=== PATIENT | male | born 1965 | race Caucasian/White ===

== ENCOUNTER → 2018-01-12 10:16 | Outpatient (REF) | payer MEDICAID, SELFPAY ==
[2018-01-12 13:44] LABS: Basophils # 0.1 K/mm3 (0-0.2); Basophils % 0.5 % (0.1-2.0); Eosinophils # 0.3 K/mm3 (0.0-0.4); Eosinophils % 3.1 % (0.1-12.0); Hematocrit 42.6 % (42.0-52.0); Hemoglobin 14.3 g/dL (14.1-18.0); Lymphocytes % 29.6 K/mm3 (10-50); Mean Corpuscular HGB Conc 33.5 g/dL (31.8-35.4); Mean Corpuscular Hemoglobin 31.1 pg (27.0-31.2); Mean Corpuscular Volume 93.1 fl (80-94); Mean Platelet Volume 9.2 fl (7.4-10.4); Monocytes # 0.8 K/mm3 (0.1-1.0); Monocytes % 7.5 % (1.7-9.3); Neutrophils % 59.2 % (37.0-80.0); Platelet Count 171 K/mm3 (142-424); Red Blood Count 4.58 M/mm3 (4.60-6.20); Red Cell Distribution Width 13.3 % (11.5-17.5); White Blood Count 10.1 K/mm3 (4.8-10.8)
[2018-01-12 13:49] LABS: Alanine Aminotransferase 55 U/L (12-78); Albumin Level 3.4 gm/dL (3.4-5.0); Albumin/Globulin Ratio 1.1 (1.1-1.8); Alkaline Phosphatase 83 U/L (46-116); Anion Gap 10.7 mEq/L (5-15); Aspartate Amino Transferase 24 U/L (15-37); Bilirubin,Total 0.2 mg/dL (0.2-1.0); Blood Urea Nitrogen 11 mg/dL (7-18); Calcium 8.6 mg/dL (8.5-10.1); Carbon Dioxide 28 mmol/L (21.0-32.0); Chloride 107 mmol/L (98-107); Chol/HDL Ratio 4.3 (1-3.5); Cholesterol 150 mg/dL (140-200); Creatinine,Serum 0.84 mg/dL (0.70-1.30); Estimated Glomerular Filt Rate 96 ml/min (>60); GFR (African American) 116 ML/MIN (>60); Globulin 3.1 gm/dl (1.3-3.2); Glucose 89 mg/dL (74-106); HDL Cholesterol 35 mg/dL (27-67); LDL Cholesterol 91 mg/dL (0-130); Potassium 4.7 mmoL/L (3.5-5.1); Sodium 141 mmol/L (136-145); T4 (Thyroxine) 8.1 ug/dl (4.7-13.3); Thyroid Stimulating Hormone 3.78 uIU/ml (0.358-3.740); Total Protein,Serum 6.5 gm/dL (6.4-8.2); Triglycerides 122 mg/dL (30-200); VLDL Cholesterol 24 mg/dL (0-40)
[2018-01-13 08:52] LABS: Vitamin D 25 Hydroxy 24.8 ng/mL (30.0-100.0)
== END ==
LOC: LAB 10:16
PROVIDERS: Visit Provider Physician Assistant
DX: R07.9 Chest pain, unspecified (principal)
CPT/HCPCS: 80053; 80061; 82652; 84436; 84443; 85025

== ENCOUNTER → 2018-01-13 08:41 | Outpatient (CLI) | payer MEDICAID, SELFPAY | PROVIDERS: Visit Provider Physician Assistant | DX: R07.9 Chest pain, unspecified (principal) ==

== ENCOUNTER → 2018-01-20 12:37 | Outpatient (CLI) | payer MEDICAID, SELFPAY ==
--- NOTE | 2018-01-20 12:42 | CA_ITS ---
PROCEDURE: 2-D M-mode and color Doppler study INDICATIONS FOR THE TEST: Chest pain+ COPD Heart Murmur+ Tobacco Smoking+ Palpitations+ Fatigue Syncope Edema+ Hypertension Diabetes Mellitus Rheumatic Fever+ SOB+MARTINEZ Obesity Hyperlipidemia Family History HD+ Additional History dizziness, hx of rheumatic fever, marijuana usage PATIENT INFORMATION HEIGHT: 72 WEIGHT:270 GENDER: Male B/P: 118/74 2-D/M-MODE INTERPRETATION: 2-D MEASUREMENTS OBSERVED VALUES IN CMS Right Ventricular Dimension (RVDd) 3.0 Interventricular Septum (Thickness)(IVsd) 1.9 Left Ventricular Internal Dimensions(LVIDd) 5.4 Left Ventricular Posterior Wall (Thickness)(LVPWd) 1.3 Aortic Root 3.3 Aortic Cusp Separation Left Atrial Dimensions (LAD) 3.9 2D 1. Left atrium is mildly enlarged, left ventricle is normal size, mild concentric left ventricular hypertrophy, visually estimated ejection fraction 55% with no regional wall motion abnormality. 2. The right atrium and right ventricle are mildly enlarged with normal contractility. 3. The aortic valve is heavily thickened and calcified with severe restriction the leaflet mobility. 4. The mitral and tricuspid valve leaflets are minimally thickened. 5. The pulmonic valve is poorly visualized. 6. No significant pericardial effusion noted. DOPPLER INTERROGATION: 1. The maximum aortic out flow velocity recorded study 4.5 m/s, resulting in a mean gradient across valve of 58 mmHg, valve area is not accurately calculated, this likely represents severe aortic stenosis, there is severe aortic insufficiency present. 2. The mitral inflow velocity within normal range, there is no mitral stenosis, there is mild mitral regurgitation, grade 1 diastolic dysfunction seen with tissue Doppler evidence of raised left atrial pressure. 3. Mild tricuspid regurgitation, tricuspid regurgitation jet velocity is inadequate for calculation of the right ventricular systolic pressure. CONCLUSION: 1. Mildly enlarged left atrium, normal left ventricular size, mild concentric left ventricular hypertrophy, visually estimated ejection fraction 55% with no regional wall motion abnormality, grade 1 diastolic dysfunction seen with tissue Doppler evidence of raised left atrial pressure. 2. Mildly enlarged right ventricle with normal contractility. 3. Thickened and calcified aortic valve with mean gradient across valve of 58 mmHg represents severe aortic stenosis, there is severe aortic insufficiency present. 4. Mild mitral and tricuspid regurgitation 5. No significant pericardial effusion not
--- NOTE | 2018-01-20 12:42 | XR_ITS ---
XR chest 2V HISTORY: ITS.REASON: Dyspnea, smoker ORDERING PHYSICIAN: MALIA Osborne PATIENT AGE: 52 years COMPARISON: None FINDINGS: The cardiomediastinal silhouette and pulmonary vascularity are within normal limits. The lungs are clear without infiltrates, suspicious nodules, or pleural effusions. No acute bony abnormalities. IMPRESSION: Negative chest, no acute finding
== END ==
PROVIDERS: PCP Physician Assistant; Visit Provider Physician Assistant
DX: R01.1 Cardiac murmur, unspecified (principal); R06.02 Shortness of breath
CPT/HCPCS: 71046; 93306

== ENCOUNTER 2018-04-28 08:35 | Outpatient (RCR) | payer MEDICAID, SELFPAY | END 2018-06-24 08:55 | disposition home or self-care (01) | LOC: PT 08:35 | PROVIDERS: Visit Provider Internal Medicine Cardiovascular Disease | DX: Z95.2 Presence of prosthetic heart valve (principal) ==

== ENCOUNTER → 2018-04-30 09:27 | Outpatient (CLI) | payer MEDICAID, SELFPAY | PROVIDERS: PCP Physician Assistant; Visit Provider Physician Assistant | DX: R06.00 Dyspnea, unspecified (principal) ==

== ENCOUNTER → 2018-08-06 13:26 | Outpatient (CLI) | payer MEDICAID, SELFPAY ==
[2018-08-06 16:53] LABS: Anion Gap 12.9 mEq/L (5-15); Blood Urea Nitrogen 12 mg/dL (7-18); Calcium 9.1 mg/dL (8.5-10.1); Carbon Dioxide 28 mmol/L (21.0-32.0); Chloride 103 mmol/L (98-107); Creatinine,Serum 1.02 mg/dL (0.70-1.30); Estimated Glomerular Filt Rate 76 ml/min (>60); GFR (African American) 92 ML/MIN (>60); Glucose 89 mg/dL (74-106); Potassium 4.9 mmoL/L (3.5-5.1); Sodium 139 mmol/L (136-145)
== END ==
PROVIDERS: Visit Provider Nurse Practitioner Family
DX: R60.9 Edema, unspecified (principal)
CPT/HCPCS: 80048

== ENCOUNTER → 2018-11-02 10:47 | Outpatient (CLI) | payer MEDICAID, SELFPAY ==
--- NOTE | 2018-11-02 10:56 | US_ITS ---
US Testicular CLINICAL INDICATION: Left testicular pain ORDERING PHYSICIAN: Kaushal Kuo MD PATIENT AGE: 53 years Comparison: None FINDINGS: Right testicle is 4.4 x 3.3 x 2.7 cm. Blood flow is present to the right testicle. The epididymis has an unremarkable appearance no evidence of right testicular mass. Left testicle 4.1 x 3 x 3 cm. Blood flow is present. There is a heterogeneous area of echogenicity along the lower pole of left testicle measuring 18 x 13 mm. This is not completely separable from the testicle itself. Although there is increased blood flow to left testicle, there is not increased blood flow to this lesion. There is a small left hydrocele. IMPRESSION: Heterogeneous exophytic nodule along the lower pole of the left testicle posteriorly 2 x 1 cm. It is uncertain whether this represents a nodule extending from the testicle or within the lower aspect of the epididymis. Neoplasm is a consideration. Focal epididymitis within the lower pole of epididymis would be included in the differential diagnosis. Follow-up is suggested. There is a small left hydrocele. Urological consult suggested
== END ==
PROVIDERS: PCP Physician Assistant; Visit Provider Emergency Medicine
DX: N50.819 Testicular pain, unspecified (principal); N50.89 Other specified disorders of the male genital organs
CPT/HCPCS: 76870

== ENCOUNTER → 2018-11-16 08:04 | Outpatient (CLI) | payer MEDICAID, SELFPAY ==
--- NOTE | 2018-11-16 08:05 | CT_ITS ---
PROCEDURE: CT ABDOMEN PELVIS WO/W CON CLINICAL INDICATION: RENAL MASS Renal mass evaluation, urinary tract infection [facility] wo con [facility] 10/30/2018 TECHNIQUE: IV Contrast: 75ML OPTIRAY 350 pre and post enhanced images are obtained with delayed images of the kidneys. Oral Contrast none Axial images obtained with sagittal and coronal reformats. All CT scans at the facility use one or more dose reduction, viz: automated exposure control, ma/kV adjustment per patient size (including targeted exams where dose is matched to indication, i.e. head), or iterative reconstruction technique. FINDINGS: No acute finding in the lung bases. The liver, gallbladder, spleen, pancreas, and adrenal glands have an unremarkable appearance. There is a 4.3 cm hypoattenuating mass in the upper pole of the right kidney. There is some minimal calcification along the mid and upper aspect of the lesion posteriorly similar to the previous exam. This does not demonstrate any significant enhancement or thickened wall. The left kidney has an unremarkable appearance. No renal or ureteral calculi. No hydronephrosis. Unremarkable appendix. There are few scattered colonic diverticula without diverticulitis. The urinary bladder wall is slightly thickened but could be due to the nondistended nature. No pelvic mass abnormal fluid collection or focal inflammatory change of the pelvis. No acute bony findings. IMPRESSION: 4 cm right renal cyst with some thin calcification without enhancement or perceptible wall indicating a Bosniak class 2 cyst. Recommend six-month follow-up to confirm stability. Dictated by: Stephen Richards MD 11/18/2018 06:22 Signed by: <Electronically signed by Stephen Richards MD in [place]> 11/18/2018 06:22
== END ==
PROVIDERS: PCP Physician Assistant; Visit Provider Urology
DX: N28.89 Other specified disorders of kidney and ureter (principal)
CPT/HCPCS: 74178; Q9967

== ENCOUNTER → 2019-09-21 14:48 | Outpatient (CLI) | payer MEDICAID, SELFPAY ==
[2019-09-21 16:05] LABS: Anion Gap 10.5 mEq/L (5-15); Blood Urea Nitrogen 9 mg/dl (9-20); Calcium 10.2 mg/dl (8.4-10.2); Carbon Dioxide 31 mmol/L (22.0-30.0); Chloride 98 mmol/L (98-107); Estimated Glomerular Filt Rate 88 ml/min (>60); GFR (African American) 106 ML/MIN (>60); Glucose 109 mg/dl (74-100); Potassium 4.5 mmoL/L (3.5-5.1); Sodium 135 mmol/L (136-145)
== END ==
PROVIDERS: Visit Provider Internal Medicine Cardiovascular Disease
DX: I35.9 Nonrheumatic aortic valve disorder, unspecified (principal)
CPT/HCPCS: 36415; 80048

== ENCOUNTER 2024-02-29 12:53 | Observation (INO) | payer OTHER, SELFPAY ==
[2024-02-29 12:54] VITALS: BP 150/84; PULSE 70; RESP 16; O2SAT 96; BMI 38.0
--- NOTE | 2024-02-29 12:55 | CT_ITS ---
PROCEDURE INFORMATION: Exam: CT Head Without Contrast Exam date and time: 02/29/2024 12:58 PM Age: 58 years old Clinical indication: Stroke-like symptoms; Speech disturbance; Additional info: Speech deficit, rue weakness TECHNIQUE: Imaging protocol: Computed tomography of the head without contrast. Radiation optimization: All CT scans at this facility use at least one of these dose optimization techniques: automated exposure control; mA and/or kV adjustment per patient size (includes targeted exams where dose is matched to clinical indication); or iterative reconstruction. Other technique: STROKE PROTOCOL was implemented. COMPARISON: No relevant prior studies available. 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 No acute intracranial hemorrhage. No intra- or extra-axial fluid collection. No mass effect or midline shift. No evidence of acute/subacute vascular territory infarct. Cerebral ventricles: No hydrocephalus. Paranasal sinuses: No air fluid levels in the visualized paranasal sinuses. Mastoid air cells: Visualized mastoid air cells are clear. Bones: No evidence of acute calvarial or skull base fracture. Soft tissues: Unremarkable. IMPRESSION: No evidence of acute intracranial hemorrhage or acute/subacute vascular territory infarct. ASSESSMENT: ASPECTS ([facility] Stroke Program Early CT Score) is 10.
--- NOTE | 2024-02-29 12:55 | CT_ITS ---
PROCEDURE INFORMATION: Exam: CTA Neck With Contrast Exam date and time: 02/29/2024 1:05 PM Age: 58 years old Clinical indication: Stroke-like symptoms; Speech disturbance; Additional info: Speech deficit, rue weakness TECHNIQUE: Imaging protocol: Computed tomographic angiography of the neck with contrast. Exam focused on the cervical segments of the vasculature. 3D rendering (Not supervised by radiologist): MIP and/or 3D reconstructed images were created by the technologist. Radiation optimization: All CT scans at this facility use at least one of these dose optimization techniques: automated exposure control; mA and/or kV adjustment per patient size (includes targeted exams where dose is matched to clinical indication); or iterative reconstruction. Contrast material: ISOVUE 370; Contrast volume: 80 ml; Contrast route: INTRAVENOUS (IV); COMPARISON: CT ANGIO HEAD 02/29/2024 1:05 PM FINDINGS: Right common carotid artery: No stenosis. No dissection or occlusion. Right internal carotid artery: No stenosis of the extracranial segment. No dissection or occlusion. Right external carotid artery: No occlusion or stenosis of the origin. Left common carotid artery: No stenosis. No dissection or occlusion. Left internal carotid artery: No stenosis of the extra-cranial segment. No dissection or occlusion. Left external carotid artery: No occlusion or stenosis of the origin. Right vertebral artery: No stenosis. No dissection or occlusion. Left vertebral artery: No stenosis. No dissection or occlusion. Soft tissues: Unremarkable. Bones/joints: Multi-level degenerative changes in the cervical spine result in varying degrees of spinal canal stenosis and neuroforaminal narrowing, most prominent from C5-C7. Notably there is severe bilateral neuroforaminal narrowing at C5-C6 secondary to degenerative uncovertebral and facet hypertrophy, right greater than left. No evidence of acute osseous abnormality. IMPRESSION: 1. No evidence of occlusion, significant stenosis, dissection or aneurysm in the extracranial cerebral arteries. 2. Multi-level degenerative changes in the cervical spine result in varying degrees of spinal canal stenosis and neuroforaminal narrowing, as detailed above. 3. Concurrent head CTA reported separately. REFERENCES: NASCET CRITERIA. The degree of stenosis in the cervical segment of the internal carotid artery is based on NASCET criteria. Normal is no stenosis. Mild is less than 50% stenosis. Moderate is 50-69% stenosis. Severe is 70% to 99% stenosis. Total occlusion is no detectable patent lumen.
--- NOTE | 2024-02-29 12:55 | CT_ITS ---
PROCEDURE INFORMATION: Exam: CTA Head With Contrast, Arteriography Exam date and time: 02/29/2024 1:05 PM Age: 58 years old Clinical indication: Stroke-like symptoms; Speech disturbance; Additional info: Speech deficit, rue weakness TECHNIQUE: Imaging protocol: Computed tomographic angiography of the head with contrast. Exam focused on the arteries. 3D rendering (Not supervised by radiologist): MIP and/or 3D reconstructed images were created by the technologist. Radiation optimization: All CT scans at this facility use at least one of these dose optimization techniques: automated exposure control; mA and/or kV adjustment per patient size (includes targeted exams where dose is matched to clinical indication); or iterative reconstruction. Contrast material: ISOVUE 370; Contrast volume: 80 ml; Contrast route: INTRAVENOUS (IV); COMPARISON: CT HEAD/BRAIN WO CON 02/29/2024 12:58 PM FINDINGS: ANTERIOR CIRCULATION: Right internal carotid artery: Intracranial segment is patent with no significant stenosis. No aneurysm. Right middle cerebral artery: No occlusion or significant stenosis. No aneurysm. Right anterior cerebral artery: No occlusion or significant stenosis. No aneurysm. Left internal carotid artery: Intracranial segment is patent with no significant stenosis. No aneurysm. Left middle cerebral artery: No occlusion or significant stenosis. No aneurysm. Left anterior cerebral artery: No occlusion or significant stenosis. No aneurysm. POSTERIOR CIRCULATION: Right vertebral artery: No occlusion or significant stenosis. No aneurysm. Left vertebral artery: No occlusion or significant stenosis. No aneurysm. Basilar artery: No occlusion or significant stenosis. No aneurysm. Right posterior cerebral artery: No occlusion or significant stenosis. No aneurysm. Left posterior cerebral artery: No occlusion or significant stenosis. No aneurysm. Brain: No abnormally enhancing brain lesion, mass effect, or midline shift. Cerebral ventricles: No hydrocephalus. Bones/joints: No acute calvarial or skull base fracture. Soft tissues: Unremarkable. IMPRESSION: 1. No evidence of occlusion, significant stenosis, dissection or aneurysm in the intracranial cerebral arteries. 2. Concurrent neck CTA reported separately. PROCEDURE INFORMATION: Exam: CT Maxillofacial With Contrast Exam date and time: 02/29/2024 1:05 PM Age: 58 years old Clinical indication: Stroke-like symptoms; Speech disturbance; Additional info: Speech deficit, rue weakness TECHNIQUE: Imaging protocol: Computed tomography of the face with contrast. Radiation optimization: All CT scans at this facility use at least one of these dose optimization techniques: automated exposure control; mA and/or kV adjustment per patient size (includes targeted exams where dose is matched to clinical indication); or iterative reconstruction. COMPARISON: CT HEAD/BRAIN WO CON 02/29/2024 12:58 PM FINDINGS: Paranasal sinuses: No air-fluid levels. Orbital cavities: Globes and orbital structures are unremarkable. No evidence of retrobulbar hematoma. Teeth: Left maxillary premolar and right mandibular premolar periapical lucencies consistent with odontogenic abscesses. Both periapical abscesses have evidence of osteolysis and erosion of the overlying bony cortex without evidence of extraosseous extension of abscess. Bones: No evidence of acute fracture. Bilateral temporomandibular joints are congruent. Pterygoid plates and lamina papyracea are intact. Soft tissues: Unremarkable. IMPRESSION: Left maxillary premolar periapical lucency and right mandibular premolar periapical lucency consistent with odontogenic abscesses.
--- NOTE | 2024-02-29 12:55 | PC.NURSE ---
Patient to CT.
--- NOTE | 2024-02-29 12:59 | PC.NURSE ---
Dr. Moore to Radiology CT viewing area.
[2024-02-29 13:04] LABS: Basophils # 0.2 K/mm3 (0-0.2); Basophils % 1.5 % (0.1-2.0); Eosinophils # 0.2 K/mm3 (0.0-0.4); Eosinophils % 2.1 % (0.1-12.0); Hematocrit 48.3 % (42.0-52.0); Hemoglobin 16.6 g/dL (14.1-18.0); Lymphocytes # 2.8 K/mm3 (0.7-4.5); Lymphocytes % 25.6 % (10-50); Mean Corpuscular HGB Conc 34.4 g/dL (31.8-35.4); Mean Corpuscular Hemoglobin 32.4 pg (27.0-31.2); Mean Corpuscular Volume 94.1 fl (80-94); Mean Platelet Volume 10.7 fl (7.4-10.4); Monocytes # 0.7 K/mm3 (0.1-1.0); Monocytes % 6.4 % (1.7-9.3); Neutrophils # 6.9 K/mm3 (1.8-7.8); Neutrophils % 64.4 % (37.0-80.0); Platelet Count 169 K/mm3 (142-424); Red Blood Count 5.13 M/mm3 (4.60-6.20); Red Cell Distribution Width 13.9 % (11.5-17.5); White Blood Count 10.8 K/mm3 (4.8-10.8)
[2024-02-29] MEDS: IOPAMIDOL-370 (76%);100ML BOTTLE 80 ML IV (13:08)
--- NOTE | 2024-02-29 13:16 | ECG_ITS ---
APPROVED REPORT Exam: Resting ECG HR:67 bpm ECG Measurements Heart Rate 67 AXES AZ 168 P 47 QRSd 114 QRS 38 QT 386 T 141 QTc 401 Conclusion Sinus rhythm T wave inversions without reciprocal change Electronically signed by : JOSEFINA RIOS, 02/29/2024 15:24:25
--- NOTE | 2024-02-29 13:25 | PC.NURSE ---
Dr. Moore s/w [facility] regarding transfer
--- NOTE | 2024-02-29 13:26 | PC.NURSE ---
Dr. Moore s/w [facility]
[2024-02-29 13:31] LABS: Albumin Level 3.4 g/dl (3.5-5.0); Chloride 105 mmol/L (98-107); Potassium 4.3 mmoL/L (3.5-5.1); Sodium 135 mmol/L (136-145)
[2024-02-29 13:33] LABS: Alanine Aminotransferase 29 U/L (12-78); Anion Gap 6.3 mEq/L (5-15); Aspartate Amino Transferase 33 U/L (17-59); Blood Urea Nitrogen 10 mg/dl (9-20); Carbon Dioxide 28 mmol/L (22.0-30.0); Creatinine Clearance Estimated 145 mL/min (50-200); Estimated Glomerular Filt Rate 77 ml/min (>60); GFR (African American) 93 ML/MIN (>60)
[2024-02-29 13:34] LABS: Albumin/Globulin Ratio 1.3 (1.1-1.8); Globulin 2.7 g/dL (1.3-3.2); Total Protein,Serum 6.1 g/dl (6.3-8.2)
[2024-02-29 13:35] LABS: Activated Partial Thrombo Time 24.6 seconds (22.8-30.6); INR 0.96 (0.9-1.1); Prothrombin Time 10.8 seconds (10.1-12.5)
[2024-02-29 13:45] LABS: Direct LDL Cholesterol 87.75 mg/dL (100-129)
--- NOTE | 2024-02-29 13:56 | ED_ITS ---
Discharge Plan Disposition Patient Disposition: Admitted Chief Complaint: Neuro Symptoms/Deficit Prescriptions Prescriptions: No Action aspirin [Adult Low Dose Aspirin] 81 mg tablet,delayed release (DR/EC) 81 mg PO DAILY metoprolol succinate 50 mg tablet extended release 24 hr 50 mg PO DAILY acetaminophen-codeine [Tylenol-Codeine #3] 300-30 mg tablet 1 tab PO DAILY PRN ergocalciferol (vitamin D2) 50,000 UNIT capsule 50,000 unit PO QWEEK levofloxacin 500 MG tablet 500 mg PO DAILY Qty: 7 0RF Clinical Impressions Clinical Impression: Transient neurological symptoms Print Language Print Language: Sammarinese Discharge ED Provider: Akira Moore General Adult HPI General Chief complaint: Neuro Symptoms/Deficit Stated complaint: Poss CVA Time Seen by Provider: 02/29/24 12:55 Mode of Arrival: EMS Source of Information: Patient Limitations: No Limitations Description of Symptoms (Recalled from ER Triage Doc. by RN): Patient reports being at [facility] at approx 945 this morning when he began to have difficulty talking, numbness and weakness in his right hand and felt funny. History of Present Illness HPI narrative: Please note that above description of symptoms, in this electronic medical record under categorization of recalled from ER triage doctor by RN are reflective of an initial nursing assessment, however, is not reflective of my full history and physical exam that was personally taken and clarified. Consequentially, this preceding description of symptoms, which may include the patient's categorized chief complaint in the EMR, do not reflect my personal clinical impression, and the ultimate description of history of present illness and patient stated complaints should be deferred to this section of the note. Unless stated otherwise or congruent with this section of the note, additional signs, symptoms, or incongruence should be interpreted as inaccurate with my clinical impression. Related Data Home Medications ?Medication ?Instructions ?Recorded ?Confirmed aspirin 81 mg tablet,delayed 81 mg PO DAILY heart health 08/06/18 11/19/18 release (Adult Low Dose Aspirin) metoprolol succinate 50 mg 50 mg PO DAILY BP 08/06/18 11/19/18 tablet,extended release 24 hr ergocalciferol (vitamin D2) 1,250 50,000 unit PO QWEEK Supplement 10/30/18 11/19/18 mcg (50,000 unit) capsule acetaminophen 300 mg-codeine 30 mg 1 tab PO DAILY PRN 11/02/18 11/19/18 tablet (Tylenol-Codeine #3) Previous Rx's ?Medication ?Instructions ?Recorded levofloxacin 500 mg tablet 500 mg PO DAILY #7 tabs 10/30/18 Allergies Allergy/AdvReac Type Severity Reaction Status Date / Time penicillin G Allergy Mild Hives Verified 11/19/18 10:44 [facility] Disclaimer: The information contained in this section may have been updated after the patient was seen, as this information can be updated by other users. Medical History (Updated 02/29/24 @ 15:22 by Akira Moore MD) Vitamin D deficiency Surgical History (Updated 04/21/18 @ 12:49 by MALIA Camarena) H/O aortic valve replacement Social History Smoking Status: Current every day smoker tobacco type: cigarettes packs per day: 1 alcohol intake: never substance use type: marijuana current occupational status: employed Other Medical History Have you received the Flu Vaccine for this season: Yes Have you received the Pneumonia Vaccine: No ROS Obtained: Yes All systems reviewed & no additional complaints except as documented Physical Exam General General appearance: alert and obese Head Head exam: atraumatic and normocephalic Eye Eye exam: Present normal appearance, PERRL and EOMI Neck Neck exam: Present normal inspection, full ROM and trachea midline Respiratory Respiratory exam: Absent respiratory distress, wheezes, stridor, accessory muscle use or prolonged expiratory phase Cardiovascular Cardiovascular exam: Present other (Pulses equal symmetric in upper and lower extremities) Abdominal Exam Abdominal exam: Present soft; Absent distention, tenderness or pulsatile mass Extremities Exam Extremities exam: Absent edema Neurological Exam Neurological exam: Present alert, oriented X3, CN II-XII intact and normal gait; Absent motor sensory deficit Skin Skin exam: Present warm and dry; Absent diaphoresis or erythema Medical Decision Making Medical Records Medical records reviewed: Yes I reviewed the patient's medical records. Screening: Per USPSTF and CDC recommendations, given the prevalence of disease in our region, it is our hospital?s policy to screen for HIV and viral Hepatitis for all patients aged 18 and over and those with ongoing risk factors. [place] Inquiry Pt receiving controlled substance: No Bou[place]ar was queried for this patient: No Vital Signs: 02/29/24 12:54 Pulse Rate [Radial] 70 Respiratory Rate 16 Blood Pressure [Right Arm] 150/84 H Blood Pressure Mean [Right Arm] 106 Blood Pressure Source [Right Arm] Manual Cuff/ Auscultation Blood Pressure Position [Right Arm] Supine 02 Sat by Pulse Oximetry 96 Oxygen Delivery Method Room Air Lab Data Lab Results 02/29/24 12:55: WBC 10.8, RBC 5.13, Hgb 16.6, Hct 48.3, MCV 94.1 H, MCH 32.4 H, MCHC 34.4, RDW 13.9, Plt Count 169, MPV 10.7 H, Neut % (Auto) 64.4, Lymph % (Auto) 25.6, Garden % (Auto) 6.4, Eos % (Auto) 2.1, Baso % (Auto) 1.5, Neut # (Auto) 6.9, Lymph # (Auto) 2.8, Garden # (Auto) 0.7, Eos # (Auto) 0.2, Baso # (Auto) 0.2 02/29/24 13:12: HIV 1&2 Antibody Rapid Nonreactive 02/29/24 13:14: PT 10.8, INR 0.96, APTT 24.6, Sodium 135 L, Potassium 4.3, Chloride 105, Carbon Dioxide 28, Anion Gap 6.3, BUN 10, Creatinine 1.00, Estimated Creat Clear 145, Estimated GFR 77, Est GFR ( Amer) 93, Glucose 106 H, Hemoglobin A1c 5.7, Calcium 8.6, Total Bilirubin 0.5, AST 33, ALT 29, Alkaline Phosphatase 67, Troponin I < 0.01, Total Protein 6.1 L, Albumin 3.4 L, Globulin 2.7, Albumin/Globulin Ratio 1.3, Triglycerides 91, Cholesterol 131 L, L DL Cholesterol Direct 87.75 L, VLDL Cholesterol 18, HDL Cholesterol 28 L, C holesterol/HDL Ratio 4.7 H, Plasma/Serum Alcohol < 10 02/29/24 12:55 02/29/24 13:14 Orders (Tests/Meds): ED MEDICATIONS Generic Name Dose Route Start Last Admin Trade Name Freq PRN Reason Stop Dose Admin Sodium Chloride 10 ml 02/29/24 12:55 Sodium Chloride 0.9% 10ml Flush Syringe IV 03/30/24 12:54 NEEDED PRN Maintain IV Site Discontinued Medications Generic Name Dose Route Start Last Admin Trade Name Freq PRN Reason Stop Dose Admin Iopamidol 80 ml 02/29/24 13:06 02/29/24 13:08 Iopamidol-370 (76%);100ml Bottle IV 02/29/24 13:07 80 ml ONCE ONE Administration Sodium Chloride 10 ml 02/29/24 13:06 02/29/24 15:09 Sodium Chloride 0.9% 10ml Syr (Rad Only) IV 02/29/24 13:07 Not Given ONCE ONE ORDERS Category Date Time Status CT angio head Stat Cat Scan 02/29/24 12:[address] angio neck Stat Cat Scan 02/29/24 12:[address] head/brain wo con Stat Cat Scan 02/29/24 12:55 Completed Activated Partial Thrombo Time Stat Lab 02/29/24 13:14 Completed Complete Blood Count Auto Diff AMLAB Lab 03/01/24 06:00 Ordered Complete Blood Count Auto Diff Stat Lab 02/29/24 12:55 Completed Comprehensive Metabolic Panel AMLAB Lab 03/01/24 06:00 Ordered Comprehensive Metabolic Panel Stat Lab 02/29/24 13:14 Completed Ethyl Alcohol Stat Lab 02/29/24 13:14 Completed HIV (1&2) Antibody Rapid Stat Lab 02/29/24 13:12 Completed Hemoglobin A1C Stat Lab 02/29/24 13:14 Completed Hep C Ab with Reflex to RNA Stat Lab 02/29/24 13:12 Received Lipid Panel Stat Lab 02/29/24 13:14 Completed Magnesium AMLAB Lab 03/01/24 06:00 Ordered Prothrombin Time INR Stat Lab 02/29/24 13:14 Completed Troponin I Q3H Lab 02/29/24 16:00 Ordered Troponin I Q3H Lab 02/29/24 19:00 Ordered Troponin I Stat Lab 02/29/24 13:14 Completed Urinalysis and Microscopic Stat Lab 02/29/24 14:39 Received Medical Decision Narrative: 58-year-old male history of aortic valve replacement secondary to rheumatic fever presenting with strokelike symptoms. [facility] this morning about 3 hours prior to this visit. Got to the checkout line, was unable to say the things that he wanted to say, felt frustrated that he was unable to get any of his words out and felt that his right upper extremity did not exactly feel right. Got home shortly thereafter, was trying to bring groceries in, realizes his right upper extremity was weak and he had near no embroiderer hand strength in his right hand. Because of this, called EMS and was brought in for further evaluation. By the time EMS arrived, both EMS and patient states that his symptoms had largely resolved. No right lower extremity symptoms. No balance symptoms or falling to 1 side or the other. No chest pain, shortness of breath, vision changes, or any other concerns. History obtained with patient and EMS. On arrival, patient very well-appearing. NIHSS 0 on my exam. Cardiac exam with right upper sternal border murmur radiating to the carotids. No diastolic murmur heard. No lower extremity pitting edema. Neurologically intact including cranial nerve, cerebellar, motor and sensory exams. Ambulated from stretcher to bed without issue. Patient taken directly to the CT scanner. On independent interpretation of CT, patient has no acute intracranial hemorrhage or intracranial abnormality acutely, but does have multiple punctate calcifications concerning for previous infectious process. CT angiogram of the head and neck independently interpreted and no acute stenosis or CVA. Patient placed on continuous pulse oximetry and cardiac nurse practitioner. Initial blood pressure 150/84, pulse rate 70, 96% on room air. EKG independently interpreted, patient does have T wave inversions without ST elevations or depressions in V4 through V6, 1 and aVL. Sinus rhythm 67 beats a minute with OH interval 168, QRS 114, QTc 401. Normal axis. Labs independently interpreted and significant for nonactionable CBC, chemistry, troponin, A1c, or lipid panel. Alcohol level negative. Given resolved symptoms, abnormal findings on CT, I feel patient is appropriate for inpatient admission, echo and MRI. Hospitalist was contacted and case was discussed, agreeable to admission. Because patient high risk for clinical decompensation, deemed appropriate for inpatient admission. Results were relayed to patient who voiced understanding and patient was agreeable to inpatient admission and management. Patient was admitted to the hospital for further definitive management.. Grief Counsellor disclaimer Much of this encounter note is an electronic gyro compass tester spoken language to printed text. Electronic gyro compass tester of the spoken language may permit errors. Although I have reviewed the note, some errors may still exist. Critical Care Critical Care Time Critical Care Time: No
[2024-02-29 14:30] LABS: Hemoglobin A1C 5.7 % (4.0-6.0); Troponin I < 0.01 ng/ml (0.00-0.034)
[2024-02-29 14:33] LABS: Alkaline Phosphatase 67 U/L (38-126); Bilirubin,Total 0.5 mg/dl (0.2-1.3); Calcium 8.6 mg/dl (8.4-10.2); Chol/HDL Ratio 4.7 (1-3.5); Cholesterol 131 mg/dl (140-200); Glucose 106 mg/dl (74-100); HDL Cholesterol 28 mg/dl (40-60); Triglycerides 91 mg/dl (30-150); VLDL Cholesterol 18 mg/dL (0-40)
[2024-02-29 14:39] LABS: Ethyl Alcohol < 10 mg/dl (0-10)
[2024-02-29 14:45] LABS: Microscopic, Urine URINE MICROSCOPIC (MICROSCOPIC)
[2024-02-29 14:46] LABS: Appearance,Urine CLEAR (Clear); Bilirubin,Urine Negative (Negative); Blood, Urine TRACE-I (Negative); Color,Urine YELLOW (Yellow); Glucose,Urine (UA) Negative (Negative); Ketones,Urine Negative (Negative); Leukocyte Esterase,Urine Negative (Negative); Nitrate,Urine Negative (Negative); PH,Urine 7.5 (5.0-8.5); Protein,Urine Negative (Negative); Specific Gravity, Urine 1.015 (1.005-1.030)
[2024-02-29 15:07] LABS: HIV (1&2) Antibody Rapid NONREACTIVE (NONREACTIVE)
--- NOTE | 2024-02-29 15:08 | PC.NURSE ---
Dr. Moore s/w Dr. Rg
--- NOTE | 2024-02-29 15:23 | P.HP_ITS ---
History of Present Illness *Admission Date: 02/29/24 *Reason for visit:: aphasia, RUE weakness *History of present illness: Mr. Rojas is a 58-year-old male with history of hypertension and rheumatic fever necessitating aortic valve replacement. Presented to the ER this morning via EMS after having an episode at [facility] where he felt weak and had difficulty completing his checkout. Concern for word finding difficulty and became frustrated. Able to complete his checkout order but did not quite feel back to normal. Got home shortly thereafter and was trying to bring his groceries and when he noticed he had nearly no superintendent power in his right hand. EMS was called. On arrival, the symptoms had largely resolved. No right lower extremity symptoms. Patient did not have any fall or loss of consciousness. Denies any chest pain or shortness of breath. Brought to the ER for further management. On arrival, NIH of 0. CT of head obtained showing punctate cerebral calcifications. No acute findings however. Necessitating admission for evaluation for TIA. Medicine consulted for further management. On arrival to the floor, patient is alert and oriented x 4. Marginal weakness in right hand compared to left but superintendent power strength still 5/5 bilaterally. Stable on room air. No other significant complaints. [facility] Disclaimer: The information contained in this section may have been updated after the patient was seen, as this information can be updated by other users. Medical History Vitamin D deficiency Surgical History H/O aortic valve replacement Social History Smoking Status: Current every day smoker tobacco type: cigarettes packs per day: 1 alcohol intake: never substance use type: marijuana current occupational status: employed Other Medical History Have you received the Flu Vaccine for this season: Yes Have you received the Pneumonia Vaccine: No Review of Systems Review of Systems Review of systems (narrative): 14 point review of systems performed, pertinent positives and negatives as per HPI Meds Home Medications and Allergies Home Medications ?Medication ?Instructions ?Recorded ?Confirmed ?Type aspirin 81 mg tablet,delayed 81 mg PO DAILY heart health 08/06/18 02/29/24 History release (Adult Low Dose Aspirin) metoprolol succinate 50 mg 50 mg PO DAILY BP 08/06/18 02/29/24 History tablet,extended release 24 hr New Prescriptions to Start Prescriptions: Allergies Allergy/AdvReac Type Severity Reaction Status Date / Time penicillin G Allergy Mild Hives Verified 11/19/18 10:44 Exam Data for Last 24 hours Vital signs and Labs for Last 24 Hours: Pulse Resp BP Pulse Ox O2 Del Method 70 16 150/84 H 96 Room Air 02/29/24 12:54 02/29/24 12:54 02/29/24 12:54 02/29/24 12:54 02/29/24 12:54 Laboratory Results - last 24 hr 02/29/24 12:55: WBC 10.8, RBC 5.13, Hgb 16.6, Hct 48.3, MCV 94.1 H, MCH 32.4 H, MCHC 34.4, RDW 13.9, Plt Count 169, MPV 10.7 H, Neut % (Auto) 64.4, Lymph % (Auto) 25.6, Bucks % (Auto) 6.4, Eos % (Auto) 2.1, Baso % (Auto) 1.5, Neut # (Auto) 6.9, Lymph # (Auto) 2.8, Bucks # (Auto) 0.7, Eos # (Auto) 0.2, Baso # (Auto) 0.2 02/29/24 13:12: HIV 1&2 Antibody Rapid Nonreactive 02/29/24 13:14: PT 10.8, INR 0.96, APTT 24.6, Sodium 135 L, Potassium 4.3, Chloride 105, Carbon Dioxide 28, Anion Gap 6.3, BUN 10, Creatinine 1.00, Estimated Creat Clear 145, Estimated GFR 77, Est GFR ( Amer) 93, Glucose 106 H, Hemoglobin A1c 5.7, Calcium 8.6, Total Bilirubin 0.5, AST 33, ALT 29, Alkaline Phosphatase 67, Troponin I < 0.01, Total Protein 6.1 L, Albumin 3.4 L, Globulin 2.7, Albumin/Globulin Ratio 1.3, Triglycerides 91, Cholesterol 131 L, LDL Cholesterol Direct 87.75 L, VLDL Cholesterol 18, HDL Cholesterol 28 L, Cholesterol/HDL Ratio 4.7 H, Plasma/Serum Alcohol < 10 I & O for Last 24 hours: Intake & Output 02/26/24 02/27/24 02/28/2402/28/24 23:59 23:59 23:59 23:59 Weight 127.006 kg Constitutional Constitutional: no acute distress, obese and cooperative *Routine HEENT Exam Head: Present normocephalic Eye: Present EOMI and PERRL ENT: Present mucous membranes moist *Routine Neck Exam Neck: Present supple; Absent lymphadenopathy *Routine Respiratory Exam Respiratory: Present CTA bilaterally; Absent rhonchi, wheezes or crackles *Routine Cardiovascular Exam Cardiovascular: Present RRR *Routine Abdominal Exam Abdominal: Present soft and normoactive bowel sounds; Absent tenderness *Routine Rectal Exam Rectal:: deferred *Routine Genitalia Exam Genitalia:: deferred *Routine Extremities Exam Extremities: Absent cyanosis, clubbing or edema *Routine Skin Exam Skin: Present warm; Absent rash *Routine Neurological Exam Neurological: Present alert, oriented X3 and moving all extremities; Absent altered mental status Comments: Marginal weakness difference in right hand, strength still essentially 5 out of 5 in both extremities but there is slight difference between right and left side. Assessment and Plan *Assessment and plan (1) Transient neurological symptoms: Status: Acute Category: Medical Code(s): R29.818 - Other symptoms and signs involving the nervous system (2) Class 2 obesity: Status: Acute Category: Medical Code(s): E66.812 - Obesity, class 2 (3) HTN (hypertension): Status: Chronic Qualifiers: Hypertension type: primary hypertension Qualified Code(s): I10 - Essential (primary) hypertension Category: Medical Code(s): I10 - Essential (primary) hypertension (4) Cerebral calcification: Status: Acute Category: Medical Code(s): G93.89 - Other specified disorders of brain Plan 58-year-old male who had episode of aphasia and right upper extremity weakness while at [facility] earlier today. On presentation to the ER, symptoms improving and CT with no acute findings. Case discussed with ER physician, request admission for further management and monitoring given concern for TIA. I agreed to admit. Will obtain MRI and echo in the morning. Problems addressed as follows: TIA -Patient had right upper extremity weakness and aphasia. Aphasia resolved. Marginal weakness in right hand on evaluation -Per my review of CT, no ischemic findings. Does of note have approximately 8 punctate calcifications of unknown significance -No history of travel outside the [place]. No history of eating undercooked pork that he is aware of. Will add RPR to evaluate for syphilis. -MRI pending for the morning. Echo pending to evaluate heart function and for valvular vegetations. -Administer aspirin 325 mg once -Continue aspirin 81 mg daily and Plavix 75 mg daily for 21 days History of rheumatic fever with aortic valve replacement -Not on any anticoagulation. Denies any symptoms of chest pain or fatigue. Hypertension: On metoprolol succinate 50 mg daily. Will consider adding ARB if remains hypertensive Obesity complicates all aspects of his care Full code Aspirin daily Regular diet
--- NOTE | 2024-02-29 15:26 | PC.NURSE ---
House notified of admission
--- OUTSIDE RECORDS SUMMARY | 2024-02-29 15:31 | XMS_ITS | Encounter Summary ---
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 Heart valve disease AVD (aortic valve disease) Procedures Adult Transthoracic Echo Complete W/ Cont if Necessary Per Protocol Kaushal Singleton MD [address] [place] [address] Phone: tel: fax: [address] [phone] Phone: tel: Referral ID Status Reason Start Date Expiration Date V isits Requested Visits Authorized [id number] Pending Review 09/05/2023 09/04/2024 1 1 Encounter Details Date Type Department Care Team (Late st Contact Info) Description 09/05/2023 Telephone [facility] [address] [place] [address] Kaushal Singleton MD [address] [place] [address] Social History Tobacco Use Types Packs/Day Years Used Date Smoking Tobacco: Former Cigarettes 989 - 2018 Smokeless Tobacco: Never Comments:Pt reports 30+ year smoking history -cutting back Alcohol Use Standard Drinks/Week Comments No 0 (1 standard drink = 0.6 oz pur e alcohol) Abuse Screen Answer Date Recorded Unsafe at Home or Work/School Not on file Feels Threatened by Someone? Not on file 02/2023 Does Anyone Keep You from Co ntacting Others or Doint Things Outside the Home? Not on file 01/09/2023 Physical Sign of Abuse Present Not on file 1 Housing Stability Answer Date Recorded Current Living Arrangements Not on file 12/29 Potentially Unsafe Housing Conditions Not on patsy e 01/09/2023 Family and Community Support Answer Zackary e Recorded Help with Day-to-Day Activities Not on file 01/09/2023 Lonely or Isolated Not on file 01/09/2023 Employment Answer Date Recorded Do you want help finding or keeping work or a anna b? Not on file 01/09/2023 Disabilities Answer Date Recorded Concentrating, Remembering, or Making Decisions Difficulty Not on file 01/09/2023 Doing Errands Independently Difficulty Not on fi le 01/09/2023 Education Answer Date Recorded Help with school or training? 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 Recommendations given per Dr. Singleton's note. Patient verbalized understanding. ----- Message from Kaushal Singleton sent at 09/05/2023 1:50 PM EDT ----- Please let the patient know his echo showed a aortic valve replacement that is working within acceptable limits, but does have higher velocities (more pressure) when compared to the 2019 study. Typical risk factor modifications including a heart healthy diet, improved cardiac fitness, and routine labs. Will plan to repeat an echo in 2025. Okay to go ahead and order it. Would recommend it be done in 07/2024 in advance of his 08/2024 follow-up appointment. ----- Message ----- From: Kaushal Singleton MD Sent: 09/05/2023 1:50 PM EDT To: Kaushal Singleton MD documented in this encounter Plan of Treatment Upcoming Encounters Date Type Department Care Team (Late st Contact Info) Description 09/01/2024 1:30 PM EDT Office Visit [facility] [address] [facility] [address] [place] [address] Kaushal Singleton MD [address] [facility] [address] [place] [address] Scheduled Orders Name Type Priority Associated Diagnoses Order Schedule Adult Transthoracic Echo Complete W/ Cont if Necessary Per Protocol Echocardiography Routine 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 Valvular disease 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 04/07/18 Expected: 09/12/2023 (Approximate), Expires: 09/04/2024 documented as of this encounter Visit Diagnoses Diagnosis Rheumatic aortic stenosis- Primary Rheumatic aortic valve insufficiency Valvular disease Endocarditis, valve unspecified, unspecified cause 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 04/07/18 Aortic valve disorders documented in this encounter Care Teams Celebrity Chef Entrepreneur Media Personality Relationship Specialty Start Date End Date Provider, [place] [address] PCP - General 08/27/23 documented as of this encounter
--- OUTSIDE RECORDS SUMMARY | 2024-02-29 15:31 | XMS_ITS | Encounter Summary ---
[facility] Address [address] [place] [address] Care Team Providers Care Senior Logistics Manager Name Role Phone Provider, No Known Primary Care Provider Unavail able Reason for Referral * Diagnostic Imaging (Routine) - Closed Specialty Diagnoses / Procedures Referred By Contac t Referred To Contact Diagnoses Bilateral carotid bruits Procedures Duplex Carotid Ultrasound CAR Kaushal Singleton MD [address] [place] [address] Phone: tel: fax: [address] [address] Phone: tel: Referral ID Status Reason Start Date Expiration Date Visits Re quested Visits Authorized [id number] Closed 08/27/2023 08/26/2024 1 1 * Diagnostic Imaging (Routine) - Closed Specialty Diagnoses / Procedures Referred By Contac t Referred To Contact Diagnoses Heart valve disease Procedures Adult Transthoracic Echo Complete W/ Cont if Necessary Per Protocol Kaushal Singleton MD [address] [place] [id number] Phone: tel: fax: [address] [phone] Phone: tel: Referral ID Status Reason Start Date Expiration Date Visits Re quested Visits Authorized [id number] Closed 08/27/2023 10/26/2023 1 1 Reason for Visit * Reason Comments Rheumatic aortic stenosis 1 year Encounter Details Date Type Department Care Team (Late st Contact Info) Description 08/27/2023 1:45 PM EDT Office Visit [facility] [address] [place] [address] Kaushal Singleton MD [address] [place] [id number] 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 04/07/18 (Primary Dx); Paroxysmal atrial fibrillation; Valvular disease; Bilateral carotid bruits Social History Tobacco Use Types Packs/Day Years Used Date Smoking Tobacco: Former Cigarettes 2018 Smokeless Tobacco: Never Tobacco Cessation:Counseling Given: Not Answered Comments:Pt reports 30+ year smoking history -cutting [...] on file documented as of this encounter Last Filed Vital Signs Vital Sign Reading Time Taken Comments Blood Pressure 124/88 08/27/2023 1:39 PM EDT Pulse 78 08/27/2023 1:39 PM EDT Temperature - - Respiratory Rate - - Oxygen Saturation 97% 08/27/2023 1:39 PM EDT Inhaled Oxygen Concentration - - Weight 130 kg (287 lb) 08/27/2023 1:39 PM EDT Height 182.9 cm (6') 08/27/2023 1:39 PM EDT Body Mass Index 38.92 08/27/2023 1:39 PM EDT documented in this encounter Progress Notes * Kaushal Singleton MD - 08/27/2023 1:45 PM EDTAssociated Order(s): ECG 12 Lead Post-Procedure Diagnose(s): Paroxysmal atrial fibrillation Images from the original note were not included. [facility] AT [address], [address] [place], [address] [email or web address] FOLLOW UP NOTE Patient Care Team: Patient Care Team: Provider, No Known as PCP - General Subjective: Chief Complaint Patient presents with Rheumatic aortic stenosis 1 year HPI: Carlos Manuel Rojas II is a 58 y.o. male. 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 Fib S/p surgical left atrial appendage closure Longstanding history of PVCs Preceded aortic valve surgery Former tobacco dependence Today he presents for follow-up. He has been doing well from a cardiac standpoint since last visit. Is active without cardiopulmonary symptoms. Review of Systems: As noted in HPI. 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 Take 40 mg oral daily for5 days, then 20 mg oral daily there after. (Patient taking differently: Take 1 tablet by mouth As Needed.), Disp: 35 tablet, Rfl: 11 metoprolol succinate XL (TOPROL-XL) 25 MG 24 hr tablet, Take 1 tablet by mouth Daily., Disp: 90 tablet, Rfl: 3 Multiple Vitamin (MULTI VITAMIN DAILY PO), Take by mouth Daily., Disp: , Rfl: No current facility-administered medications for this visit. Facility-Administered Medications Ordered in Other Visits: Chlorhexidine Gluconate Cloth 2 % pads 1 application, 1 application , Topical, Q12H PRN, Miguel Malin PA Allergies Allergen Reactions Penicillins Hives reports that he quit smoking about 5 years ago. His smoking use included cigarettes. He started smoking about 35 years ago. He has a 30 pack-year smoking history. He has never used smokeless tobacco. Family History Problem Relation Age of Onset Cancer Mother Heart disease Father Heart failure Father Objective: Physical exam: Blood pressure 124/88, pulse 78, height 182.9 cm (72 ), weight 130 kg (287 lb), SpO2 97%. CONSTITUTIONAL: No acute distress, normal affect CARDIOVASCULAR: Carotids with normal upstrokes without bruits. Regular rate and rhythm with normal S1 and S2. Soft RUSB ROXANN with radiation to the carotids, right > left. PERIPHERAL VASCULAR: Normal radial pulse. Labs: Lab Results Component Value Date CHOL 140 03/03/2018 Lab Results Component Value Date TRIG 63 03/03/2018 Lab Results Component Value Date HDL 34 (L) 03/03/2018 Lab Results Component Value Date LDL 99 03/03/2018 No components found for: LDLDIRECTC 07/2018 outside facility labs: Potassium 4.9, creatinine 1.0 Diagnostic Data: ECG 12 Lead Date/Time: 08/27/2023 2:17 PM Performed by: Kaushal Singleton MD Authorized by: Kaushal Singleton MD Comparison: compared with previous ECG from 08/14/2021 Similar to previous ECG Comparison to previous ECG: Nonspecific T wave abnormality Rhythm: sinus rhythm C 02/2018 There is near normal coronary anatomy with no flow-limiting obstructive stenoses TA 05/2018 Left ventricular systolic function is normal. Estimated EF appears to be in the range of 56 - 60%. There is a left atrial appendage occlusion clip, no evidence of flow within the occluded MEGHA. There is a 25 mm Perimount bioprosthetic valve present. Mild perivalvular regurgitation is present.Mild paravalvular leak at 5 o'clock on short axis view of the aortic valve, otherwise normal functioning bioprosthetic valve. Results for orders placed during the hospital encounter of 10/12/19 Adult Transthoracic Echo Complete W/ Cont if Necessary Per Protocol Interpretation Summary ?? Left ventricular systolic function is normal. Estimated EF appears to be in the range of 51 - 55%. ?? Left ventricular wall thickness is consistent with mild concentric hypertrophy. ?? There is a 25 mm Watt Perimount porcine bioprosthetic valve present. The valve is functioningwithin normal limits. Of note, there is no regurgitation noted. ?? Mild tricuspid valve regurgitation is present. 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 -Off amio and Xarelto -Continue aspirin, Toprol-XL PVCs -Continue beta-clayton -Recommended establishing care with a primary care provider. Patient wishes to find one locally. -Recommended repeat lipid panel. Hopefully can take place once he establishes care with a local primary care provider - Return in about 1 year (around 08/26/2024) for Next scheduled follow-up with an ECG. documented in this encounter Plan of Treatment Upcoming Encounters Date Type Department Care Team (Late st Contact Info) Description 09/01/2024 1:30 PM EDT Office Visit [facility] [address] [place] [address] Kaushal Singleton MD [address] [facility] [address] [place] [address] documented as of this encounter Procedures Procedure Name Priority Date/Time Associated Diagnosis Comments ECG 12-LEAD Routine 08/27/2023 Paroxysmal atrial fibrillation documented in this encounter Results * ECHO COMPLETE W/ DOPPLER AND COLOR FLOW (09/05/2023 10:26 AM EDT) LVIDd 4.9 cm LVIDs 3.5 cm IVSd 1.19 cm LVPWd 1.09 cm FS 28.6 % IVS/LVPW 1.09 cm ESV(cubed) 42.9 ml LV Sys Vol (BSA corrected) 10.0 cm2 EDV(cubed) 117.8 ml LV Berger Vol (BSA corrected) 29.3 cm2 LV mass(C)d 210.7 grams LVOT area 3.8 cm2 LVOT diam 2.20 cm EDV(MOD-sp4) 72.5 ml ESV(MOD-sp4) 24.7 ml SV(MOD-sp4) 47.8 ml SVi(MOD-SP4) 19.3 ml/m2 SVi (LVOT) 37.1 ml/m2 EF(MOD-sp4) 65.9 % MV E max rui 113.0 cm/sec MV A max rui 88.6 cm/sec MV dec time 0.26 sec MV E/A 1.28 LA ESV Index (BP) 27.8 ml/m2 Med Peak E' Rui 9.3 cm/sec Lat Peak E' Rui 9.7 cm/sec TR max rui 253.3 cm/sec Avg E/e' ratio 11.89 SV(LVOT) 91.8 ml RV Base 3.2 cm RV Mid 3.0 cm RV Length 9.4 cm TAPSE (>1.6) 1.49 cm RV S' 10.2 cm/sec LA dimension (2D) 3.6 cm LV V1 max 111.5 cm/sec LV V1 max PG 5.0 mmHg LV V1 mean PG 3.0 mmHg LV V1 VTI 24.2 cm Ao pk rui 331.0 cm/sec Ao max PG 44.0 mmHg Ao mean PG 26.4 mmHg Ao V2 VTI 73.8 cm GUERLINE(I,D) 1.24 cm2 MV max PG 5.9 mmHg MV mean PG 2.00 mmHg MV V2 VTI 39.8 cm MVA(VTI) 2.31 cm2 MV dec slope 440.0 cm/sec2 TR max PG 25.7 mmHg PA V2 max 115.5 cm/sec PA acc time 0.11 sec Ao root diam 3.5 cm BH CV VAS BP LEFT ARM 134/88 mmHg IVRT 77.0 ms RVSP(TR) 34 mmHg RAP systole 8 mmHg Anatomical Region Laterality Modality Ultrasound Narrative 09/05/2023 1:50 PM EDT ?Left ventricular systolic function is normal. Left ventricular ejection fraction appears to be 56 - 60%. ?Left ventricular wall thickness is consistent with mild concentric hypertrophy. ?There is a 25 mm Watt Perimount porcine bioprosthetic valve present. There is mild stenosis or obstruction of the prosthetic aortic valve. ?Peak velocity of the flow distal to the aortic valve is 331 cm/s. Aortic valve mean pressure gradient is 26 mmHg. Left Ventricle Left ventricular systolic function is normal. Left ventricular ejection fraction appears to be 56 - 60%. Normal left ventricular cavity size noted. Left ventricular wall thickness is consistent with mild concentric hypertrophy. All left ventricular wall segments contract normally. Left ventricular diastolic function was normal. Right Ventricle Normal right ventricular cavity size and systolic function noted. Left Atrium Normal left atrial size and volume noted. Right Atrium Normal right atrial cavity size noted. Mitral Valve The mitral valve is structurally normal with no regurgitation or significant stenosis present. Tricuspid Valve The tricuspid valve is structurally normal with no significant regurgitation or significant stenosis present. Estimated right ventricular systolic pressure from tricuspid regurgitation is normal (<35 mmHg). Aortic Valve Peak velocity of the flow distal to the aortic valve is 331 cm/s. Aortic valve mean pressure gradient is 26.4 mmHg. There is a prosthetic aortic valve present. There is mild stenosis or obstruction of the prosthetic aortic valve. #25 Perimount biologic prosthesis Pulmonic Valve The pulmonic valve is grossly normal in structure. There is no pulmonic valve regurgitation present. Pericardium The pericardium is normal. There is no evidence of pericardial effusion. . Greater Vessels No dilation of the aortic root is present. Inferior vena cava not well visualized. Study Quality Normal sinus was the predominant rhythm observed during the procedure. us Kaushal Singleton MD CV ECHO ORDERABLES Final Result * DUPLEX CAROTID BILATERAL CAR - PERFORMED PROCEDURE (09/05/2023 9:32 AM EDT) Left arm BP 128/86 mmHg Prox CCA PSV 127.0 cm/sec Prox CCA EDV 29.2 cm/sec Right Mid CCA PSV 103.0 cm/sec right Mid CCA EDV 27.3 cm/sec Dist CCA PSV 75.8 cm/sec Dist CCA EDV 19.9 cm/sec Prox ICA PSV 58.0 cm/sec Prox ICA EDV 27.7 cm/sec Mid ICA PSV 75.1 cm/sec Mid ICA EDV 32.0 cm/sec Dist ICA PSV 65.4 cm/sec Dist ICA EDV 26.8 cm/sec Prox ECA PSV 125.0 cm/sec Prox ECA EDV 23.6 cm/sec Vertebral A PSV 46.9 cm/sec Vertebral A EDV 15.8 cm/sec Prox SCLA PSV 121.0 cm/sec Prox CCA PSV 144.0 cm/sec Prox CCA EDV 27.1 cm/sec left Mid CCA PSV 107.0 cm/sec left Mid CCA EDV 32.9 cm/sec Dist CCA PSV 90.4 cm/sec Dist CCA EDV 36.4 cm/sec Prox ICA PSV 87.5 cm/sec Prox ICA EDV 31.5 cm/sec Mid ICA PSV 97.8 cm/sec Mid ICA EDV 36.9 cm/sec Dist ICA PSV 83.5 cm/sec Dist ICA EDV 31.0 cm/sec Prox ECA PSV 89.0 cm/sec Prox ECA EDV 21.6 cm/sec Vertebral A PSV 39.9 cm/sec Vertebral A EDV 14.4 cm/sec Prox SCLA PSV 99.4 cm/sec Right arm BP 134/85 mmHg ICA/CCA ratio 0.91 ICA/CCA ratio 0.73 Anatomical Region Laterality Modality Ultrasound Narrative 09/05/2023 2:45 PM EDT ?Right internal carotid artery demonstrates a less than 50%??stenosis. ?Left internal carotid artery demonstrates a less than 50%??stenosis. ?Antegrade flow in the vertebral arteries bilaterally. Study Impression ? ? Right ICA: Imaging indicates <50% stenosis. ? ? Left ICA: Imaging indicates <50% stenosis. Study Findings ? ? Right CCA Prox: Intima-medial thickening noted. ? Right CCA Mid: Intima-medial thickening noted. ? ? Right CCA Dist: Heterogeneous plaque present. Intima-medial thickening noted. ? ? Right ICA Prox: Irregular heterogeneous plaque present. ? ? Right ICA Mid: No plaque visualized. ? ? Right ICA Dist: No plaque visualized. ? ? Right ECA: No plaque visualized. ? ? Right Vertebral: Antegrade flow noted. ? ? Left CCA Prox: Intima-medial thickening noted. ? Left CCA Mid: Intima-medial thickening noted. ? ? Left CCA Dist: Intima-medial thickening noted. ? ? Left ICA Prox: Heterogeneous plaque present. ? ? Left ICA Mid: No plaque visualized. ? ? Left ICA Dist: No plaque visualized. ? ? Left ECA: No plaque visualized. ? ? Left Vertebral: Antegrade flow noted. No elevated velocities detected bilateral ICA. Antegrade flow detected in Vertebral Arteries, bilaterally. No significant change since prior exam performed on 03/03/2018. Additional Study Details The study is technically good for diagnosis. us Kaushal Singleton MD CV VASCULAR ORDERABLES Final Res ult * ECG 12-LEAD (08/27/2023) Narrative 08/27/2023 Kaushal Singleton MD ? 08/27/2023 ??2:19 PM ECG 12 Lead Date/Time: 08/27/2023 2:17 PM Performed by: Kaushal Singleton MD Authorized by: Kaushal Singleton MD ??Comparison: compared with previous ECG from 08/14/2021 Similar to previous ECG Comparison to previous ECG: Nonspecific T wave abnormality Rhythm: sinus rhythm Procedure Note Kaushal Singleton MD - 08/27/2023 1:45 PM EDT Images from the original note were not included. [facility] AT [address], [address] [place], [place], [id number] [email or web address] FO[facility] NOTE Patient Care Team: Patient Care Team: Provider, No Known as PCP - General Subjective: Chief Complaint Patient presents with Rheumatic aortic stenosis 1 year HPI: Carlos Manuel Rojas II is a 58 y.o. male. 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 Fib S/p surgical left atrial appendage closure Longstanding history of PVCs Preceded aortic valve surgery Former tobacco dependence Today he presents for follow-up. He has been doing well from a cardiac standpoint since last visit. Isactive without cardiopulmonary symptoms. Review of Systems: As noted in HPI. 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 Take 40 mg oral daily for 5 days, then 20 mg oral daily thereafter. (Patient taking differently: Take 1 tablet by mouth As Needed.),Disp: 35 tablet, Rfl: 11 metoprolol succinate XL (TOPROL-XL) 25 MG 24 hr tablet, Take 1 tablet bymouth Daily., Disp: 90 tablet, Rfl: 3 Multiple Vitamin (MULTI VITAMIN DAILY PO), Take by mouth Daily., Disp:, Rfl: No current facility-administered medications for this visit. Facility-Administered Medications Ordered in Other Visits: Chlorhexidine Gluconate Cloth 2 % pads 1 application, 1 application ,Topical, Q12H PRN, Miguel Malin PA Allergies Allergen Reactions Penicillins Hives reports that he quit smoking about 5 years ago. His smoking use includedcigarettes. He started smoking about 35 years ago. He has a 30 pack-yearsmoking history. He has never used smokeless tobacco. Family History Problem Relation Age of Onset Cancer Mother Heart disease Father Heart failure Father Objective: Physical exam: Blood pressure 124/88, pulse 78, height 182.9 cm (72 ), weight 130 kg (287lb), SpO2 97%. CONSTITUTIONAL: No acute distress, normal affect CARDIOVASCULAR: Carotids with normal upstrokes without bruits. Regularrate and rhythm with normal S1 and S2. Soft RUSB ROXANN with radiation to thecarotids, right > left. PERIPHERAL VASCULAR: Normal radial pulse. Labs: Lab Results Component Value Date CHOL 140 03/03/2018 Lab Results Component Value Date TRIG 63 03/03/2018 Lab Results Component Value Date HDL 34 (L) 03/03/2018 Lab Results Component Value Date LDL 99 03/03/2018 No components found for: LDLDIRECTC 07/2018 outside facility labs: Potassium 4.9, creatinine 1.0 Diagnostic Data: ECG 12 Lead Date/Time: 08/27/2023 2:17 PM Performed by: Kaushal Singleton MD Authorized by: Kaushal Singleton MD Comparison: compared with previous ECGfrom 08/14/2021 Similar to previous ECG Comparison to previous ECG: Nonspecific T wave abnormality Rhythm: sinus rhythm [facility] 02/2018 There is near normal coronary anatomy with no flow-limiting obstructivestenoses TA 05/2018 Left ventricular systolic function is normal. Estimated EF appears to be in the range of 56 - 60%. There is a left atrial appendage occlusion clip, no evidence of flowwithin the occluded MEGHA. There is a 25 mm Perimount bioprosthetic valve present. Mild perivalvularregurgitation is present. Mild paravalvular leak at 5 o'clock on shortaxis view of the aortic valve, otherwise normal functioning bioprostheticvalve. Results for orders placed during the hospital encounter of 10/12/19 Adult Transthoracic Echo Complete W/ Cont if Necessary Per Protocol Interpretation Summary ?? Left ventricular systolic function is normal. Estimated EF appears to bein the range of 51 - 55%. ?? Left ventricular wall thickness is consistent with mild concentrichypertrophy. ?? There is a 25 mm Watt Perimount porcine bioprosthetic valve present.The valve is functioning within normal limits. Of note, there is noregurgitation noted. ?? Mild tricuspid valve regurgitation is present. 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 -Off amio and Xarelto -Continue aspirin, Toprol-XL PVCs -Continue beta-clayton -Recommended establishing care with a primary care provider. Patientwishes to find one locally. -Recommended repeat lipid panel. Hopefully can take place once heestablishes care with a local primary care provider - Return in about 1 year (around 08/26/2024) for Next scheduled follow-upwith an ECG. Kaushal Singleton MD ECG ORDERABLES Final Result documented in this encounter Visit Diagnoses Diagnosis 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 04/07/18- Primary Aortic valve disorders Paroxysmal atrial fibrillation Atrial fibrillation Valvular disease Endocarditis, valve unspecified, unspecified cause Bilateral carotid bruits Bilateral carotid bruits Valvular disease Endocarditis, valve unspecified, unspecified cause documented in this encounter Care Teams Senior Logistics Manager Relationship Specialty Start Date End Date Provider, [place] [address] PCP - General 08/27/23 documented as of this encounter
--- OUTSIDE RECORDS SUMMARY | 2024-02-29 15:31 | XMS_ITS | Encounter Summary ---
[facility] Organization [facility] Address [address] [place] [address] Care Team Providers Care Admin Dir Name Role Phone Kaushal Kuo MD Primary Care Provider [phone] Reason for Visit * Reason Comments aortic valve disease Encounter Details Date Type Department Care Team (Late st Contact Info) Description 08/14/2022 2:45 PM EDT Office Visit [facility] [address] [place] [address] Kaushal Singleton MD [address] [facility] [address] [place], [place] [id number] 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 04/07/18 (Primary Dx); Paroxysmal atrial fibrillation Social History Tobacco Use Types Packs/Day Years Used Date Smoking Tobacco: Former Cigarettes - 2018 Smokeless Tobacco: Never Tobacco Cessation:Counseling Given: No Comments:Pt reports 30+ year smoking history -cutting back Alcohol Use Standard Drinks/Week Comments No 0 (1 standard drink = 0.6 oz pur e alcohol) Sex and Gender Information Value Date Recorded [...] Sign Reading Time Taken Comments Blood Pressure 132/80 08/14/2022 3:03 PM EDT Pulse 65 08/14/2022 3:03 PM EDT Temperature - - Respiratory Rate - - Oxygen Saturation 92% 08/14/2022 3:03 PM EDT Inhaled Oxygen Concentration - - Weight 130 kg (287 lb) 08/14/2022 3:03 PM EDT Height 182.9 cm (6') 08/14/2022 3:03 PM EDT Body Mass Index 38.92 08/14/2022 3:03 PM EDT documented in this encounter Progress Notes * Sue Rubiroopa Omer, MANAGER STERILE - 08/14/2022 2:45 PM EDT Images from the original note were not included. [facility] [place] [address] [facility], [address] [place], [place], [id number] [email or web address] FOLLOW UP NOTE Patient Care Team: Patient Care Team: Kaushal uKo MD as PCP - General (Emergency Medicine) Subjective: Chief Complaint Patient presents with ??? aortic valve disease HPI: Carlos Manuel Rojas II is a 57 y.o. male. Problem list: 1. Rheumatic aortic valve disease 1. status post valve replacement 02/2018 2. Postoperative A. Fib 1. S/p surgical left atrial appendage closure 3. Longstanding history of PVCs 1. Preceded aortic valve surgery 4. Former tobacco dependence Today he presents for follow-up. He has been doing well from a cardiac standpoint since last visit. Is active without cardiopulmonary symptoms. Denies chest pain, shortness of breath, palpitations, lower extremity edema, lightheadedness or syncope. Has not had to use his as needed Lasix in many months. Review of Systems: As noted in HPI. PFSH: Patient Active Problem List Diagnosis ??? Rheumatic aortic stenosis ??? Rheumatic aortic valve insufficiency ??? Former tobacco dependence ??? Valvular disease ??? 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 04/07/18 ??? H/O: rheumatic fever ??? GERD (gastroesophageal reflux disease) ??? Paroxysmal atrial fibrillation ??? Morbidly obese Current Outpatient Medications: ??? aspirin (aspirin) 81 MG EC tablet, Take 1 tablet by mouth Daily., Disp: 90 tablet, Rfl: 3 ??? furosemide (LASIX) 20 MG tablet, Take 1 tablet by mouth Take As Directed. Take 40 mg oral dailyfor 5 days, then 20 mg oral daily there after. (Patient taking differently: Take 1 tablet by mouth As Needed.), Disp: 35 tablet, Rfl: 11 ??? metoprolol succinate XL (TOPROL-XL) 25 MG 24 hr tablet, Take 1 tablet by mouth Daily., Disp: 90tablet, Rfl: 3 ??? Multiple Vitamin (MULTI VITAMIN DAILY PO), Take by mouth Daily., Disp: , Rfl: No current facility-administered medications for this visit. Facility-Administered Medications Ordered in Other Visits: ??? Chlorhexidine Gluconate Cloth 2 % pads 1 application, 1 application, Topical, Q12H PRN, Miguel Malin PA Allergies Allergen Reactions ??? Penicillins Hivparker reports that he quit smoking about 4 years ago. His smoking use included cigarettes. He has a 30.00pack-year smoking history. He has never used smokeless tobacco. Family History Problem Relation Age of Onset ??? Cancer Mother ??? Heart disease Father ??? Heart failure Father Objective: Physical exam: Blood pressure 132/80, pulse 65, height 182.9 cm (72 ), weight 130 kg (287 lb), SpO2 92 %. CONSTITUTIONAL: No acute distress, normal affect RESPIRATORY: Normal effort. Clear to auscultation bilaterally without wheezing or rales CARDIOVASCULAR: Carotids with normal upstrokes without bruits. Regular rate and rhythm with normal S1 and S2. Without gallop or rub. Soft RUSB ROXANN with radiation to the carotids, right > left. PERIPHERAL VASCULAR: Normal radial pulse. No significant lower extremity edema bilaterally. Labs: BUN Date Value Ref Range Status 04/11/2018 12 9 - 23 mg/dL Final Creatinine Date Value Ref Range Status 04/11/2018 0.71 0.60 - 1.30 mg/dL Final Potassium Date Value Ref Range Status 04/11/2018 3.4 (L) 3.5 - 5.5 mmol/L Final ALT (SGPT) Date Value Ref Range Status 04/06/2018 46 (H) 7 - 40 U/L Final AST (SGOT) Date Value Ref Range Status 04/06/2018 31 0 - 33 U/L Final Lab Results Component Value Date CHOL 140 03/03/2018 Lab Results Component Value Date TRIG 63 03/03/2018 Lab Results Component Value Date HDL 34 (L) 03/03/2018 Lab Results Component Value Date LDL 99 03/03/2018 No components found for: LDLDIRECTC 07/2018 outside facility labs: Potassium 4.9, creatinine 1.0 Diagnostic Data: Procedures C 02/2018 ?? There is near normal coronary anatomy with no flow-limiting obstructive stenoses TA 05/2018 ?? Left ventricular systolic function is normal. ?? Estimated EF appears to be in the range of 56 - 60%. ?? There is a left atrial appendage occlusion clip, no evidence of flow within the occluded MEGHA. ?? There is a 25 mm Perimount bioprosthetic valve present. Mild perivalvular regurgitation is present. Mild paravalvular leak at 5 o'clock on short axis view of the aortic valve, otherwise normal functioning bioprosthetic valve. 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 Paroxysmal atrial fibrillation MEGHA Occlusion/Clipping -Maintaining sinus rhythm. -Off amio and Xarelto -Continue aspirin, Toprol-XL PVCs -Continue beta-clayton - Return in about 1 year (around 08/15/2023) for Next scheduled follow up with EKG . Electronically signed by Nallely Rubi APRN, 08/14/22, 3:36 PM EDT. documented in this encounter Plan of Treatment Upcoming Encounters Date Type Department Care Team (Late st Contact Info) Description 09/01/2024 1:30 PM EDT Office Visit [facility] [address] [facility] [address] [place] [address] Kaushal Singleton MD [facility] [facility] [address] [place], [place] [id number] documented as of this encounter Visit Diagnoses Diagnosis 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 04/07/18- Primary Aortic valve disorders Paroxysmal atrial fibrillation Atrial fibrillation documented in this encounter Care Teams Admin Dir Relationship Specialty Start Date End Date Kaushal Kuo MD [address] [facility] [address] ATTN: [facility] [address] PCP - General Emergency Medicine 08/07/22 08/26/23 documented as of this encounter
--- OUTSIDE RECORDS SUMMARY | 2024-02-29 15:31 | XMS_ITS | Encounter Summary ---
Author Organization [facility] Address [address] [place] [address] Care Team Providers Care Family Development Specialist Name Role Phone Kaushal Kuo MD Primary Care Provider [phone] Reason for Referral * Diagnostic Imaging (Routine) - Closed Specialty Diagnoses / Procedures Referred By Contac t Referred To Contact Diagnoses AVD (aortic valve disease) Procedures Adult Transthoracic Echo Complete W/ Cont if Necessary Per Protocol Kaushal Singleton MD [address] [place] [address] Phone: tel: fax: [place] [address] Phone: tel: Referral ID Status Reason Start Date Expiration Date Visits Re quested Visits Authorized [id number] Closed 09/15/2019 09/14/2020 1 1 Reason for Visit * Diagnostic Imaging (Routine) - Closed Specialty Diagnoses / Procedures Referred By Contac t Referred To Contact Diagnoses AVD (aortic valve disease) Procedures Adult Transthoracic Echo Complete W/ Cont if Necessary Per Protocol Kaushal Singleton MD [facility] [place] [address] Phone: tel: fax: [address] [address] Phone: tel: Referral ID Status Reason Start Date Expiration Date Visits Re quested Visits Authorized [id number] Closed 09/15/2019 09/14/2020 1 1 Encounter Details Date Type Department Care Team (Late st Contact Info) Description 10/12/2019 8:30 AM EDT - 10/12/2019 11:59 PM EDT Hospital Encounter [facility] [address] [facility] [address] [place] [id number] Kaushal Singleton MD [address] [facility] [address] [place] [address] 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 04/07/18; AVD (aortic valve disease) Discharge Disposition: Home or Self Care Social History Tobacco Use Types Packs/Day Years Used Date Smoking Tobacco: Former Cigarettes 2018 Smokeless Tobacco: Never Comments:Pt reports 30+ [...] Sign Reading Time Taken Comments Blood Pressure - - Pulse - - Temperature - - Respiratory Rate - - Oxygen Saturation - - Inhaled Oxygen Concentration - - Weight 137 kg (301 lb) 10/12/2019 9:28 AM EDT Height 182.9 cm (6') 10/12/2019 9:28 AM EDT Body Mass Index 40.82 10/12/2019 9:28 AM EDT documented in this encounter Medications at Time of Discharge Multiple Vitamin (MULTI VITAMIN DAILY PO) Take by mouth Daily. aspirin 81 MG EC tablet Take 1 tablet by mouth Daily. 30 tablet 2 06/30/2019 10/14/2019 furosemide (LASIX) 20 MG tablet Take 1 tablet by mouth Take As Directed. Take 40 mg oral daily for 5 days, then 20 mg oral daily there after. 35 tablet 11 09/15/2019 09/05/2023 metoprolol succinate XL (TOPROL-XL) 25 MG 24 hr tablet Take 1 tablet by mouth Daily. 30 tablet 2 06/30/2019 10/14/2019 documented as of this encounter Plan of Treatment Upcoming Encounters Date Type Department Care Team (Late st Contact Info) Description 09/01/2024 1:30 PM EDT Office Visit [facility] C[facility]IOLOG[facility] [address] [place] [address] Kaushal Singleton MD [address] [facility] [address] [place] [address] documented as of this encounter Procedures Procedure Name Priority Date/Time Associated Diagnosis Comments ECHO COMPLETE W/ DOPPLER AND COLOR FLOW Routine 10/12/2019 9:28 AM EDT AVD (aortic valve disease) documented in this encounter Results * ECHO COMPLETE W/ DOPPLER AND COLOR FLOW (10/12/2019 9:28 AM EDT) BSA 2.5 m^2 [facility] IVSd 1.2 cm [facility] LVIDd 4.7 cm [facility] LVIDs 3.4 cm [facility] LVPWd 1.2 cm [facility] IVS/LVPW 1.0 [facility] FS 26.2 % [facility] EDV(Teich) 100.8 ml [facility] ESV(Teich) 49.0 ml [facility] EF(Teich) 51.4 % [facility] EDV(cubed) 101.8 ml [facility] ESV(cubed) 40.9 ml [facility] EF(cubed) 59.8 % [facility] LV mass(C)d 212.3 grams [facility] LV mass(C)dI 83.8 grams/m^2 [facility] SV(Teich) 51.8 ml [facility] SI(Teich) 20.4 ml/m^2 [facility] SV(cubed) 60.9 ml [facility] SI(cubed) 24.0 ml/m^2 [facility] Ao root diam 3.8 cm [facility] Ao root area 11.1 cm^2 [facility] LA dimension (2D) 3.6 cm [facility] LA/Ao 0.95 [facility] LVOT diam 2.1 cm [facility] LVOT area 3.3 cm^2 [facility] LVOT area(traced) 3.5 cm^2 [facility] LAd major 6.2 cm [facility] LVLd ap4 10.1 cm [facility] EDV(MOD-sp4) 161.0 ml [facility] LVLs ap4 7.8 cm [facility] ESV(MOD-sp4) 84.0 ml [facility] EF(MOD-sp4) 47.8 % [facility] LVLd ap2 9.9 cm [facility] EDV(MOD-sp2) 172.0 ml [facility] LVLs ap2 8.2 cm [facility] ESV(MOD-sp2) 81.0 ml [facility] EF(MOD-sp2) 52.9 % [facility] LA ESV (BP) 55.0 ml [facility] EF{MOD-BP} 50.0 % [facility] SV(MOD-sp4) 77.0 ml [facility] SVi(MOD-SP4) 30.4 ml/m^2 [facility] SV(MOD-sp2) 91.0 ml [facility] SVi(MOD-SP2) 35.9 ml/m^2 [facility] Ao root area (BSA corrected) 1.5 [facility] LV Berger Vol (BSA corrected) 63.5 ml/m^2 [facility] LV Sys Vol (BSA corrected) 33.1 ml/m^2 [facility] LA ESV Index (BP) 21.7 ml/m^2 [facility] MV E max riu 110.1 cm/sec [facility] MV A max rui 99.7 cm/sec [facility] MV E/A 1.1 [facility] LV IVRT 0.06 sec [facility] MV dec time 0.22 sec [facility] Ao pk rui 283.2 cm/sec [facility] Ao max PG 32.1 mmHg [facility] Ao max PG (full) 25.1 mmHg [facility] Ao V2 mean 198.7 cm/sec [facility] Ao mean PG 18.0 mmHg [facility] Ao mean PG (full) 14.9 mmHg [facility] Ao V2 VTI 62.3 cm [facility] GUERLINE(I,A) 1.7 cm^2 [facility] GUERLINE(I,D) 1.7 cm^2 [facility] GUERLINE(V,A) 1.6 cm^2 [facility] GUERLINE(V,D) 1.6 cm^2 [facility] LV V1 max PG 7.0 mmHg [facility] LV V1 mean PG 3.1 mmHg [facility] LV V1 max 132.3 cm/sec [facility] LV V1 mean 78.7 cm/sec [facility] LV V1 VTI 31.6 cm [facility] SV(Ao) 693.7 ml [facility] SI(Ao) 273.7 ml/m^2 [facility] SV(LVOT) 105.1 ml [facility] SI(LVOT) 41.5 ml/m^2 [facility] PA acc slope 899.9 cm/sec^2 [facility] PA acc time 0.11 sec [facility] TR max rui 240.3 cm/sec [facility] TR max PG 23.0 mmHg [facility] RVSP(TR) 31.0 mmHg [facility] RAP systole 8.0 mmHg [facility] PA pr(Accel) 29.9 mmHg [facility] Lat E/e' 10.1 [facility] Med E/e' 11.8 [facility] Lat Peak E' Rui 10.7 cm/sec [facility] Med Peak E' Rui 9.2 cm/sec [facility] CV ECHO JOSELITO - BZI_BMI 40.8 kilograms/ m^2 [facility] CV ECHO JOSEL[place]O - BSA([place]) 2.7 m^2 [facility] CV ECHO JOSELITO - BZI_METRIC_WEI GHT 136.5 kg [facility] CV ECHO JOSELITO - BZI_METRIC_HEI GHT 182.9 cm [facility] Avg E/e' ratio 11.07 [facility] Target HR (85%) 141 bpm [facility] Max. Pred. HR (100%) 166 bpm [facility] CV VAS BP LEFT ARM 132/91 mmHg [facility] RV Base 3.60 cm [facility] RV Length 5.80 cm [facility] RV Mid 2.80 cm [facility] TAPSE (>1.6) 1.40 cm2 [facility] Anatomical Region Laterality Modality Ultrasound 10/12/2019 8:52 AM EDT Narrative 10/12/2019 3:50 PM EDT ?? Left ventricular systolic function is normal. Estimated EF appears to be in the range of 51 - 55%. ?? Left ventricular wall thickness is consistent with mild concentric hypertrophy. ?? There is a 25 mm Watt Perimount porcine bioprosthetic valve present. The valve is functioning within normal limits. Of note, there is no regurgitation noted. ?? Mild tricuspid valve regurgitation is present. Left Ventricle Left ventricular systolic function is normal. Estimated EF appears to be in the range of 51 - 55%. Normal left ventricular cavity size noted. All left ventricular wall segments contract normally. Left ventricular wall thickness is consistent with mild concentric hypertrophy. Left ventricular diastolic function is normal. Right Ventricle Normal right ventricular cavity size and systolic function noted. Left Atrium Normal left atrial size and volume noted. The left atrial appendage has been surgically closed. Right Atrium Normal right atrial size noted. Mitral Valve The mitral valve is grossly normal in structure. Trace mitral valve regurgitation is present. No significant mitral valve stenosis is present. Tricuspid Valve The tricuspid valve is grossly normal. No evidence of tricuspid valve stenosis is present. Mild tricuspid valve regurgitation is present. Estimated right ventricular systolic pressure from tricuspid regurgitation is normal (<35 mmHg). Aortic Valve There is a prosthetic aortic valve. No aortic valve regurgitation is present. There is a 25 mm Watt Perimount porcine bioprosthetic valve present. The prosthetic valve is normal. Pulmonic Valve The pulmonic valve is grossly normal in structure. There is no significant pulmonic valve stenosis present. There is no pulmonic valve regurgitation present. Pericardium The pericardium is normal. There is no evidence of pericardial effusion. Additional Study Details A two-dimensional transthoracic echocardiogram with color flow and Doppler was performed. The study is technically adequate for diagnosis. Greater Vessels No dilation of the aortic root is present. Kaushal Singleton MD CV ECHO ORDERABLES Final Result documented in this encounter Visit Diagnoses Diagnosis 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 04/07/18 Aortic valve disorders documented in this encounter Care Teams Family Development Specialist Relationship Specialty Start Date End Date Kaushal Kuo MD PCP - General Emergency Medicine 02/23/18 08/06/22 documented as of this encounter
--- OUTSIDE RECORDS SUMMARY | 2024-02-29 15:31 | XMS_ITS | Encounter Summary ---
Author Organization [facility] Address [address] [place] [address] Care Team Providers Care Low Pressure Kettle Operator Name Role Phone Kaushal Kuo MD Primary Care Provider [phone] Reason for Visit * Reason Onset Date Comments Med Refill 04/11/2020 Encounter Details Date Type Department Care Team (Late st Contact Info) Description 04/11/2020 Refill [facility] [address] [facility] [address] [place] [address] Rehana Ritter RN Med Refill Social History Tobacco Use Types Packs/Day Years Used Date Smoking Tobacco: Former Cigarettes - 2018 Smokeless Tobacco: Never Comments:Pt reports [...] on file documented as of this encounter Plan of Treatment Upcoming Encounters Date Type Department Care Team (Late st Contact Info) Description 09/01/2024 1:30 PM EDT Office Visit [facility] [address] [place] [address] Kaushal Singleton MD [address] [facility] [address] [place] [address] documented as of this encounter Visit Diagnoses Not on filedocumented in this encounter Care Teams Low Pressure Kettle Operator Relationship Specialty Start Date End Date Kaushal Kuo MD PCP - General Emergency Medicine 02/23/18 08/06/22 documented as of this encounter
--- OUTSIDE RECORDS SUMMARY | 2024-02-29 15:31 | XMS_ITS | Encounter Summary ---
[facility] Address [address] [place] [address] Care Team Providers Care Shale Miner Name Role Phone Kaushal Kuo MD Primary Care Provider [phone] Reason for Visit * Reason Comments AVD (aortic valve disease) Encounter Details Date Type Department Care Team (Late st Contact Info) Description 08/14/2021 2:30 PM EDT Office Visit [facility] [address] [place] [address] Kaushal Singleton MD [address] [facility] [address] [place] [address] Rheumatic aortic stenosis (Primary Dx); Rheumatic aortic valve insufficiency; Valvular disease; 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 04/07/18; Paroxysmal atrial fibrillation Social History Tobacco Use [...] Sign Reading Time Taken Comments Blood Pressure 120/90 08/14/2021 2:20 PM EDT Pulse 93 08/14/2021 2:20 PM EDT Temperature - - Respiratory Rate - - Oxygen Saturation 95% 08/14/2021 2:20 PM EDT Inhaled Oxygen Concentration - - Weight 135 kg (297 lb) 08/14/2021 2:20 PM EDT Height 182.9 cm (6') 08/14/2021 2:20 PM EDT Body Mass Index 40.28 08/14/2021 2:20 PM EDT documented in this encounter Progress Notes * Kaushal Singleton MD - 08/14/2021 2:30 PM EDTAssociated Order(s): ECG 12 Lead Images from the original note were not included. [facility] AT [address], [address] [place], [address] WWW.[facility] FOLLOW UP NOTE Patient Care Team: Patient Care Team: Kaushal Kuo MD as PCP - General (Emergency Medicine) Subjective: Chief Complaint Patient presents with ??? AVD (aortic valve disease) HPI: Carlos Manuel Rojas II is a 56 y.o. male. Problem list: 1. Rheumatic aortic valve disease 1. status post valve replacement 02/2018 2. Postoperative A. Fib 1. S/p surgical left atrial appendage closure 3. Longstanding history of PVCs 1. Preceded aortic valve surgery 4. Former tobacco dependence Today he presents for follow-up. Patient's been doing well from a cardiac standpoint since last visit. Denies chest pain, palpitations, shortness of breath, lower extremity edema, lightheadedness or syncope. Edema significantly improved over the last 6 months. Notes he has not taken his as needed Lasix in over 6 months. No recent blood work, has not seen his PCP in several years. Review of Systems: As noted in HPI. PFSH: Patient Active Problem List Diagnosis ??? Rheumatic aortic stenosis ??? Rheumatic aortic valve insufficiency ??? Former tobacco dependence ??? Valvular disease ??? 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 04/07/18 ??? H/O: rheumatic fever ??? GERD (gastroesophageal reflux disease) ??? Paroxysmal atrial fibrillation (HCC) ??? Morbidly obese (HCC) Current Outpatient Medications: ??? aspirin (aspirin) 81 MG EC tablet, Take 1 tablet by mouth Daily., Disp: 90 tablet, Rfl: 3 ??? furosemide (LASIX) 20 MG tablet, Take 1 tablet by mouth Take As Directed. Take 40 mg oral dailyfor 5 days, then 20 mg oral daily there after. (Patient taking differently: Take 20 mg by mouth As Needed.), Disp: 35 tablet, [...] Malin PA Allergies Allergen Reactions ??? Penicillins Anusha reports that he quit smoking about 3 years ago. His smoking use included cigarettes. He has a 30.00pack-year smoking history. He has never used smokeless tobacco. Family History Problem Relation Age of Onset ??? Cancer Mother ??? Heart disease Father ??? Heart failure Father Objective: Physical exam: Blood pressure 120/90, pulse 93, height 182.9 cm (72 ), weight 135 kg (297 lb), SpO2 95 %. CONSTITUTIONAL: No acute distress, normal affect RESPIRATORY: Normal effort. Clear to auscultation bilaterally without wheezing or rales CARDIOVASCULAR: Carotids with normal upstrokes without bruits. Regular rate and rhythm with normal S1 and S2. Without gallop or rub. Soft RUSB ROXANN with radiation to the carotids, right > left. PERIPHERAL VASCULAR: Normal radial pulse. There is mild to moderate left lower extremity edema Labs: BUN Date Value Ref Range Status [...] 1.0 Diagnostic Data: ECG 12 Lead Date/Time: 08/14/2021 2:32 PM Performed by: Kaushal Singleton MD Authorized by: Kaushal Singleton MD Comparison: compared with previous ECG from 01/05/2020 Comparison to previous ECG: PVC no longer present Rhythm: sinus rhythm Rate: normal BPM: 78 C 02/2018 ?? There is near normal [...] Lasix as needed -Continue to monitor clinically Paroxysmal atrial fibrillation MEGHA Occlusion/Clipping -Maintaining sinus rhythm. -Off amio and Xarelto -Continue aspirin, Toprol-XL PVCs -Continue beta-clayton - Return in about 1 year (around 08/14/2022) for Next scheduled follow up with EKG. Scribed for Kaushal Singleton MD by Nallely Rubi, LOBSTER CATCHER. 08/14/2021 14:47 EDT I, Kaushal Singleton MD, personally performed the services as scribed by the above named individual. I have made any necessary edits and it is both accurate and complete. Kaushal Singleton MD, MSc, FACC, [facility] Interventional Cardiology [facility] documented in this encounter Plan of Treatment Upcoming Encounters Date Type Department Care Team (Late st Contact Info) Description 09/01/2024 1:30 PM EDT Office Visit [facility] [address] [place] [address] Kaushal Singleton MD [address] [place] [address] [address] [place] [address] documented as of this encounter Procedures Procedure Name Priority Date/Time Associated Diagnosis Comments ECG 12-LEAD Routine 08/14/2021 Paroxysmal atrial fibrillation documented in this encounter Results * ECG 12-LEAD (08/14/2021) Narrative 08/14/2021 Kaushal Singleton MD ? 08/14/2021 ??3:15 PM ECG 12 Lead Date/Time: 08/14/2021 2:32 PM Performed by: Kaushal Singleton MD Authorized by: Kaushal Singleton MD Comparison: compared with previous ECG from 01/05/2020 Comparison to previous ECG: PVC no longer present Rhythm: sinus rhythm Rate: normal BPM: 78 Procedure Note Kaushal Singleton MD - 08/14/2021 2:30 PM EDT Images from the original note were not included. [facility] AT [address], [address] [place], [address] WWW.[facility] FOLLOW UP NOTE Patient Care Team: Patient Care Team: Kaushal Kuo MD as PCP - General (Emergency Medicine) Subjective: Chief Complaint Patient presents with ? ? AVD (aortic valve disease) HPI: Carlos Manuel Rojas II is a 56 y.o. male. Problem list: 1. Rheumatic aortic valve disease 1. status post valve replacement 02/2018 2. Postoperative A. Fib 1. S/p surgical left atrial appendage closure 3. Longstanding history of PVCs 1. Preceded aortic valve surgery 4. Former tobacco dependence Today he presents for follow-up. Patient's been doing well from a cardiac standpoint since last visit.Denies chest pain, palpitations, shortness of breath, lower extremityedema, lightheadedness or syncope. Edema significantly improved over thelast 6 months. Notes he has not taken his as needed Lasix in over 6months. No recent blood work, has not seen his PCP in several years. Review of Systems: As noted in HPI. PFSH: Patient Active Problem List Diagnosis ? ? Rheumatic aortic stenosis ? ? Rheumatic aortic valve insufficiency ? ? Former tobacco dependence ? ? Valvular disease ? ? Aortic Valve Disease (Rheumatic) - Severe /AR - S/P AVR w/ LAAOcclusion 04/07/18 ? ? H/O: rheumatic fever ? ? GERD (gastroesophageal reflux disease) ? ? Paroxysmal atrial fibrillation (HCC) ? ? Morbidly obese (HCC) Current Outpatient Medications: ? ? aspirin (aspirin) 81 MG EC tablet, Take 1 tablet by mouth Daily., Disp:90 tablet, Rfl: 3 ? ? furosemide (LASIX) 20 MG tablet, Take 1 tablet by mouth Take AsDirected. Take 40 mg oral daily for 5 days, then 20 mg oral daily thereafter. (Patient taking differently: Take 20 mg by mouth As Needed.), Disp:35 tablet, Rfl: 11 ? ? metoprolol succinate XL (TOPROL-XL) 25 MG 24 hr tablet, Take 1 tabletby mouth Daily., Disp: 90 tablet, Rfl: 3 ? ? Multiple Vitamin (MULTI VITAMIN DAILY PO), Take by mouth Daily., Disp:, Rfl: No current facility-administered medications for this visit. Facility-Administered Medications Ordered in Other Visits: ? ? Chlorhexidine Gluconate Cloth 2 % pads 1 application, 1 application,Topical, Q12H PRN, Miguel Malin PA Allergies Allergen Reactions ? ? Penicillins Anusha reports that he quit smoking about 3 years ago. His smoking use includedcigarettes. He has a 30.00 pack-year smoking history. He has never usedsmokeless tobacco. Family History Problem Relation Age of Onset ? ? Cancer Mother ? ? Heart disease Father ? ? Heart failure Father Objective: Physical exam: Blood pressure 120/90, pulse 93, height 182.9 cm (72 ), weight 135 kg (297lb), SpO2 95 %. CONSTITUTIONAL: No acute distress, normal affect RESPIRATORY: Normal effort. Clear to auscultation bilaterally withoutwheezing or rales CARDIOVASCULAR: Carotids with normal upstrokes without bruits. Regularrate and rhythm with normal S1 and S2. Without gallop or rub. Soft RUSBSEM with radiation to the carotids, right > left. PERIPHERAL VASCULAR: Normal radial pulse. There is mild to moderate leftlower extremity edema Labs: BUN Date Value Ref Range Status [...] 1.0 Diagnostic Data: ECG 12 Lead Date/Time: 08/14/2021 2:32 PM Performed by: Kaushal Singleton MD Authorized by: Kaushal Singleton MD Comparison: compared with previous ECG from 01/05/2020 Comparison to previous ECG: PVC no longer present Rhythm: sinus rhythm Rate: normal BPM: 78 C 02/2018 ?? There is near normal coronary anatomy with no flow-limiting obstructivestenoses TA 05/2018 ?? Left ventricular systolic function is normal. ?? Estimated EF appears to be in the range of 56 - 60%. ?? There is a left atrial appendage occlusion clip, no evidence of flowwithin the occluded MEGHA. ?? There is a 25 mm [place] bioprosthetic valve present. Mildperivalvular regurgitation is present. Mild paravalvular leak at 5 o'clockon short axis view of the aortic valve, otherwise normal functioningbioprosthetic valve. Assessment and Plan: 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 Aortic Valve Disease (Rheumatic) - Severe /AR - S/P AVR 04/07/18 Lower extremity swelling -Continue Lasix as needed -Continue to monitor clinically Paroxysmal atrial fibrillation MEGHA Occlusion/Clipping -Maintaining sinus rhythm. -Off amio and Xarelto -Continue aspirin, Toprol-XL PVCs -Continue beta-clayton - Return in about 1 year (around 08/14/2022) for Next scheduled follow upwith EKG. Scribed for Kaushal Singleton MD by Nallely Rubi APRN. 08/14/2021 14:47EDT I, Kaushal Singleton MD, personally performed the services as scribed by theabove named individual. I have made any necessary edits and it is bothaccurate and complete. Kaushal Singleton MD, MSc, FACC, [facility] Interventional Cardiology [facility] Kaushal Singleton MD ECG ORDERABLES Final Result documented in this encounter Visit Diagnoses Diagnosis Rheumatic aortic stenosis- Primary Rheumatic aortic valve insufficiency Valvular disease Endocarditis, valve unspecified, unspecified cause 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 04/07/18 Aortic valve disorders Paroxysmal atrial fibrillation Atrial fibrillation documented in this encounter Care Teams Shale Miner Relationship Specialty Start Date End Date Kaushal Kuo MD PCP - General Emergency Medicine 02/23/18 08/06/22 documented as of this encounter
--- OUTSIDE RECORDS SUMMARY | 2024-02-29 15:31 | XMS_ITS | Encounter Summary ---
Author Organization [facility] Address [address] [place] [address] Care Team Providers Care Director Of Hotel Name Role Phone Kaushal Kuo MD Primary Care Provider [phone] Reason for Visit * Reason Onset Date Comments Med Refill 07/17/2021 Encounter Details Date Type Department Care Team (Late st Contact Info) Description 07/17/2021 Refill [facility] [address] [facility] [address] [place] [address] Rehana Ritter RN Med Refill [...] Description 09/01/2024 1:30 PM EDT Office Visit [facility] [address] [place] [address] Kaushal Singleton MD [address] [facility] [address] [place] [address] documented as of this encounter Visit Diagnoses Not on filedocumented in this encounter Care Teams Director Of Hotel Relationship Specialty Start Date End Date Kaushal Kuo MD PCP - General Emergency Medicine 02/23/18 08/06/22 documented as of this encounter
--- OUTSIDE RECORDS SUMMARY | 2024-02-29 15:31 | XMS_ITS | Encounter Summary ---
[facility] Address [address] [place] [address] Care Team Providers Care Supervisor Major Appliance Assembly Name Role Phone Kaushal Kuo MD Primary Care Provider [phone] Reason for Visit * Reason Comments aortic valve disease Encounter Details Date Type Department Care Team (Late st Contact Info) Description 07/19/2020 3:15 PM EDT Office Visit [facility] [address] [place] [address] Kaushal Singleton MD [address] [facility] [address] [place], [place] [id number] AVD (aortic valve disease) (Primary Dx); Coronary artery disease involving [place] coronary artery of [place] heart without angina pectoris Social History Tobacco Use Types Packs/Day Years Used Date Smoking Tobacco: Former Cigarettes 1 - 2018 Smokeless Tobacco: Never Comments:Pt reports [...] Sign Reading Time Taken Comments Blood Pressure 124/74 07/19/2020 3:15 PM EDT Pulse 79 07/19/2020 3:15 PM EDT Temperature - - Respiratory Rate - - Oxygen Saturation 96% 07/19/2020 3:15 PM EDT Inhaled Oxygen Concentration - - Weight 137 kg (303 lb) 07/19/2020 3:15 PM EDT Height 182.9 cm (6') 07/19/2020 3:15 PM EDT Body Mass Index 41.09 07/19/2020 3:15 PM EDT documented in this encounter Progress Notes * Kaushal Singleton MD - 07/19/2020 3:15 PM EDT Images from the original note were not included. [facility] [address], [address] [place], [place], [id number] WWW.[facility]ITAL[facility] FOLLOW UP NOTE Patient Care Team: Patient Care Team: Kaushal Kuo MD as PCP - General (Emergency Medicine) Subjective: Chief Complaint Patient presents with ??? aortic valve disease HPI: Carlos Manuel Rojas II is a 55 y.o. male. Problem list: 1. 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 Postoperative A. fib, surgical left atrial appendage closure 3. 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 Former tobacco dependence Today he presents for follow-up. Since patient was last seen he reports that he has been doing well from a cardiac standpoint. He denies chest pain, shortness of breath, or palpitations. He continues to have lower extremity edema. He only takes his as needed Lasix approximately once per month. Review of Systems: Positive for lower extremity swelling Negative for exertional chest pain, dyspnea with exertion, orthopnea, PND, palpitations, lightheadedness, syncope. PFSH: Patient Active Problem List Diagnosis ??? Rheumatic aortic stenosis ??? Rheumatic aortic valve insufficiency ??? Former tobacco dependence ??? Valvular disease ??? 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 04/07/18 ??? H/O: rheumatic fever ??? GERD (gastroesophageal reflux disease) ??? Paroxysmal atrial fibrillation (CMS/HCC) ??? Morbidly obese (CMS/HCC) Current Outpatient Medications: ??? aspirin (aspirin) 81 MG EC tablet, Take 1 tablet by mouth Daily., Disp: 90 tablet, Rfl: 3 ??? furosemide (LASIX) 20 MG tablet, Take 1 tablet by mouth Take As Directed. Take 40 mg oral dailyfor 5 days, then 20 mg oral daily there after., Disp: 35 tablet, Rfl: 11 ??? metoprolol [...] Malin PA Allergies Allergen Reactions ??? Penicillins Hives reports that he quit smoking about 2 years ago. His smoking use included cigarettes. He has a 30.00pack-year smoking history. He has never used smokeless tobacco. Family History Problem Relation Age of Onset ??? Cancer Mother ??? Heart disease Father ??? Heart failure Father Objective: Physical exam: Blood pressure 124/74, pulse 79, height 182.9 cm (72 ), weight (!) 137 kg (303 lb), SpO2 96 %. CONSTITUTIONAL: No acute distress, normal affect RESPIRATORY: Normal effort. Clear to auscultation bilaterally without wheezing or rales CARDIOVASCULAR: Carotids with normal upstrokes without bruits. Regular rate and rhythm with normal S1 and S2. Without gallop or rub. Soft RUSB ROXANN with radiation to the carotids. PERIPHERAL VASCULAR: Normal radial pulse. There is [...] Potassium 4.9, creatinine 1.0 Diagnostic Data: Procedures LHC 02/2018 ?? There is near normal coronary [...] normal functioning bioprosthetic valve. Assessment and Plan: Carlos Manuel was seen today for coronary artery disease. Diagnoses and all orders for this visit: 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 Aortic Valve Disease (Rheumatic) - Severe /AR - S/P AVR 04/07/18 Lower extremity swelling -Continue Lasix as needed -Continue to monitor clinically Paroxysmal atrial fibrillation MEGHA Occlusion/Clipping -Off amio and Xarelto -Continue aspirin, Toprol-XL PVCs -Continue beta-clayton - Return in about 1 year (around 07/19/2021) for Next scheduled follow up with an EKG. Scribed for Kaushal Singleton MD by Shauna Andrews APRN 07/19/2020 15:53 EDT I, Kaushal Singleton MD, personally performed the services as scribed by the above named individual. I have made any necessary edits and it is both accurate and complete. Kaushal Singleton MD, MSc, FACC, [facility] Interventional Cardiology [facility] documented in this encounter Plan of Treatment Upcoming Encounters Date Type Department Care Team (Late st Contact Info) Description 09/01/2024 1:30 PM EDT Office Visit [facility] [address] [place] [address] Kaushal Singleton MD [address] [facility] [address] [place] [address] documented as of this encounter Visit Diagnoses Diagnosis AVD (aortic valve disease)- Primary Aortic valve disorders Coronary artery disease involving [place] coronary artery of [place] heart without angina pectoris documented in this encounter Care Teams Supervisor Major Appliance Assembly Relationship Specialty Start Date End Date Kaushal Kuo MD PCP - General Emergency Medicine 02/23/18 08/06/22 documented as of this encounter
--- OUTSIDE RECORDS SUMMARY | 2024-02-29 15:31 | XMS_ITS | Encounter Summary ---
[facility] Address [address] [place] [address] Care Team Providers Care Manager Managing Name Role Phone Provider, No Known Primary Care Provider Unavail able Reason for Referral * Diagnostic Imaging (Routine) - Closed Specialty Diagnoses / Procedures Referred By Contac t Referred To Contact Diagnoses Bilateral carotid bruits Procedures Duplex Carotid Ultrasound CAR Kaushal Singleton MD [address] [place] [address] Phone: tel: fax: [place] [address] Phone: tel: Referral ID Status Reason Start Date Expiration Date Visits Re quested Visits Authorized [id number] Closed 08/27/2023 08/26/2024 1 1 Reason for Visit * Diagnostic Imaging (Routine) - Closed Specialty Diagnoses / Procedures Referred By Contac t Referred To Contact Diagnoses Bilateral carotid bruits Procedures Duplex Carotid Ultrasound Kaushal Vizcaino MD [address] [place] [address] Phone: tel: fax: [place] [address] Phone: tel: Referral ID Status Reason Start Date Expiration Date Visits Re quested Visits Authorized [id number] Closed 08/27/2023 08/26/2024 1 1 Encounter Details Date Type Department Care Team (Latest Contact Info) Description 09/05/2023 8:53 AM EDT - 09/05/2023 11:59 PM EDT Hospital Encounter [facility] [place] [address] [facility] [address] [address] [place] [address] Bilateral carotid bruits Discharge Disposition: Home or Self Care Social [...] on file documented as of this encounter Medications at Time of Discharge aspirin 81 MG EC tablet Take 1 tablet by mouth Daily. 90 tablet 3 09/05/2023 metoprolol succinate XL (TOPROL-XL) 25 MG 24 hr tablet Take 1 tablet by mouth Daily. 90 tablet 3 09/05/2023 Multiple Vitamin (MULTI VITAMIN DAILY PO) Take by mouth Daily. documented as of this encounter Plan of Treatment Upcoming Encounters Date Type Department Care Team (Late st Contact Info) Description 09/01/2024 1:30 PM EDT Office Visit [facility] [address] [facility] [place] [address] Kaushal Singleton MD [address] [facility] [address] [place] [address] documented as of this encounter Procedures Procedure Name Priority Date/Time Associated Diagnosis Comments DUPLEX CAROTID BILATERAL CAR - PERFORMED PROCEDURE Routine 09/05/2023 9:32 AM EDT Bilateral carotid bruits documented in this encounter Results * DUPLEX CAROTID BILATERAL CAR - PERFORMED [...] MD CV VASCULAR ORDERABLES Final Res ult documented in this encounter Visit Diagnoses Diagnosis Bilateral carotid bruits documented in this encounter Care Teams Manager Managing Relationship Specialty Start Date End Date Provider, [place] [address] PCP - General 08/27/23 documented as of this encounter
--- OUTSIDE RECORDS SUMMARY | 2024-02-29 15:31 | XMS_ITS | Encounter Summary ---
Author Organization [facility] Address [address] [place] [address] Care Team Providers Care Director Of Social Media Marketing Name Role Phone Kaushal Kuo MD Primary Care Provider [phone] Encounter Details Date Type Department Care Team (Late st Contact Info) Description 09/22/2019 Telephone [facility] [address] [place] [address] Rehana Ritter, RN Social History Tobacco Use Types Packs/Day Years Used Date Smoking Tobacco: Former Cigarettes 1 2018 Smokeless Tobacco: Never Comments:Pt reports 30+ [...] encounter Miscellaneous Notes * Telephone Encounter - Rehana Ritter RN - 09/22/2019 2:14 PM EDT Patient returned call. Pt states swelling is much improved. Pt advised to call office if having to use Lasix more than 3-4 times weekly. Pt verbalizes understanding, all questions answered this time. * Telephone Encounter - Rehana Ritter RN - 09/22/2019 10:35 AM EDT Patient contacted to review lab results and edema. No answer, no voicemail set up. Will await return call. * Telephone Encounter - Rehana Ritter RN - 09/22/2019 10:35 AM EDT ----- Message from Kaushal Singleton MD sent at 09/22/2019 10:12 AM EDT ----- Please ask if the patient's swelling has improved with Lasix. If so, can continue 40 mg daily as needed if needing it more than 3-4 times a week to control his swelling, have him call us and let us know documented in this encounter Plan of Treatment Upcoming Encounters Date Type Department Care Team (Late st Contact Info) Description 09/01/2024 1:30 PM EDT Office Visit [facility] [address] [facility] [address] [place] [address] Kaushal Singleton MD [address] [facility] [address] [place] [address] documented as of this encounter Visit Diagnoses Not on filedocumented in this encounter Care Teams Director Of Social Media Marketing Relationship Specialty Start Date End Date Kaushal Kuo MD PCP - General Emergency Medicine 02/23/18 08/06/22 documented as of this encounter
--- OUTSIDE RECORDS SUMMARY | 2024-02-29 15:31 | XMS_ITS | Encounter Summary ---
[facility] Address [address] [place] [address] Care Team Providers Care Recruiting Consultant Name Role Phone Kaushal Kuo MD Primary Care Provider [phone] Reason for Visit * Reason Comments AORTIC VALVE DISEASE Encounter Details Date Type Department Care Team (Late st Contact Info) Description 01/05/2020 2:45 PM EDT Office Visit [facility] [address] [place] [address] Kaushal Singleton MD [address] [place] [address] AVD (aortic valve disease) (Primary Dx); Paroxysmal atrial fibrillation; Coronary artery disease involving [place] coronary artery of [place] heart without angina pectoris; Rheumatic aortic stenosis; Rheumatic aortic valve insufficiency Social History Tobacco Use Types Packs/Day Years [...] Sign Reading Time Taken Comments Blood Pressure 126/76 01/05/2020 2:57 PM EDT Pulse 74 01/05/2020 2:57 PM EDT Temperature - - Respiratory Rate - - Oxygen Saturation 96% 01/05/2020 2:57 PM EDT Inhaled Oxygen Concentration - - Weight 134 kg (296 lb) 01/05/2020 2:57 PM EDT Height 182.9 cm (6') 01/05/2020 2:57 PM EDT Body Mass Index 40.14 01/05/2020 2:57 PM EDT documented in this encounter Progress Notes * Kaushal Singleton MD - 01/05/2020 2:45 PM EDTAssociated Order(s): ECG 12 Lead Post-Procedure Diagnose(s): Paroxysmal atrial fibrillation Images from the original note were not included. [facility] [address], [address] [place], [address] WWW.[facility] FOLLOW UP NOTE Patient Care Team: Patient Care Team: Kaushal Kuo MD as PCP - General (Emergency Medicine) Subjective: Chief Complaint Patient presents with ??? AORTIC VALVE DISEASE HPI: Carlos Manuel Rojas II is a 54 y.o. male. Problem list: 1. 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 Postoperative A. fib, surgical left atrial appendage closure 3. 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 Former tobacco dependence Today he presents for follow-up. Since his last visit his swelling is improved. Intermittent, controlled, better with as needed Lasix. Denies chest pain, dyspnea, palpitations Review of Systems: Positive for lower extremity [...] Take 1 tablet by mouth Daily., Disp: 30 tablet, Rfl: 2 ??? furosemide (LASIX) 20 MG tablet, Take 1 tablet by mouth Take As Directed. Take 40 mg oral dailyfor 5 days, then 20 mg oral daily there after., Disp: 35 tablet, Rfl: 11 ??? metoprolol succinate XL (TOPROL-XL) 25 MG 24 hr tablet, Take 1 tablet by mouth Daily., Disp: 30tablet, Rfl: 2 ??? Multiple Vitamin (MULTI VITAMIN DAILY PO), Take by mouth Daily., Disp: , Rfl: No current facility-administered medications for this visit. Facility-Administered Medications Ordered in Other Visits: ??? Chlorhexidine Gluconate Cloth 2 % pads 1 application, 1 application, Topical, Q12H PRN, Miguel Malin PA Allergies Allergen Reactions ??? Penicillins Hives reports that he quit smoking about 21 months ago. His smoking use included cigarettes. He has a 30.00 pack-year smoking history. He has never used smokeless tobacco. Family History Problem Relation Age of Onset ??? Cancer Mother ??? Heart disease Father ??? Heart failure Father Objective: Physical exam: Blood pressure 126/76, pulse 74, height 182.9 cm (72 ), weight 134 kg (296 lb), SpO2 96 %. CONSTITUTIONAL: No acute distress, normal affect RESPIRATORY: Normal effort. Clear to auscultation bilaterally without wheezing or rales CARDIOVASCULAR: Carotids with normal upstrokes without bruits. Regular rate and rhythm with normal S1 and S2. Without gallop or rub. Very soft RUSB ROXANN without radiation PERIPHERAL VASCULAR: Normal radial pulse. There is [...] 1.0 Diagnostic Data: ECG 12 Lead Date/Time: 01/05/2020 5:49 PM Performed by: Kaushal Singleton MD Authorized by: Kaushal Singleton MD Comparison: compared with previous ECG from 06/13/2018 Comparison to previous ECG: PVCs are now present Rhythm: sinus rhythm Ectopy: unifocal PVCs Comments: Nonspecific ST-T wave abnormality, heart rate 74, QRS 106, QTc 422 C 02/2018 ?? There is near normal [...] - S/P AVR 04/07/18 Lower extremity swelling -PRN Lasix Paroxysmal atrial fibrillation (CMS/HCC) MEGHA Occlusion/Clipping -Off amio and Xarelto -Continue ASA, Toprol XL for now PVCs -Metoprolol - Return in about 6 months (around 07/05/2020) for Next scheduled follow up. Kaushal Singleton MD, MSc, FACC documented in this encounter Plan of Treatment Upcoming Encounters Date Type Department Care Team (Late st Contact Info) Description 09/01/2024 1:30 PM EDT Office Visit [facility] [address] [place] [address] Kaushal Singleton MD [facility] [facility] [address] [place] [address] documented as of this encounter Procedures Procedure Name Priority Date/Time Associated Diagnosis Comments ECG 12-LEAD Routine 01/05/2020 Paroxysmal atrial fibrillation documented in this encounter Results * ECG 12-LEAD (01/05/2020) Narrative 01/05/2020 Kaushal Singleton MD ? 01/05/2020 ??5:49 PM ECG 12 Lead Date/Time: 01/05/2020 5:49 PM Performed by: Kaushal Singleton MD Authorized by: Kaushal Singleton MD Comparison: compared with previous ECG from 06/13/2018 Comparison to previous ECG: PVCs are now present Rhythm: sinus rhythm Ectopy: unifocal PVCs Comments: Nonspecific ST-T wave abnormality, heart rate 74, QRS 106, QTc 422 Procedure Note Kaushal Singleton MD - 01/05/2020 2:45 PM EDT Images from the original note were not included. [facility] [address], [address] [place], [address] WWW.[facility] FOLLOW UP NOTE Patient Care Team: Patient Care Team: Kaushal Kuo MD as PCP - General (Emergency Medicine) Subjective: Chief Complaint Patient presents with ? ? AORTIC VALVE DISEASE HPI: Carlos Manuel Rojas II is a 54 y.o. male. Problem list: 1. 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 Postoperative A. fib, surgical left atrial appendage closure 3. 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 Former tobacco dependence Today he presents for follow-up. Since his last visit his swelling is improved. Intermittent, controlled,better with as needed Lasix. Denies chest pain, dyspnea, palpitations Review of Systems: Positive for lower extremity swelling Negative for exertional chest pain, dyspnea with exertion, orthopnea, PND,palpitations, lightheadedness, syncope. PFSH: Patient Active Problem List Diagnosis ? ? Rheumatic aortic stenosis ? ? Rheumatic aortic valve insufficiency ? ? Former tobacco dependence ? ? Valvular disease ? ? Aortic Valve Disease (Rheumatic) - Severe /AR - S/P AVR w/ LAAOcclusion 04/07/18 ? ? H/O: rheumatic fever ? ? GERD (gastroesophageal reflux disease) ? ? Paroxysmal atrial fibrillation (CMS/HCC) ? ? Morbidly obese (CMS/HCC) Current Outpatient Medications: ? ? aspirin (aspirin) 81 MG EC tablet, Take 1 tablet by mouth Daily., Disp:30 tablet, Rfl: 2 ? ? furosemide (LASIX) 20 MG tablet, Take 1 tablet by mouth Take AsDirected. Take 40 mg oral daily for 5 days, then 20 mg oral daily thereafter., Disp: 35 tablet, Rfl: 11 ? ? metoprolol succinate XL (TOPROL-XL) 25 MG 24 hr tablet, Take 1 tabletby mouth Daily., Disp: 30 tablet, Rfl: 2 ? ? Multiple Vitamin (MULTI VITAMIN DAILY PO), Take by mouth Daily., Disp:, Rfl: No current facility-administered medications for this visit. Facility-Administered Medications Ordered in Other Visits: ? ? Chlorhexidine Gluconate Cloth 2 % pads 1 application, 1 application,Topical, Q12H PRN, Miguel Malin PA Allergies Allergen Reactions ? ? Penicillins Anusha reports that he quit smoking about 21 months ago. His smoking useincluded cigarettes. He has a 30.00 pack-year smoking history. He hasnever used smokeless tobacco. Family History Problem Relation Age of Onset ? ? Cancer Mother ? ? Heart disease Father ? ? Heart failure Father Objective: Physical exam: Blood pressure 126/76, pulse 74, height 182.9 cm (72 ), weight 134 kg (296lb), SpO2 96 %. CONSTITUTIONAL: No acute distress, normal affect RESPIRATORY: Normal effort. Clear to auscultation bilaterally withoutwheezing or rales CARDIOVASCULAR: Carotids with normal upstrokes without bruits. Regularrate and rhythm with normal S1 and S2. Without gallop or rub. Very softRUSB ROXANN without radiation PERIPHERAL VASCULAR: Normal radial pulse. There is [...] 1.0 Diagnostic Data: ECG 12 Lead Date/Time: 01/05/2020 5:49 PM Performed by: Kaushal Singleton MD Authorized by: Kaushal Singleton MD Comparison: compared with previous ECG from 06/13/2018 Comparison to previous ECG: PVCs are now present Rhythm: sinus rhythm Ectopy: unifocal PVCs Comments: Nonspecific ST-T wave abnormality, heart rate 74, QRS 106, [id number] [facility] 02/2018 ?? There is near normal coronary [...] otherwise normal functioningbioprosthetic valve. Assessment and Plan: Carlos Manuel was seen today for coronary artery disease. Diagnoses and all orders for this visit: 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 Aortic Valve Disease (Rheumatic) - Severe /AR - S/P AVR 04/07/18 Lower extremity swelling -PRN Lasix Paroxysmal atrial fibrillation (CMS/HCC) MEGHA Occlusion/Clipping -Off amio and Xarelto -Continue ASA, Toprol XL for now PVCs -Metoprolol - Return in about 6 months (around 07/05/2020) for Next scheduled followup. Kaushal Singleton MD, MSc, FACC Kaushal Singleton MD ECG ORDERABLES Final Result documented in this encounter Visit Diagnoses Diagnosis AVD (aortic valve disease)- Primary Aortic valve disorders Paroxysmal atrial fibrillation Atrial fibrillation Coronary artery disease involving [place] coronary artery of [place] heart without angina pectoris 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 documented in this encounter Care Teams Recruiting Consultant Relationship Specialty Start Date End Date Kaushal Kuo MD PCP - General Emergency Medicine 02/23/18 08/06/22 documented as of this encounter
--- OUTSIDE RECORDS SUMMARY | 2024-02-29 15:31 | XMS_ITS | Encounter Summary ---
Author [facility] Address [address] [place] [address] Care Team Providers Care Pattern Puncher Name Role Phone Provider, No Known Primary Care Provider Unavail able Encounter Details Date Type Department Care Team (Late st Contact Info) Description 09/05/2023 Telephone [facility] [address] [place] [address] Kausahl Singleton MD [address] [place] [address] Social History Tobacco Use Types Packs/Day Years [...] Encounter - Joelle Harrell RN - 09/05/2023 4:25 PM EDT ----- Message from Kaushal Singleton sent at [...] Will plan to repeat an echo in 2024. Okay to go ahead and order it. Would recommend it be done in 07/2024 in advance of his 08/2024 follow-up appointment. ----- Message ----- From: Kaushal Singleton MD Sent: 09/05/2023 1:50 PM EDT To: Kaushal Singleton MD documented in this encounter Plan of Treatment Upcoming Encounters Date Type Department Care Team (Late st Contact Info) Description 09/01/2024 1:30 PM EDT Office Visit [facility] [address] [place] [address] Kaushal Singleton MD [address] [facility] [address] [place] [address] documented as of this encounter Visit Diagnoses Not on filedocumented in this encounter Care Teams Pattern Puncher Relationship Specialty Start Date End Date Provider, No Known [facility] [place] [address] PCP - General 08/27/23 documented as of this encounter
--- OUTSIDE RECORDS SUMMARY | 2024-02-29 15:31 | XMS_ITS | Encounter Summary ---
[facility] [address] [place] [address] Care Team Providers Care Requirements Analyst Name Role Phone Provider, No Known Primary Care Provider Unavail able Encounter Details Date Type Department Care Team (Late st Contact Info) Description 09/05/2023 Telephone [facility] [address] [place] [address] Kaushal Singleton MD [address] [place] [address] Social History Tobacco Use Types Packs/Day Years [...] Encounter - Joelle Harrell RN - 09/05/2023 4:28 PM EDT Spoke with patient, results given as below ----- Message from Kaushal Singleton sent at 09/05/2023 2:45 PM EDT ----- Carotid duplex ultrasound looks good. ----- Message ----- From: Kaushal Singleton MD Sent: 09/05/2023 2:45 PM EDT To: Kaushal Singleton MD documented in this encounter Plan of Treatment Upcoming Encounters Date Type Department Care Team (Late st Contact Info) Description 09/01/2024 1:30 PM EDT Office Visit [facility] [address] [facility] [address] [place] [address] Kaushal Singleton MD [address] [facility] [address] [place], [place] [id number] documented as of this encounter Visit Diagnoses Not on filedocumented in this encounter Care Teams Requirements Analyst Relationship Specialty Start Date End Date Provider, No Known [place] [address] PCP - General 08/27/23 documented as of this encounter
--- OUTSIDE RECORDS SUMMARY | 2024-02-29 15:31 | XMS_ITS | Encounter Summary ---
Author Organization [facility] Address [address] [place] [address] Care Team Providers Care Power System Electrical Engineer Name Role Phone Kaushal Kuo MD Primary Care Provider [phone] Reason for Visit * Reason Onset Date Comments Med Refill 09/05/2022 Encounter Details Date Type Department Care Team (Late st Contact Info) Description 09/05/2022 Refill [facility] [address] [facility] [address] [place] [address] Rehana Ritter RN Med Refill [...] Description 09/01/2024 1:30 PM EDT Office Visit [facility] [address] [place] [address] Kaushal Singleton MD [address] [facility] [address] [place] [address] documented as of this encounter Visit Diagnoses Not on filedocumented in this encounter Care Teams Power System Electrical Engineer Relationship Specialty Start Date End Date Kaushal Kuo MD [address] [facility] [address] ATTN: [facility] [address] PCP - General Emergency Medicine 08/07/22 08/26/23 documented as of this encounter
--- OUTSIDE RECORDS SUMMARY | 2024-02-29 15:31 | XMS_ITS | Encounter Summary ---
[facility] [address] [place] [address] Care Team Providers Care Fur Blowing Machine Attendant Name Role Phone Provider, No Known Primary Care Provider Unavail able Reason for Referral * Diagnostic Imaging (Routine) - Closed Specialty Diagnoses / Procedures Referred By Contac t Referred To Contact Diagnoses Heart valve disease Procedures Adult Transthoracic Echo Complete W/ Cont if Necessary Per Protocol Kaushal Singleton MD [address] [place] [address] Phone: tel: fax: [place] [address] Phone: tel: Referral ID Status Reason Start Date Expiration Date Visits Re quested Visits Authorized [id number] Closed 08/27/2023 10/26/2023 1 1 Reason for Visit * Diagnostic Imaging (Routine) - Closed Specialty Diagnoses / Procedures Referred By Contac t Referred To Contact Diagnoses Heart valve disease Procedures Adult Transthoracic Echo Complete W/ Cont if Necessary Per Protocol Kaushal Singleton MD [address] [place] [address] Phone: tel: fax: [address] [address] Phone: tel: Referral ID Status Reason Start Date Expiration Date Visits Re quested Visits Authorized [id number] Closed 08/27/2023 10/26/2023 1 1 Encounter Details Date Type Department Care Team (Latest Contact Info) Description 09/05/2023 9:38 AM EDT - 09/05/2023 11:59 PM EDT Hospital Encounter [facility] [address] [place] [address] Valvular disease Discharge Disposition: Home or Self Care Social [...] - Inhaled Oxygen Concentration - - Weight 130 kg (286 lb 9.6 oz) 09/05/2023 9:38 AM EDT Height 182.9 cm (6' 0.01 ) 09/05/2023 9:38 AM ED T Body Mass Index 38.86 09/05/2023 9:38 AM EDT documented in this encounter Medications [...] Description 09/01/2024 1:30 PM EDT Office Visit [facility] [address] [facility] [address] [place] [address] Kaushal Singleton MD [address] [facility] [address] [place] [address] documented as of this encounter Procedures Procedure Name Priority Date/Time Associated Diagnosis Comments ECHO COMPLETE W/ DOPPLER AND COLOR FLOW Routine 09/05/2023 10:26 AM EDT Valvular disease documented in this encounter Results * ECHO [...] documented in this encounter Visit Diagnoses Diagnosis Valvular disease Endocarditis, valve unspecified, unspecified cause documented in this encounter Care Teams Fur Blowing Machine Attendant Relationship Specialty Start Date End Date Provider, [place] [address] PCP - General 08/27/23 documented as of this encounter
--- OUTSIDE RECORDS SUMMARY | 2024-02-29 15:31 | XMS_ITS | Encounter Summary ---
[facility] Address [address] [place] [address] Care Team Providers Care Supervisor Forming And Tempering Name Role Phone Kaushal Kuo MD Primary Care Provider [phone] Encounter Details Date Type Department Care Team (Late st Contact Info) Description 10/14/2019 Telephone [facility] [address] [place] [address] Kaushal Singleton MD [address] [facility] [address] [place] [address] Social History Tobacco Use Types Packs/Day Years [...] Miscellaneous Notes * Telephone Encounter - Joelle Henry RN - 10/14/2019 3:15 PM EDT Spoke with patient, advised of below. ----- Message from Kaushal Singleton MD sent at 10/14/2019 11:33 AM EDT ----- Please let the patient know his echocardiogram looked acceptable. This valve replacement is workingwell. No significant leak documented in this encounter Plan of Treatment Upcoming Encounters Date Type Department Care Team (Late st Contact Info) Description 09/01/2024 1:30 PM EDT Office Visit [facility] [address] [facility] [address] [place] [address] Kaushal Singleton MD [address] [place], [place] [id number] documented as of this encounter Visit Diagnoses Not on filedocumented in this encounter Care Teams Supervisor Forming And Tempering Relationship Specialty Start Date End Date Kaushal Kuo MD PCP - General Emergency Medicine 02/23/18 08/06/22 documented as of this encounter
--- OUTSIDE RECORDS SUMMARY | 2024-02-29 15:31 | XMS_ITS | Clinical Summary ---
[facility] Address [address] [place] [address] Care Team Providers Care Pulp Grinder And Blender Name Role Phone Provider, No Known Primary Care Provider Unavail able Allergies Active Allergy Reactions Criticality Noted Date Comments Penicillins Hives Medium 02/05/2018 Medications Multiple Vitamin (MULTI VITAMIN DAILY PO) Take by mouth Daily. Active metoprolol succinate XL (TOPROL-XL) 25 MG 24 hr tablet Take 1 tablet by mouth Daily. 90 tablet 3 09/05/2023 Active aspirin 81 MG EC tablet Take 1 tablet by mouth Daily. 90 tablet 3 09/05/2023 Active Active Problems Problem Noted Date Diagnosed Date Morbidly obese 09/17/2018 Paroxysmal atrial fibrillation 06/03/2018 Aortic Valve Disease (Rheuma tic) - Severe /AR - S/P AVR w/ STACY Occlusion 04/07/18 04/07/2018 H/O: rheumatic fever 04/07/2018 Overview (04/07/2018): age 12 and 14 GERD (gastroesophageal reflux disease) 9 Rheumatic aortic stenosis 02/23/2018 Overview (02/23/2018): Added automatically from request for surgery [id number] Rheumatic aortic valve insufficiency 02/23/2018 Former tobacco dependence 02/23/2018 Valvular disease 02/23/2018 Overview (01/31/2020): Added automatically from request for surgery [id number] Replacing diagnoses that were inactivated after the 12/29 regulatory import Resolved Problems Problem Noted Date Diagnosed Date Resolved Date Coronary artery disease invo lving [place] coronary artery of [place] heart without angina pectoris 02/23/2018 06/03/2018 Overview (02/23/2018): Added automatically from request for surgery [id number] Family History Medical History Relation Name Comments Heart disease Father Heart failure Father Cancer Mother Relation Name Status Comments Father Mother Social History Tobacco Use Types Packs/Day Years Used Date Smoking Tobacco: Former Cigarettes 9 2018 Smokeless Tobacco: Never Tobacco Cessation:Counseling Given: [...] file Not on file Not on file Last Filed Vital Signs Vital Sign Reading Time Taken Comments Blood Pressure 124/88 08/27/2023 1:39 PM EDT Pulse 78 08/27/2023 1:39 PM EDT Temperature 36.4 ??C (97.5 ??F) 09/15/2019 3:09 PM ED T Respiratory Rate 20 04/11/2018 1:12 PM EST Oxygen Saturation 97% 08/27/2023 1:39 PM EDT Inhaled Oxygen Concentration - - Weight 130 kg (286 lb 9.6 oz) 09/05/2023 9:38 AM EDT Height 182.9 cm (6' 0.01 ) 09/05/2023 9:38 AM ED T Body Mass Index 38.86 09/05/2023 9:38 AM EDT Plan of Treatment Upcoming Encounters Date Type Department Care Team (Late st Contact Info) Description 09/01/2024 1:30 PM EDT Office Visit [facility] [address] [place] [address] Kaushal Singleton MD [address] [facility] [address] [place], [place] [id number] Health Maintenance Due Date Last Done Comments BMI FOLLOWUP 1965 COLOGUARD 1965 COLON CANCER SCREENING 5 YEAR SIGMOIDOSCOPY 1965 COLONOSCOPY [address] CANCER SCREENING 1965 CT COLONOGRAPHY 1965 FECAL OCCULT BLOOD TEST 1965 FIT Testing (1 year) 1965 Pneumococcal Vaccine 0-64 (1 of 2 - PCV) 1971 TDAP/TD VACCINES (1 - Tdap) 1984 LUNG CANCER SCREENING 2015 ZOSTER VACCINE (1 of 2) 2015 ANNUAL PHYSICAL 02/05/2018 HEPATITIS C SCREENING 02/05/2018 INFLUENZA VACCINE 09/29/2023 COVID-19 Vaccine ( season) 2023 Medical Devices Implanted Type Area Wrecker Driver Device Identifier Shelf Expiration Date Model / Serial / Lot Appl Clip Stacy Atriclip Flx 45mm - [id number] Implanted:Qty: 1 on 04/07/2018 by Jose Wilson MD at [facility] Implant N/A: Heart ATRICURE 11/29/2020 [id number] / / [id number] Vlv Pericard Perimount Magna Ease 25 - [id number] - [id number] Implanted:Qty: 1 on 04/07/2018 by Jose Wilson MD at [facility] Implant N/A: Heart [employer] 08/06/2021 [id number] / [id number] / N/A [place] [address] Advance Directives * CPR (Attempt to Resuscitate) (Latest Code Status on File) Date Activated Date Inactivated Comments 04/07/2018 12:14 PM 04/11/2018 5:23 PM Question Answer Comments Code Status (Patient has no pulse and is not breathing): CPR (Attempt to Resuscitate) Medical Interventions (Patie nt has pulse or is breathing): Full * CPR (Attempt to Resuscitate) Date Activated Date Inactivated Comments 04/07/2018 12:14 PM 04/07/2018 12:14 PM Question Answer Comments Code Status (Patient has no pulse and is not breathing): CPR (Attempt to Resuscitate) Medical Interventions (Patie nt has pulse or is breathing): Full * CPR (Attempt to Resuscitate) Date Activated Date Inactivated Comments 03/03/2018 2:54 PM 03/03/2018 7:41 PM Question Answer Comments Code Status (Patient has no pulse and is not breathing): CPR (Attempt to Resuscitate) Medical Interventions (Patie nt has pulse or is breathing): Full Level Of Support Discussed With: Patient Care Teams Pulp Grinder And Blender Relationship Specialty Start Date End Date Provider, No Known [facility] [place] [address] PCP - General 08/27/23
--- OUTSIDE RECORDS SUMMARY | 2024-02-29 15:32 | XMS_ITS | Encounter Summary ---
[facility] [address] [place] [address] Care Team Providers Care Environmental Officer Name Role Phone Kaushal Kuo MD Primary Care Provider [phone] Reason for Referral * Monitoring (Routine) - Closed Specialty Diagnoses / Procedures Referred By Contac t Referred To Contact Cardiology Diagnoses Paroxysmal atrial fibrillation Procedures Holter Monitor - 72 Hour Up To 21 Days Shauna Andrews APRN Phone: tel: fax: [facility] [address] [place] [phone] Phone: tel: fax: Referral ID Status Reason Start Date Expiration Date Visits Re quested Visits Authorized [id number] Closed 06/09/2018 06/09/2019 1 1 * Hospital - Outpatient (Routine) - Closed Specialty Diagnoses / Procedures Referred By Contac t Referred To Contact Diagnoses AVD (aortic valve disease) Procedures Adult Transesophageal Echo (TA) W/ Cont if Necessary Per Protocol HI ECHO TRANSESOPHAG R-T 2D W/PRB IMG MOOSE [place]&R Kaushal Singleton MD [address] [facility] [address] [place] [address] Phone: tel: fax: [address] [address] Phone: tel: Referral ID Status Reason Start Date Expiration Date Visits Re quested Visits Authorized [id number] Closed 06/03/2018 06/03/2019 1 1 Reason for Visit * Hospital - Outpatient (Routine) - Closed Specialty Diagnoses / Procedures Referred By Contac t Referred To Contact Diagnoses AVD (aortic valve disease) Procedures Adult Transesophageal Echo (TA) W/ Cont if Necessary Per Protocol HI ECHO TRANSESOPHAG R-T 2D W/PRB IMG ACQUISJ I&R Kaushal Singleton MD [address] [facility] [address] [place] [address] Phone: tel: fax: [place] [phone] Phone: tel: Referral ID Status Reason Start Date Expiration Date Visits Re quested Visits Authorized [id number] Closed 06/03/2018 06/03/2019 1 1 Encounter Details Date Type Department Care Team (Late st Contact Info) Description 06/09/2018 1:01 PM EDT - 06/09/2018 11:59 PM EDT Hospital Encounter [facility] [address] [facility] 3rd [place] [address] Kaushal Singleton MD [address] [place] [address] Paroxysmal atrial fibrillation (Primary Dx); Aortic Valve Disease (Rheumatic) - Severe /AR [...] Sign Reading Time Taken Comments Blood Pressure 110/72 06/09/2018 3:22 PM EDT Pulse 65 06/09/2018 3:22 PM EDT Temperature - - Respiratory Rate - - Oxygen Saturation 97% 06/09/2018 3:22 PM EDT Inhaled Oxygen Concentration - - Weight 124 kg (273 lb 5.9 oz) 06/09/2018 4:45 PM EDT Height 182.9 cm (6' 0.01 ) 06/09/2018 4:45 PM ED T Body Mass Index 37.07 06/09/2018 4:45 PM EDT documented in this encounter Discharge Instructions * Attachments The following attachments cannot be sent through Care Everywhere. * Transesophageal Echocardiogram [id number] (Portuguese) documented in this encounter Medications at Time of Discharge aspirin 81 MG EC tablet Take 1 tablet by mouth Daily. 30 tablet 04/12/2018 06/30/19 20 metoprolol succinate XL (TOPROL-XL) 25 MG 24 hr tablet Take 1 tablet by mouth Daily. 30 tablet 04/12/2018 06/30/19 20 rivaroxaban (XARELTO) 20 MG tabletIndications:At rial Fibrillation - requiring full anticoagulation Take 1 tablet by mouth Daily With Dinner. 30 tablet 04/12/2018 12/17/19 19 vitamin D (ERGOCALCIFEROL) 92118 units capsule capsule Take 50,000 Units by mouth 1 (One) Time Per Week. Takes on Wednesdays09/15/19 20 documented as of this encounter H&P Notes * Shauna Andrews APRN - 06/09/2018 1:42 PM EDT H&P reviewed. The patient was examined and there are no changes to the H&P. Patient remainsin NSR. TA today with Dr. Singleton. The risks, benefits, and alternatives of the procedure have been reviewed and the patient wishes to proceed. Shauna Andrews APRN 06/09/18 1:43 PM Cosigned by Kaushal Singleton MD at 06/09/2018 4:31 PM EDT Source Note - Kaushal Singleton MD - 06/03/2018 2:00 PM EST Images from the original note were not included. [facility] [address], [address] [place], [place], [id number] WWW.[facility]ITALSumRidge PartnersB[facility] FOLLOW UP NOTE Patient Care Team: Patient Care Team: Kaushal Kuo MD as PCP - General (Emergency Medicine) Subjective: Chief Complaint Patient presents with ??? Coronary Artery Disease HPI: Carlos Manuel Rojas II is a 53 y.o. male. 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 fib, tobacco dependence, who presents for follow-up. Since his operation he has done well clinically. Denies chest pain, dyspnea, palpitations. He has noticed lower extremity swelling that has come and gone but is now mostly present most of the time. Has exercise limitations due to lower back pain. Review of Systems: Positive for lower back pain, lower extremity swelling Negative for exertional chest pain, dyspnea with exertion, orthopnea, PND, palpitations, lightheadedness, syncope. PFSH: Patient Active Problem List Diagnosis ??? Rheumatic aortic stenosis ??? Rheumatic aortic valve insufficiency ??? Tobacco dependence ??? Valvular disease ??? 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 04/07/18 ??? H/O: rheumatic fever ??? GERD (gastroesophageal reflux disease) ??? Paroxysmal atrial fibrillation (CMS/HCC) Current Outpatient Medications: ??? aspirin 81 MG EC tablet, Take 1 tablet by mouth Daily., Disp: 30 tablet, Rfl: 11 ??? metoprolol succinate XL (TOPROL-XL) 25 MG 24 hr tablet, Take 1 tablet by mouth Daily., Disp: 30tablet, Rfl: 11 ??? rivaroxaban (XARELTO) 20 MG tablet, Take 1 tablet by mouth Daily With Dinner., Disp: 30 tablet,Rfl: 5 ??? vitamin D (ERGOCALCIFEROL) 26880 units capsule capsule, Take 50,000 Units by mouth 1 (One) TimePer Week. Takes on Wednesdays, Disp: , Rfl: No current facility-administered medications for this visit. Facility-Administered Medications Ordered in Other Visits: ??? Chlorhexidine Gluconate Cloth 2 % pads 1 application, 1 application, Topical, Q12H PRN, Miguel Malin PA Allergies Allergen Reactions ??? Penicillins Hives reports that he quit smoking about 2 months ago. His smoking use included cigarettes. He has a 30.00 pack-year smoking history. he has never used smokeless tobacco. Family History Problem Relation Age of Onset ??? Cancer Mother ??? Heart disease Father ??? Heart failure Father Objective: Physical exam: Blood pressure 129/80, pulse 69, height 182.9 cm (72 ), weight 124 kg (274 lb). CONSTITUTIONAL: No acute distress, normal affect RESPIRATORY: Normal effort. Clear to auscultation bilaterally without wheezing or rales CARDIOVASCULAR: Carotids with normal upstrokes without bruits. Regular rate and rhythm with normal S1 and S2. Without murmur, gallop or rub. PERIPHERAL VASCULAR: Normal radial pulse. There is 1+ lower extremity edema bilaterally. Labs: BUN Date [...] 99 03/03/2018 No components found for: LDLDIRECTC Diagnostic Data: ECG 12 Lead Date/Time: 06/03/2018 2:03 PM Performed by: Kaushal Singleton MD Authorized by: Kaushal Singleton MD Rhythm: sinus rhythm Comments: Small inferior Qs, stable T wave abnormality possibly LVH with repol, HR 64, QRS 118, [id number] Assessment and Plan: Carlos Manuel was seen today for coronary artery disease. 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 -Clinical monitoring for now Paroxysmal atrial fibrillation (CMS/HCC) MEGHA Occlusion/Clipping -TA to evaluate MEGHA closure -If no thrombus, will place a ZIO. If no AFib, will discontinue Xarelto at that time too -Discontinue amio, continue Toprol XL for now - Return in about 6 months (around 12/04/2018). Kaushal Singleton MD, MSc, FACC documented in this encounter Plan of Treatment Upcoming Encounters Date Type Department Care Team (Late st Contact Info) Description 09/01/2024 1:30 PM EDT Office Visit [facility] [address] [facility] [place] [address] Kaushal Singleton MD [address] [facility] [address] [place] [phone] documented as of this encounter Procedures Procedure Name Priority Date/Time Associated Diagnosis Comments TA W/ LIMITED DOPPLER AND COLOR Routine 06/09/2018 3:38 PM EDT AVD (aortic valve disease) documented in this encounter Results * HOLTER MONITOR 72HR-21DAY ([id number]) (06/09/2018 4:16 PM EDT) Anatomical Region Laterality Modality Other Narrative 07/02/2018 5:19 PM EDT Study Description Monitor placed on patient on 06/09/2018 . The patient was monitored for 14 days 14 hours and 54 minutes. Indications for this exam include PARO A-FIB. Average HR: 73. Min HR: 51. Max HR: 140. us Shauna Andrews APRN [facility] ORDERABL ES Final Result * TA W/ LIMITED DOPPLER AND COLOR (06/09/2018 3:38 PM EDT) BSA 2.4 m^2 [facility] CV ECHO JOSELIT[place] - BZI_BMI 36.9 kilograms/ m^2 [facility] CV ECHO [place] - BSA([place]) 2.5 m^2 [facility] CV ECHO [place] - BZI_METRIC_WEI GHT 123.4 kg [facility] CV ECHO JO[place] - BZI_METRIC_HEI GHT 182.9 cm [facility] CV VAS BP LEFT ARM 120/80 mmHg [facility] Anatomical Region Laterality Modality Other 06/09/2018 2:21 PM EDT Narrative 06/09/2018 5:23 PM EDT ?? Left ventricular systolic function [...] aortic valve, otherwise normal functioning bioprosthetic valve. Left Ventricle Left ventricular systolic function is normal. Estimated EF appears to be in the range of 56 - 60%. Right Ventricle Normal right ventricular cavity size and wall thickness noted. Left Atrium Normal left atrial size and volume noted. There is no spontaneous echo contrast present. The left atrial appendage was visualized through multiple planes. No evidence of a left atrial appendage thrombus was present. There is a left atrial appendage occlusion clip, no evidence of flow within the occluded MEGHA. No interatrial septal aneurysm present. Right Atrium Normal right atrial size noted. Mitral Valve The mitral valve is normal in structure. Trace mitral valve regurgitation is present. Tricuspid Valve The tricuspid valve is normal. No tricuspid valve regurgitation is present. Aortic Valve There is a prosthetic aortic valve. There is a 25 mm Perimount bioprosthetic valve present. Mild perivalvular regurgitation is present. Mild paravalvular leak at 5 o'clock on short axis view of the aortic valve, otherwise normal functioning bioprosthetic valve. . Pericardium There is no evidence of pericardial effusion. Additional Study Details A two-dimensional transesophageal echocardiogram was performed with color and limited Doppler interrogation. Informed consent for Transesophageal Echocardiogram, and use of contrast as needed, was obtained obtained prior to the procedure. The procedure was performed in the echocardiography lab. Patient was noted to be in a fasting state, with a peripheral IV in place. A bite block was placed for probe protection. Cetacaine spray and viscous lidocaine gargle was used as an oropharyngeal topical anesthetic. Conscious sedation was utilized with the following medication(s) being administered during the procedure: 100 mcg of Fentanyl. 4 mg of Versed. A multi-frequency, multiplane transesophageal echocardiographic endoscope was inserted and manipulated in the standard fashion to achieve multiplane views. Transesophageal probe was able to be passed without difficulty. Usual basal, mid-esophageal, transgastric, and aortic views were obtained. The patient's vital signs, including blood pressure, heart rate, pulse oximetry, and cardiac rhythm were monitored throughout the procedure. Vitals signs remained stable throughout the study. TA probe identification ROSENDO. Post-procedural recovery was completed in the Echocardiography lab, The patient tolerated the procedure without evidence of oropharyngeal or esophageal trauma. Kaushal Singleton MD CV ECHO ORDERABLES Final Result documented in this encounter Visit Diagnoses Diagnosis Paroxysmal atrial fibrillation- Primary Atrial fibrillation 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 04/07/18 Aortic valve disorders AVD (aortic valve disease) Aortic valve disorders Paroxysmal atrial fibrillation Atrial fibrillation documented in this encounter Administered Medications Inactive Administered Medications - up to 3 most recent administrations Medication Order MAR Action Action Date Dose Rate Site fentaNYL citrate (PF) (SUBLIMAZE) injection Intravenous, Code / Trauma / Sedation Medication, Starting on Fri06/09/18 at 1454 Given 06/09/2018 3:00 PM EDT 25 mcg Given 06/09/2018 2:57 PM EDT 25 mcg Given 06/09/2018 2:54 PM EDT 50 mcg midazolam (VERSED) injection Intravenous, Code / Trauma / Sedation Medication, Starting on Fri06/09/18 at 1453 Given 06/09/2018 3:00 PM EDT 1 mg Given 06/09/2018 2:57 PM EDT 1 mg Given 06/09/2018 2:53 PM EDT 2 mg documented in this encounter Care Teams Environmental Officer Relationship Specialty Start Date End Date Kaushal Kuo MD PCP - General Emergency Medicine 02/23/18 08/06/22 documented as of this encounter
--- OUTSIDE RECORDS SUMMARY | 2024-02-29 15:32 | XMS_ITS | Encounter Summary ---
Author Organization [facility] Address [address] [place] [address] Care Team Providers Care Credit Director Name Role Phone Kaushal Kuo MD Primary Care Provider [phone] Reason for Referral * Diagnostic Imaging (Routine) - Closed Specialty Diagnoses / Procedures Referred By Contac t Referred To Contact Diagnoses AVD (aortic valve disease) Procedures Adult Transthoracic Echo Complete W/ Cont if Necessary Per Protocol Kaushal Singleton MD [address] [facility] [address] [place] [address] Phone: tel: fax: [address] [address] Phone: tel: Referral ID Status Reason Start Date Expiration Date Visits Re quested Visits Authorized [id number] Closed 09/15/2019 09/14/2020 1 1 Reason for Visit * Reason Comments aortic valve disease Encounter Details Date Type Department Care Team (Late st Contact Info) Description 09/15/2019 3:00 PM EDT Office Visit [facility] [address] [facility] [address] [place] [address] Kaushal Singleton MD [address] [facility] [address] [address] [place] [address] 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 1/8/19 (Primary Dx); Paroxysmal atrial fibrillation; Localized swelling of lower extremity Social History Tobacco Use Types Packs/Day Years [...] Sign Reading Time Taken Comments Blood Pressure 110/66 09/15/2019 3:09 PM EDT Pulse 74 09/15/2019 3:09 PM EDT Temperature 36.4 ??C (97.5 ??F) 09/15/2019 3:09 PM ED T Respiratory Rate - - Oxygen Saturation 95% 09/15/2019 3:09 PM EDT Inhaled Oxygen Concentration - - Weight 137 kg (301 lb) 09/15/2019 3:09 PM EDT Height 182.9 cm (6') 09/15/2019 3:09 PM EDT Body Mass Index 40.82 09/15/2019 3:09 PM EDT documented in this encounter Progress Notes * Rosa Maria Forde, Herlinda Vega - 09/15/2019 3:00 PM EDTAddended by: ROSA MARIA FORDE on: 09/22/2019 10:09 AM Modules accepted: Orders * Kaushal Singleton MD - 09/15/2019 3:00 PM EDT Images from the original note were not included. [facility] AT [address], [address] [place], [address] [email or web address]IENT [facility] FOLLOW UP NOTE Patient Care Team: Patient Care Team: Kaushal Kuo MD as PCP - General (Emergency Medicine) Subjective: Chief Complaint Patient presents with ??? aortic valve disease HPI: Carlos Manuel Rojas II is a 54 y.o. male. 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 fib, surgical left atrial appendage closure, former tobacco dependence Today he presents for follow-up. Overall doing better. Denies chest pain, dyspnea, palpitations. He has been trying to walk more andhis back pain is decreased. He does have moderate lower extremity swelling that has progressed some. Review of Systems: Positive for lower extremity [...] obese (CMS/HCC) Current Outpatient Medications: ??? aspirin 81 MG EC tablet, Take 1 tablet by mouth Daily., Disp: 30 tablet, Rfl: 2 ??? metoprolol succinate XL (TOPROL-XL) 25 MG 24 hr tablet, Take 1 tablet by mouth Daily., Disp: 30tablet, Rfl: 2 ??? Multiple Vitamin (MULTI VITAMIN DAILY PO), Take by mouth Daily., Disp: , Rfl: ??? furosemide (LASIX) 20 MG tablet, Take 1 tablet by mouth Take As Directed. Take 40 mg oral dailyfor 5 days, then 20 mg oral daily there after., Disp: 35 tablet, Rfl: 11 No current facility-administered medications for this visit. Facility-Administered Medications Ordered in Other Visits: ??? Chlorhexidine Gluconate Cloth 2 % pads 1 application, 1 application, Topical, Q12H PRN, Miguel Malin PA Allergies Allergen Reactions ??? Penicillins Hives reports that he quit smoking about 17 months ago. His smoking use included cigarettes. He has a 30.00 pack-year smoking history. He has never used smokeless tobacco. Family History Problem Relation Age of Onset ??? Cancer Mother ??? Heart disease Father ??? Heart failure Father Objective: Physical exam: Blood pressure 110/66, pulse 74, temperature 97.5 ??F (36.4 ??C), height 182.9 cm (72 ), weight (!)137 kg (301 lb), SpO2 95 %. CONSTITUTIONAL: No acute distress, normal affect RESPIRATORY: Normal effort. Clear to auscultation bilaterally without wheezing or rales CARDIOVASCULAR: Carotids with normal upstrokes without bruits. Regular rate and rhythm with normal S1 and S2. Without gallop or rub. Very soft RUSB ROXANN without radiation PERIPHERAL VASCULAR: Normal radial pulse. There is 2-3+ left lower extremity edema Labs: BUN Date [...] - S/P AVR 04/07/18 Lower extremity swelling -Repeat transthoracic echocardiogram to reassess paravalvular leak -Lasix 40 mg for 5 days followed by 20 mg daily. -BMP after 5 days -Takes a multivitamin which may contain potassium. Will hold off potassium supplementation till BMPis checked Paroxysmal atrial fibrillation (CMS/HCC) MEGHA Occlusion/Clipping -Off amio and Xarelto -Continue ASA, Toprol XL for now - Return in about 3 months (around 12/16/2019) for Next scheduled follow up. Kaushal Singleton MD, MSc, FACC documented in this encounter Plan of Treatment Upcoming Encounters Date Type Department Care Team (Late st Contact Info) Description 09/01/2024 1:30 PM EDT Office Visit [facility] [address] [facility] [address] [place] [address] Kaushal Singleton MD [address] [facility] [address] [place] [address] documented as of this encounter Procedures Procedure Name Priority Date/Time Associated Diagnosis Comments BASIC METABOLIC PANEL Routine 09/21/2019 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 04/07/18 documented in this encounter Results * ECHO COMPLETE W/ DOPPLER AND COLOR FLOW (10/12/2019 9:28 AM EDT) BSA 2.5 m^2 [facility] IVSd 1.2 cm [facility] LVIDd 4.7 cm [facility] LVIDs 3.4 cm [facility] LVPWd 1.2 cm [facility] IVS/LVPW 1.0 [facility] FS 26.2 % [facility] EDV(Teich) 100.8 ml [facility] ESV(Teich) 49.0 ml [facility] EF(Teich) 51.4 % [facility] EDV(cubed) 101.8 ml [facility] ESV(cubed) 40.9 ml [facility] EF(cubed) 59.8 % [facility] LV mass(C)d 212.3 grams [facility] LV mass(C)dI 83.8 grams/m^2 [facility] SV(Teich) 51.8 ml [facility] SI(Teich) 20.4 ml/m^2 [facility] SV(cubed) 60.9 ml [facility] SI(cubed) 24.0 ml/m^2 [facility] Ao root diam 3.8 cm [facility] Ao root area 11.1 cm^2 [facility] LA dimension (2D) 3.6 cm [facility] LA/Ao 0.95 [facility] LVOT diam 2.1 cm [facility] LVOT area 3.3 cm^2 [facility] LVOT area(traced) 3.5 cm^2 [facility] LAd major 6.2 cm [facility] LVLd ap4 10.1 cm [facility] EDV(MOD-sp4) 161.0 ml [facility] LVLs ap4 7.8 cm [facility] ESV(MOD-sp4) 84.0 ml [facility] EF(MOD-sp4) 47.8 % [facility] LVLd ap2 9.9 cm [facility] EDV(MOD-sp2) 172.0 ml [facility] LVLs ap2 8.2 cm [facility] ESV(MOD-sp2) 81.0 ml [facility] EF(MOD-sp2) 52.9 % [facility] LA ESV (BP) 55.0 ml [facility] EF{MOD-BP} 50.0 % [facility] SV(MOD-sp4) 77.0 ml [facility] SVi(MOD-SP4) 30.4 ml/m^2 [facility] SV(MOD-sp2) 91.0 ml [facility] SVi(MOD-SP2) 35.9 ml/m^2 [facility] Ao root area (BSA corrected) 1.5 [facility] LV Berger Vol (BSA corrected) 63.5 ml/m^2 [facility] LV Sys Vol (BSA corrected) 33.1 ml/m^2 [facility] LA ESV Index (BP) 21.7 ml/m^2 [facility] MV E max rui 110.1 cm/sec [facility] MV A max rui 99.7 cm/sec [facility] MV E/A 1.1 [facility] LV IVRT 0.06 sec [facility] MV dec time 0.22 sec [facility] Ao pk rui 283.2 cm/sec [facility] Ao max PG 32.1 mmHg [facility] Ao max PG (full) 25.1 mmHg [facility] Ao V2 mean 198.7 cm/sec [facility] Ao mean PG 18.0 mmHg [facility] Ao mean PG (full) 14.9 mmHg [facility] Ao V2 VTI 62.3 cm [facility] GUERLINE(I,A) 1.7 cm^2 [facility] GUERLINE(I,D) 1.7 cm^2 [facility] GUERLINE(V,A) 1.6 cm^2 [facility] GUERLINE(V,D) 1.6 cm^2 [facility] LV V1 max PG 7.0 mmHg [facility] LV V1 mean PG 3.1 mmHg [facility] LV V1 max 132.3 cm/sec [facility] LV V1 mean 78.7 cm/sec [facility] LV V1 VTI 31.6 cm [facility] SV(Ao) 693.7 ml [facility] SI(Ao) 273.7 ml/m^2 [facility] SV(LVOT) 105.1 ml [facility] SI(LVOT) 41.5 ml/m^2 [facility] PA acc slope 899.9 cm/sec^2 [facility] PA acc time 0.11 sec [facility] TR max rui 240.3 cm/sec [facility] TR max PG 23.0 mmHg [facility] RVSP(TR) 31.0 mmHg [facility] RAP systole 8.0 mmHg [facility] PA pr(Accel) 29.9 mmHg [facility] Lat E/e' 10.1 [facility] Med E/e' 11.8 [facility] Lat Peak E' Rui 10.7 cm/sec [facility] Med Peak E' Rui 9.2 cm/sec [facility] CV ECHO JOSELITO - BZI_BMI 40.8 kilograms/ m^2 [facility] CV ECHO JOSELITO - BSA([place]) 2.7 m^2 [facility] CV ECHO JOSELITO - BZI_METRIC_WEI GHT 136.5 kg [facility] CV ECHO JOSELITO - BZI_METRIC_HEI GHT 182.9 cm [facility] Avg E/e' ratio 11.07 [facility] Target HR (85%) 141 bpm [facility] Max. Pred. HR (100%) 166 bpm [facility] CV VAS BP LEFT ARM 132/91 mmHg [facility] RV Base 3.60 cm [facility] RV Length 5.80 cm [facility] RV Mid 2.80 cm [facility] TAPSE (>1.6) 1.40 cm2 [facility] Anatomical Region Laterality Modality Ultrasound 10/12/2019 [...] dilation of the aortic root is present. us Kaushal Singleton MD CV ECHO ORDERABLES Final Result * Basic Metabolic Panel (09/21/2019) Blood us Kaushal Singleton MD LAB BLOOD ORDERABLES Final Resul t [facility]
[address] [place] [address], documented in this encounter Visit Diagnoses Diagnosis 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 04/07/18- Primary Aortic valve disorders Paroxysmal atrial fibrillation Atrial fibrillation Localized swelling of lower extremity 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 04/07/18 Aortic valve disorders documented in this encounter Care Teams Credit Director Relationship Specialty Start Date End Date Kaushal Kuo MD PCP - General Emergency Medicine 02/23/18 08/06/22 documented as of this encounter
--- OUTSIDE RECORDS SUMMARY | 2024-02-29 15:32 | XMS_ITS | Encounter Summary ---
[facility] Organization [facility] Address [address] [place] [address] Care Team Providers Care Production Control Pegboard Clerk Name Role Phone Kaushal Kuo MD Primary Care Provider [phone] Reason for Visit * Reason Comments Aortic Valve Disease Encounter Details Date Type Department Care Team (Late st Contact Info) Description 12/16/2018 1:30 PM EDT Office Visit [facility] [address] [facility] [address] [place] [address] Kaushal Singleton MD [address] [facility] [address] [address] [place], [place] [id number] Rheumatic aortic stenosis (Primary Dx); Rheumatic aortic valve insufficiency; Valvular disease; Paroxysmal atrial fibrillation Social History Tobacco Use Types Packs/Day Years Used Date Smoking Tobacco: Former Cigarettes 98 - 2018 Smokeless Tobacco: Never Comments:Pt reports [...] Sign Reading Time Taken Comments Blood Pressure 128/82 12/16/2018 2:38 PM EDT Pulse 84 12/16/2018 2:38 PM EDT Temperature - - Respiratory Rate - - Oxygen Saturation - - Inhaled Oxygen Concentration - - Weight 137 kg (303 lb) 12/16/2018 2:38 PM EDT Height 182.9 cm (6') 12/16/2018 2:38 PM EDT Body Mass Index 41.09 12/16/2018 2:38 PM EDT documented in this encounter Progress Notes * Kaushal Singleton MD - 12/16/2018 1:30 PM EDT Images from the original note were not included. [facility] [address], [address] [place], [place], [id number] WWW.[email or web address] UP NOTE Patient Care Team: Patient Care Team: Kaushal Kuo MD as PCP - General (Emergency Medicine) Subjective: Chief Complaint Patient presents with ??? Aortic Valve Disease HPI: Carlos Manuel Rojas II is a 53 y.o. male. 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 fib, surgical left atrial appendage closure, former tobacco dependence, who presents for follow-up. Since his last visit he is done well clinically. He has chronic back pain. He is gained a little bit of weight. He is hoping to exercise more. He does have some hoarseness in his voice that he believes is due to the air quality in areas that he walks regularly. Denies chest pain, unusual dyspnea. Has stable mild lower extremity swelling Review of Systems: Positive for lower back [...] Daily., Disp: 30 tablet, Rfl: 11 ??? Caffeine-Magnesium Salicylate (DIUREX PO), Take by mouth., Disp: , Rfl: ??? metoprolol succinate XL (TOPROL-XL) 25 MG 24 hr tablet, Take 1 tablet by mouth Daily., Disp: 30tablet, Rfl: 11 ??? vitamin D (ERGOCALCIFEROL) 68282 units capsule capsule, Take 50,000 Units by mouth 1 (One) TimePer Week. Takes on Wednesdays, Disp: , Rfl: No current facility-administered medications for this visit. Facility-Administered Medications Ordered in Other Visits: ??? Chlorhexidine Gluconate Cloth 2 % pads 1 application, 1 application, Topical, Q12H PRN, Miguel Malin PA Allergies Allergen Reactions ??? Penicillins Hives reports that he quit smoking about 8 months ago. His smoking use included cigarettes. He has a 30.00 pack-year smoking history. He has never used smokeless tobacco. Family History Problem Relation Age of Onset ??? Cancer Mother ??? Heart disease Father ??? Heart failure Father Objective: Physical exam: Blood pressure 128/82, pulse 84, height 182.9 cm (72 ), weight (!) 137 kg (303 lb). CONSTITUTIONAL: No acute distress, normal affect RESPIRATORY: Normal effort. Clear to auscultation bilaterally without wheezing or rales CARDIOVASCULAR: Carotids with normal upstrokes without bruits. Regular rate and rhythm with normal S1 and S2. Without gallop or rub. Very soft RUSB ROXANN without radiation PERIPHERAL VASCULAR: Normal radial pulse. There is 1+ left lower extremity edema Labs: BUN Date [...] No components found for: LDLDIRECTC Diagnostic Data: Procedures LHC 02/2018 ?? There [...] now Paroxysmal atrial fibrillation (CMS/HCC) MEGHA Occlusion/Clipping -Off amio and Xarelto -Continue ASA, Toprol XL for now - Return in about 6 months (around 06/16/2019). Kaushal Singleton MD, MSc, FACC documented in this encounter Plan of Treatment Upcoming Encounters Date Type Department Care Team (Late st Contact Info) Description 09/01/2024 1:30 PM EDT Office Visit [facility] [address] [facility] [address] [place] [id number] Kaushal Singleton MD [address] [facility] [address] [place] [address] documented as of this encounter Visit Diagnoses Diagnosis Rheumatic aortic stenosis- Primary Rheumatic aortic valve insufficiency Valvular disease Paroxysmal atrial fibrillation Atrial fibrillation documented in this encounter Care Teams Production Control Pegboard Clerk Relationship Specialty Start Date End Date Kaushal Kuo MD PCP - General Emergency Medicine 02/23/18 08/06/22 documented as of this encounter
--- OUTSIDE RECORDS SUMMARY | 2024-02-29 15:32 | XMS_ITS | Encounter Summary ---
Author Organization [facility] Address [address] [place] [address] Care Team Providers Care Bait Man Name Role Phone Kaushal Kuo MD Primary Care Provider [phone] Reason for Referral * Hospital - Outpatient (Routine) - Closed Specialty Diagnoses / Procedures Referred By Contac t Referred To Contact Diagnoses AVD (aortic valve disease) Procedures Adult Transesophageal Echo (TA) W/ Cont if Necessary Per Protocol [place] ECHO TRANSESOPHAG R-T 2D W/PRB IMG ACQUISJ I&R Kaushal Singleton MD [address] [address] Phone: tel: fax: [address] [address] Phone: tel: Referral ID Status Reason Start Date Expiration Date Visits Re quested Visits Authorized [id number] Closed 06/03/2018 06/03/2019 1 1 Reason for Visit * Reason Comments Coronary Artery Disease * Consultation (Routine) - Closed Specialty Diagnoses / Procedures Referred By Contac t Referred To Contact Cardiology Diagnoses Aortic stenosis Chest pain Procedures FL UNLISTED E/M SERVICE Kaushal Kuo MD [address] [facility] [address] ATTN: [place] [address] Phone: tel: fax: Kaushal Singleton MD [address] [place] [address] Phone: tel: fax: Referral ID Status Reason Start Date Expiration Date Visits Re quested Visits Authorized [id number] Closed 06/01/2018 06/01/2019 1 1 Encounter Details Date Type Department Care Team (Late st Contact Info) Description 06/03/2018 2:00 PM EST Office Visit [facility] CARDIOLOGY [address] [facility] [address] [place] [id number] Kaushal Singleton MD [phone] [facility] [address] [place] [id number] 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 04/07/18 (Primary Dx); Coronary artery disease involving chickahominy indian tribe coronary artery of chickahominy indian tribe heart without angina pectoris; Rheumatic aortic stenosis; Rheumatic aortic valve insufficiency; Paroxysmal atrial fibrillation Social History Tobacco Use [...] Sign Reading Time Taken Comments Blood Pressure 129/80 06/03/2018 1:18 PM EST Pulse 69 06/03/2018 1:18 PM EST Temperature - - Respiratory Rate - - Oxygen Saturation - - Inhaled Oxygen Concentration - - Weight 124 kg (274 lb) 06/03/2018 1:18 PM EST Height 182.9 cm (6') 06/03/2018 1:18 PM EST Body Mass Index 37.16 06/03/2018 1:18 PM EST documented in this encounter Progress Notes * Kaushal Singleton MD - 06/03/2018 2:00 PM ESTAssociated Order(s): ECG 12 Lead Post-Procedure Diagnose(s): Paroxysmal atrial fibrillation Images from the original note were not included. [facility] AT [address], [address] [place], [address] WWW[email or web address] FOLLOW UP NOTE Patient [...] 30 tablet,Rfl: 5 ??? vitamin D (ERGOCALCIFEROL) 33350 units capsule capsule, Take 50,000 Units by [...] LVH with repol, HR 64, QRS 118, [id number] Assessment and Plan: Carlos Manuel was seen today for coronary artery disease. Diagnoses and all orders for this visit: 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 Aortic Valve Disease (Rheumatic) - Severe /AR - S/P AVR 1/8/19 -Aortic valve appears stable at this time. [...] Description 09/01/2024 1:30 PM EDT Office Visit [facility] [address] [place] [address] Kaushal Singleton MD [address] [facility] [address] [place] [address] documented as of this encounter Procedures Procedure Name Priority Date/Time Associated Diagnosis Comments ECG 12-LEAD Routine 06/03/2018 Paroxysmal atrial fibrillation documented in this encounter Results * TA W/ LIMITED DOPPLER AND COLOR (06/09/2018 3:38 PM EDT) [facility] BSA 2.4 m^2 [facility] RADIOLOGY CV ECHO JOSELITO - BZI_BMI 36.9 kilograms/ m^2 PSYCHIATRIC CV ECHO JOSELITO - BSA([place]) 2.5 m^2 [facility] RAD[facility] CV ECHO JOSELITO - BZI_METRIC_WEI GHT 123.4 kg PSYCHIATRIC CV ECHO JOSELITO - BZI_METRIC_HEI GHT 182.9 cm PSYCHIATRIC CV VAS BP LEFT ARM 120/80 mmHg [facility] Anatomical Region Laterality Modality Other [...] MD CV ECHO ORDERABLES Final Result * ECG 12-LEAD (06/03/2018) Narrative 06/03/2018 Kaushal Singleton MD ? 06/03/2018 ??2:04 PM ECG 12 Lead Date/Time: 06/03/2018 2:03 PM Performed by: Kaushal Singleton MD Authorized by: Kaushal Singleton MD Rhythm: sinus rhythm Comments: Small inferior Qs, stable T wave abnormality possibly LVH with repol, HR 64, QRS 118, QTc 408 Procedure Note Kaushal Singleton MD - 06/03/2018 2:00 PM EST Images from the original note were not included. [facility] AT [address], [address] [place], [place], [id number] WW[facility] FOLLOW UP NOTE Patient Care Team: Patient Care Team: Kaushal Kuo MD as PCP - General (Emergency Medicine) Subjective: Chief Complaint Patient presents with ? ? Coronary Artery Disease HPI: Carlos Manuel Rojas II is a 53 y.o. male. The patient has a history of rheumatic aortic valve disease status postvalve replacement 02/2018, postoperative A. fib, tobacco dependence, whopresents for follow-up. Since his operation he has done well clinically. Denies chest pain,dyspnea, palpitations. He has noticed lower extremity swelling that hascome and gone but is now mostly present most of the time. Has exerciselimitations due to lower back pain. Review of Systems: Positive for lower back pain, lower extremity swelling Negative for exertional chest pain, dyspnea with exertion, orthopnea, PND,palpitations, lightheadedness, syncope. PFSH: Patient Active Problem List Diagnosis ? ? Rheumatic aortic stenosis ? ? Rheumatic aortic valve insufficiency ? ? Tobacco dependence ? ? Valvular disease ? ? Aortic Valve Disease (Rheumatic) - Severe /AR - S/P AVR w/ LAAOcclusion 04/07/18 ? ? H/O: rheumatic fever ? ? GERD (gastroesophageal reflux disease) ? ? Paroxysmal atrial fibrillation (CMS/HCC) Current Outpatient Medications: ? ? aspirin 81 MG EC tablet, Take 1 tablet by mouth Daily., Disp: 30tablet, Rfl: 11 ? ? metoprolol succinate XL (TOPROL-XL) 25 MG 24 hr tablet, Take 1 tabletby mouth Daily., Disp: 30 tablet, Rfl: 11 ? ? rivaroxaban (XARELTO) 20 MG tablet, Take 1 tablet by mouth Daily WithDinner., Disp: 30 tablet, Rfl: 5 ? ? vitamin D (ERGOCALCIFEROL) 92270 units capsule capsule, Take 50,000Units by mouth 1 (One) Time Per Week. Takes on Wednesdays, Disp: , Rfl: No current facility-administered medications for this visit. Facility-Administered Medications Ordered in Other Visits: ? ? Chlorhexidine Gluconate Cloth 2 % pads 1 application, 1 application,Topical, Q12H PRN, Miguel Malin PA Allergies Allergen Reactions ? ? Penicillins Hives reports that he quit smoking about 2 months ago. His smoking use includedcigarettes. He has a 30.00 pack-year smoking history. he has never usedsmokeless tobacco. Family History Problem Relation Age of Onset ? ? Cancer Mother ? ? Heart disease Father ? ? Heart failure Father Objective: Physical exam: Blood pressure 129/80, pulse 69, height 182.9 cm (72 ), weight 124 kg (274lb). CONSTITUTIONAL: No acute distress, normal affect RESPIRATORY: Normal effort. Clear to auscultation bilaterally withoutwheezing or rales CARDIOVASCULAR: Carotids with normal upstrokes without bruits. Regularrate and rhythm with normal S1 and S2. Without murmur, gallop or rub. PERIPHERAL VASCULAR: Normal radial pulse. There is 1+ lower extremityedema bilaterally. Labs: BUN Date Value Ref Range [...] Qs, stable T wave abnormality possibly LVH withrepol, HR 64, QRS 118, QTc 408 Assessment and Plan: Carlos Manuel was seen [...] ZIO. If no AFib, will discontinue Xarelto atthat time too -Discontinue amio, continue Toprol XL for now - Return in about 6 months (around 12/04/2018). Kaushal Singleton MD, MSc, FACC Kaushal Singleton MD ECG ORDERABLES Final Result documented in this encounter Visit Diagnoses Diagnosis 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 04/07/18- Primary Aortic valve disorders Coronary artery disease involving chickahominy indian tribe coronary artery of chickahominy indian tribe heart without angina pectoris 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 Paroxysmal atrial fibrillation Atrial fibrillation Paroxysmal atrial fibrillation- Primary Atrial fibrillation 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 04/07/18 Aortic valve disorders AVD (aortic valve disease) Aortic valve disorders documented in this encounter Care Teams Bait Man Relationship Specialty Start Date End Date Kaushal Kuo MD PCP - General Emergency Medicine 02/23/18 08/06/22 documented as of this encounter
--- OUTSIDE RECORDS SUMMARY | 2024-02-29 15:32 | XMS_ITS | Encounter Summary ---
[facility] Address [address] [place] [address] Care Team Providers Care Configuration Management Administrator Name Role Phone Kaushal Kuo MD Primary Care Provider Reason for Visit * Reason Comments Post-op Follow-up Hosp D/C AVR 04/07/18 for Aortic Valve Stenosis Encounter Details Date Type Department Care Team (Latest Contact Info) Description 05/14/2018 10:00 AM EST Office Visit [facility] C[facility]IC SURGERY [address] [place] [id number] Jose Wilson MD S/P AVR (Primary Dx); Aortic valve disorder Social History Tobacco Use Types Packs/Day Years [...] Sign Reading Time Taken Comments Blood Pressure 100/60 05/14/2018 9:37 AM EST Pulse 67 05/14/2018 9:37 AM EST Temperature 36.2 ??C (97.1 ??F) 05/14/2018 9:37 AM ES T Respiratory Rate - - Oxygen Saturation 98% 05/14/2018 9:37 AM EST Inhaled Oxygen Concentration - - Weight 122 kg (270 lb) 05/14/2018 9:37 AM EST Height 182.9 cm (6') 05/14/2018 9:37 AM EST Body Mass Index 36.62 05/14/2018 9:37 AM EST documented in this encounter Progress Notes * Jose Wilson MD - 05/14/2018 10:00 AM EST 05/14/2018 Patient Information Carlos Manuel Rojas II [address] [facility] [address] [place] [address] 1965 'PCP/Referring Physician' Kaushal Kuo MD [phone] No ref. provider found Chief Complaint Patient presents with ??? Post-op Follow-up Hosp D/C AVR 04/07/18 for Aortic Valve Stenosis CC: My chest is still sore History of Present Illness: 53-year-old male now 1 month postoperative aortic valve replacement. This gentleman has done well and is currently relatively asymptomatic. He still has musculoskeletal soreness in the sternal region. He denies shortness of breath and anginal quality chest pain. He is slowly returning to full normal activity without difficulty. He denies fever, chills, and night sweats. He has not had wound problems. He denies wound erythema and wound drainage. Patient Active Problem List Diagnosis ??? Rheumatic aortic stenosis ??? Coronary artery disease involving solomon coronary artery of solomon heart without angina pectoris ??? Rheumatic aortic valve insufficiency ??? Tobacco dependence ??? Valvular disease ??? 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 04/07/18 ??? H/O: rheumatic fever ??? GERD (gastroesophageal reflux disease) Past Medical History: Diagnosis Date ??? Aortic valve stenosis ??? Back pain ??? Depression ??? Fatigue ??? GERD (gastroesophageal reflux disease) ??? H/O: rheumatic fever age 12 and 14 ??? Heart murmur since age 14 (worsening) ??? History of kidney stones passed ??? Insomnia ??? Wears glasses Past Surgical History: Procedure Laterality Date ??? AORTIC VALVE REPAIR/REPLACEMENT N/A 04/07/2018 Procedure: MEDIAN STERNOTOMY, AORTIC VALVE REPLACEMENT; Surgeon: Jose Wilson MD; Location: [facility]; Service: Cardiothoracic ??? ATRIAL APPENDAGE EXCLUSION LEFT WITH TRANSESOPHAGEAL ECHOCARDIOGRAM N/A 04/07/2018 Procedure: ATRIAL APPENDAGE OCCLUSION LEFT; Surgeon: Jose Wilson MD; Location: [facility]; Service: Cardiothoracic ??? CARDIAC CATHETERIZATION N/A 03/03/2018 Procedure: Left Heart Cath; Surgeon: Kaushal Singleton MD; Location: [facility]; Service: Cardiology ??? CYST REMOVAL Left left foot (childhood) ??? TRANSESOPHAGEAL ECHOCARDIOGRAM (TA) N/A 04/07/2018 Procedure: TRANSESOPHAGEAL ECHOCARDIOGRAM WITH ANESTHESIA; Surgeon: Jose Wilson MD; Location: [facility]; Service: Cardiothoracic Current Outpatient Medications: ??? aspirin 81 MG EC tablet, Take 1 tablet by mouth Daily., Disp: 30 tablet, Rfl: 11 ??? metoprolol succinate XL (TOPROL-XL) 25 MG 24 hr tablet, Take 1 tablet by mouth Daily., Disp: 30tablet, Rfl: 11 ??? rivaroxaban (XARELTO) 20 MG tablet, Take 1 tablet by mouth Daily With Dinner., Disp: 30 tablet,Rfl: 5 ??? vitamin D (ERGOCALCIFEROL) 57584 units capsule capsule, Take 50,000 Units by mouth 1 (One) TimePer Week. Takes on Wednesdays, Disp: , Rfl: ??? amiodarone (PACERONE) 200 MG tablet, Take 1 tablet by mouth Daily., Disp: 30 tablet, Rfl: 2 ??? HYDROcodone-acetaminophen (NORCO) 7.5-325 MG per tablet, Take 1 tablet by mouth Every 6 (Six) Hours As Needed for Moderate Pain ., Disp: 30 tablet, Rfl: 0 No current facility-administered medications for this visit. Facility-Administered Medications Ordered in Other Visits: ??? Chlorhexidine Gluconate Cloth 2 % pads 1 application, 1 application, Topical, Q12H PRN, Miguel Malin PA Allergies Allergen Reactions ??? Penicillins Hives Social History Socioeconomic History ??? Marital status: Spouse name: Not on file ??? Number of children: 0 ??? Years of education: Not on file ??? Highest education level: Not on file Social Needs ??? Financial resource strain: Not on file ??? Food insecurity - worry: Not on file ??? Food insecurity - inability: Not on file ??? Transportation needs - medical: Not on file ??? Transportation needs - non-medical: Not on file Occupational History ??? 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 Smoking status: Former Smoker Packs/day: 1.00 Years: 30.00 Pack years: 30.00 Types: Cigarettes Last attempt to quit: 2019 Years since quittin.1 ??? Smokeless tobacco: Never Used ??? Tobacco comment: Pt reports 30+ year smoking history -cutting back Substance and Sexual Activity ??? Alcohol use: No ??? Drug use: Yes Frequency: 7.0 times per week Types: Marijuana Comment: uses daily -smokes about 1/2 gram daily ??? Sexual activity: Defer Other Topics Concern ??? Not on file Social History Narrative Lives in [place]. Family History Problem Relation Age of Onset ??? Cancer Mother ??? Heart disease Father ??? Heart failure Father Review of Systems Constitution: Negative for chills, fever, malaise/fatigue, night sweats and weight loss. HENT: Negative for hearing loss, odynophagia and sore throat. Eyes: Negative for blurred vision, vision loss in left eye, vision loss in right eye and visual disturbance. Cardiovascular: Negative for chest pain, dyspnea on exertion, leg swelling, orthopnea and palpitations. Respiratory: Negative for cough, hemoptysis, shortness of breath and wheezing. Endocrine: Negative for cold intolerance, heat intolerance, polydipsia, polyphagia and polyuria. Hematologic/Lymphatic: Does not bruise/bleed easily. Skin: Negative for itching and rash. Musculoskeletal: Negative for joint pain, joint swelling and myalgias. Soreness in the area of the sternal incision. No erythema or drainage. Gastrointestinal: Negative for abdominal pain, constipation, diarrhea, hematemesis, hematochezia, melena, nausea and vomiting. Genitourinary: Negative for dysuria, frequency and hematuria. Neurological: Negative for focal weakness, headaches, numbness and seizures. Psychiatric/Behavioral: Negative for altered mental status and suicidal ideas. The patient is not nervous/anxious. All other systems reviewed and are negative. Vitals: 05/14/18 0937 BP: 100/60 BP Location: Right arm Patient Position: Sitting Pulse: 67 Temp: 97.1 ??F (36.2 ??C) SpO2: 98% Weight: 122 kg (270 lb) Height: 182.9 cm (72 ) Physical Exam Constitutional: He is oriented to person, place, and time. He appears well- developed and well-nourished. No distress. HENT: Head: Normocephalic. Right Ear: External ear normal. Left Ear: External ear normal. Nose: Nose normal. Eyes: Pupils are equal, round, and reactive to light. Neck: Normal range of motion. Neck supple. No tracheal deviation present. No thyromegaly present. Cardiovascular: Normal rate and intact distal pulses. Murmur heard. 1/6 systolic murmur left sternal border. S1 and S2 are normal Pulmonary/Chest: Effort normal and breath sounds normal. No respiratory distress. He has no wheezes. He has no rales. He exhibits no tenderness. Abdominal: Soft. Bowel sounds are normal. He exhibits no distension and no mass. There is no tenderness. Musculoskeletal: Normal range of motion. He exhibits no edema. Sternum well healed. No erythema no drainage. Lymphadenopathy: He has no cervical adenopathy. Neurological: He is alert and oriented to person, place, and time. He has normal reflexes. No cranial nerve deficit. Skin: Skin is warm and dry. No rash noted. No erythema. Psychiatric: He has a normal mood and affect. Labs/Imaging: PA and lateral chest x-ray reveals lung nolasco to be clear the mediastinum is normal aortic valve is in good position left atrial clip is noted. Assessment: Stable post aortic valve replacement course Plan: Follow-up with cardiology as appointed return to this clinic in 3 months. Patient Active Problem List Diagnosis ??? Rheumatic aortic stenosis ??? Coronary artery disease involving solomon coronary artery of solomon heart without angina pectoris ??? Rheumatic aortic valve insufficiency ??? Tobacco dependence ??? Valvular disease ??? 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 04/07/18 ??? H/O: rheumatic fever ??? GERD (gastroesophageal reflux disease) Jose Wilson MD CTSurgery 05/14/18 10:42 AM documented in this encounter Plan of Treatment Upcoming Encounters Date Type Department Care Team (Late st Contact Info) Description 09/01/2024 1:30 PM EDT Office Visit [facility] [address] [place] [address] Kaushal Singleton MD [address] [facility] [address] [place] [address] documented as of this encounter Visit Diagnoses Diagnosis S/P AVR- Primary Aortic valve disorder Aortic valve disorders documented in this encounter Care Teams Configuration Management Administrator Relationship Specialty Start Date End Date Kaushal Kuo MD PCP - General Emergency Medicine 02/23/18 08/06/22 documented as of this encounter
--- OUTSIDE RECORDS SUMMARY | 2024-02-29 15:32 | XMS_ITS | Encounter Summary ---
[facility] [address] [place] [address] Care Team Providers Care Account Manager Education Name Role Phone Kaushal Kuo MD Primary Care Provider [phone] Encounter Details Date Type Department Care Team (Late st Contact Info) Description 04/14/2018 Readmission Management [facility] N[facility] [address] [place] [id number] Irene Stewart, RN Social History Tobacco Use Types Packs/Day Years Used Date Smoking Tobacco: Every Day Cigarettes 1 30 Smokeless Tobacco: Never Comments:Pt reports 30+ year smoking history -cutting back Alcohol Use Standard Drinks/Week Comments No 0 (1 standard drink = 0.6 oz pur e alcohol) Sex and Gender Information Value Date Recorded Sex Assigned at Not on file Legal Sex Male 11:45 AM EDT Gender Identity Not on file Sexual Orientation Not on file documented as of this encounter Miscellaneous Notes * Outreach Note - Irene Stewart, RN - 04/14/2018 10:[address] Surgery [facility] the [facility] have one of the following disease processes/diagnoses(primary or secondary)? Cardiothoracic surgery Is there a successful TCM telephone encounter documented? No Week 1 attempt successful? No Unsuccessful attempts Attempt 1 Irene Stewart RN documented in this encounter Plan of Treatment Upcoming Encounters Date Type Department Care Team (Late st Contact Info) Description 09/01/2024 1:30 PM EDT Office Visit [facility] [address] [place] [address] Kaushal Singleton MD [address] [facility] [address] [place] [address] documented as of this encounter Visit Diagnoses Not on filedocumented in this encounter Care Teams Account Manager Education Relationship Specialty Start Date End Date Kaushal Kuo MD PCP - General Emergency Medicine 02/23/18 08/06/22 documented as of this encounter
--- OUTSIDE RECORDS SUMMARY | 2024-02-29 15:32 | XMS_ITS | Encounter Summary ---
Author Organization [facility] Address [address] [place] [address] Care Team Providers Care Conciliator Name Role Phone Kaushal Kuo MD Primary Care Provider Reason for Visit * Reason Comments Weight Gain 3 month follow-up po st op AVR 04/07/18. Patient states he has gained around 15 pounds within 1 month. Shortness of Breath upon exertion Encounter Details Date Type Department Care Team (Latest Contact Info) Description 09/17/2018 11:15 AM EDT Office Visit [facility] CARDIOTHORACIC SURGERY [address] [place] [address] Jose Wilson MD Paroxysmal atrial fibrillation (Primary Dx); S/P AVR; Rheumatic aortic stenosis; Morbidly obese Social History Tobacco Use Types Packs/Day Years [...] Sign Reading Time Taken Comments Blood Pressure 146/84 09/17/2018 10:23 AM EDT Pulse 82 09/17/2018 10:23 AM EDT Temperature 36.3 ??C (97.4 ??F) 09/17/2018 10:23 AM E DT Respiratory Rate - - Oxygen Saturation 98% 09/17/2018 10:23 AM EDT Inhaled Oxygen Concentration - - Weight 139 kg (305 lb 12.8 oz) 09/17/2018 10:23 AM EDT Height 182.9 cm (6') 09/17/2018 10:23 AM EDT Body Mass Index 41.47 09/17/2018 10:23 AM EDT documented in this encounter Progress Notes * Jose Wilson MD - 09/17/2018 11:15 AM EDT 09/17/2018 Patient Information Carlos Manuel Rojas II [address] [facility] [address] [place] [address] 1965 'PCP/Referring Physician' Kaushal Kuo MD [phone] No ref. provider found Chief Complaint Patient presents with ??? Weight Gain 3 month follow-up post op AVR 04/07/18. Patient states he has gained around 15 pounds within 1 month. ??? Shortness of Breath upon exertion CC: I feel good I am having no pain History of Present Illness: 53-year-old male now 5 months status post aortic valve replacement. This patient has done exceptionally well. Denies chest pain and shortness of breath. No activity without difficulty. He still gets a modest amount of swelling in his lower extremities if he is up for an extended period of time is not had fever, chills, or night sweats. Patient Active Problem List Diagnosis ??? Rheumatic aortic stenosis ??? Rheumatic aortic valve insufficiency ??? Tobacco dependence ??? Valvular disease ??? 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 04/07/18 ??? H/O: rheumatic fever ??? GERD (gastroesophageal reflux disease) ??? Paroxysmal atrial fibrillation (CMS/HCC) Past Medical History: Diagnosis Date ??? Aortic [...] VALVE REPLACEMENT; Surgeon: Jose Wilson MD; Location: [facility] OR; Service: Cardiothoracic ??? ATRIAL APPENDAGE EXCLUSION LEFT WITH TRANSESOPHAGEAL ECHOCARDIOGRAM N/A 04/07/2018 Procedure: ATRIAL APPENDAGE OCCLUSION LEFT; Surgeon: Jose Wilson MD; Location: [facility]; Service: Cardiothoracic ??? CARDIAC CATHETERIZATION N/A 03/03/2018 Procedure: Left Heart Cath; Surgeon: Kaushal Singleton MD; Location: [facility] CATH [facility]VASIVE LOCATION; Service: Cardiology ??? CYST REMOVAL Left left foot (childhood) ??? TRANSESOPHAGEAL ECHOCARDIOGRAM (TA) N/A 04/07/2018 Procedure: TRANSESOPHAGEAL ECHOCARDIOGRAM WITH ANESTHESIA; Surgeon: Jose Wilson MD; Location: [facility] OR; Service: Cardiothoracic Current Outpatient Medications: ??? [...] 30 tablet,Rfl: 5 ??? vitamin D (ERGOCALCIFEROL) 71174 units capsule capsule, Take 50,000 Units by [...] ??? Highest education level: Not on file Occupational History ??? 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 Smoking status: Former Smoker Packs/day: 1.00 Years: 30.00 Pack years: 30.00 Types: Cigarettes Last attempt to quit: 2019 Years since quittin.4 ??? Smokeless tobacco: Never Used ??? Tobacco comment: Pt reports 30+ year smoking history -cutting back Substance and Sexual Activity ??? Alcohol use: No ??? Drug use: Yes Frequency: 7.0 times per week Types: Marijuana Comment: uses daily -smokes about 1/2 gram daily ??? Sexual activity: Defer Social History Narrative Lives in [place]. Family History Problem Relation Age of Onset ??? Cancer Mother ??? Heart disease Father ??? Heart failure Father Review of Systems Constitution: Positive for diaphoresis and weight gain. Negative for chills, fever, malaise/fatigue, night sweats and weight loss. HENT: Negative for hearing loss, odynophagia and sore throat. Cardiovascular: Positive for dyspnea on exertion and leg swelling. Negative for chest pain, orthopnea and palpitations. Respiratory: Negative for cough and hemoptysis. Endocrine: Negative for cold intolerance, heat intolerance, polydipsia, polyphagia and polyuria. Hematologic/Lymphatic: Does not bruise/bleed easily. Skin: Negative for itching and rash. Musculoskeletal: Positive for back pain. Negative for joint pain, joint swelling and myalgias. Gastrointestinal: Positive for constipation. Negative for abdominal pain, diarrhea, hematemesis, hematochezia, melena, nausea and vomiting. Genitourinary: Negative for dysuria, frequency and hematuria. Neurological: Negative for focal weakness, headaches, numbness and seizures. Psychiatric/Behavioral: Positive for depression. Negative for suicidal ideas. The patient is not nervous/anxious. All other systems reviewed and are negative. Vitals: 09/17/18 1023 BP: 146/84 BP Location: Right arm Patient Position: Sitting Pulse: 82 Temp: 97.4 ??F (36.3 ??C) TempSrc: Temporal SpO2: 98% Weight: (!) 139 kg (305 lb 12.8 oz) Height: 182.9 cm (72 ) Physical Exam Constitutional: He is oriented to person, place, and time. He appears well- developed and well-nourished. No distress. Obese male in no acute distress HENT: Head: Normocephalic. Right Ear: External ear normal. Left Ear: External ear normal. Nose: Nose normal. Eyes: Pupils are equal, round, and reactive to light. Neck: Normal range of motion. Neck supple. No tracheal deviation present. No thyromegaly present. Cardiovascular: Normal rate and intact distal pulses. Murmur heard. 1/6 systolic murmur left sternal border no radiation S1 and S2 normal Pulmonary/Chest: Effort normal and breath sounds normal. No respiratory distress. He has no wheezes. He has no rales. He exhibits no tenderness. Abdominal: Soft. Bowel sounds are normal. He exhibits no distension and no mass. There is no tenderness. Musculoskeletal: Normal range of motion. He exhibits no edema. Sternotomy incision well-healed no erythema no drainage. Sternum is stable. Lymphadenopathy: He has no cervical adenopathy. Neurological: He is alert and oriented to person, place, and time. He has normal reflexes. No cranial nerve deficit. Skin: Skin is warm and dry. No rash noted. No erythema. Psychiatric: He has a normal mood and affect. Labs/Imaging: None Assessment: Aortic valve replacement, left atrial clip, with stable postoperative course Plan: Return to clinic as needed. Continue close follow-up with cardiology as scheduled. Patient Active Problem List Diagnosis ??? Rheumatic aortic stenosis ??? Rheumatic aortic valve insufficiency ??? Tobacco dependence ??? Valvular disease ??? 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 04/07/18 ??? H/O: rheumatic fever ??? GERD (gastroesophageal reflux disease) ??? Paroxysmal atrial fibrillation (CMS/HCC) Jose Wilson MD CTSurgery 09/17/18 10:40 AM documented in this encounter Plan of Treatment Upcoming Encounters Date Type Department Care Team (Late st Contact Info) Description 09/01/2024 1:30 PM EDT Office Visit [facility] [address] [place] [address] Kaushal Singleton MD [address] [facility] [address] [place] [address] documented as of this encounter Visit Diagnoses Diagnosis Paroxysmal atrial fibrillation- Primary Atrial fibrillation S/P AVR Rheumatic aortic stenosis Morbidly obese Morbid obesity documented in this encounter Care Teams Conciliator Relationship Specialty Start Date End Date Kaushal Kuo MD PCP - General Emergency Medicine 02/23/18 08/06/22 documented as of this encounter
--- OUTSIDE RECORDS SUMMARY | 2024-02-29 15:32 | XMS_ITS | Encounter Summary ---
Author Organization [facility] Address [address] [place] [address] Care Team Providers Care Business Excellence Leader Name Role Phone Kaushal Kuo MD Primary Care Provider [phone] Encounter Details Date Type Department Care Team (Late st Contact Info) Description 04/22/2018 Readmission Management [facility] [address] [place] [address] Darion Gandhi, RN Social History Tobacco Use Types Packs/Day [...] encounter Miscellaneous Notes * Outreach Note - Darion Gandhi RN - 04/22/2018 1:[address] Surgery Week 2 Survey Responses Facility patient discharged from? [place] Does the patient have one of the following disease processes/diagnoses(primary or secondary)? Cardiothoracic surgery Week 2 attempt successful? Yes Call start time 1336 Call end time 1339 Discharge diagnosis Aortic valve replacement Is patient permission given to speak with other caregiver? Yes Person spoke with today (if not patient) and relationship Spouse Meds reviewed with patient/caregiver? Yes Is the patient having any side effects they believe may be caused by any medication additions or changes? No Does the patient have all medications related to this admission filled (includes all antibiotics, pain medications, cardiac medications, etc.) Yes Is the patient taking all medications as directed (includes completed medication regime)? Yes Does the patient have a primary care provider? Yes Does the patient have an appointment scheduled with their C/T surgeon? Yes Has the patient kept scheduled appointments due by today? Yes Has home health visited the patient within 72 hours of discharge? N/A Psychosocial issues? No Did the patient receive a copy of their discharge instructions? Yes Nursing interventions Reviewed instructions with patient What is the patient's perception of their health status since discharge? Improving Nursing interventions Nurse provided patient education Is the patient/caregiver able to teach back normal signs of recovery? Pain or discomfort at incisional site Nursing interventions Reassured on normal signs of recovery Is the patient /caregiver able to teach back basic post-op care? Take showers only when approved byMD-sponge bathe until then, No tub bath, swimming, or hot tub until instructed by MD, Keep incisionareas clean, dry and protected, Do not remove steri-strips, Lifting as instructed by MD in discharge instructions Is the patient/caregiver able to teach back signs and symptoms of incisional infection? Increased redness, swelling or pain at the incisonal site, Increased drainage or bleeding, Incisional warmth, Pus or odor from incision, Fever Is the patient/caregiver able to teach back steps to recovery at home? Set small, achievable goals for return to baseline health, Rest and rebuild strength, gradually increase activity, Eat a well-balance diet, Make a list of questions for surgeon's appointment Is the patient /caregiver able to teach back the importance of cardiac rehab? Yes Week 2 call completed? Yes Darion Gandhi RN documented in this encounter Plan of Treatment Upcoming Encounters Date Type Department Care Team (Late st Contact Info) Description 09/01/2024 1:30 PM EDT Office Visit [facility] CARDIOLOGY [address] [facility] [address] [place] [address] Kaushal Singleton MD [address] [facility] [address] [place] [address] documented as of this encounter Visit Diagnoses Not on filedocumented in this encounter Care Teams Business Excellence Leader Relationship Specialty Start Date End Date Kaushal Kuo MD PCP - General Emergency Medicine 02/23/18 08/06/22 documented as of this encounter
--- OUTSIDE RECORDS SUMMARY | 2024-02-29 15:32 | XMS_ITS | Encounter Summary ---
Author Organization [facility] Address [address] [place] [address] Care Team Providers Care Machinist Supervisor Outside Name Role Phone aKushal Kuo MD Primary Care Provider [phone] Encounter Details Date Type Department Care Team (Late st Contact Info) Description 07/03/2018 Telephone [facility] CARDIOLOGY [address] [place] [address] Kaushal Singleton MD [address] [facility] [address] [place] [address] Social History Tobacco Use Types Packs/Day Years [...] encounter Miscellaneous Notes * Telephone Encounter - Kim Capps RN - 07/03/2018 11:50 AM EDT LVM with monitor results for pt and advised he can D/C Xarelto. * Telephone Encounter - Kim Capps RN - 07/03/2018 11:50 AM EDT ----- Message from Shauna Andrews APRN sent at 07/03/2018 11:11 AM EDT ----- Will you let the patient know he did not have any AFib on his monitor and that he can discontinue his Xarelto. documented in this encounter Plan of Treatment Upcoming Encounters Date Type Department Care Team (Late st Contact Info) Description 09/01/2024 1:30 PM EDT Office Visit [facility] CARDIOLOGY [address] [facility] [address] [place] [address] Kaushal Singleton MD [address] [facility] [address] [place] [address] documented as of this encounter Visit Diagnoses Not on filedocumented in this encounter Care Teams Machinist Supervisor Outside Relationship Specialty Start Date End Date Kaushal Kuo MD PCP - General Emergency Medicine 02/23/18 08/06/22 documented as of this encounter
--- OUTSIDE RECORDS SUMMARY | 2024-02-29 15:32 | XMS_ITS | Encounter Summary ---
Author Organization [facility] Address [address] [place] [address] Care Team Providers Care Supervisor Landscape Name Role Phone Kaushal Kuo MD Primary Care Provider [phone] Encounter Details Date Type Department Care Team (Late st Contact Info) Description 04/29/2018 Readmission Management [facility] NURSE CALL [facility] [address] [place] [address] Alexander Green, RN Social History Tobacco Use Types Packs/Day [...] encounter Miscellaneous Notes * Outreach Note - Alexander Green RN - 04/29/2018 9:[address] Surgery Week 3 Survey Responses Facility patient discharged from? [place] Does the patient have one of the following disease processes/diagnoses(primary or secondary)? Cardiothoracic surgery Week 3 attempt successful? Yes Call start time 0950 Call end time 0953 Discharge diagnosis Aortic valve replacement Medication alerts for this patient ASA & Xarelto started Meds reviewed with patient/caregiver? Yes Is the patient having any side effects they believe may be caused by any medication additions or changes? No Does the patient have all medications related to this admission filled (includes all antibiotics, pain medications, cardiac medications, etc.) Yes Is the patient taking all medications as directed (includes completed medication regime)? Yes Comments regarding appointments Has appt with surgeon on 05/14/2018 and cardiology on 05/25/2018 Does the patient have a primary care provider? Yes Does the patient have an appointment scheduled with their C/T surgeon? Yes Comments regarding PCP Dr. Kaushal Kuo Has the patient kept scheduled appointments due by today? Yes Comments Pt states he had his drains removed day 2- 3 Has home health visited the patient within [...] back the importance of cardiac rehab? Yes Additional teach back comments Pt states he is doing great and feels well. Week 3 call completed? Yes Alexander Green RN documented in this encounter Plan of Treatment Upcoming Encounters Date Type Department Care Team (Late st Contact Info) Description 09/01/2024 1:30 PM EDT Office Visit [facility] CARDIOLOGY [address] [facility] [address] [place] [address] Kaushal Singleton MD [address] [place] [address] documented as of this encounter Visit Diagnoses Not on filedocumented in this encounter Care Teams Supervisor Landscape Relationship Specialty Start Date End Date Kaushal Kuo MD PCP - General Emergency Medicine 02/23/18 08/06/22 documented as of this encounter
--- OUTSIDE RECORDS SUMMARY | 2024-02-29 15:32 | XMS_ITS | Encounter Summary ---
Author Organization [facility] Address [address] [place] [address] Care Team Providers Care Restaurant Hourly Team Member Name Role Phone Kaushal Kuo MD Primary Care Provider [phone] Reason for Visit * Reason Onset Date Comments Med Refill 06/30/2019 Encounter Details Date Type Department Care Team (Late st Contact Info) Description 06/30/2019 Refill [facility] CARDIOLOGY [address] [facility] [address] [place] [address] Rehana Ritter, RN Med Refill Social History Tobacco Use [...] Description 09/01/2024 1:30 PM EDT Office Visit [facility] [address] [facility] [address] [place] [address] Kaushal Singleton MD [address] [facility] [address] [place] [address] documented as of this encounter Visit Diagnoses Not on filedocumented in this encounter Care Teams Restaurant Hourly Team Member Relationship Specialty Start Date End Date Kaushal Kuo MD PCP - General Emergency Medicine 02/23/18 08/06/22 documented as of this encounter
--- OUTSIDE RECORDS SUMMARY | 2024-02-29 15:32 | XMS_ITS | Encounter Summary ---
Author Organization [facility] Address [address] [place] [address] Care Team Providers Care Upper Doubler Name Role Phone Kaushal Kuo MD Primary Care Provider [phone] Encounter Details Date Type Department Care Team (Late st Contact Info) Description 04/15/2018 Readmission Management [facility] [address] [place] [address] Krystal Mitchell RN Social History Tobacco Use Types Packs/Day [...] encounter Miscellaneous Notes * Outreach Note - Krystal Queen RN - 04/15/2018 3:[address] Surgery Week 1 Survey Responses Facility patient discharged from? [place] Does the patient have one of the following disease processes/diagnoses(primary or secondary)? Cardiothoracic surgery Is there a successful TCM telephone encounter documented? No Week 1 attempt successful? Yes Call start time 1618 Call end time 1624 Discharge diagnosis Aortic valve replacement Meds reviewed with patient/caregiver? Yes Is the patient having any side effects they believe may be caused by any medication additions or changes? No Does the patient have all medications related to this admission filled (includes all antibiotics, pain medications, cardiac medications, etc.) Yes Prescription comments Pt states he is managing pain well. Is the patient taking all medications as directed (includes completed medication regime)? Yes Does the patient have a primary care provider? Yes Does the patient have an appointment scheduled with their C/T surgeon? Yes Comments regarding PCP Dr. Kaushal Kuo Has the patient kept scheduled appointments due by today? Yes Comments Pt states he had his drains removed day 2- 3 Psychosocial issues? No Did the patient receive a copy of their discharge instructions? Yes Nursing interventions Reviewed instructions with patient What is the patient's perception of their health status since discharge? Improving Is the patient /caregiver able to teach [...] is doing great and feels well. Week 1 call completed? Yes Krystal Queen RN documented in this encounter Plan of Treatment Upcoming Encounters Date Type Department Care Team (Late st Contact Info) Description 09/01/2024 1:30 PM EDT Office Visit [facility] CARDIOLOGY [address] [facility] [address] [place] [address] Kaushal Singleton MD [address] [facility] [address] [place], [place] [id number] documented as of this encounter Visit Diagnoses Not on filedocumented in this encounter Care Teams Upper Doubler Relationship Specialty Start Date End Date Kaushal Kuo MD PCP - General Emergency Medicine 02/23/18 08/06/22 documented as of this encounter
--- OUTSIDE RECORDS SUMMARY | 2024-02-29 15:32 | XMS_ITS | Encounter Summary ---
Author Organization [facility] Address [address] [place] [address] Care Team Providers Care Superintendent Fish Hatchery Name Role Phone Kaushal Kuo MD Primary Care Provider [phone] Encounter Details Date Type Department Care Team (Late st Contact Info) Description 05/07/2018 Readmission Management [facility] N[facility] CALL [facility] [address] [place] [id number] Vicky Cerna, RN Social History Tobacco Use Types Packs/Day [...] encounter Miscellaneous Notes * Outreach Note - Vicky Cerna RN - 05/07/2018 11:[address] Surgery Week 4 Survey Responses Facility patient discharged from? [place] Does the patient have one of the following disease processes/diagnoses(primary or secondary)? Cardiothoracic surgery Week 4 attempt successful? Yes Call start time 1159 Call end time 1201 Discharge diagnosis Aortic valve replacement Is patient permission given to speak with other caregiver? Yes Person spoke with today (if not patient) and relationship Racheal Medication alerts for this patient ASA & Xarelto started Meds reviewed with patient/caregiver? Yes Is the patient having any side effects they believe may be caused by any medication additions or changes? No Is the patient taking all medications as directed (includes completed medication regime)? Yes Has the patient kept scheduled appointments due by today? Yes Is the patient still receiving Home Health Services? N/A Psychosocial issues? No What is the patient's perception of their health status since discharge? Improving Nursing interventions Nurse provided patient education Nursing interventions Reassured on normal signs of recovery Is the patient/caregiver able to teach back steps to recovery at home? Eat a well-balance diet, Make a list of questions for surgeon's appointment, Set small, achievable goals for return to baseline health, Rest and rebuild strength, gradually increase activity Is the patient /caregiver able to teach back the importance of cardiac rehab? Yes Nursing interventions Provided education on importance of cardiac rehab Is the patient/caregiver able to teach back the hierarchy of who to call/visit for symptoms/problems? PCP, Specialist, Home health nurse, Urgent Care, ED, 911 Yes Week 4 Call Completed? Yes Would the patient like one additional call? No Graduated Yes Did the patient feel the follow up calls were helpful during their recovery period? Yes Was the number of calls appropriate? Yes Vicky Cerna, RN documented in this encounter Plan of Treatment Upcoming Encounters Date Type Department Care Team (Late st Contact Info) Description 09/01/2024 1:30 PM EDT Office Visit [facility] CARDIOLOGY [address] [facility] [address] [place] [address] Kaushal Singleton MD [address] [facility] [address] [facility] [address] [place] [address] documented as of this encounter Visit Diagnoses Not on filedocumented in this encounter Care Teams Superintendent Fish Hatchery Relationship Specialty Start Date End Date Kaushal Kuo MD PCP - General Emergency Medicine 02/23/18 08/06/22 documented as of this encounter
--- OUTSIDE RECORDS SUMMARY | 2024-02-29 15:32 | XMS_ITS | Encounter Summary ---
[facility] [address] [place] [address] Care Team Providers Care Document Imaging Manager Name Role Phone Kaushal Kuo MD Primary Care Provider [phone] Encounter Details Date Type Department Care Team (Late Contact Info) Description 04/12/2018 Readmission Management [facility] [address] [place] [address] Sweetie Mcguire RN Social History Tobacco Use Types Packs/Day [...] encounter Miscellaneous Notes * Outreach Note - Sweetie Mcguire RN - 04/12/2018 3:53 PM EST Prep Survey Responses Facility patient discharged from? [facility] Is patient eligible? Yes Discharge diagnosis Aortic valve replacement Does the patient have one of the following disease processes/diagnoses(primary or secondary)? Cardiothoracic surgery Does the patient have Home health ordered? No Is there a DME ordered? No Medication alerts for this patient ASA & Xarelto started Prep survey completed? Yes Sweetie Mcguire RN documented in this encounter Plan of Treatment Upcoming Encounters Date Type Department Care Team (Late st Contact Info) Description 09/01/2024 1:30 PM EDT Office Visit [facility] CARDIOLOGY [address] [facility] [address] [place] [address] Kaushal Singleton MD [address] [facility] [address] [place] [address] documented as of this encounter Visit Diagnoses Not on filedocumented in this encounter Care Teams Document Imaging Manager Relationship Specialty Start Date End Date Kaushal Kuo MD PCP - General Emergency Medicine 02/23/18 08/06/22 documented as of this encounter
--- OUTSIDE RECORDS SUMMARY | 2024-02-29 15:32 | XMS_ITS | Encounter Summary ---
[facility] Organization [facility] Address [address] [place] [address] Care Team Providers Care Operations Examiner Name Role Phone Kaushal Kuo MD Primary Care Provider [phone] Encounter Details Date Type Department Care Team (Latest Contact Info) Description 05/14/2018 9:15 AM EST - 05/14/2018 11:59 PM [facility] Hospital Encounter [facility] XRAY [address] [place] [id number] Jose Wilson MD S/P AVR Discharge Disposition: Home or Self Care Social [...] this encounter Medications at Time of Discharge amiodarone (PACERONE) 200 MG tablet Take 1 tablet by mouth Daily. 30 tablet 2 04/12/2018 06/04/19 19 aspirin 81 MG EC tablet Take 1 tablet by mouth Daily. 30 tablet 11 04/12/2018 06/30/19 20 HYDROcodone-acetamin ophen (NORCO) 7.5-325 MG per tablet Take 1 tablet by mouth Every 6 (Six) Hours As Needed for Moderate Pain . 30 tablet 04/11/2018 11:43 AM EST 04/11/2018 06/04/19 19 metoprolol succinate XL (TOPROL-XL) 25 MG 24 hr tablet Take 1 tablet by mouth Daily. 30 tablet 11 04/12/2018 06/30/19 20 rivaroxaban (XARELTO) 20 MG tabletIndications:At rial Fibrillation - requiring full anticoagulation Take 1 tablet by mouth Daily With Dinner. 30 tablet 5 04/12/2018 12/17/19 19 vitamin D (ERGOCALCIFEROL) 22149 units capsule capsule Take 50,000 Units by mouth 1 (One) Time Per Week. Takes on Wednesdays09/15/19 20 documented as of this encounter Plan of Treatment Upcoming Encounters Date Type Department Care Team (Late st Contact Info) Description 09/01/2024 1:30 PM EDT Office Visit [facility] C[facility]IOLOG[facility] [address] [facility] [address] [place] [address] Kaushal Singleton MD [address] [facility] [address] [place] [id number] documented as of this encounter Procedures Procedure Name Priority Date/Time Associated Diagnosis Comments XR CHEST 2 VW Routine 05/14/2018 9:23 AM EST S/P AVR documented in this encounter Results * XR Chest 2 View (05/14/2018 9:23 AM EST) Anatomical Region Laterality Modality Body N/A Radiographic Scarlett ging 05/14/2018 3:23 PM EST Impressions 05/14/2018 7:10 PM EST Heart and vasculature are upper limits of normal size. Mild chronic-appearing interstitial lung changes are ??at baseline radiographic appearance compared to pre-op exam. No evidence of active chest disease. DICTATED: ?? 05/14/2018 EDITED/ls : ?? 05/14/2018 This report was finalized on 05/14/2018 7:[address] Jamie Barba MD. Narrative 05/14/2018 7:10 PM EST EXAMINATION: XR CHEST, 2 VIEWS - 05/12/2018 INDICATION: ??Z95.2-Presence of prosthetic heart valve. COMPARISON: 04/09/2018 FINDINGS: Sternotomy wires, aortic valve prosthesis and left atrial appendage exclusion clip are noted. The heart is upper normal size. The vasculature appears upper limits of normal as well. Mild coarsening of the pulmonary interstitial markings appears at patient's baseline radiographic appearance from preoperative 04/06/2018 study with some slightly greater coarsening of the right and left perihilar regions than elsewhere. No new pulmonary parenchymal disease, effusion, or pneumothorax is seen. Procedure Note Jamie Barba MD - 05/14/2018 EXAMINATION: XR CHEST, 2 VIEWS - 05/12/2018 INDICATION: Z95.2-Presence of prosthetic heart valve. COMPARISON: 04/09/2018 FINDINGS: Sternotomy wires, aortic valve prosthesis and left atrial appendage exclusion clip are noted. The heart is upper normal size. The vasculature appears upper limits of normal as well. Mild coarsening of the pulmonary interstitial markings appears at patient's baseline radiographic appearance from preoperative 04/06/2018 study with some slightly greater coarsening of the right and left perihilar regions than elsewhere. No new pulmonary parenchymal disease, effusion, or pneumothorax is seen. IMPRESSION: Heart and vasculature are upper limits of normal size. Mild chronic-appearing interstitial lung changes are at baseline radiographic appearance compared to pre-op exam. No evidence of active chest disease. DICTATED: 05/14/2018 EDITED/ls : 05/14/2018 This report was finalized on 05/14/2018 7:[address] Jamie Barba MD. Jose Wilson MD IM DIAGNOSTIC IMAGING ORDERABL ES Final Result documented in this encounter Visit Diagnoses Diagnosis S/P AVR documented in this encounter Care Teams Operations Examiner Relationship Specialty Start Date End Date Kaushal Kuo MD PCP - General Emergency Medicine 02/23/18 08/06/22 documented as of this encounter
--- OUTSIDE RECORDS SUMMARY | 2024-02-29 15:32 | XMS_ITS | Encounter Summary ---
[facility] Address [address] [place] [address] Care Team Providers Care Visual Merchandising Specialist Name Role Phone Kaushal Kuo MD Primary Care Provider [phone] Reason for Visit * Monitoring (Routine) - Closed Specialty Diagnoses / Procedures Referred By Contac t Referred To Contact Cardiology Diagnoses Paroxysmal atrial fibrillation Procedures Holter Monitor - 72 Hour Up To 21 Days Shauna Andrews, BRIAN Phone: tel: fax: [facility] CARDIOLOGY [address] [address] Phone: tel: fax: Referral ID Status Reason Start Date Expiration Date Visits Re quested Visits Authorized [id number] Closed 06/09/2018 06/09/2019 1 1 Encounter Details Date Type Department Care Team (Latest Contact Info) Description 06/09/2018 4:30 PM EDT Ancillary Procedure [facility] [address] [facility] [address] [place] [address] Paroxysmal atrial fibrillation Social History Tobacco Use [...] 09/01/2024 1:30 PM EDT Office Visit [facility] [address] [facility] [address] [place] [address] Kaushal Singleton MD [address] [facility] [address] [place] [address] documented as of this encounter Procedures Procedure Name Priority Date/Time Associated Diagnosis Comments HOLTER MONITOR [id number] ([id number]) Routine 06/09/2018 4:16 PM EDT Paroxysmal atrial fibrillation documented in this encounter Results * HOLTER [...] 51. Max HR: 140. us Shauna Andrews CERTIFIED SURGICAL FIRST ASSISTANT CV CARDIAC SERVICES ORDERABL ES Final Result documented in this encounter Visit Diagnoses Diagnosis Paroxysmal atrial fibrillation Atrial fibrillation documented in this encounter Care Teams Visual Merchandising Specialist Relationship Specialty Start Date End Date Kaushal Kuo MD PCP - General Emergency Medicine 02/23/18 08/06/22 documented as of this encounter
--- OUTSIDE RECORDS SUMMARY | 2024-02-29 15:33 | XMS_ITS | Encounter Summary ---
Author Organization [facility] Address [address] [place] [address] Care Team Providers Care Patients Transporter Name Role Phone Kaushal Kuo MD Primary Care Provider [phone] Reason for Referral * (Routine) - Closed Specialty Diagnoses / Procedures Referred By Contac t Referred To Contact Radiology Diagnoses AVD (aortic valve disease) Procedures Chest X-Ray PA & Lateral Miguel Malin PA [address] [place] [address] Phone: tel: fax: Referral ID Status Reason Start Date Expiration Date Visits Re quested Visits Authorized [id number] Closed 03/19/2018 03/19/2019 1 1 Reason for Visit * (Routine) - Closed Specialty Diagnoses / Procedures Referred By Contac t Referred To Contact Radiology Diagnoses AVD (aortic valve disease) Procedures Chest X-Ray PA & Lateral Miguel Malin PA [address] [place] [address] Phone: tel: fax: Referral ID Status Reason Start Date Expiration Date Visits Re quested Visits Authorized [id number] Closed 03/19/2018 03/19/2019 1 1 Encounter Details Date Type Department Care Team (Latest Contact Info) Description 04/06/2018 2:18 PM EST - 04/06/2018 11:59 PM EST Hospital Encounter [facility] XRAY [address] [place] [address] AVD (aortic valve disease) Discharge Disposition: Home [...] tablet by mouth Daily. 30 tablet 2 04/11/2018 11:43 AM EST 04/11/2018 04/12/19 19 amiodarone (PACERONE) 200 MG tablet Take 1 tablet by mouth Daily. 30 tablet 2 04/12/2018 06/04/19 19 aspirin 81 MG EC tablet Take 1 tablet by mouth Daily. 30 tablet 11 04/11/2018 11:43 AM EST 04/11/2018 04/12/19 19 aspirin 81 MG EC tablet Take 1 tablet by mouth Daily. 30 tablet 04/12/2018 06/30/19 20 HYDROcodone-acetamin ophen (NORCO) 7.5-325 MG per tablet Take 1 tablet by mouth Every 6 (Six) Hours As Needed for Moderate Pain . 30 tablet 04/11/2018 11:43 AM EST 04/11/2018 06/04/19 19 metoprolol succinate XL (TOPROL-XL) 25 MG 24 hr tablet Take 1 tablet by mouth Daily. 30 tablet 04/11/2018 11:43 AM EST 04/11/2018 04/12/19 19 metoprolol succinate XL (TOPROL-XL) 25 MG 24 hr tablet Take 1 tablet by mouth Daily. 30 tablet 04/12/2018 06/30/19 20 rivaroxaban (XARELTO) 20 MG tabletIndications:At rial Fibrillation - requiring full anticoagulation Take 1 tablet by mouth Daily With Dinner. 30 tablet 5 04/11/2018 11:43 AM EST 04/11/2018 04/12/19 19 rivaroxaban (XARELTO) 20 MG tabletIndications:At rial Fibrillation - requiring full anticoagulation Take 1 tablet by mouth Daily With Dinner. 30 tablet 5 04/12/2018 12/17/19 19 vitamin D (ERGOCALCIFEROL) 09490 units capsule capsule Take 50,000 Units by mouth 1 (One) Time Per Week. Takes on Wednesdays09/15/19 20 documented as of this encounter Plan of Treatment Upcoming Encounters Date Type Department Care Team (Late st Contact Info) Description 09/01/2024 1:30 PM EDT Office Visit [facility] [address] [facility] [address] [place] [address] Kaushal Singleton MD [address] [facility] [address] [place] [address] documented as of this encounter Procedures Procedure Name Priority Date/Time Associated Diagnosis Comments XR CHEST PA AND LATERAL Routine 04/06/2018 2:33 PM EST AVD (aortic valve disease) documented in this encounter Results * XR Chest PA & Lateral (04/06/2018 2:33 PM EST) Anatomical Region Laterality Modality Body, Chest N/A Radiographic Scarlett ging 04/06/2018 4:07 PM EST Impressions 04/08/2018 9:16 AM EST Minimal increased markings identified inferiorly within the right upper lung nolasco suggesting possible residual scarring. No acute parenchymal disease. D: ??04/06/2018 E: ??04/06/2018 This report was finalized on 04/08/2018 9:[address] Estefani Patino MD. 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 Minimal increased markings identified inferiorly within the right upper lobe. Findings may suggest residual scarring or disease. Prior studies would be helpful for comparison. Degenerative changes seen within the spine. No pleural effusion or pneumothorax. Pulmonary vascularity is within normal limits. ?? Procedure Note Estefani Patino MD - 04/08/2018 EXAMINATION: XR CHEST PA AND LATERAL- 04/06/2018 INDICATION: Pre-Op Cardiac Surgery; I35.9-Nonrheumatic aortic valve disorder, unspecified COMPARISON: NONE FINDINGS: PA and lateral views of the chest reveal cardiac and mediastinal silhouettes within normal limits. Minimal increased markings identified inferiorly within the right upper lobe. Findings may suggest residual scarring or disease. Prior studies would be helpful for comparison. Degenerative changes seen within the spine. No pleural effusion or pneumothorax. Pulmonary vascularity is within normal limits. IMPRESSION: Minimal increased markings identified inferiorly within the right upper lung nolasco suggesting possible residual scarring. No acute parenchymal disease. E: 04/06/2018 This report was finalized on 04/08/2018 9:[address] Estefani Patino MD. us Miguel FINLEY IMG DIAGNOSTIC IMAGING ORDERAB LES Final Result documented in this encounter Visit Diagnoses Diagnosis AVD (aortic valve disease) Aortic valve disorders documented in this encounter Care Teams Patients Transporter Relationship Specialty Start Date End Date Kaushal Kuo MD PCP - General Emergency Medicine 02/23/18 08/06/22 documented as of this encounter
--- OUTSIDE RECORDS SUMMARY | 2024-02-29 15:33 | XMS_ITS | Encounter Summary ---
[facility] Address [address] [place] [address] Care Team Providers Care Coordinate Measuring Machine Technician Name Role Phone Kaushal Kuo MD Primary Care Provider [phone] Reason for Visit * Auth/Cert Specialty Diagnoses / Procedures Referred By Contac t Referred To Contact Diagnoses Aortic valve disorder Aortic valve disorder [I35.9] Procedures ID [id number] PROST AORTIC VALVE OPEN XCP HOMOGRF/STENT AORTIC VALVE REPAIR/REPLACEMENT, TA Referral ID Status Reason Start Date Expiration Date Visits Re quested Visits Authorized [id number] 1 1 Encounter Details Date Type Department Care Team (Late st Contact Info) Description 04/07/2018 12:00 PM EST Ancillary Procedure [facility] [address] [place] [id number] Social History Tobacco Use Types Packs/Day Years [...] Description 09/01/2024 1:30 PM EDT Office Visit [facility] [address] [facility] [address] [place] [address] Kaushal Singleton MD [address] [facility] [address] [place] [address] documented as of this encounter Procedures Procedure Name Priority Date/Time Associated Diagnosis Comments ANESTHESIA TA Routine 04/07/2018 7:56 AM EST documented in this encounter Results * ANESTHESIA TA (04/07/2018 7:56 AM EST) Narrative SYSTEMGENERATED, DOCUMENTATION - 04/07/2018 7:56 AM EST Intra-Operative TA was performed by anesthesia. ??Please see Intra-Op and Anesthesia notes for documentation. us Gerald Lopes MD CV ECHO ORDERABLES Final Resu lt documented in this encounter Visit Diagnoses Not on filedocumented in this encounter Care Teams Coordinate Measuring Machine Technician Relationship Specialty Start Date End Date Kaushal Kuo MD PCP - General Emergency Medicine 02/23/18 08/06/22 documented as of this encounter
--- OUTSIDE RECORDS SUMMARY | 2024-02-29 15:33 | XMS_ITS | Encounter Summary ---
[facility] Address [address] [place] [address] Care Team Providers Care Commutator Repairer Name Role Phone Kaushal Kuo MD Primary Care Provider [phone] Reason for Visit * Auth/Cert Specialty Diagnoses / Procedures Referred By Contac t Referred To Contact Diagnoses Aortic valve disorder Aortic valve disorder [I35.9] Procedures [place] RPLCMT PROST AORTIC VALVE OPEN XCP HOMOGRF/STENT AORTIC VALVE REPAIR/REPLACEMENT, CHARLY Referral ID Status Reason Start Date Expiration Date Visits Re quested Visits Authorized [id number] 1 1 Encounter Details Date Type Department Care Team (Late st Contact Info) Description 04/07/2018 7:01 AM EST Anesthesia Event [facility] OR [address] [place] [address] Gerald Lopes MD [address] [place] [id number] Anesthesia Record Procedure Summary Procedure Name Responsible Anesthesiologist Anesthesia Start Time Anesthesia Stop Time MEDIAN STERNOTOMY, AORTIC VALVE REPLACEMENT (Chest) Gerald Lopes MD 04/07/18 0701 04/07/18 1205 Events Date Time Event Comment 04/07/2018 0701 AN Equip Check 0701 An Start 0701 An Start Data 0709 An Induction The patient was reevaluated immediately before moderate or deep sedation use and before anesthesia induction. 0732 Line Placement 0732 AN CHARLY 0753 an rhianna now 0824 An CV Bypass init 0826 0829 Aorta clamp on 1038 Aorta clamp off 1055 An CV Bypass Ended 1059 An CV Bypass init 1100 Quick Note Back on CPB for atrial clip application 1102 An CV Bypass Ended 1156 an stop data 1205 Handoff to RN The following has been completed: 1. Identification of Patient, tadeo family member(s) or patient surrogate 2. Identification of the responsible Practitioner (primary service) 3. Discussion of the pertinent/attainable medical history 4. Discussion of the surgical/procedure course (procedure, reason for surgery, procedure performed) 5. Intraoperative anesthetic management and issue/concerns to include things such as airway, hemodynamics, narcotic, sedation level and paralytic management and intravenous fluids/blood products and urine output during the procedure 6. Expectations/Plans for the early post-procedure period to include things such as anticipated course (anticipatory guidance), complications, need for laboratory or ECG and medication administration 7. Opportunity for questions and acknowledgment of understanding of report from the receiving PACU/ICU team 1205 An Stop Meds Name Total etomidate (AMIDATE) 2 mg/mL 24 mg propofol (DIPRIVAN) injection 106.84 mg midazolam (VERSED) injection 2 mg/2 mL 1 0 mg Sufentanil injection 250 mcg rocuronium (ZEMURON) 50 mg/5 mL injectio n 120 mg heparin (porcine) injection 1,000 units/ mL 53,000 Units protamine injection 400 mg aminocaproic acid (AMICAR) 250 mg/mL 20 g vancomycin (VANCOCIN) 1 g 1.75 g calcium chloride injection 1 g lactated ringers infusion 1,200 mL * Agents Name O2 Sevoflurane Isoflurane * Blood No blood administrations on file. Lines, Drains, and Airways Type Details Placement Removal Wound 04/07/18; 0744; ches t; incision 04/07/18 0744 by Saima Mathew, RN Urethral Catheter Placement Date: 11/16; Inserted by: Saima Mathew RN ; Type: Silicone, Temperature probe; Size: 16 Fr.; Balloon Size: 10 mL; Urine Returned: Yes; Removal Date: 04/08/18; Removal Time: 1030; Removal Reason: Per order 04/07/18 0000 by Saima Mathew, RN 04/08/18 1030 by Nelly Gracia, AIRCRAFT NAVIGATOR Y Chest Tube 1, 2, and 3 04/07/18; Yes; 1; Mediastinal; 1 Fr.; 32; 2; Mediastinal; 32 Fr. 04/07/18 0000 by Saima Mathew RN 04/07/18 1206 by Nelly Gracia APRN Peripheral IV Placement Date: 11/16; Placement Time: 612; Catheter Size: 18 G; Orientation: Left; Location: Wrist; Site Prep: Chlorhexidine; Local Anes: Injectable; Technique: Anatomical landmarks; Inserted by: ALEXANDRO MARROQUIN; Insertion Attempts: 1; Patient Tolerance: Tolerated well; Removal Date: 04/11/18; Removal Time: 1324 04/07/18 0613 by Lindsey Leavitt RN 04/11/18 1324 by Kasey Malhotra RN Pulmonary Artery Catheter - Triple Lumen 04/07/18; 0700; Right; Internal jugular; Sutured; Tolerated well; 04/07/18; 1620; Per order, Tip intact 04/07/18 0700 by Nelly Garcia APRN 04/07/18 1620 by Nelly Gracia APRN Introducer 04/07/18; 0700; Inte rnal jugular; Right; Inserted in OR; Dr. Lopes; Xray; 04/09/18; 0900 04/07/18 0700 by Nelly Gracia APRN 04/09/18 0900 by Jules Rivera RN Retired Airway 04/07/18; 0701; 11/16; 1216 04/07/18 0701 by Gerald Lopes MD 04/07/18 1216 by Nelly Gracia APRN Retired Airway 04/07/18; 0701; oral , endotracheal tube with subglottic suction; 04/07/18 (mischarted); 1217 04/07/18 0701 by Gerald Lopes MD 04/07/18 1217 by Nelly Gracia APRN Arterial Line(Adult) Placement Date: 11/16; Placemnt Time: 07; Orientation: Right; Location: Brachial; Pt Tolerance: Tolerated well; Removal Date: 04/08/18; Removal Time: 1005 04/07/18 0701 by Gerald Lopes MD 04/08/18 1005 by Nelly Gracai APRN CVC Double Lumen Placement Date: 11/16; Placement Time: 0805 (created via procedure documentation); Orientation: Right; Location: Internal jugular; Removal Date: 04/07/18 (mischarted); Removal Time: 1204 04/07/18 0805 by Gerald Lopes MD 04/07/18 1204 by Nelly Gracia APRN ETT Placement Date: 11/16; Placement Time: 0805 (created via procedure documentation); Tube Size: 8 mm; Blade Size: 4; Location: Oral; Removal Date: 04/07/18; Removal Time: 1730 04/07/18 0805 by Gerald Lopes MD 04/07/18 1730 by Ruiz Roa RRT Chest Tube Placement Date: 11/16; Placement Time: 1100; Inserted by: Dr. wilson; Tube Number: 2; Location: Mediastinal; Removal Date: 04/07/18; Removal Time: 1208 04/07/18 1100 by Nelly Gracia APRN 04/07/18 1208 by Nelly Gracia APRN Y Chest Tube 1 and 2 04/07/18; 1100; 1; Mediastinal; 2; Mediastinal; Inserted in OR; Per order 04/07/18 1100 by Nelly Gracia APRN 04/08/18 0900 by Nelly Gracia APRN NG/OG Tube (Adult) Placement Date: 11/16; Placement Time: 1200; Inserted by: d/c'd on previous shift ; Type: Nasogastric; Location: Right nostril; Removal Date: 04/08/18; Removal Time: 0700; Removal Reason: Per order 04/07/18 1200 by Nelly Gracia APRN 04/08/18 0700 by Nelly Gracia APRN Pacer Wires 04/07/18; 1200; INSE RTED IN OR ; Ventricular; 04/08/18; 0900; No complications 04/07/18 1200 by Nelly Gracia APRN 04/08/18 0900 by Nelly Gracia APRN documented in this encounter Social History Tobacco Use Types Packs/Day Years [...] on file documented as of this encounter OR Notes * Anesthesia Postprocedure Evaluation - Gerald Lopes MD - 04/07/2018 12:06 PM EST Patient: Carlos Manuel Rojas II Procedure Summary Date: 04/07/18 Room / Location: [facility] [address] [place] [address] [facility] Anesthesia Start: 700 Anesthesia Stop: 1204 Procedures: MEDIAN STERNOTOMY, AORTIC VALVE REPLACEMENT (N/A Chest) TRANSESOPHAGEAL ECHOCARDIOGRAM WITH ANESTHESIA (N/A Chest) LEFT ATRIAL APPENDAGE OCCLUSION (N/A ) Diagnosis: Aortic valve disorder (Aortic valve disorder [I35.9]) Surgeon: Jose Wilson MD Provider: Gerald Lopes MD Anesthesia Type: general ASA Status: 4 Anesthesia Type: general Last vitals BP 91/70 (04/07/18629) Temp 96.9 ??F (36.1 ??C) (04/07/18626) Pulse 67 (04/07/18626) Resp 18 (04/07/18626) SpO2 93 % (04/07/18626) Post Anesthesia Care and Evaluation Patient location during evaluation: ICU Patient participation: complete - patient cannot participate Level of consciousness: obtunded/minimal responses Airway patency: patent Anesthetic complications: No anesthetic complications Cardiovascular status: acceptable Respiratory status: acceptable, intubated and ETT Hydration status: acceptable * Anesthesia Preprocedure Evaluation - Gerald Lopes MD - 04/07/2018 8:25 AM EST Images from the original note were not included. 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 Plan discussed with DAY CARE ASSISTANT. * Anesthesia Procedure Notes - Gerald Lopes MD - 04/07/2018 7:56 AM EST Associated Order(s): Emergent/Open-Heart Anesthesia CHARLY Procedure Performed: Emergent/Open-Heart Anesthesia CHARLY Start Time: End Time: Preanesthesia Checklist: Patient identified, IV assessed, risks and benefits discussed, monitors and equipment assessed, procedure being performed at surgeon's request and anesthesia consent obtained. General Procedure Information Diagnostic Indications for Echo: assessment of ascending aorta, assessment of surgical repair and hemodynamic monitoring Location performed: OR Intubated Bite block not placed Heart visualized Probe Insertion: Easy Probe Type: Multiplane Modalities: Color flow mapping, continuous wave Doppler and pulse wave Doppler Echocardiographic and Doppler Measurements Ventricles Right Ventricle: Hypertrophy not present. Thrombus not present. Global function normal. Left Ventricle: Cavity size normal. Diastolic dimension 1.7 cm. Hypertrophy present. Thrombus not present. Global Function normal. Ejection Fraction 60%. Valves Aortic Valve: Annulus calcified. Stenosis severe. Area: 0.8 cm??. Mean Gradient: 72 eman 45 mmHg. Regurgitation moderate. Leaflets normal. Leaflet motions normal. Mitral Valve: Annulus normal. Stenosis not present. Area: 3.7 cm??. Mean Gradient: 2 mean 1 mmHg. Regurgitation trace. Leaflets normal. Leaflet motions normal. Tricuspid Valve: Annulus normal. Stenosis not present. Regurgitation trace. Leaflets normal. Leaflet motions normal. Pulmonic Valve: Annulus normal. Stenosis not present. Aorta Ascending Aorta: Size normal. Dissection not present. Plaque thickness less than 3 mm. Mobile plaque not present. Aortic Arch: Size normal. Dissection not present. Plaque thickness less than 3 mm. Mobile plaque not present. Descending Aorta: Size normal. Dissection not present. Plaque thickness less than 3 mm. Mobile plaque not present. Atria Right Atrium: Size normal. Spontaneous echo contrast not present. Thrombus not present. Tumor not present. Devicepresent. Left Atrium: Size normal. Spontaneous echo contrast not present. Thrombus not present. Tumor not present. Devicenot present. Left atrial appendage normal. Septa Atrial Septum: Intra-atrial septal morphology normal. Ventricular Septum: Intra-ventricular septum morphology normal. Diastolic Function Measurements: Diastolic Dysfunction Grade= E= ms A= ms E/A Ratio= 1.5 DT= ms S/D= 1.0 IVRT= Other Findings Pericardium: normal Pleural Effusion: none Pulmonary Arteries: normal Pulmonary Venous Flow: normal Anesthesia Information Performed Personally Anesthesiologist: Gerald Lopes MD Echocardiogram Comments: Informed consent was obtained preoperatively. Charly probe passed without difficulty. Post AVR/LA clipNNo NWMA, EF 60%. Tissue prosthetic Av with GUERLINE of peak 19 mean 11. NO perivalvular leak or AI seen. NNo Flow seen MEGHA. * Anesthesia Procedure Notes - Gerald Lopes MD - 04/07/2018 7:55 AM EST Associated Order(s): Central Line Central Line Patient location during procedure: OR Indications: vascular access Preanesthetic Checklist Completed: patient identified, site marked, surgical consent, pre-op evaluation, timeout performed,IV checked, risks and benefits discussed and monitors and equipment checked Central Line Prep Clothing Worker:cap, gloves, gown, mask and sterile barriers Prep: chloraprep Patient monitoring: blood pressure monitoring, continuous pulse oximetry and EKG Central Line Procedure Laterality:right Location:internal jugular Catheter Type:Cordis and [place]-Luis M Catheter Size:9 Fr Guidance:ultrasound guided PROCEDURE NOTE/ULTRASOUND INTERPRETATION. Using ultrasound guidance the potential vascular sites for insertion of the catheter were visualized to determine the patency of the vessel to be used for vascular access. After selecting the appropriate site for insertion, the needle was visualized under ul trasound being inserted into the internal jugular vein, followed by ultrasound confirmation of wireand catheter placement. There were no abnormalities seen on ultrasound; an image was taken; and thepatient tolerated the procedure with no complications. Assessment Post procedure:biopatch applied, line sutured, occlusive dressing applied and secured with tape Assessement:blood return through all ports, free fluid flow and chest x-ray ordered Complications:no Patient Tolerance:patient tolerated the procedure well with no apparent complications * Anesthesia Procedure Notes - Gerald Lopes MD - 04/07/2018 7:55 AM EST Associated Order(s): Arterial Line Arterial Line Patient location during procedure: pre-op Line placed for hemodynamic monitoring. Preanesthetic Checklist Completed: patient identified, site marked, surgical consent, pre-op evaluation, timeout performed,IV checked, risks and benefits discussed and monitors and equipment checked Arterial Line Prep Clothing Worker: cap, gloves and sterile barriers Prep: ChloraPrep Patient monitoring: blood pressure monitoring, continuous pulse oximetry and EKG Arterial Line Procedure Laterality:right Location: brachial artery Catheter size: 20 G Guidance: ultrasound guided PROCEDURE NOTE/ULTRASOUND INTERPRETATION. Using ultrasound guidance the potential vascular sites for insertion of the catheter were visualized to determine the patency of the vessel to be used for vascular access. After selecting the appropriate site for insertion, the needle was visualized under ul trasound being inserted into the brachial artery, followed by ultrasound confirmation of wire and catheter placement. There were no abnormalities seen on ultrasound; an image was taken; and the patient tolerated the procedure with no complications. Number of attempts: 1 Successful placement: yes Post Assessment Dressing Type: line sutured, occlusive dressing applied, secured with tape and wrist guard applied. Complications no Circ/Move/Sens Assessment: normal and unchanged. Patient Tolerance: patient tolerated the procedure well with no apparent complications * Anesthesia Procedure Notes - Gerald Lopes MD - 04/07/2018 7:55 AM EST Associated Order(s): Airway Airway Urgency: elective Airway not difficult General Information and Staff Patient location during procedure: OR Indications and Patient Condition Indications for airway management: airway protection Preoxygenated: yes MILS not maintained throughout Mask difficulty assessment: 0 - not attempted Final Airway Details Final airway type: endotracheal airway Successful airway: ETT Cuffed: yes Successful intubation technique: direct laryngoscopy Endotracheal tube insertion site: oral Blade: Jodie Blade size: 4 ETT size (mm): 8.0 Cormack-Lehane Classification: grade I - full view of glottis Placement verified by: chest auscultation and capnometry Measured from: lips ETT to lips (cm): 20 Number of attempts at approach: 1 Additional Comments Negative epigastric sounds, Breath sound equal bilaterally with symmetric chest rise and fall documented in this encounter Plan of Treatment Upcoming Encounters Date Type Department Care Team (Late st Contact Info) Description 09/01/2024 1:30 PM EDT Office Visit [facility] [address] [place] [address] Kaushal Singleton MD [address] [place] [address] documented as of this encounter Procedures Procedure Name Priority Date/Time Associated Diagnosis Comments ANESTHESIA CHARLY Routine 04/07/2018 7:56 AM EST INACTIVE - BH AN CORDIS Routine 04/07/2018 7:55 AM EST ANESTHESIA ARTERIAL LINE Routine 04/07/2018 7:55 AM EST ANESTHESIA INTUBATION Routine 04/07/2018 7:55 AM EST documented in this encounter Results * ANESTHESIA CHARLY (04/07/2018 7:56 AM EST) Narrative SYSTEMGENERATED, DOCUMENTATION - 04/07/2018 7:56 AM EST Intra-Operative CHARLY was performed by anesthesia. ??Please see Intra-Op and Anesthesia notes for documentation. us Gerald Lopes MD CV ECHO ORDERABLES Final Resu lt * INACTIVE - BH AN CORDIS (04/07/2018 7:55 AM EST) Narrative Gerald Lopes MD - 04/07/2018 7:55 AM EST Gerald Lopes MD ? 04/07/2018 ??8:05 AM Central Line Patient location during procedure: OR Indications: vascular access Preanesthetic Checklist Completed: patient identified, site marked, surgical consent, pre-op evaluation, timeout performed, IV checked, risks and benefits discussed and monitors and equipment checked Central Line Prep Clothing Worker:cap, gloves, gown, mask and sterile barriers Prep: chloraprep Patient monitoring: blood pressure monitoring, continuous pulse oximetry and EKG Central Line Procedure Laterality:right Location:internal jugular Catheter Type:Cordis and [place]-Luis M Catheter Size:9 Fr Guidance:ultrasound guided PROCEDURE NOTE/ULTRASOUND INTERPRETATION. ??Using ultrasound guidance the potential vascular sites for insertion of the catheter were visualized to determine the patency of the vessel to be used for vascular access. ??After selecting the appropriate site for insertion, the needle was visualized under ultrasound being inserted into the internal jugular vein, followed by ultrasound confirmation of wire and catheter placement. There were no abnormalities seen on ultrasound; an image was taken; and the patient tolerated the procedure with no complications. Assessment Post procedure:biopatch applied, line sutured, occlusive dressing applied and secured with tape Assessement:blood return through all ports, free fluid flow and chest x-ray ordered Complications:no Patient Tolerance:patient tolerated the procedure well with no apparent complications Procedure Note Gerald Lopes MD - 04/07/2018 7:55 AM EST Central Line Patient location during procedure: OR Indications: vascular access Preanesthetic Checklist Completed: patient identified, site marked, surgical consent, pre-opevaluation, timeout performed, IV checked, risks and benefits discussedand monitors and equipment checked Central Line Prep Clothing Worker:cap, gloves, gown, mask and sterile barriers Prep: chloraprep Patient monitoring: blood pressure monitoring, continuous pulse oximetryand EKG Central Line Procedure Laterality:right Location:internal jugular Catheter Type:Cordis and [place]-Luis M Catheter Size:9 Fr Guidance:ultrasound guided PROCEDURE NOTE/ULTRASOUND INTERPRETATION. Using ultrasound guidance thepotential vascular sites for insertion of the catheter were visualized todetermine the patency of the vessel to be used for vascular access. Afterselecting the appropriate site for insertion, the needle was visualizedunder ultrasound being inserted into the internal jugular vein, followedby ultrasound confirmation of wire and catheter placement. There were noabnormalities seen on ultrasound; an image was taken; and the patienttolerated the procedure with no complications. Assessment Post procedure:biopatch applied, line sutured, occlusive dressing appliedand secured with tape Assessement:blood return through all ports, free fluid flow and chestx-ray ordered Complications:no Patient Tolerance:patient tolerated the procedure well with no apparentcomplications us Gerald Lopes MD ANESTHESIA ORDERABLES Final R esult * Arterial Line (04/07/2018 7:55 AM EST) Narrative Gerald Lopes MD - 04/07/2018 7:55 AM EST Gerald Lopes MD ? 04/07/2018 ??8:05 AM Arterial Line Patient location during procedure: pre-op Line placed for hemodynamic monitoring. Preanesthetic Checklist Completed: patient identified, site marked, surgical consent, pre-op evaluation, timeout performed, IV checked, risks and benefits discussed and monitors and equipment checked Arterial Line Prep Clothing Worker: cap, gloves and sterile barriers Prep: ChloraPrep Patient monitoring: blood pressure monitoring, continuous pulse oximetry and EKG Arterial Line Procedure Laterality:right Location: ??brachial artery Catheter size: 20 G Guidance: ultrasound guided PROCEDURE NOTE/ULTRASOUND INTERPRETATION. ??Using ultrasound guidance the potential vascular sites for insertion of the catheter were visualized to determine the patency of the vessel to be used for vascular access. ??After selecting the appropriate site for insertion, the needle was visualized under ultrasound being inserted into the brachial artery, followed by ultrasound confirmation of wire and catheter placement. There were no abnormalities seen on ultrasound; an image was taken; and the patient tolerated the procedure with no complications. Number of attempts: 1 Successful placement: yes ?? Post Assessment Dressing Type: line sutured, occlusive dressing applied, secured with tape and wrist guard applied. Complications no Circ/Move/Sens Assessment: normal and unchanged. Patient Tolerance: patient tolerated the procedure well with no apparent complications Procedure Note Gerald Lopes MD - 04/07/2018 7:55 AM EST Arterial Line Patient location during procedure: pre-op Line placed for hemodynamic monitoring. Preanesthetic Checklist Completed: patient identified, site marked, surgical consent, pre-opevaluation, timeout performed, IV checked, risks and benefits discussedand monitors and equipment checked Arterial Line Prep Clothing Worker: cap, gloves and sterile barriers Prep: ChloraPrep Patient monitoring: blood pressure monitoring, continuous pulse oximetryand EKG Arterial Line Procedure Laterality:right Location: brachial artery Catheter size: 20 G Guidance: ultrasound guided PROCEDURE NOTE/ULTRASOUND INTERPRETATION. Using ultrasound guidance thepotential vascular sites for insertion of the catheter were visualized todetermine the patency of the vessel to be used for vascular access. Afterselecting the appropriate site for insertion, the needle was visualizedunder ultrasound being inserted into the brachial artery, followed byultrasound confirmation of wire and catheter placement. There were noabnormalities seen on ultrasound; an image was taken; and the patienttolerated the procedure with no complications. Number of attempts: 1 Successful placement: yes Post Assessment Dressing Type: line sutured, occlusive dressing applied, secured with tapeand wrist guard applied. Complications no Circ/Move/Sens Assessment: normal and unchanged. Patient Tolerance: patient tolerated the procedure well with no apparentcomplications us Gerald Lopes MD ANESTHESIA ORDERABLES Final R esult * BH AN ETT AIRWAY (04/07/2018 7:55 AM EST) Narrative Gerald Lopes MD - 04/07/2018 7:55 AM EST Gerald Lopes MD ? 04/07/2018 ??8:05 AM Airway Urgency: elective Airway not difficult General Information and Staff Patient location during procedure: OR Indications and Patient Condition Indications for airway management: airway protection Preoxygenated: yes MILS not maintained throughout Mask difficulty assessment: 0 - not attempted Final Airway Details Final airway type: endotracheal airway Successful airway: ETT Cuffed: yes Successful intubation technique: direct laryngoscopy Endotracheal tube insertion site: oral Blade: Jodie Blade size: 4 ETT size (mm): 8.0 Cormack-Lehane Classification: grade I - full view of glottis Placement verified by: chest auscultation and capnometry Measured from: lips ETT to lips (cm): 20 Number of attempts at approach: 1 Additional Comments Negative epigastric sounds, Breath sound equal bilaterally with symmetric chest rise and fall Procedure Note Gerald Lopes MD - 04/07/2018 7:55 AM EST Airway Urgency: elective Airway not difficult General Information and Staff Patient location during procedure: OR Indications and Patient Condition Indications for airway management: airway protection Preoxygenated: yes MILS not maintained throughout Mask difficulty assessment: 0 - not attempted Final Airway Details Final airway type: endotracheal airway Successful airway: ETT Cuffed: yes Successful intubation technique: direct laryngoscopy Endotracheal tube insertion site: oral Blade: Jodie Blade size: 4 ETT size (mm): 8.0 Cormack-Lehane Classification: grade I - full view of glottis Placement verified by: chest auscultation and capnometry Measured from: lips ETT to lips (cm): 20 Number of attempts at approach: 1 Additional Comments Negative epigastric sounds, Breath sound equal bilaterally with symmetricchest rise and fall us Gerald Lopes MD ANESTHESIA ORDERABLES Final R esult documented in this encounter Visit Diagnoses Not on filedocumented in this encounter Administered Medications Inactive Administered Medications - up to 3 most recent administrations Medication Order MAR Action Action Date Dose Rate Site aminocaproic acid (AMICAR) injection As Needed, Starting on Fri04/07/18 at 0735 Given 04/07/2018 11:20 AM EST 10 g Given 04/07/2018 7:35 AM EST 10 g calcium chloride injection As Needed, Starting on Fri04/07/18 at 1105 Given 04/07/2018 11:05 AM EST 1 g etomidate (AMIDATE) injection Intravenous, As Needed, Starting on Fri04/07/18 at 0709 Given 04/07/2018 7:09 AM EST 24 mg heparin (porcine) injection Intravenous, As Needed, Starting on Fri04/07/18 at 0805 Given 04/07/2018 8:05 AM EST 53,000 Units lactated ringers infusion 9 mL/hr, Intravenous, Continuous, Starting on Fri04/07/18 at 0610, May switch to NS IV at KVO if renal / if indicated New Bag 04/07/2018 7:01 AM EST New Bag 04/07/2018 6:18 AM EST 9 mL/hr 9 mL/hr midazolam (VERSED) injection Intravenous, As Needed, Starting on Fri04/07/18 at 0709 Given 04/07/2018 10:20 AM EST 6 mg Given 04/07/2018 7:09 AM EST 4 mg Propofol (DIPRIVAN) injection Intravenous, Continuous PRN, Starting on Fri04/07/18 at 1130 New Bag 04/07/2018 11:30 AM EST 25 mcg/kg/min 18.32 mL/hr protamine injection Intravenous, As Needed, Starting on Fri04/07/18 at 1105 Given 04/07/2018 11:05 AM EST 400 mg rocuronium (ZEMURON) injection As Needed, Starting on Fri04/07/18 at 0709 Given 04/07/2018 10:20 AM EST 20 mg Given 04/07/2018 7:09 AM EST 100 mg SUFentanil (SUFENTA) injection Intravenous, As Needed, Starting on Fri04/07/18 at 0709 Given 04/07/2018 10:20 AM EST 50 mcg Given 04/07/2018 8:00 AM EST 100 mcg Given 04/07/2018 7:09 AM EST 100 mcg vancomycin (VANCOCIN) injection As Needed, Starting on Fri04/07/18 at 0701 Given 04/07/2018 7:01 AM EST 1. 75 g documented in this encounter Care Teams Commutator Repairer Relationship Specialty Start Date End Date Kaushal Kuo MD PCP - General Emergency Medicine 02/23/18 08/06/22 documented as of this encounter
--- OUTSIDE RECORDS SUMMARY | 2024-02-29 15:33 | XMS_ITS | Encounter Summary ---
Author Organization [facility] Address [address] [place] [address] Care Team Providers Care Medical Liaison Name Role Phone Liza Kuo MD Primary Care Provider [phone] Reason for Visit * Auth/Cert Specialty Diagnoses / Procedures Referred By Contac t Referred To Contact Diagnoses Aortic valve disorder Aortic valve disorder [I35.9] Procedures KS RPLCMT PROST AORTIC VALVE OPEN XCP HOMOGRF/STENT AORTIC VALVE REPAIR/REPLACEMENT, TA Referral ID Status Reason Start Date Expiration Date Visits Re quested Visits Authorized [id number] 1 1 Encounter Details Date Type Department Care Team (Late st Contact Info) Description 04/07/2018 6:30 AM EST - 04/07/2018 12:12 PM EST [place] [facility] [place] [address] [place] [phone] Jose Wilson MD MEDIAN STERNOTOMY, AORTIC VALVE REPLACEMENT Social History Tobacco Use Types Packs/Day Years [...] Sign Reading Time Taken Comments Blood Pressure 83/61 04/07/2018 12:05 PM EST Pulse 75 04/07/2018 12:10 PM EST Temperature 36.1 ??C (96.9 ??F) 04/07/2018 6:27 AM ES T Respiratory Rate 18 04/07/2018 6:27 AM EST Oxygen Saturation 98% 04/07/2018 12:10 PM EST Inhaled Oxygen Concentration - - Weight - - Height - - Body Mass Index - - documented in this encounter Discharge Summaries * Miguel Malin PA - 04/11/2018 2:32 PM EST CTS Discharge Summary Patient Care Team: Liza Kuo MD as PCP - General (Emergency Medicine) Date of Admission: 04/07/2018 5:09 AM Date of Discharge: 04/11/2018 Discharge Diagnosis Past Medical History: Diagnosis Date ??? Back pain ??? Depression ??? Fatigue ??? GERD (gastroesophageal reflux disease) ??? H/O: rheumatic fever age 12 and 14 ??? Heart murmur since age 14 (worsening) ??? History of kidney stones passed ??? Insomnia ??? Wears glasses 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 04/07/18 Tobacco dependence H/O: rheumatic fever GERD (gastroesophageal reflux disease) Patient Active Problem List Diagnosis ??? Rheumatic aortic stenosis ??? 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 Rheumatic aortic valve insufficiency ??? Tobacco dependence ??? Valvular disease ??? 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 04/07/18 ??? H/O: rheumatic fever ??? GERD (gastroesophageal reflux disease) History of Present Illness Patient is a 52 y.o.male who presents with a history of rheumatic fever in nature. ??He has had a known heart murmur for the past 35 years. ??In the past 4 or 5 years he's had progressive increasing ease of fatigue with physical activity. ??He has not had anginal quality chest pain. ??He denies congestive heart failure, shortness of breath, and syncope. ??His health is otherwise good. He is allergic to penicillin. ??He has an ongoing tobacco abuse. Report of an echocardiogram reviewed which demonstrated aortic stenosis with a mean gradient greater than 50 and velocities approaching 4 m/s. He presents today for aortic valve repair/replacement, TA Hospital Course Patient is a 52-year-old male who was admitted on 04/07/2018 and underwent an aortic valve replacement with a #25 Perimount biologic prosthesis aortic valve and a left atrial appendage ligation performed by Dr. Jose Wilson. The patient tolerated the procedure well without any immediate com plications and was transferred to the intensive care unit in stable condition. On postoperative day#1, the patient was doing well having previously been extubated. Patient had the [place] catheter, arterial line and R[place] catheter removed without difficulty. Cardiology was consulted and managed the patient's atrial fibrillation PO amiodarone. In addition, the patient had the temporary epicardial pacing wires and chest tubes removed without difficulty. On postoperative day #2, the patient wasdoing well working with physical therapy to improve his functional status and ambulating in the hallway. Patient was successfully titrated off supplemental oxygen. The patient was ready for transfer to telemetry. Over the course of the next few days the patient continued to make good progress and on 04/11/2018 the patient met criteria for discharge and was discharged home without difficulty. Procedures Performed Procedure(s): MEDIAN STERNOTOMY, AORTIC VALVE REPLACEMENT TRANSESOPHAGEAL ECHOCARDIOGRAM ATRIAL APPENDAGE OCCLUSION LEFT Consults: Consults Date and Time Order Name Status Description 04/07/2018 1214 Inpatient Consult to Cardiology Completed Corporate Auditor Discharge Medications Discharge Medications New Medications Instructions Start Date amiodarone 200 MG tablet Commonly known as: PACERONE 200 mg, Oral, Every 24 Hours Scheduled aspirin 81 MG EC tablet 81 mg, Oral, Daily HYDROcodone-acetaminophen 7.5-325 MG per tablet Commonly known as: NORCO 1 tablet, Oral, Every 6 Hours PRN metoprolol succinate XL 25 MG 24 hr tablet Commonly known as: TOPROL-XL 25 mg, Oral, Every 24 Hours Scheduled rivaroxaban 20 MG tablet Commonly known as: XARELTO 20 mg, Oral, Daily With Dinner Continue These Medications Instructions Start Date vitamin D 87078 units capsule capsule Commonly known as: ERGOCALCIFEROL Notes to patient: Resume taking as you previously took. 50,000 Units, Oral, Weekly, Takes on Wednesdays Discharge Diet: Diet Instructions Diet: Consistent Carbohydrate, Cardiac Discharge Diet: Consistent Carbohydrate Cardiac Activity at Discharge: Activity Instructions Activity as Tolerated Other Instructions (Specify) No lifting greater than 10 pounds for 4 weeks and no driving for 4 weeks or while taking narcotics. Do not drive while taking narcotics Follow-up Appointments Future Appointments Date Time Provider Department Center 05/14/2018 10:00 AM Jose Wilson MD [facility] None 05/25/2018 9:00 AM Liza Singleton MD [facility] None MALIA Kaur 04/14/18 2:12 PM Cosigned by Jose Wilson MD at 04/14/2018 4:25 PM EST * Radha Fields, PT - 04/11/2018 7:45 AM EST Acute Care - Physical Therapy Treatment Note/Discharge [facility] Patient Name: Carlos Manuel Rojas II : 1965 Today's Date: 04/11/2018 Onset of Illness/Injury or Date of Surgery: 04/07/18 Date of Referral to PT: 04/07/18 Referring Physician: MALIA Ramirez Admit Date: 04/07/2018 Visit Dx: ICD-10-CM ICD-9-CM 1. Persistent atrial fibrillation (CMS/HCC) I48.1 427.31 2. AVD (aortic valve disease) I35.9 424.1 3. Aortic valve disorder I35.9 424.1 4. Impaired functional mobility, balance, gait, and endurance Z74.09 V49.89 Patient Active Problem List Diagnosis ??? Rheumatic aortic stenosis ??? 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 Rheumatic aortic valve insufficiency ??? Tobacco dependence ??? Valvular disease ??? 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 04/07/18 ??? H/O: rheumatic fever ??? GERD (gastroesophageal reflux disease) Physical Therapy Education Title: PT OT ENTERPRISE RECORDS ANALYST Therapies (Resolved) Topic: Physical Therapy (Resolved) Point: Mobility training (Resolved) Learning Progress Summary Patient Acceptance, E, VU by NAOMI at 04/11/2018 7:45 AM Acceptance, E, NR by NAOMI at 04/10/2018 10:50 AM Acceptance, E, NR by CARLOS at 04/09/2018 1:51 PM Acceptance, E, NR by KR at 04/08/2018 10:02 AM Point: Home exercise program (Resolved) Learning Progress Summary Patient Acceptance, E, VU by NAOMI at 04/11/2018 7:45 AM Acceptance, E, NR by NAOMI at 04/10/2018 10:50 AM Acceptance, E, NR by KR at 04/09/2018 1:51 PM Point: Body mechanics (Resolved) Learning Progress Summary Patient Acceptance, E, VU by NAOMI at 04/11/2018 7:45 AM Acceptance, E, NR by NAOMI at 04/10/2018 10:50 AM Acceptance, E, NR by KR at 04/09/2018 1:51 PM Acceptance, E, NR by KR at 04/08/2018 10:02 AM Point: Precautions (Resolved) Learning Progress Summary Patient Acceptance, E, VU by NAOMI at 04/11/2018 7:45 AM Acceptance, E, NR by NAOMI at 04/10/2018 10:50 AM Acceptance, E, NR by KR at 04/09/2018 1:51 PM Acceptance, E, NR by KR at 04/08/2018 10:02 AM User Hernandez Initials Effective Dates Name Provider Type Discipline NAOMI 09/16/14 - Radha Fields, PT Physical Therapist PT KR 07/01/17 - Saida Silver, PT Physical Therapist PT Rehab Goal Summary Row Name 04/11/18 0745 Bed Mobility Goal 1 (PT) Activity/Assistive Device (Bed Mobility Goal 1, PT) bed mobility activities, all -NAOMI [place] Level/Cues Needed (Bed Mobility Goal 1, PT) independent -NAOMI Time Frame (Bed Mobility Goal 1, PT) 2 weeks -NAOMI Progress/Outcomes (Bed Mobility Goal 1, PT) goal met -NAOMI Transfer Goal 1 (PT) Activity/Assistive Device (Transfer Goal 1, PT) yiw-sx-acymk/duewl-yv-hea;yzq-sm-livyh/jgznr-cg-beq-NAOMI [place] Level/Cues Needed (Transfer Goal 1, PT) independent -NAOMI Time Frame (Transfer Goal 1, PT) 2 weeks -NAOMI Progress/Outcome (Transfer Goal 1, PT) goal met -NAOMI Gait Training Goal 1 (PT) Activity/Assistive Device (Gait Training Goal 1, PT) gait (walking locomotion) -NAOMI [place] Level (Gait Training Goal 1, PT) independent -NAOMI Distance (Gait Goal 1, PT) 400 feet -NAOMI Time Frame (Gait Training Goal 1, PT) 2 weeks -NAOMI Progress/Outcome (Gait Training Goal 1, PT) goal met -NAOMI Stairs Goal 1 (PT) Activity/Assistive Device (Stairs Goal 1, PT) ascending stairs;descending stairs;using handrail, left -NAOMI [place] Level/Cues Needed (Stairs Goal 1, PT) supervision required -NAOMI Number of Stairs (Stairs Goal 1, PT) 12 -NAOMI Time Frame (Stairs Goal 1, PT) 2 weeks -NAOMI Progress/Outcome (Stairs Goal 1, PT) goal met -NAOMI User Hernandez (r) = Recorded By, (t) = Taken By, (c) = Cosigned By Initials Name Provider Type Discipline Radha Lucas, PT Physical Therapist PT Therapy Treatment Rehabilitation Treatment Summary Row Name 04/11/18 0745 Treatment Time/Intention Discipline physical therapist -NAOMI Document Type discharge treatment -NAOMI Subjective Information no complaints -NAOMI Mode of Treatment physical therapy -NAOMI Care Plan Review care plan/treatment goals reviewed;risks/benefits reviewed;patient/other agree to care plan -NAOMI Therapy Frequency (PT Clinical Impression) daily -NAOMI Patient Effort good -NAOMI Existing Precautions/Restrictions cardiac;sternal -NAOMI Recorded by [NAOMI] Radha Fields PT 04/11/18 1035 Row Name 04/11/18 0745 Vital Signs Pre Systolic BP Rehab 119 -NAOMI Pre Treatment Diastolic BP 64 -NAOMI Post Systolic BP Rehab 140 -NAOMI Post Treatment Diastolic BP 70 -NAOMI Pretreatment Heart Rate (beats/min) 85 -NAOMI Posttreatment Heart Rate (beats/min) 88 -NAOMI Pre SpO2 (%) 95 -NAOMI O2 Delivery Pre Treatment room air -NAOMI Post SpO2 (%) 94 -NAOMI O2 Delivery Post Treatment room air -NAOMI Pre Patient Position Sitting -NAOMI Intra Patient Position Standing -NAOMI Post Patient Position Sitting -NAOMI Recorded by [NAOMI] Radha Fields PT 04/11/18 1035 Row Name 04/11/18 0745 Cognitive Assessment/Intervention- PT/OT Affect/Mental Status (Cognitive) WFL -NAOMI Orientation Status (Cognition) oriented x 4 -NAOMI Follows Commands (Cognition) WFL -NAOMI Cognitive Function (Cognitive) WFL -NAOMI Personal Safety Interventions gait belt;nonskid shoes/slippers when out of bed -NAOMI Recorded by [NAOMI] Radha Fields, PT 04/11/18 1035 Row Name 04/11/18 0745 Safety Issues, Functional Mobility Impairments Affecting Function (Mobility) endurance/activity tolerance -NAOMI Recorded by [NAOMI] Radha Fields, PT 04/11/18 1035 Row Name 04/11/18 0745 Bed Mobility Assessment/Treatment Bed Mobility Assessment/Treatment [id number] -NAOMI Sit-Supine [place] (Bed Mobility) independent -NAOMI Recorded by [NAOMI] Radha Fields, PT 04/11/18 1035 Row Name 04/11/18 0745 Transfer Assessment/Treatment Transfer Assessment/Treatment sit-stand transfer;stand-sit transfer;toilet transfer -NAOMI Recorded by [NAOMI] Radha Fields, PT 04/11/18 1035 Row Name 04/11/18 0745 Sit-Stand Transfer Sit-Stand [place] (Transfers) independent -NAOMI Recorded by [NAOMI] Radha Fields, PT 04/11/18 1035 Row Name 04/11/18 0745 Stand-Sit Transfer Stand-Sit [place] (Transfers) independent -NAOMI Recorded by [NAOMI] Radha Fields, PT 04/11/18 1035 Row Name 04/11/18 0745 Toilet Transfer Type (Toilet Transfer) sit-stand;stand-sit -NAOMI [place] Level (Toilet Transfer) independent -NAOMI Recorded by [NAOMI] Radha Fields, PT 04/11/18 1035 Row Name 04/11/18 0745 Gait/Stairs Assessment/Training Gait/Stairs Assessment/Training gait/ambulation independence -NAOMI [place] Level (Gait) independent -NAOMI Distance in Feet (Gait) 400 -NAOMI Pattern (Gait) step-through -NAOMI Negotiation (Stairs) stairs independence -NAOMI [place] Level (Stairs) independent -NAOMI Number of Steps (Stairs) 10 -NAOMI Recorded by [NAOMI] Radha Fields, PT 04/11/18 1035 Row Name 04/11/18 0745 Therapeutic Exercise 84508 - PT Therapeutic Activity Minutes 23 -NAOMI Recorded by [NAOMI] Radha Fields, PT 04/11/18 1035 Row Name 04/11/18 0745 Static Sitting Balance Level of [place] (Unsupported Sitting, Static Balance) independent -NAOMI Recorded by [NAOIM] Radha Fields, PT 04/11/18 1035 Row Name 04/11/18 0745 Static Standing Balance Level of [place] (Supported Standing, Static Balance) independent -NAOMI Recorded by [NAOMI] Radha Fields, PT 04/11/18 1035 Row Name 04/11/18 0745 Positioning and Restraints Pre-Treatment Position sitting in chair/recliner -NAOMI Post Treatment Position chair -NAOMI In Chair notified nsg;reclined;sitting;call light within reach -NAOMI Recorded by [NAOMI] Radha Fields, PT 04/11/18 1035 Row Name 04/11/18 0745 Pain Scale: Numbers Pre/Post-Treatment Pain Scale: Numbers, Pretreatment 0/10 - no pain -NAOMI Pain Scale: Numbers, Post-Treatment 0/10 - no pain -NAOMI Recorded by [NAOMI] Radha Fields, PT 04/11/18 1035 Row Name Wound 04/07/18 0744 chest incision Wound - Properties Group Date first assessed: 04/07/18 [TF] Time first assessed: 743 [TF] Location: chest [TF] Type: incision [TF] Recorded by: [TF] Saima Mathew RN 04/07/18 0744 Row Name 04/11/18 0745 Coping Observed Emotional State calm;cooperative -NAOMI Verbalized Emotional State acceptance -NAOMI Recorded by [NAOMI] Radha Fields, PT 04/11/18 1035 Row Name 04/11/18 0745 Plan of Care Review Plan of Care Reviewed With patient -NAOMI Recorded by [NAOMI] Radha Fields, PT 04/11/18 1035 Row Name 04/11/18 0745 Outcome Summary/Treatment Plan (PT) Daily Summary of Progress (PT) progress toward functional goals as expected -NAOMI Anticipated Discharge Disposition (PT) home with assist -NAOMI Reason for Discharge (PT Discharge Summary) patient met all goals and outcomes;patient discharged from this facility -NAOMI Recorded by [NAOMI] Radha Fields, PT 04/11/18 1035 User Hernandez (r) = Recorded By, (t) = Taken By, (c) = Cosigned By Initials Name Effective Dates Discipline NAOMI Radha Fields, PT 09/16/14 - PT TF Saima Mathew RN 09/14/15 - Nurse Wound 04/07/18 0744 chest incision (Active) Dressing Appearance open to air 04/11/2018 9:00 AM Closure Approximated;Liquid skin adhesive 04/11/2018 9:00 AM Drainage Amount none 04/11/2018 9:00 AM Care, Wound cleansed with;soap and water 04/10/2018 8:00 PM PT Recommendation and Plan Anticipated Discharge Disposition (PT): home with assist Therapy Frequency (PT Clinical Impression): daily Outcome Summary/Treatment Plan (PT) Daily Summary of Progress (PT): progress toward functional goals as expected Anticipated Discharge Disposition (PT): home with assist Reason for Discharge (PT Discharge Summary): patient met all goals and outcomes, patient dischargedfrom this facility Plan of Care Reviewed With: patient Progress: improving Outcome Summary: patient has met all mobility goals he is able to ambulate 400 ft and up and down steps without assist and has stable vitals. patient to D/C home with family assist Outcome Measures Row Name 04/11/18 0745 04/10/18 1050 04/09/18 1351 How much help from another person do you currently need... Turning from your back to your side while in flat bed without using bedrails? 4 -NAOMI 3 -NAOMI 3 -KR Moving from lying on back to sitting on the side of a flat bed without bedrails? 4 -NAOMI 3 -NAOMI 3 -KR Moving to and from a bed to a chair (including a wheelchair)? 4 -NAOMI 3 -NAOMI 3 -KR Standing up from a chair using your arms (e.g., wheelchair, bedside chair)? 4 - NAOMI 3 -NAOMI 3 -KR Climbing 3-5 steps with a railing? 3 -NAOMI 3 -NAOMI 3 -KR To walk in hospital room? 4 -NAOMI 3 -NAOMI 3 -KR AM-PAC 6 Clicks Score 23 -NAOMI 18 -NAOMI 18 -KR Functional Assessment Outcome Measure Options AM-PAC 6 Clicks Basic Mobility (PT) -NAOMI -- AM-PAC 6 Clicks Basic Mobility (PT) -KR User Hernandez (r) = Recorded By, (t) = Taken By, (c) = Cosigned By Initials Name Provider Type Radha Lucas, PT Physical Therapist Saida Gallegos, PT Physical Therapist Time Calculation: PT Charges Row Name 04/11/18 0745 Time Calculation Start Time 0745 -NAOMI PT Received On 04/11/18 -NAOMI PT Goal Re-Cert Due Date 04/18/18 -NAOMI Time Calculation- PT Total Timed Code Minutes- PT 23 minute(s) -NAOMI Timed Charges 95145 - PT Therapeutic Activity Minutes 23 -NAOMI User Hernandez (r) = Recorded By, (t) = Taken By, (c) = Cosigned By Initials Name Provider Type Radha Lucas, PT Physical Therapist Therapy Suggested Charges Code Minutes Charges 78420 (CPT??) Hc Pt Neuromusc Re Education Ea 15 Min 51362 (CPT??) Hc Pt Ther Proc Ea 15 Min 37530 (CPT??) Hc Gait Training Ea 15 Min 22934 (CPT??) Hc Pt Therapeutic Act Ea 15 Min 23 2 64887 (CPT??) Hc Pt Manual Therapy Ea 15 Min 16771 (CPT??) Hc Pt Iontophoresis Ea 15 Min 35341 (CPT??) Hc Pt Elec Stim Ea-Per 15 Min 50976 (CPT??) Hc Pt Ultrasound Ea 15 Min 67692 (CPT??) Hc Pt Self Care/Mgmt/Train Ea 15 Min 36040 (CPT??) Hc Pt Prosthetic (S) Train Initial Encounter, Each 15 Min 69800 (CPT??) Hc Pt Orthotic(S)/Prosthetic(S) Encounter, Each 15 Min 52214 (CPT??) Hc Orthotic(S) Mgmt/Train Initial Encounter, Each 15min Total 23 2 Therapy Charges for Today Code Description Service Date Service Provider Modifiers Qty 54071060885 HC PT THERAPEUTIC ACT EA 15 MIN 04/10/2018 Radha Fields, PT GP 2 02076846352 HC PT THERAPEUTIC ACT EA 15 MIN 04/11/2018 Radha Fields, PT GP 2 PT G-Codes Outcome Measure Options: AM-PAC 6 Clicks Basic Mobility (PT) AM-PAC 6 Clicks Score: 23 PT Discharge Summary Anticipated Discharge Disposition (PT): home with assist Reason for Discharge: All goals achieved Outcomes Achieved: Able to achieve all goals within established timeline Discharge Destination: Home with assist Radha Fields, HOLL[place] 04/11/2018 documented in this encounter Discharge Instructions * Attachments The following attachments cannot be sent through Care Everywhere. * CARDIAC REHAB WITH CONTACT INFO * Cardiac Rehabilitation (Austrian) * Aortic Valve Replacement (Austrian) * Aortic Valve Replacement Care After (Austrian) * Rivaroxaban oral tablets (Austrian) * Metoprolol extended-release tablets (Austrian) * Acetaminophen; Hydrocodone oral solution (Austrian) * Amiodarone tablets (Austrian) * Aspirin ASA chewable tablets (Austrian) documented in this encounter Medications at Time [...] by mouth Daily With Dinner. 30 tablet 04/11/2018 11:43 AM EST 04/11/2018 04/12/19 19 rivaroxaban (XARELTO) 20 MG tabletIndications:At rial Fibrillation - requiring full anticoagulation Take 1 tablet by mouth Daily With Dinner. 30 tablet 5 04/12/2018 12/17/19 19 vitamin D (ERGOCALCIFEROL) 27481 units capsule capsule Take 50,000 Units by mouth 1 (One) Time Per Week. Takes on Wednesdays09/15/19 20 documented as of this encounter Progress Notes * Sharon Beasley - 04/11/2018 10:50 AM EST Continued Stay Note [facility] Patient Name: Carlos Manuel Rojas II Today's Date: 04/11/2018 Admit Date: 04/07/2018 Discharge Plan Row Name 04/11/18 1047 Plan Plan Home Plan Comments CM consulted regarding DC needs. Spoke with Radha in [facility] pharmacy. Patient's Xarelto went through insurance without requiring a PA and with a $0.00 copay. Reviewed PT notes. Patient walked over 400 ft. Spoke with patient's RN, Kasey. No DC needs identified at this time. Patient has discharge orders. CM will continue to follow. Final Discharge Disposition Code 01 - home or self-care Discharge Codes No documentation. Expected Discharge Date and Time Expected Discharge Date Expected Discharge Time Apr 11, 2018 Baudilio * Bernardino Duran MD - 04/11/2018 10:01 AM EST Intensive Care Follow-up LOS: 4 days Mr. Carlos Manuel Rojas II, 52 y.o. male is followed for: Glycemic, Electrolyte, Respiratory, and Medical management Subjective - Interval History Awake and alert No problems overnight Oxygenating well on room air No continuous infusions The patient's relevant past medical, surgical and social history were reviewed and updated in [facility] as appropriate. Objective Infusions: Medications: amiodarone 200 mg Oral Q24H aspirin 81 mg Oral Daily metoprolol succinate XL 25 mg Oral Q24H nicotine 1 patch Transdermal Q24H rivaroxaban 20 mg Oral Daily With Dinner sennosides-docusate sodium 2 tablet Oral BID Intake/Output 04/10/18 0700 - 04/11/18 0659 Intake (ml) 440 Output (ml) 2200 Net (ml) -1760 Vital Sign Min/Max for last 24 hours Temp Min: 98.8 ??F (37.1 ??C) Max: 99.4 ??F (37.4 ??C) BP Min: 94/75 Max: 136/84 Pulse Min: 84 Max: 95 Resp Min: 15 Max: 20 SpO2 Min: 90 % Max: 97 % No Data Recorded Physical Exam: GENERAL: Awake, no distress HEENT: No adenopathy or thyromegaly LUNGS: A few basilar crackles, no wheezes or rhonchi HEART: Regular rate and rhythm. Sternal incision without drainage or dehiscence GI: Soft, nontender. Bowel sounds present EXTREMITIES: Palpable pulses. No clubbing or cyanosis NEURO/PSYCH: Awake and alert. Follows commands. No deficits Results from last 7 days Lab Units 04/10/18 0303 04/09/18 0322 04/08/18 0400 WBC 10*3/mm3 17.47* 17.75* 15.01* HEMOGLOBIN g/dL 10.7* 10.6* 11.2* PLATELETS 10*3/mm3 95* 77* 82* Results from last 7 days Lab Units 04/11/18 0316 04/10/18 0303 04/09/18 0322 04/08/18 0400 04/07/18 1603 04/07/18 1344 SODIUM mmol/L 137 134 135 136 -- 135 137 POTASSIUM mmol/L 3.4* 3.8 4.2 4.3 < > 4.2 4.1 CO2 mmol/L 27.0 28.0 27.0 22.0 -- 20.0 22.0 BUN mg/dL 12 12 9 11 -- 11 11 CREATININE mg/dL 0.71 0.69 0.74 0.88 -- 0.97 0.93 MAGNESIUM mg/dL -- -- -- 1.9 -- 2.4 2.6 PHOSPHORUS mg/dL -- -- -- 3.7 -- 2.4 3.3 GLUCOSE mg/dL 86 96 102* 137* -- 148* 112* < > = values in this interval not displayed. Estimated Creatinine Clearance: 164.2 mL/min (by C-G formula based on SCr of 0.71 mg/dL). Results from last 7 days Lab Units 04/06/18 1314 HEMOGLOBIN A1C % 6.00* Results from last 7 days Lab Units 04/07/18 1724 PH, ARTERIAL pH units 7.314* PCO2, ARTERIAL mm Hg 45.3 PO2 ART mm Hg 105.0 No results found for: LACTATE Images: Most recent chest x-ray without consolidation or effusions I reviewed the patient's results and images. Impression Active Hospital Problems Diagnosis ??? 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 04/07/18 ??? H/O: rheumatic fever age 12 and 14 ??? GERD (gastroesophageal reflux disease) ??? Tobacco dependence Plan Plan for discharge home today. Discussed the need for total smoking abstinence and we discussed smoking cessation strategies Plan of care and goals reviewed with multidisciplinary team at daily rounds I discussed the patient's findings and my recommendations with patient and nursing staff Sarita Duran MD Pulmonary and Critical Care Medicine * Sj Winston MD - 04/11/2018 6:54 AM EST CTS Progress Note LOS: 4 days Patient Care Team: Liza Kuo MD as PCP - General (Emergency Medicine) Chief Complaint: AVD (aortic valve disease) Vital Signs: Temp: [98.6 ??F (37 ??C)-99.1 ??F (37.3 ??C)] 98.8 ??F (37.1 ??C) Heart Rate: [76-93] 88 Resp: [15-18] 17 BP: (94-136)/(69-88) 100/69 Physical Exam: Up in chair breathing unlabored on room air sternum stable incision is satisfactory no neurologic deficits Results: Results from last 7 days Lab Units 04/10/18 0303 WBC 10*3/mm3 17.47* HEMOGLOBIN g/dL 10.7* HEMATOCRIT % 31.6* PLATELETS 10*3/mm3 95* Results from last 7 days Lab Units 04/11/18 0316 SODIUM mmol/L 137 POTASSIUM mmol/L 3.4* CHLORIDE mmol/L 102 CO2 mmol/L 27.0 BUN mg/dL 12 CREATININE mg/dL 0.71 GLUCOSE mg/dL 86 CALCIUM mg/dL 8.1* Imaging Results (last 24 hours) No results found for the last 24 hours. 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 Patient wants to go home. He is been ambulatory on room air and looks very satisfactory for my opinion to be discharged today. He is receiving 40 mEq of potassium prior to his discharge Plan Discharge home today Please note that portions of this note were completed with a voice recognition program. Efforts were made to edit the dictations, but occasionally words are mistranscribed. Sj Winston MD 04/11/18 6:54 AM * Nancy Garrison RD - 04/10/2018 3:05 PM EST Clinical Nutrition Nutrition Assessment Reason for Visit: SHA BARRON Patient Name: Carlos Manuel Rojas II Date of : 1965 Date of Encounter: 04/10/18 3:05 PM Admission date: 04/07/2018 Nutrition Assessment Hospital Problem List 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 04/07/18 Tobacco dependence H/O: rheumatic fever GERD (gastroesophageal reflux disease) PMH: He has a past medical history of Back pain, Depression, Fatigue, GERD (gastroesophageal refluxdisease), H/O: rheumatic fever, Heart murmur, History of kidney stones, Insomnia, and Wears glasses. PSxH: He has a past surgical history that includes Cyst Removal (Left); MEDIAN STERNOTOMY, AORTIC VALVE REPLACEMENT (N/A, 04/07/2018); TRANSESOPHAGEAL ECHOCARDIOGRAM WITH ANESTHESIA (N/A, 04/07/2018); ATRIAL APPENDAGE OCCLUSION LEFT (N/A, 04/07/2018); and Left Heart Cath (N/A, 03/03/2018). Reported/Observed/Food/Nutrition Related History: Pt resting in bed, reports poor appetite Anthropometrics Height: 182.9 cm (72.01 ) Last filed wt: 268lb BMI: 36.2 Obese Class II: 35-39.9kg/m2 Labs reviewed Results from last 7 days Lab Units 04/10/18 0303 04/06/18 1314 SODIUM mmol/L 134 < > 137 POTASSIUM mmol/L 3.8 < > 3.9 CHLORIDE mmol/L 102 < > 106 CO2 mmol/L 28.0 < > 29.0 BUN mg/dL 12 < > 12 CREATININE mg/dL 0.69 < > 0.89 CALCIUM mg/dL 8.3* < > 9.0 BILIRUBIN mg/dL -- -- 0.4 ALK PHOS U/L -- -- 81 ALT (SGPT) U/L -- -- 46* AST (SGOT) U/L -- -- 31 GLUCOSE mg/dL 96 < > 94 < > = values in this interval not displayed. Results from last 7 days Lab Units 04/09/18 1122 04/09/18 0805 04/08/18201004/08/18 1620 04/08/18 1110 04/08/18 0949 GLUCOSE mg/dL 110 102 111 104 165* 71 Lab Results Lab Value Date/Time HGBA1C 6.00 (H) 04/06/2018 1314 HGBA1C 6.00 (H) 02/23/2018 1652 Medications reviewed Pertinent: lasix GI: wnl SKIN: surgical sites Current Nutrition Prescription PO: Diet Regular; Cardiac, Consistent Carbohydrate Intake:63% of 4 meals Nutrition Diagnosis Problem Inadequate oral intake Etiology Per Clinical Condition s/p surgery Signs/Symptoms Po Intake 64% Nutrition Intervention Interventions Goal General: Nutrition support treatment Nutrition Interventions 1. Follow treatment progress, Advise alternate selection, Advised available snacks, Menu provided, Menu adjusted, Encourage intake Monitor/ Evaluation Per protocol Nancy Garrison RD Time Spent: 30min * Liza Singleton MD - 04/10/2018 8:50 AM EST [facility] Inpatient Progress Note Chief Complaint/Reason for service: ?? Atrial fibrillation Subjective:? Patient up resting in a chair. Denies shortness of breath on 2L/NC, chest pain. Reports incisional pain that is stable. Walking without significant difficulty Past medical, surgical, social and family history reviewed in the patient's electronic medical record. Review of Systems: Positive for chest incisional pain Negative for exertional chest pain, dyspnea with exertion, lower extremity edema, palpitations Problem List Active Hospital Problems Diagnosis Date Noted ??? 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 04/07/18 [I35.9] 04/07/2018 ??? H/O: rheumatic fever [Z86.79] 04/07/2018 ??? GERD (gastroesophageal reflux disease) [K21.9] 04/07/2018 ??? Tobacco dependence [F17.200] 02/23/2018 Resolved Hospital Problems No resolved problems to display. Objective:?? Current Facility-Administered Medications: ??? acetaminophen (TYLENOL) tablet 650 mg, 650 mg, Oral, Q4H PRN, Jose Wilson MD ??? amiodarone (PACERONE) tablet 200 mg, 200 mg, Oral, Q24H, Liza Singleton MD, 200 mg at 04/10/18 0844 ??? aspirin EC tablet 325 mg, 325 mg, Oral, Daily, Cruz Ramirez, MALIA, 325 mg at 04/10/18 0844 ??? bisacodyl (DULCOLAX) EC tablet 10 mg, 10 mg, Oral, Daily PRN, Cruz Ramirez, PA ??? bisacodyl (DULCOLAX) suppository 10 mg, 10 mg, Rectal, Daily PRN, Cruz Ramirez, PA ??? calcium carbonate (TUMS) chewable tablet 500 mg (200 mg elemental), 2 tablet, Oral, TID PRN, Nathen Vargas, PROCESS DEVELOPMENT CHEMIST, 2 tablet at 04/09/18 0255 ??? docusate sodium (COLACE) capsule 100 mg, 100 mg, Oral, BID PRN, Cruz Ramirez, PA ??? HYDROcodone-acetaminophen (NORCO) 7.5-325 MG per tablet 1 tablet, 1 tablet, Oral, Q4H PRN, Jose Wilson MD, 1 tablet at 04/07/18 1820 ??? magnesium hydroxide (MILK OF MAGNESIA) suspension 2400 mg/10mL 10 mL, 10 mL, Oral, Daily PRN, Cruz Ramirez, PA ??? metoprolol succinate XL (TOPROL-XL) 24 hr tablet 25 mg, 25 mg, Oral, Q24H, Liza Singleton MD, Stopped at 04/10/18 0844 ??? Morphine sulfate (PF) injection 2 mg, 2 mg, Intravenous, Q2H PRN, Benrardino Duran MD ??? nicotine (NICODERM CQ) 14 MG/24HR patch 1 patch, 1 patch, Transdermal, Q24H, Bernardino Duran MD, 1 patch at 04/09/18 0816 ??? ondansetron (ZOFRAN) injection 4 mg, 4 mg, Intravenous, Q6H PRN, Cruz Ramirez PA ??? oxyCODONE-acetaminophen (PERCOCET) 5-325 MG per tablet 2 tablet, 2 tablet, Oral, Q4H PRN, Jose Wilsno MD, 2 tablet at 04/10/18 0521 ??? potassium chloride (MICRO-K) CR capsule 40 mEq, 40 mEq, Oral, PRN OR potassium chloride (KLOR-CON) packet 40 mEq, 40 mEq, Oral, PRN, Cruz Ramirez PA ??? sennosides-docusate sodium (SENOKOT-S) 8.6-50 MG tablet 2 tablet, 2 tablet, Oral, BID, Cruz Ramirez PA, 2 tablet at 04/09/182026 Facility-Administered Medications Ordered in Other Encounters: ??? Chlorhexidine Gluconate Cloth 2 % pads 1 application, 1 application, Topical, Q12H PRN, Miguel Malin PA Vital Sign Min/Max for last 24 hours Temp Min: 98.2 ??F (36.8 ??C) Max: 99.5 ??F (37.5 ??C) BP Min: 106/76 Max: 139/80 Pulse Min: 68 Max: 82 Resp Min: 12 Max: 20 SpO2 Min: 90 % Max: 97 % No Data Recorded Intake/Output Summary (Last 24 hours) at 04/10/2018 0850 Last data filed at 04/10/2018 0600 Gross per 24 hour Intake 1025 ml Output 975 ml Net 50 ml CONSTITUTIONAL: No acute distress, normal affect RESPIRATORY: Normal effort. Clear to auscultation bilaterally without wheezing or rales CARDIOVASCULAR: Regular rate and rhythm with normal S1 and S2. Without murmur, gallop or rub. PERIPHERAL VASCULAR: Normal radial pulses bilaterally. There is more peripheral edema bilaterally today Results Review: No results found for: TROPONINI, TROPONINT BUN Date Value Ref Range Status 04/10/2018 12 9 - 23 mg/dL Final Creatinine Date Value Ref Range Status 04/10/2018 0.69 0.60 - 1.30 mg/dL Final Potassium Date Value Ref Range Status 04/10/2018 3.8 3.5 - 5.5 mmol/L Final Lab Results Component Value Date CHOL 140 03/03/2018 Lab Results Component Value Date TRIG 63 03/03/2018 Lab Results Component Value Date HDL 34 (L) 03/03/2018 No components found for: LDLCALC No results found for: VLDL No results found for: LDLHDL Tele: NSR/Sinus maris, one short run of SVT yesterday ~530PM. No AFib EKG: Normal sinus rhythm Minimal voltage criteria for LVH, may be normal variant T wave abnormality, consider inferolateral ischemia QT shortened Assessment/Plan:? ASSESSMENT: -AFib intraoperatively. Also status post left atrial appendage occlusion -Lower extremity swelling -Aortic stenosis and regurgitation, bicuspid valve s/p bioprosthetic #25 Perimount valve 04/07/18 PLAN: -Continue amiodarone, daily EKG, QT stable. -Continue aspirin, statin, beta clayton -Xarelto, starting tomorrow. Plan for 3 months of treatment followed by TA to assess MEGHA clip -Lasix 40mg IVP today -Awaiting telemetry bed. -Will see as needed over the weekend. Okay for home when okay from a surgical standpoint -Follow up with Dr Singleton in 1 month upon discharge Liza Singleton MD, MSc, FACC Interventional Cardiology [facility] * Bernardino Duran MD - 04/10/2018 8:46 AM EST Intensive Care Follow-up LOS: 3 days Mr. Carlos Manuel Rojas II, 52 y.o. male is followed for: Glycemic, Electrolyte, Respiratory, and Medical management Subjective - Interval History No problems overnight Oxygenating well this morning on room air MTs have been removed On no continuous infusions The patient's relevant past medical, surgical and social history were reviewed and updated in [facility] as appropriate. Objective Infusions: Medications: amiodarone 200 mg Oral Q24H aspirin 325 mg Oral Daily metoprolol succinate XL 25 mg Oral Q24H nicotine 1 patch Transdermal Q24H sennosides-docusate sodium 2 tablet Oral BID Intake/Output 04/09/18 0700 - 04/10/18 0659 Intake (ml) 1525 Output (ml) 975 Net (ml) 550 Vital Sign Min/Max for last 24 hours Temp Min: 98.2 ??F (36.8 ??C) Max: 99.5 ??F (37.5 ??C) BP Min: 106/76 Max: 139/80 Pulse Min: 68 Max: 82 Resp Min: 12 Max: 20 SpO2 Min: 90 % Max: 97 % No Data Recorded Physical Exam: GENERAL: Awake, no distress HEENT: IJ introducer site okay, no adenopathy LUNGS: Basilar crackles, no wheezes HEART: Regular rate and rhythm. Sternal incision without drainage or dehiscence GI: Soft, nontender. Bowel sounds present EXTREMITIES: Trace edema. Palpable pulses. No clubbing or cyanosis NEURO/PSYCH: Awake and alert. Follows commands. No deficits Results from last 7 days Lab Units 04/10/18 0303 04/09/18 0322 04/08/18 0400 WBC 10*3/mm3 17.47* 17.75* 15.01* HEMOGLOBIN g/dL 10.7* 10.6* 11.2* PLATELETS 10*3/mm3 95* 77* 82* Results from last 7 days Lab Units 04/10/18 0303 04/09/18 0322 04/08/18 0400 04/07/18 1603 04/07/18 1344 SODIUM mmol/L 134 135 136 -- 135 137 POTASSIUM mmol/L 3.8 4.2 4.3 < > 4.2 4.1 CO2 mmol/L 28.0 27.0 22.0 -- 20.0 22.0 BUN mg/dL 12 9 11 -- 11 11 CREATININE mg/dL 0.69 0.74 0.88 -- 0.97 0.93 MAGNESIUM mg/dL -- -- 1.9 -- 2.4 2.6 PHOSPHORUS mg/dL -- -- 3.7 -- 2.4 3.3 GLUCOSE mg/dL 96 102* 137* -- 148* 112* < > = values in this interval not displayed. Estimated Creatinine Clearance: 169 mL/min (by C-G formula based on SCr of 0.69 mg/dL). Results from last 7 days Lab Units 04/06/18 1314 HEMOGLOBIN A1C % 6.00* Results from last 7 days Lab Units 04/07/18 1724 PH, ARTERIAL pH units 7.314* PCO2, ARTERIAL mm Hg 45.3 PO2 ART mm Hg 105.0 No results found for: LACTATE Images: Most recent chest x-ray reveals typical postoperative changes without consolidation or effusions I reviewed the patient's results and images. Impression Active Hospital Problems Diagnosis ??? 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 04/07/18 ??? H/O: rheumatic fever age 12 and 14 ??? GERD (gastroesophageal reflux disease) ??? Tobacco dependence Plan Blood sugars nominal Oxygenating well Continue to push rehabilitation and respiratory therapy Plan of care and goals reviewed with multidisciplinary team at daily rounds I discussed the patient's findings and my recommendations with patient and nursing staff Sarita Duran MD Pulmonary and Critical Care Medicine * Jose Wilson MD - 04/10/2018 6:38 AM EST CTS Progress Note POD 3 s/p AVR LOS: 3 days Patient Care Team: Liza Kuo MD as PCP - General (Emergency Medicine) Subjective Awake, alert, cooperative,' food could be better otherwise no C/O Up in chair, no pressors OX3 CC: S/P AVR Objective Vital Signs Temp: [98.1 ??F (36.7 ??C)-99.5 ??F (37.5 ??C)] 98.2 ??F (36.8 ??C) Heart Rate: [68-82] 82 Resp: [12-20] 20 BP: (106-139)/(69-82) 112/77 Physical Exam: General Appearance: alert, appears stated age and cooperative Lungs: clear to auscultation, respirations regular, respirations even and respirations unlabored Heart: regular rhythm & normal rate, normal S1, S2, no murmur, no gallop, no rub and no click Skin: Incision c/d/i Results Results from last 7 days Lab Units 04/10/18 0303 WBC 10*3/mm3 17.47* HEMOGLOBIN g/dL 10.7* HEMATOCRIT % 31.6* PLATELETS 10*3/mm3 95* Results from last 7 days Lab Units 04/10/18 0303 SODIUM mmol/L 134 POTASSIUM mmol/L 3.8 CHLORIDE mmol/L 102 CO2 mmol/L 28.0 BUN mg/dL 12 CREATININE mg/dL 0.69 GLUCOSE mg/dL 96 CALCIUM mg/dL 8.3* Imaging Results (last 24 hours) Procedure Component Value Units Date/Time XR Chest 1 View [[id number]] Collected: 04/09/18837 Updated: 04/09/182239 Narrative: EXAMINATION: XR CHEST 1 VW- INDICATION: Postop heart surgery; I48.1-Persistent atrial fibrillation; I35.9-Nonrheumatic aortic valve disorder, unspecified; Z74.09-Other reduced mobility. COMPARISON: 04/08/2018. FINDINGS: Heart is enlarged. Vasculature appears normal. Lungs are moderately well expanded and appear grossly clear. No edema, effusion or pneumothorax is seen. Impression: No new chest disease. E: 04/09/2018 This report was finalized on 04/09/2018 10:[address] Jamie Barba MD. Assessment 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 04/07/18 Tobacco dependence H/O: rheumatic fever GERD (gastroesophageal reflux disease) looks great, await tele bed Home soon Plan Continue support To tele, await bed, home soon MALIA Aldridge 04/10/18 6:38 AM As above. The patient remained stable. Now on room air with adequate O2 saturation. Vital signs arestable. Satisfactory course. I have reviewed, verified, and confirmed the above history and currentstatus. I have examined the patient and confirmed the above physical findings.Above plan and treatment regimen discussed in detail with patient. Options of treatment, attendant risks vs benefits, andmy recommendations were discussed and all questions answered. Jose Wilson MD CTSurgery 04/10/18 3:19 PM * Nancy Garrison RD - 04/09/2018 9:44 AM EST Clinical Nutrition Multidisciplinary Rounds Time: 20min Patient Name: Carlos Manuel Rojas II Date of Encounter: 04/09/18 9:44 AM Admission date: 04/07/[address] to continue to follow per protocol. Current diet: Diet Regular; Cardiac, Consistent Carbohydrate No active supplement orders Intervention: Follow treatment plan Care plan reviewed Follow up: Per protocol Nancy Garrison RD 9:44 AM * Vicky Chiang MSW - 04/09/2018 9:34 AM EST Continued Stay Note Vickey Patient Name: Carlos Manuel Rojas II Today's Date: 04/09/2018 Admit Date: 04/07/2018 Discharge Plan Row Name 04/09/18 0929 Plan Plan Home with SO Patient/Family in Agreement with Plan -- Patient Plan Comments Remains in ICU with plan to transfer to floor bed today. Doing well, no needs identified at this time. Case Management will continue to follow. Vicky Chiang, Ext. [phone] Final Discharge Disposition Code 01 - home or self-care Discharge Codes No documentation. CATHERINE Luis * Bernardino Duran MD - 04/09/2018 8:26 AM EST Intensive Care Follow-up LOS: 2 days Mr. Carlos Manuel Rojas II, 52 y.o. male is followed for: Glycemic, Electrolyte, Respiratory, and Medical management Subjective - Interval History Awake and alert No problems overnight Oxygenating well on 2 L/m via nasal cannula On no continuous infusions The patient's relevant past medical, surgical and social history were reviewed and updated in Epic as appropriate. Objective Infusions: Medications: amiodarone 200 mg Oral Q24H aspirin 325 mg Oral Daily insulin lispro 0-9 Units Subcutaneous 4x Daily With Meals & Nightly metoprolol tartrate 12.5 mg Oral Q12H nicotine 1 patch Transdermal Q24H sennosides-docusate sodium 2 tablet Oral BID Intake/Output 04/08/18 0700 - 04/09/18 0659 Intake (ml) 2372 Output (ml) 800 Net (ml) 1572 Vital Sign Min/Max for last 24 hours Temp Min: 98.2 ??F (36.8 ??C) Max: 98.6 ??F (37 ??C) BP Min: 103/74 Max: 136/98 Pulse Min: 57 Max: 71 Resp Min: 16 Max: 20 SpO2 Min: 92 % Max: 99 % No Data Recorded Physical Exam: GENERAL: Awake, no distress HEENT: Right IJ introducer site okay. No adenopathy LUNGS: Decreased breath sounds without wheezes. Basilar crackles noted HEART: Sternal incision without drainage or dehiscence. Regular rate and rhythm GI: Soft, nontender EXTREMITIES: Palpable pulses. Trace edema. No clubbing NEURO/PSYCH: Awake and alert. Follows commands. No deficits Results from last 7 days Lab Units 04/09/1832104/08/1839904/07/18233204/07/18 1603 WBC 10*3/mm3 17.75* 15.01* -- -- 17.60* HEMOGLOBIN g/dL 10.6* 11.2* 11.4* < > 11.7* PLATELETS 10*3/mm3 77* 82* -- -- 75* < > = values in this interval not displayed. Results from last 7 days Lab Units 04/09/18 03204/08/18 04004/07/18 2333 04/07/18 1603 04/07/18 1344 SODIUM mmol/L 135 136 -- -- 135 137 POTASSIUM mmol/L 4.2 4.3 4.1 < > 4.2 4.1 CO2 mmol/L 27.0 22.0 -- -- 20.0 22.0 BUN mg/dL 9 11 -- -- 11 11 CREATININE mg/dL 0.74 0.88 -- -- 0.97 0.93 MAGNESIUM mg/dL -- 1.9 -- -- 2.4 2.6 PHOSPHORUS mg/dL -- 3.7 -- -- 2.4 3.3 GLUCOSE mg/dL 102* 137* -- -- 148* 112* < > = values in this interval not displayed. Estimated Creatinine Clearance: 157.6 mL/min (by C-G formula based on SCr of 0.74 mg/dL). Results from last 7 days Lab Units 04/06/18 1314 HEMOGLOBIN A1C % 6.00* Results from last 7 days Lab Units 04/07/18 1724 PH, ARTERIAL pH units 7.314* PCO2, ARTERIAL mm Hg 45.3 PO2 ART mm Hg 105.0 No results found for: LACTATE Images: Chest x-ray reveals cardiomegaly and postoperative changes with basilar atelectasis I reviewed the patient's results and images. Impression Active Hospital Problems Diagnosis ??? 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 04/07/18 ??? H/O: rheumatic fever age 12 and 14 ??? GERD (gastroesophageal reflux disease) ??? Tobacco dependence Plan Mobilize and push respiratory therapy Blood sugars nominal Hopefully discontinue cordis today Stable for transfer to the floor when okay with CVT Plan of care and goals reviewed with multidisciplinary team at daily rounds I discussed the patient's findings and my recommendations with patient and nursing staff Sarita Duran MD Pulmonary and Critical Care Medicine * Liza Singleton MD - 04/09/2018 8:23 AM EST [facility] Inpatient Progress Note Chief Complaint/Reason for service: ?? Atrial fibrillation Subjective:? Patient up resting in bed. Denies shortness of breath on 2L/NC, chest pain. Reports incisional painand mild acid reflux this AM. Past medical, surgical, social and family history reviewed in the patient's electronic medical record. Review of Systems: Positive for chest incisional pain Negative for exertional chest pain, dyspnea with exertion, lower extremity edema, palpitations Problem List Active Hospital Problems Diagnosis Date Noted ??? 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 04/07/18 [I35.9] 04/07/2018 ??? H/O: rheumatic fever [Z86.79] 04/07/2018 ??? GERD (gastroesophageal reflux disease) [K21.9] 04/07/2018 ??? Tobacco dependence [F17.200] 02/23/2018 Resolved Hospital Problems No resolved problems to display. Objective:?? Current Facility-Administered Medications: ??? acetaminophen (TYLENOL) tablet 650 mg, 650 mg, Oral, Q4H PRN, Jose Wilson MD ??? amiodarone (PACERONE) tablet 200 mg, 200 mg, Oral, Q24H, Liza Singleton MD, 200 mg at 04/09/18 0814 ??? aspirin EC tablet 325 mg, 325 mg, Oral, Daily, Cruz Ramirez PA, 325 mg at 04/09/18 0814 ??? bisacodyl (DULCOLAX) EC tablet 10 mg, 10 mg, Oral, Daily PRN, Cruz Ramirez PA ??? bisacodyl (DULCOLAX) suppository 10 mg, 10 mg, Rectal, Daily PRN, Cruz Ramirez PA ??? calcium carbonate (TUMS) chewable tablet 500 mg (200 mg elemental), 2 tablet, Oral, TID PRN, Nathen Vargas, PROCESS DEVELOPMENT CHEMIST, 2 tablet at 04/09/18 0255 ??? docusate sodium (COLACE) capsule 100 mg, 100 mg, Oral, BID PRN, Cruz Ramirez PA ??? HYDROcodone-acetaminophen (NORCO) 7.5-325 MG per tablet 1 tablet, 1 tablet, Oral, Q4H PRN, Jose iWlson MD, 1 tablet at 04/07/18 1820 ? ? insulin lispro (humaLOG) injection 0-9 Units, 0-9 Units, Subcutaneous, 4x Daily With Meals & Nightly, Bernardino Duran MD, 2 Units at 04/08/18 1222 ??? magnesium hydroxide (MILK OF MAGNESIA) suspension 2400 mg/10mL 10 mL, 10 mL, Oral, Daily PRN, Cruz Ramirez PA ??? metoprolol tartrate (LOPRESSOR) half tablet 12.5 mg, 12.5 mg, Oral, Q12H, Cruz Ramirez PA, 12.5 mg at 04/09/18 0814 ??? Morphine sulfate (PF) injection 2 mg, 2 mg, Intravenous, Q2H PRN, Bernardino Duran MD ??? nicotine (NICODERM CQ) 14 MG/24HR patch 1 patch, 1 patch, Transdermal, Q24H, Bernardino Duran MD, 1 patch at 04/09/18 0816 ??? ondansetron (ZOFRAN) injection 4 mg, 4 mg, Intravenous, Q6H PRN, Cruz Ramirez PA ??? oxyCODONE-acetaminophen (PERCOCET) 5-325 MG per tablet 2 tablet, 2 tablet, Oral, Q4H PRN, Jose Wilson MD, 2 tablet at 04/09/18 0243 ??? potassium chloride (MICRO-K) CR capsule 40 mEq, 40 mEq, Oral, PRN OR potassium chloride (KLOR-CON) packet 40 mEq, 40 mEq, Oral, PRN, Cruz Ramirez PA ??? sennosides-docusate sodium (SENOKOT-S) 8.6-50 MG tablet 2 tablet, 2 tablet, Oral, BID, Cruz Ramirez PA, 2 tablet at 04/09/18 0814 Facility-Administered Medications Ordered in Other Encounters: ??? Chlorhexidine Gluconate Cloth 2 % pads 1 application, 1 application, Topical, Q12H PRN, Miguel Malin PA Vital Sign Min/Max for last 24 hours Temp Min: 98.2 ??F (36.8 ??C) Max: 98.6 ??F (37 ??C) BP Min: 103/74 Max: 136/98 Pulse Min: 57 Max: 71 Resp Min: 16 Max: 20 SpO2 Min: 92 % Max: 99 % No Data Recorded Intake/Output Summary (Last 24 hours) at 04/09/2018 0823 Last data filed at 04/09/2018 0600 Gross per 24 hour Intake 2072 ml Output 750 ml Net 1322 ml CONSTITUTIONAL: No acute distress, normal affect RESPIRATORY: Normal effort. Clear to auscultation bilaterally without wheezing or rales CARDIOVASCULAR: Regular rate and rhythm with normal S1 and S2. Without murmur, gallop or rub. PERIPHERAL VASCULAR: Normal radial pulses bilaterally. There is trace peripheral edema bilaterally. Results Review: No results found for: TROPONINI, TROPONINT BUN Date Value Ref Range Status 04/09/2018 9 9 - 23 mg/dL Final Creatinine Date Value Ref Range Status 04/09/2018 0.74 0.60 - 1.30 mg/dL Final Potassium Date Value Ref Range Status 04/09/2018 4.2 3.5 - 5.5 mmol/L Final ALT (SGPT) Date Value Ref Range Status 04/06/2018 46 (H) 7 - 40 U/L Final AST (SGOT) Date Value Ref Range Status 04/06/2018 31 0 - 33 U/L Final Lab Results Component Value Date CHOL 140 03/03/2018 Lab Results Component Value Date TRIG 63 03/03/2018 Lab Results Component Value Date HDL 34 (L) 03/03/2018 No components found for: LDLCALC No results found for: VLDL No results found for: LDLHDL Tele: NSR/Sinus maris, one short run of SVT yesterday ~530PM. No AFib EKG: Normal sinus rhythm Minimal voltage criteria for LVH, may be normal variant T wave abnormality, consider inferolateral ischemia QT shortened Assessment/Plan:? ASSESSMENT: -AFib intraoperatively. Also status post left atrial appendage occlusion -Aortic stenosis and regurgitation, bicuspid valve s/p bioprosthetic #25 Perimount valve 04/07/18 PLAN: -Continue amiodarone, daily EKG, QT stable. -Continue aspirin, statin, beta clayton -Future anti-coagulation for 3 months followed by TA to assess MEGHA clip -Awaiting telemetry bed. Scribed for Dr. Singleton by Shauna Andrews APRN. 04/09/2018 8:25 AM Electronically signed by Shauna Andrews APRN, 04/09/18, 8:25 AM. ILiza MD, personally performed the services as scribed by the above named individual. I have made any necessary edits and it is both accurate and complete. Liza Singleton MD, MSc, [facility] Interventional Cardiology [facility] * Jose Wilson MD - 04/09/2018 6:57 AM EST CTS Progress Note POD 2 s/p AVR LOS: 2 days Patient Care Team: Liza Kuo MD as PCP - General (Emergency Medicine) Subjective Awake, alert, cooperative Up in chair, no pressors OX3 CC: S/P AVR Objective Vital Signs Temp: [98.1 ??F (36.7 ??C)-98.6 ??F (37 ??C)] 98.4 ??F (36.9 ??C) Heart Rate: [57-71] 70 Resp: [16-20] 20 BP: (103-136)/(61-98) 121/89 Arterial Line BP: (98-141)/(57-70) 141/70 Physical Exam: General Appearance: alert, appears stated age and cooperative Lungs: clear to auscultation, respirations regular, respirations even and respirations unlabored Heart: regular rhythm & normal rate, normal S1, S2, no murmur, no gallop, no rub and no click Skin: Incision c/d/i Results Results from last 7 days Lab Units 04/09/18 0322 WBC 10*3/mm3 17.75* HEMOGLOBIN g/dL 10.6* HEMATOCRIT % 31.3* PLATELETS 10*3/mm3 77* Results from last 7 days Lab Units 04/09/18 0322 SODIUM mmol/L 135 POTASSIUM mmol/L 4.2 CHLORIDE mmol/L 105 CO2 mmol/L 27.0 BUN mg/dL 9 CREATININE mg/dL 0.74 GLUCOSE mg/dL 102* CALCIUM mg/dL 8.4* Imaging Results (last 24 hours) Procedure Component Value Units Date/Time XR Chest 1 View [[id number]] Updated: 04/09/18 0535 XR Chest 1 View [[id number]] Collected: 04/08/18 0959 Updated: 04/08/18 1004 Narrative: EXAMINATION: XR CHEST 1 VW- INDICATION: Postop heart surgery; I48.1-Persistent atrial fibrillation; I35.9-Nonrheumatic aortic valve disorder, unspecified. TECHNIQUE: Single view frontal chest. COMPARISONS: 04/07/2018 FINDINGS: [place] catheter has been retracted into the SVC. The endotracheal and nasogastric tubes have been removed. Sternotomy wires and left atrial appendage occlusive device unchanged. The midline right chest drain remains. There is decreased atelectasis emanating from the right hilum. No sizable pleural effusion or pneumothorax. Cardiomediastinal silhouette is unchanged. Impression: Hardware adjustment/removal as discussed. Improved aeration. E: 04/08/2018 This report was finalized on 04/08/2018 10:02 AM by Bj Joseph. Assessment 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 04/07/18 Tobacco dependence H/O: rheumatic fever GERD (gastroesophageal reflux disease) looks great Plan Continue support To tele MALIA Aldridge 04/09/18 6:57 AM As above. Stable course to this point. Ready for telemetry. Probable discharge on 04/13/2018. I have reviewed, verified, and confirmed the above history and current status. I have examined thepatient and confirmed the above physical findings.Above plan and treatment regimen discussed in detail with patient. Options of treatment, attendant risks vs benefits, and my recommendations were discussed and all questions answered. Jose Wilson MD CTSurgery 04/09/18 2:50 PM * Keshia Miller RN - 04/08/2018 11:51 AM EST Continued Stay Note [facility] Patient Name: Carlos Manuel Rojas II Today's Date: 04/08/2018 Admit Date: 04/07/2018 Discharge Plan Row Name 04/08/18 1148 Plan Plan Home Patient/Family in Agreement with Plan yes Plan Comments Spoke with patient at bedside in ICU. Pateint lives with RADHA Springer in [place] in a two story apt. 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 Patient's plans to go home at discharge and Racheal will be there to help as needed. Linda @ [phone] Final Discharge Disposition Code 01 - home or self-care Discharge Codes No documentation. Keshia Miller, RN * Nancy Garrison RD - 04/08/2018 9:42 AM EST Clinical Nutrition Multidisciplinary Rounds Time: 20min Patient Name: Carlos Manuel Rojas II Date of Encounter: 04/08/18 9:42 AM Admission date: 04/07/2018 MDR. HAMMOND to continue to follow per protocol. Current diet: Diet Clear Liquid; Cardiac, Consistent Carbohydrate No active supplement orders Intervention: Follow treatment plan Care plan reviewed Follow up: Per protocol Nancy Garrison RD 9:42 AM * Bernardino Duran MD - 04/08/2018 8:44 AM EST Intensive Care Follow-up LOS: 1 day Mr. Carlos Manuel Rojas II, 52 y.o. male is followed for: Glycemic, Electrolyte, Respiratory, and Medical management Subjective - Interval History No problems overnight Extubated without difficulty Remains on insulin and amiodarone drips MTs without air leak The patient's relevant past medical, surgical and social history were reviewed and updated in Epic as appropriate. Objective Infusions: dexmedetomidine 0.2-1.5 mcg/kg/hr dextrose 5 % with KCl 20 mEq 30 mL/hr Last Rate: 30 mL/hr (04/07/18 1331) DOBUTamine 2-20 mcg/kg/min DOPamine 2-20 mcg/kg/min EPINEPHrine 0.02-0.3 mcg/kg/min insulin regular infusion 1 unit/mL (CCU use) 0-50 Units/hr Last Rate: 0.7 Units/hr (04/08/18 0653) niCARdipine 5-15 mg/hr nitroglycerin 5-200 mcg/min norepinephrine 0.02-0.3 mcg/kg/min Last Rate: Stopped (04/07/182029) phenylephrine 0.5-3 mcg/kg/min Sodium chloride 30 mL/hr vasopressin 0.02-0.1 Units/min Medications: amiodarone 200 mg Oral Q24H aspirin 325 mg Oral Daily atorvastatin 40 mg Oral Nightly chlorhexidine 15 mL Mouth/Throat Q12H metoprolol tartrate 12.5 mg Oral Q12H metoprolol tartrate 2.5 mg Intravenous Q6H nicotine 1 patch Transdermal Q24H sennosides-docusate sodium 2 tablet Oral BID vancomycin 15 mg/kg Intravenous Q12H Intake/Output 04/07/18 0700 - 04/08/18 0659 Intake (ml) 3338 Output (ml) 2125 Net (ml) 1213 Last Weight 122 kg (268 lb 15.4 oz) Vital Sign Min/Max for last 24 hours Temp Min: 96.3 ??F (35.7 ??C) Max: 98.8 ??F (37.1 ??C) BP Min: 83/59 Max: 129/58 Pulse Min: 55 Max: 77 Resp Min: 16 Max: 24 SpO2 Min: 92 % Max: 100 % No Data Recorded Physical Exam: GENERAL: Awake, no distress HEENT: Right IJ Cordis site okay, no adenopathy LUNGS: No wheezes or rhonchi HEART: Regular rate and rhythm without murmurs. Sternal incision without drainage or dehiscence. MTs without air leak GI: Soft, nontender EXTREMITIES: Palpable pulses. Trace edema. No clubbing or cyanosis NEURO/PSYCH: Awake and alert. Follows commands. No deficits Results from last 7 days Lab Units 04/08/1839904/07/18233204/07/18200804/07/18 1603 04/07/18 1227 WBC 10*3/mm3 15.01* -- -- 17.60* 23.45* HEMOGLOBIN g/dL 11.2* 11.4* 11.5* 11.7* 12.8* PLATELETS 10*3/mm3 82* -- -- 75* 72* Results from last 7 days Lab Units 04/08/1839904/07/18233204/07/18200804/07/18160204/07/18 1344 SODIUM mmol/L 136 -- -- 135 137 POTASSIUM mmol/L 4.3 4.1 4.4 4.2 4.1 CO2 mmol/L 22.0 -- -- 20.0 22.0 BUN mg/dL 11 -- -- 11 11 CREATININE mg/dL 0.88 -- -- 0.97 0.93 MAGNESIUM mg/dL 1.9 -- -- 2.4 2.6 PHOSPHORUS mg/dL 3.7 -- -- 2.4 3.3 GLUCOSE mg/dL 137* -- -- 148* 112* Estimated Creatinine Clearance: 132.5 mL/min (by C-G formula based on SCr of 0.88 mg/dL). Results from last 7 days Lab Units 04/06/18 1314 HEMOGLOBIN A1C % 6.00* Results from last 7 days Lab Units 04/07/18 1724 PH, ARTERIAL pH units 7.314* PCO2, ARTERIAL mm Hg 45.3 PO2 ART mm Hg 105.0 No results found for: LACTATE Images: Chest x-ray with minimal midlung zone atelectasis and postoperative changes I reviewed the patient's results and images. Impression Active Hospital Problems Diagnosis ??? 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 04/07/18 ??? H/O: rheumatic fever age 12 and 14 ??? GERD (gastroesophageal reflux disease) ??? Tobacco dependence Plan Mobilize and push respiratory therapy Transition insulin drip Continue to follow-up electrolytes and replace as necessary Plan of care and goals reviewed with multidisciplinary team at daily rounds I discussed the patient's findings and my recommendations with patient and nursing staff Sarita Duran MD Pulmonary and Critical Care Medicine * Liza Singleton MD - 04/08/2018 8:40 AM EST [facility] Inpatient Progress Note Chief Complaint/Reason for service: ?? Atrial fibrillation Subjective:? The patient did well overnight. Extubated. Denies chest pain at rest. Has chest soreness that is worsened with deep breaths. Otherwise denies shortness of breath. Denies palpitations. Past medical, surgical, social and family history reviewed in the patient's electronic medical record. Review of Systems: Positive for chest soreness Negative for exertional chest pain, dyspnea with exertion, lower extremity edema, palpitations Problem List Active Hospital Problems Diagnosis Date Noted ??? 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 04/07/18 [I35.9] 04/07/2018 ??? H/O: rheumatic fever [Z86.79] 04/07/2018 ??? GERD (gastroesophageal reflux disease) [K21.9] 04/07/2018 ??? Tobacco dependence [F17.200] 02/23/2018 Resolved Hospital Problems No resolved problems to display. Objective:?? Current Facility-Administered Medications: ??? acetaminophen (TYLENOL) tablet 650 mg, 650 mg, Oral, Q4H PRN, Jose Wilson MD ??? albuterol (PROVENTIL) nebulizer solution 0.083% 2.5 mg/3mL, 2.5 mg, Nebulization, Q4H PRN, Cruz Ramirez PA ??? [] amiodarone (NEXTERONE) 360 mg/200 mL (1.8 mg/mL) infusion, 1 mg/min, Intravenous, Continuous, Stopped at 04/07/18 2100 FOLLOWED BY amiodarone (NEXTERONE) 360 mg/200 mL (1.8 mg/mL) infusion, 0.5 mg/min, Intravenous, Continuous, Last Rate: 16.67 mL/hr at 04/08/18 0600, 0.5 mg/min at 04/08/18 0600 FOLLOWED BY [START ON 04/09/2018] amiodarone (PACERONE) tablet 200 mg, 200 mg, Oral, Once FOLLOWED BY [START ON 04/09/2018] amiodarone (PACERONE) tablet 200 mg, 200 mg, Oral, Q8H FOLLOWED BY [START ON 04/16/2018] amiodarone (PACERONE) tablet 200 mg, 200 mg, Oral, Q12H FOLLOWED BY [START ON 04/30/2018] amiodarone (PACERONE) tablet 200 mg, 200 mg, Oral, Daily, Radha Blum APRN ??? aspirin EC tablet 325 mg, 325 mg, Oral, Daily, Cruz Ramirez PA ??? atorvastatin (LIPITOR) tablet 40 mg, 40 mg, Oral, Nightly, Cruz Ramirez PA, 40 mg at 04/07/182005 ??? bisacodyl (DULCOLAX) EC tablet 10 mg, 10 mg, Oral, Daily PRN, Cruz Ramirez PA ??? bisacodyl (DULCOLAX) suppository 10 mg, 10 mg, Rectal, Daily PRN, Cruz Ramirez PA ??? chlorhexidine (PERIDEX) 0.12 % solution 15 mL, 15 mL, Mouth/Throat, Q12H, Cruz Ramirez PA, 15 mL at 04/07/182004 ??? dexmedetomidine (PRECEDEX) infusion in NaCl 400 mcg/100 mL, 0.2-1.5 mcg/kg/hr, Intravenous, Continuous PRN, Cruz Ramirez PA ??? dextrose 5 % with KCl 20 mEq/L infusion, 30 mL/hr, Intravenous, Continuous, Cruz Ramirez PA,Last Rate: 30 mL/hr at 04/07/18 1331, 30 mL/hr at 04/07/18 1331 ??? DOBUTamine (DOBUTREX) 1 mg/mL infusion, 2-20 mcg/kg/min, Intravenous, Continuous PRN, Cruz Ramirez PA ??? docusate sodium (COLACE) capsule 100 mg, 100 mg, Oral, BID PRN, Cruz Ramirez PA ??? DOPamine 400 mg/250 mL (1.6 mg/mL) infusion, 2-20 mcg/kg/min, Intravenous, Continuous PRN, Cruz Ramirez PA ??? EPINEPHrine (ADRENALIN) 10,000 mcg in Sodium chloride 0.9 % 250 mL (40 mcg/mL) infusion, 0.02-0.3 mcg/kg/min, Intravenous, Continuous PRN, Cruz Ramirez PA ??? HYDROcodone-acetaminophen (NORCO) 7.5-325 MG per tablet 1 tablet, 1 tablet, Oral, Q4H PRN, Jose Wilson MD, 1 tablet at 04/07/18 1820 ??? insulin regular (HumuLIN R,NovoLIN R) 100 Units in Sodium chloride 0.9 % 100 mL (1 Units/mL) infusion, 0-50 Units/hr, Intravenous, Continuous PRN, Cruz Ramirez PA, Last Rate: 0.7 mL/hr at 04/08/18 0653, 0.7 Units/hr at 04/08/18 0653 ??? magnesium hydroxide (MILK OF MAGNESIA) suspension 2400 mg/10mL 10 mL, 10 mL, Oral, Daily PRN, Cruz Ramirez PA ??? metoprolol tartrate (LOPRESSOR) half tablet 12.5 mg, 12.5 mg, Oral, Q12H, Cruz Ramirez PA ??? metoprolol tartrate (LOPRESSOR) injection 2.5 mg, 2.5 mg, Intravenous, Q6H, Cruz Ramirez PA,2.5 mg at 04/08/18 0600 ??? Morphine sulfate (PF) injection 2 mg, 2 mg, Intravenous, Q30 Min PRN, Jose Wilson MD, 2 mg at 04/07/182004 ??? niCARdipine (CARDENE-IV) 40 mg/200 mL (0.2 mg/mL) in 0.9% NaCl infusion, 5- 15 mg/hr, Intravenous, Continuous PRN, Cruz Ramirez PA ??? nicotine (NICODERM CQ) 14 MG/24HR patch 1 patch, 1 patch, Transdermal, Q24H, Bernardino Duran MD, 1 patch at 04/07/18 1631 ??? nitroglycerin 50 mg/250 mL (0.2 mg/mL) infusion, 5-200 mcg/min, Intravenous, Continuous PRN, Cruz Ramirez PA ??? norepinephrine (LEVOPHED) 8 mg/250 mL (32 mcg/mL) in sodium chloride 0.9% infusion (premix), 0.02-0.3 mcg/kg/min, Intravenous, Continuous PRN, Cruz Ramirez PA, Stopped at 04/07/18 2030 ??? ondansetron (ZOFRAN) injection 4 mg, 4 mg, Intravenous, Q6H PRN, Cruz Ramirez PA ??? oxyCODONE-acetaminophen (PERCOCET) 5-325 MG per tablet 2 tablet, 2 tablet, Oral, Q4H PRN, Jose Wilson MD, 2 tablet at 04/08/18 0802 ??? phenylephrine (EFFIE-SYNEPHRINE) 50 mg/250 mL (0.2 mg/mL) in 0.9% NS infusion, 0.5-3 mcg/kg/min, Intravenous, Continuous PRN, Cruz Ramirez PA ??? potassium chloride (MICRO-K) CR capsule 40 mEq, 40 mEq, Oral, PRN OR potassium chloride (KLOR-CON) packet 40 mEq, 40 mEq, Oral, PRN, Cruz Ramirez PA ??? potassium chloride 20 mEq in 50 mL IVPB, 20 mEq, Intravenous, Q1H PRN OR potassium [id number] mEq in 50 mL IVPB, 20 mEq, Intravenous, Q1H PRN, Cruz Ramirez PA ??? racemic epinephrine (RACEPINEPHRINE) nebulizer solution 0.5 mL, 0.5 mL, Nebulization, Once PRN,Cruz Ramirez PA ??? sennosides-docusate sodium (SENOKOT-S) 8.6-50 MG tablet 2 tablet, 2 tablet, Oral, BID, Cruz Ramirez PA, 2 tablet at 04/07/182005 ??? sodium chloride 0.9 % flush 30 mL, 30 mL, Intravenous, Once PRN, Cruz Ramirez PA ??? Sodium chloride 0.9 % infusion, 30 mL/hr, Intravenous, Continuous PRN, Cruz Ramirez PA ??? vancomycin 1750 mg/500 mL 0.9% NS IVPB ([facility]), 15 mg/kg, Intravenous, Q12H, Cruz Ramirez PA, 1,750 mg at 04/08/18 0601 ??? Vasopressin 20 Units in Sodium chloride 0.9 % 100 mL (0.2 Units/mL) infusion, 0.02-0.1 Units/min, Intravenous, Continuous PRN, Cruz Ramirez PA Facility-Administered Medications Ordered in Other Encounters: ??? Chlorhexidine Gluconate Cloth 2 % pads 1 application, 1 application, Topical, Q12H PRN, Miguel Malin PA Vital Sign Min/Max for last 24 hours Temp Min: 96.3 ??F (35.7 ??C) Max: 98.8 ??F (37.1 ??C) BP Min: 83/59 Max: 129/58 Pulse Min: 55 Max: 77 Resp Min: 16 Max: 24 SpO2 Min: 92 % Max: 100 % No Data Recorded Intake/Output Summary (Last 24 hours) at 04/08/2018 0840 Last data filed at 04/08/2018 0600 Gross per 24 hour Intake 3338 ml Output 1925 ml Net 1413 ml CONSTITUTIONAL: No acute distress, normal affect RESPIRATORY: Normal effort. Clear to auscultation bilaterally without wheezing or rales CARDIOVASCULAR: Regular rate and rhythm with normal S1 and S2. Without murmur, gallop or rub. PERIPHERAL VASCULAR: Normal radial pulses bilaterally. There is no significant peripheral edema bilaterally. Results Review: No results found for: TROPONINI, TROPONINT BUN Date Value Ref Range Status 04/08/2018 11 9 - 23 mg/dL Final Creatinine Date Value Ref Range Status 04/08/2018 0.88 0.60 - 1.30 mg/dL Final Potassium Date Value Ref Range Status 04/08/2018 4.3 3.5 - 5.5 mmol/L Final ALT (SGPT) Date Value Ref Range Status 04/06/2018 46 (H) 7 - 40 U/L Final AST (SGOT) Date Value Ref Range Status 04/06/2018 31 0 - 33 U/L Final Lab Results Component Value Date CHOL 140 03/03/2018 Lab Results Component Value Date TRIG 63 03/03/2018 Lab Results Component Value Date HDL 34 (L) 03/03/2018 No components found for: LDLCALC No results found for: VLDL No results found for: LDLHDL Tele: NSR/Sinus maris, one short run of SVT yesterday ~530PM. No AFib Assessment/Plan:? ASSESSMENT: -AFib intraoperatively. Also status post left atrial appendage occlusion -Aortic stenosis and regurgitation, bicuspid valve s/p bioprosthetic #25 Perimount valve 04/07/18 PLAN: -Switched to amiodarone to 200 mg by mouth daily, daily EKGs. Today's QTC borderline -Continue aspirin, statin, beta clayton -Future anti-coagulation for 3 months followed by TA to assess MEGHA clip Liza Singleton MD, MSc, FACC Interventional Cardiology [facility] 04/08/2018 * Jose Wilson MD - 04/08/2018 6:40 AM EST CTS Progress Note POD 1 s/p AVR LOS: 1 day Patient Care Team: Liza Kuo MD as PCP - General (Emergency Medicine) Subjective Awake, alert, extubated Up in chair, no pressors OX3 CC: S/P AVR Objective Vital Signs Temp: [96.3 ??F (35.7 ??C)-98.8 ??F (37.1 ??C)] 98 ??F (36.7 ??C) Heart Rate: [62-77] 62 Resp: [16-24] 20 BP: (83-129)/(57-113) 129/58 Arterial Line BP: (8-130)/(8-70) 129/61 FiO2 (%): [40 %-100 %] 40 % Physical Exam: General Appearance: alert, appears stated age and cooperative Lungs: clear to auscultation, respirations regular, respirations even and respirations unlabored Heart: regular rhythm & normal rate, normal S1, S2, no murmur, no gallop, no rub and no click Skin: Incision c/d/i Results Results from last 7 days Lab Units 04/08/18 0400 WBC 10*3/mm3 15.01* HEMOGLOBIN g/dL 11.2* HEMATOCRIT % 33.0* PLATELETS 10*3/mm3 82* Results from last 7 days Lab Units 04/08/18 0400 SODIUM mmol/L 136 POTASSIUM mmol/L 4.3 CHLORIDE mmol/L 110* CO2 mmol/L 22.0 BUN mg/dL 11 CREATININE mg/dL 0.88 GLUCOSE mg/dL 137* CALCIUM mg/dL 8.1* Imaging Results (last 24 hours) Procedure Component Value Units Date/Time XR Chest 1 View [[id number]] Updated: 04/08/18 0232 XR Chest 1 View [[id number]] Collected: 04/07/18 1553 Updated: 04/07/18 1559 Narrative: EXAMINATION: XR CHEST 1 VW-04/07/2018: INDICATION: Post-Op Check Line & Tube Placement; I35.9-Nonrheumatic aortic valve disorder, unspecified; I35.9-Nonrheumatic aortic valve disorder, unspecified. TECHNIQUE: Single view frontal chest. COMPARISONS: 04/06/2018. FINDINGS: Endotracheal tube in good position. NG tube terminates below the diaphragm in the gastric fundus. Right IJ approach [place] catheter terminates at midline. Drain is seen at midline projecting over the heart. Sternotomy wires, atrial appendage occlusive device and valve replacement hardware. Atelectasis is noted emanating from the right hilum. No focal airspace disease, pleural effusion or pneumothorax. Impression: Expected postoperative findings. E: 04/07/2018 This report was finalized on 04/07/2018 3:57 PM by Bj Joseph. Assessment 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 04/07/18 Tobacco dependence H/O: rheumatic fever GERD (gastroesophageal reflux disease) CTs 380cc out last 12 hours Plan Continue support D/C lines MALIA Aldridge 04/08/18 6:40 AM As above. Sitting in the chair with no new complaints. Vital signs stable off febrile the dynamics normal. Chest tube drainage is decreasing. Laboratory studies and chest x-ray are adequate and consistent with current postoperative state. I have reviewed, verified, and confirmed the above history and current status. I have examined the patient and confirmed the above physical findings.Above plan and treatment regimen discussed in detail with patient. Options of treatment, attendant risks vs benefits, and my recommendations were discussed and all questions answered. Jose Wilson MD CTSurgery 04/08/18 2:43 PM * Bernardino Duran MD - 04/07/2018 1:41 PM EST Intensive Care Follow-up LOS: 0 days Mr. Carlos Manuel Rojas II, 52 y.o. male is followed for: Glycemic, Electrolyte, Respiratory, and Medical management Subjective - Interval History 52-year-old white male with history of rheumatic fever in his teens and subsequent aortic valve disease has been moved to the intensive care unit following aortic valve replacement. The patient had severe aortic regurgitation and stenosis preoperatively. Preserved left ventricularsystolic function of 55%. In addition to the AVR, the patient also had a left atrial appendage clip performed. He has a history of tobacco abuse preoperatively but no history of chronic lung disease The patient's relevant past medical, surgical and social history were reviewed and updated in [facility] as appropriate. Objective Infusions: dexmedetomidine 0.2-1.5 mcg/kg/hr dextrose 5 % with KCl 20 mEq 30 mL/hr Last Rate: 30 mL/hr (04/07/18 1331) DOBUTamine 2-20 mcg/kg/min DOPamine 2-20 mcg/kg/min EPINEPHrine 0.02-0.3 mcg/kg/min insulin regular infusion 1 unit/mL (CCU use) 0-50 Units/hr niCARdipine 5-15 mg/hr nitroglycerin 5-200 mcg/min norepinephrine 0.02-0.3 mcg/kg/min phenylephrine 0.5-3 mcg/kg/min propofol 5-50 mcg/kg/min Last Rate: 50 mcg/kg/min (04/07/18 1231) Sodium chloride 30 mL/hr vasopressin 0.02-0.1 Units/min Medications: [START ON 04/08/2018] aspirin 325 mg Oral Daily aspirin 325 mg Oral Once atorvastatin 40 mg Oral Nightly chlorhexidine 15 mL Mouth/Throat Q12H [START ON 04/08/2018] metoprolol tartrate 12.5 mg Oral Q12H metoprolol tartrate 2.5 mg Intravenous Q6H sennosides-docusate sodium 2 tablet Oral BID vancomycin 15 mg/kg Intravenous Q12H Intake/Output 04/07/18 0700 - 04/08/18 0659 Intake (ml) 1200 Output (ml) 905 Net (ml) 295 Last Weight 122 kg (268 lb 15.4 oz) Vital Sign Min/Max for last 24 hours Temp Min: 96.3 ??F (35.7 ??C) Max: 96.9 ??F (36.1 ??C) BP Min: 83/59 Max: 107/78 Pulse Min: 67 Max: 77 Resp Min: 16 Max: 18 SpO2 Min: 93 % Max: 100 % No Data Recorded Physical Exam: GENERAL: Intubated, mechanically ventilated, no distress HEENT: ET tube in good position. Right IJ introducer site okay LUNGS: No wheezes or rhonchi HEART: Regular rate and rhythm. Sternal incision without drainage or dehiscence. No air leak from MTs GI: Soft, bowel sounds absent. EXTREMITIES: Palpable pulses. 1+ lower extremity edema. No clubbing or cyanosis NEURO/PSYCH: Sedated, mechanically ventilated, doesn't follow commands Results from last 7 days Lab Units 04/07/18 1227 04/07/18 1116 04/07/18 0949 04/06/18 1314 WBC 10*3/mm3 23.45* -- -- -- 12.25* HEMOGLOBIN g/dL 12.8* -- -- -- 14.7 HEMOGLOBIN, POC g/dL -- 9.9* 10.2* < > -- PLATELETS 10*3/mm3 72* -- -- -- 155 < > = values in this interval not displayed. Results from last 7 days Lab Units 04/06/18 1314 SODIUM mmol/L 137 POTASSIUM mmol/L 3.9 CO2 mmol/L 29.0 BUN mg/dL 12 CREATININE mg/dL 0.89 MAGNESIUM mg/dL 1.8 GLUCOSE mg/dL 94 Estimated Creatinine Clearance: 131 mL/min (by C-G formula based on SCr of 0.89 mg/dL). Results from last 7 days Lab Units 04/06/18 1314 HEMOGLOBIN A1C % 6.00* Results from last 7 days Lab Units 04/07/18 1234 PH, ARTERIAL pH units 7.277* PCO2, ARTERIAL mm Hg 49.5 PO2 ART mm Hg 202.0* No results found for: LACTATE Images: Chest x-ray reveals postoperative changes with good positioning of tubes and lines and no consolidation or effusions I reviewed the patient's results and images. Impression Active Hospital Problems Diagnosis ??? 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 04/07/18 ??? H/O: rheumatic fever age 12 and 14 ??? GERD (gastroesophageal reflux disease) ??? Tobacco dependence Plan Wean mechanical ventilatory support when clinically stable Nicotine replacement therapy Follow-up electrolytes and blood sugars and Plan of care and goals reviewed with multidisciplinary team at daily rounds I discussed the patient's findings and my recommendations with nursing staff Sarita Duran MD Pulmonary and Critical Care Medicine documented in this encounter H&P Notes * Jose Wilson MD - 04/07/2018 6:40 AM EST Pre-Op H&P Carlos Manuel Rojas II [id number] 1965 Chief complaint: Chest pain and dizziness HPI: Office note dated 02/05/18 reviewed. Patient is a 52 y.o.male who presents with a history of rheumatic fever in nature. He has had a known heart murmur for the past 35 years. In the past 4 or 5 years he's had progressive increasing easeof fatigue with physical activity. He has not had anginal quality chest pain. He denies congestive heart failure, shortness of breath, and syncope. His health is otherwise good. He is allergic to penicillin. He has an ongoing tobacco abuse. Report of an echocardiogram reviewed which demonstrated aortic stenosis with a mean gradient greater than 50 and velocities approaching 4 m/s. He presents today for aortic valve repair/replacement, TA Review of Systems: General ROS: negative for chills, fever or skin lesions; No changes since last office visit Cardiovascular ROS: Chest pain and dyspnea on exertion Respiratory ROS: no cough, shortness of breath, or wheezing Allergies: Allergies Allergen Reactions ??? Penicillins Hives Home Meds: No current facility-administered medications on file prior to encounter. Current Outpatient Medications on File Prior to Encounter Medication Sig Dispense Refill ??? vitamin D (ERGOCALCIFEROL) 71718 units capsule capsule Take 50,000 Units by mouth 1 (One) Time Per Week. Takes on Wednesdays PMH: Past Medical History: Diagnosis Date ??? Back pain ??? Depression ??? Fatigue ??? GERD (gastroesophageal reflux disease) ??? H/O: rheumatic fever age 12 and 14 ??? Heart murmur since age 14 (worsening) ??? History of kidney stones passed ??? Insomnia ??? Wears glasses PSH: Past Surgical History: Procedure Laterality Date ??? CARDIAC CATHETERIZATION N/A 03/03/2018 Procedure: Left Heart Cath; Surgeon: Liza Singleton MD; Location: [facility] CATH INVASIVE LOCATION; Service: Cardiology ??? CYST REMOVAL Left left foot (childhood) Social History: Tobacco: Social History Tobacco Use Smoking Status Current Every Day Smoker ??? Packs/day: 1.00 ??? Years: 30.00 ??? Pack years: 30.00 ??? Types: Cigarettes Smokeless Tobacco Never Used Tobacco Comment Pt reports 30+ year smoking history -cutting back Alcohol: Social History Substance and Sexual Activity Alcohol Use No Vitals: BP 91/70 (BP Location: Right arm, Patient Position: Lying) Pulse 67 Temp 96.9 ??F (36.1 ??C) (Temporal) Resp 18 SpO2 93% Physical Exam: General Appearance: Alert, cooperative, no distress, appears stated age Head: Normocephalic, without obvious abnormality, atraumatic Lungs: Clear to auscultation bilaterally, respirations unlabored Heart: Regular rate and rhythm, S1 and S2 normal, systolic murmur noted, no rub or gallop Abdomen: Soft, non-tender. +bowel sounds Breast Exam: deferred Genitalia: deferred Extremities: Extremities normal, atraumatic, no cyanosis or edema Skin: Skin color, texture, turgor normal, no rashes or lesions Neurologic: Grossly intact Results Review I reviewed the patient's new clinical results. Impression: Aortic stenosis (rheumatic) and will require aortic valve replacement. He is currently relatively asymptomatic with only ease of fatigue. Plan: Aortic valve repair/replacement, TA Yolanda Munroe PA-C 04/07/2018 6:40 AM As above. Well prepared for AVR. All questions answered. Plan to place a biologic prosthesis in concert with patient's wishes. I have reviewed, verified, and confirmed the above history and current status. I have examined the patient and confirmed the above physical findings.Above plan and treatment regimen discussed in detail with patient. Options of treatment, attendant risks vs benefits, and my recommendations were discussed and all questions answered. Jose Wilson MD CTSurgery 04/07/18 06:50 AM documented in this encounter Consult Notes * Liza Singleton MD - 04/07/2018 2:32 PM ESTAssociated Order(s): IP CONSULT TO CARDIOLOGY [facility] Consult Note Referring Provider: Dr. Wilson Reason for Consultation: post op cardiac management Patient Care Team: Liza Kuo MD as PCP - General (Emergency Medicine) Past Medical History: Diagnosis Date ??? Back pain ??? Depression ??? Fatigue ??? GERD (gastroesophageal reflux disease) ??? H/O: rheumatic fever age 12 and 14 ??? Heart murmur since age 14 (worsening) ??? History of kidney stones passed ??? Insomnia ??? Wears glasses Past Surgical History: Procedure Laterality Date ??? CARDIAC CATHETERIZATION N/A 03/03/2018 Procedure: Left Heart Cath; Surgeon: Liza Singleton MD; Location: [facility] CATH INVASIVE LOCATION; Service: Cardiology ??? CYST REMOVAL Left left foot (childhood) Allergies Allergen Reactions ??? Penicillins Hives Current Facility-Administered Medications: ??? acetaminophen (TYLENOL) tablet 650 mg, 650 mg, Oral, Q4H PRN, Jose Wilson MD ??? albumin human 5 % solution - ADS Override Pull, , , , ??? albuterol (PROVENTIL) nebulizer solution 0.083% 2.5 mg/3mL, 2.5 mg, Nebulization, Q4H PRN, Cruz Ramirez, PA ??? [START ON 04/08/2018] aspirin EC tablet 325 mg, 325 mg, Oral, Daily, Cruz Ramirez, PA ??? aspirin tablet 325 mg, 325 mg, Oral, Once, Cruz Ramirez, PA ??? atorvastatin (LIPITOR) tablet 40 mg, 40 mg, Oral, Nightly, Cruz Ramirez, PA ??? bisacodyl (DULCOLAX) EC tablet 10 mg, 10 mg, Oral, Daily PRN, Cruz Ramirez, PA ??? [START ON 04/08/2018] bisacodyl (DULCOLAX) suppository 10 mg, 10 mg, Rectal, Daily PRN, Cruz Ramirez, PA ??? chlorhexidine (PERIDEX) 0.12 % solution 15 mL, 15 mL, Mouth/Throat, Q12H, Cruz Ramirez, PA ??? dexmedetomidine (PRECEDEX) infusion in NaCl 400 mcg/100 mL, 0.2-1.5 mcg/kg/hr, Intravenous, Continuous PRN, Cruz Ramirez, PA ??? dextrose 5 % with KCl 20 mEq/L infusion, 30 mL/hr, Intravenous, Continuous, Cruz Ramirez PA,Last Rate: 30 mL/hr at 04/07/18 1331, 30 mL/hr at 04/07/18 1331 ??? DOBUTamine (DOBUTREX) 1 mg/mL infusion, 2-20 mcg/kg/min, Intravenous, Continuous PRN, Cruz Ramirez PA ??? docusate sodium (COLACE) capsule 100 mg, 100 mg, Oral, BID PRN, Cruz Ramirez PA ??? DOPamine 400 mg/250 mL (1.6 mg/mL) infusion, 2-20 mcg/kg/min, Intravenous, Continuous PRN, Cruz Ramirez PA ??? EPINEPHrine (ADRENALIN) 10,000 mcg in Sodium chloride 0.9 % 250 mL (40 mcg/mL) infusion, 0.02-0.3 mcg/kg/min, Intravenous, Continuous PRN, Cruz Ramirez PA ??? fentaNYL citrate (PF) (SUBLIMAZE) injection 25 mcg, 25 mcg, Intravenous, Q30 Min PRN AND naloxone (NARCAN) injection 0.4 mg, 0.4 mg, Intravenous, Q5 Min PRN, Jose Wilson MD ??? HYDROcodone-acetaminophen (NORCO) 7.5-325 MG per tablet 1 tablet, 1 tablet, Oral, Q4H PRN, Jose Wilson MD ??? insulin regular (HumuLIN R,NovoLIN R) 100 Units in Sodium chloride 0.9 % 100 mL (1 Units/mL) infusion, 0-50 Units/hr, Intravenous, Continuous PRN, Cruz Ramirez PA ??? [START ON 04/08/2018] magnesium hydroxide (MILK OF MAGNESIA) suspension 2400 mg/10mL 10 mL, 10 mL, Oral, Daily PRN, Cruz Ramirez PA ??? meperidine (DEMEROL) injection 25 mg, 25 mg, Intravenous, Q4H PRN, Jose Wilson MD ??? [START ON 04/08/2018] metoprolol tartrate (LOPRESSOR) half tablet 12.5 mg, 12.5 mg, Oral, Q12H, Cruz Ramirez PA ??? metoprolol tartrate (LOPRESSOR) injection 2.5 mg, 2.5 mg, Intravenous, Q6H, Cruz Ramirez PA ??? Morphine sulfate (PF) injection 2 mg, 2 mg, Intravenous, Q30 Min PRN, Jose Wilson MD ??? niCARdipine (CARDENE-IV) 40 mg/200 mL (0.2 mg/mL) in 0.9% NaCl infusion, 5- 15 mg/hr, Intravenous, Continuous PRN, Cruz Ramirez PA ??? nicotine (NICODERM CQ) 14 MG/24HR patch 1 patch, 1 patch, Transdermal, Q24H, Bernardino Duran MD ??? nitroglycerin 50 mg/250 mL (0.2 mg/mL) infusion, 5-200 mcg/min, Intravenous, Continuous PRN, Cruz Ramirez PA ??? norepinephrine (LEVOPHED) 8 mg/250 mL (32 mcg/mL) in sodium chloride 0.9% infusion (premix), 0.02-0.3 mcg/kg/min, Intravenous, Continuous PRN, Cruz Ramirez PA ??? ondansetron (ZOFRAN) injection 4 mg, 4 mg, Intravenous, Q6H PRN, Cruz Ramirez PA ??? oxyCODONE-acetaminophen (PERCOCET) 5-325 MG per tablet 2 tablet, 2 tablet, Oral, Q4H PRN, Jose Wilson MD ??? phenylephrine (EFFIE-SYNEPHRINE) 50 mg/250 mL (0.2 mg/mL) in 0.9% NS infusion, 0.5-3 mcg/kg/min, Intravenous, Continuous PRN, Cruz Ramirez PA ??? potassium chloride (MICRO-K) CR capsule 40 mEq, 40 mEq, Oral, PRN OR potassium chloride (KLOR-CON) packet 40 mEq, 40 mEq, Oral, PRN, Cruz Ramirez PA ??? potassium chloride 20 mEq in 50 mL IVPB, 20 mEq, Intravenous, Q1H PRN OR potassium [id number] mEq in 50 mL IVPB, 20 mEq, Intravenous, Q1H PRN, Cruz Ramirez PA ??? propofol (DIPRIVAN) infusion 10 mg/mL 100 mL, 5-50 mcg/kg/min, Intravenous, Continuous PRN, Jose Wilson MD, Last Rate: 36.6 mL/hr at 04/07/18 1231, 50 mcg/kg/min at 04/07/18 1231 ??? racemic epinephrine (RACEPINEPHRINE) nebulizer solution 0.5 mL, 0.5 mL, Nebulization, Once PRN,Cruz Ramirez PA ??? sennosides-docusate sodium (SENOKOT-S) 8.6-50 MG tablet 2 tablet, 2 tablet, Oral, BID, Cruz Ramirez PA ??? sodium chloride 0.9 % flush 30 mL, 30 mL, Intravenous, Once PRN, Cruz Ramirez PA ??? Sodium chloride 0.9 % infusion, 30 mL/hr, Intravenous, Continuous PRN, Cruz Ramirez PA ??? vancomycin 1750 mg/500 mL 0.9% NS IVPB ([facility]), 15 mg/kg, Intravenous, Q12H, Cruz Ramirez PA ??? Vasopressin 20 Units in Sodium chloride 0.9 % 100 mL (0.2 Units/mL) infusion, 0.02-0.1 Units/min, Intravenous, Continuous PRN, Cruz Ramirez PA Facility-Administered Medications Ordered in Other Encounters: ??? aspirin tablet 325 mg, 325 mg, Oral, Nightly, Miguel Malin PA ??? Chlorhexidine Gluconate Cloth 2 % pads 1 application, 1 application, Topical, Q12H PRN, Miguel Malin PA dexmedetomidine 0.2-1.5 mcg/kg/hr dextrose 5 % with KCl 20 mEq 30 mL/hr Last Rate: 30 mL/hr (04/07/18 1331) DOBUTamine 2-20 mcg/kg/min DOPamine 2-20 mcg/kg/min EPINEPHrine 0.02-0.3 mcg/kg/min insulin regular infusion 1 unit/mL (CCU use) 0-50 Units/hr niCARdipine 5-15 mg/hr nitroglycerin 5-200 mcg/min norepinephrine 0.02-0.3 mcg/kg/min phenylephrine 0.5-3 mcg/kg/min propofol 5-50 mcg/kg/min Last Rate: 50 mcg/kg/min (04/07/18 1231) Sodium chloride 30 mL/hr vasopressin 0.02-0.1 Units/min Medications Prior to Admission Medication Sig Dispense Refill Last Dose ??? vitamin D (ERGOCALCIFEROL) 86249 units capsule capsule Take 50,000 Units by mouth 1 (One) Time Per Week. Takes on Wednesdays04/02/2018 History of present illness: Patient is currently post op AVR and MEGHA occlusion for severe and mod-sev AI due to a bicuspid aortic valve. He was seen preoperatively and underwent LHC with near normal coronary arteries. Patient is currently intubated and sedated. After discussion with Dr. Wilson it was noted that the patienthad atrial fibrillation during the operation. He was treated with amiodarone in the operating room and underwent MEGHA clipping. Social History Socioeconomic History ??? Marital status: Other Spouse name: Not on file ??? Number of children: Not on file ??? Years of education: Not on file ??? Highest education level: Not on file Social Needs ??? Financial resource strain: Not on file ??? Food insecurity - worry: Not on file ??? Food insecurity - inability: Not on file ??? Transportation needs - medical: Not on file ??? Transportation needs - non-medical: Not on file Occupational History ??? Not on file Tobacco Use ??? Smoking status: Current Every Day Smoker Packs/day: 1.00 Years: 30.00 Pack years: 30.00 Types: Cigarettes ??? Smokeless tobacco: Never Used ??? Tobacco comment: Pt reports 30+ year smoking history -cutting back Substance and Sexual Activity ??? Alcohol use: No ??? Drug use: Yes Frequency: 7.0 times per week Types: Marijuana Comment: uses daily -smokes about 1/2 gram daily ??? Sexual activity: Defer Other Topics Concern ??? Not on file Social History Narrative ??? Not on file Family History Problem Relation Age of Onset ??? Cancer Mother ??? Heart disease Father ??? Heart failure Father Review of Systems: Review of Systems Unable to perform ROS: intubated Objective Vitals: Blood pressure (!) 89/65, pulse 68, temperature 96.3 ??F (35.7 ??C), temperature source Core, resp.rate 16, height 182.9 cm (72.01 ), weight 122 kg (268 lb 15.4 oz), SpO2 95 %. Intake/Output Summary (Last 24 hours) at 04/07/2018 1432 Last data filed at 04/07/2018 1300 Gross per 24 hour Intake 1200 ml Output 905 ml Net 295 ml Physical Exam CONSTITUTIONAL: Intubated/sedated. In no acute distress. SKIN: Warm and dry. No rashes noted HEENT: Head is normocephalic and atraumatic. Mucous membranes are pink and moist. NECK: Supple without masses or thyromegaly. There is no jugular venous distention at 30??. LUNGS: Normal effort. Clear to auscultation bilaterally without wheezing, rhonchi, or rales anteriorally CARDIOVASCULAR: Regular rate with a normal S1 and S2. There is no murmur, gallop, rub, or click appreciated. Carotid upstroke was 2+ on the left and without bruit. There is mild peripheral edema. ABDOMEN: Soft and nondistended. No masses MUSCULOSKELETAL: No digital cyanosis NEUROLOGICAL: Intubated/sedated PSYCHIATRIC: Intubated/sedated Results Review: I reviewed the patient's new clinical results. Results from last 7 days Lab Units 04/07/18 1227 WBC 10*3/mm3 23.45* HEMOGLOBIN g/dL 12.8* HEMATOCRIT % 37.6* PLATELETS 10*3/mm3 72* Results from last 7 days Lab Units 04/07/18 1344 04/06/18 1314 SODIUM mmol/L 137 137 POTASSIUM mmol/L 4.1 3.9 CHLORIDE mmol/L 109 106 CO2 mmol/L 22.0 29.0 BUN mg/dL 11 12 CREATININE mg/dL 0.93 0.89 CALCIUM mg/dL 8.1* 9.0 BILIRUBIN mg/dL -- 0.4 ALK PHOS U/L -- 81 ALT (SGPT) U/L -- 46* AST (SGOT) U/L -- 31 GLUCOSE mg/dL 112* 94 Results from last 7 days Lab Units 04/07/18 1344 SODIUM mmol/L 137 POTASSIUM mmol/L 4.1 CHLORIDE mmol/L 109 CO2 mmol/L 22.0 BUN mg/dL 11 CREATININE mg/dL 0.93 GLUCOSE mg/dL 112* CALCIUM mg/dL 8.1* Results from last 7 days Lab Units 04/07/18 1227 04/06/18 1314 INR 1.28* 0.95 No results found for: TROPONINI Tele: Atrial fibrillation Assessment/Plan Assessment: 1. Paroxysmal AFib, treated with amiodarone in OR and post MEGHA occlusion 2. VHD s/p AVR with #25 Perimount valve 04/07/18 Plan: 1. Start amiodarone per protocol for atrial fibrillation. Will consider possible anticoagulation use starting in a few days post-op 2. Continue to monitor telemetry 3. Wean pressors as tolerated 4. ASA, statin. 5. Will continue to follow along. Radha Blum APRN obtained past medical, family history, social history, review of systems andfunctioned as a scribe for the remainder of the dictation for Dr. Singleton. Radha Blum APRN 04/07/18 2:32 PM Dictated utilizing Ganjion dictation I, Liza Singleton MD, personally performed the services as scribed by the above named individual. I have made any necessary edits and it is both accurate and complete. Liza Singleton MD, MSc, [facility] Interventional Cardiology [facility] documented in this encounter Nursing Notes * Kasey Malhotra RN - 04/11/2018 3:11 PM EST Discharged to home * Radha Fields PT - 04/11/2018 10:38 AM EST Problem: Patient Care Overview Goal: Plan of Care Review Outcome: Outcome(s) achieved Date Met: 04/11/18 04/11/18 0745 Coping/Psychosocial Plan of Care Reviewed With patient Plan of Care Review Progress improving OTHER Outcome Summary patient has met all mobility goals he is able to ambulate 400 ft and up and down steps without assist and has stable vitals. patient to D/C home with family assist * Brunilda Evans RN - 04/11/2018 3:39 AM EST Problem: Patient Care Overview Goal: Plan of Care Review Outcome: Ongoing (interventions implemented as appropriate) 04/11/186 04/11/18 0337 Coping/Psychosocial Plan of Care Reviewed With -- patient Plan of Care Review Progress -- improving OTHER Outcome Summary Picked up patient at 0200. Patient is alert and oriented. Denies pain. VSS. NAD. Onroom air. Adequate UO. Patient states he is feeling well and ready to go home when he can. No lines. No gtts. No pain meds needed. -- * Brunilda Evans RN - 04/11/2018 3:37 AM EST Problem: Patient Care Overview Goal: Plan of Care Review Outcome: Ongoing (interventions implemented as appropriate) Problem: Cardiac Surgery (Adult) Goal: Signs and Symptoms of Listed Potential Problems Will be Absent, Minimized or Managed (CardiacSurgery) Outcome: Ongoing (interventions implemented as appropriate) 04/11/186 Goal/Outcome Evaluation Problems Assessed (Cardiac Surgery) all Problems Present (Cardiac Surgery) bowel motility decreased * Dania Peña RN - 04/10/2018 5:20 PM EST Problem: Patient Care Overview Goal: Plan of Care Review Outcome: Ongoing (interventions implemented as appropriate) 04/10/18 1719 Coping/Psychosocial Plan of Care Reviewed With patient Plan of Care Review Progress improving OTHER Outcome Summary Pt waiting for tele bed. No changes. Problem: Cardiac Surgery (Adult) Goal: Signs and Symptoms of Listed Potential Problems Will be Absent, Minimized or Managed (CardiacSurgery) Outcome: Ongoing (interventions implemented as appropriate) 04/10/181718 Goal/Outcome Evaluation Problems Assessed (Cardiac Surgery) all Problems Present (Cardiac Surgery) none * Radha Fields, PT - 04/10/2018 1:26 PM EST Problem: Patient Care Overview Goal: Plan of Care Review Outcome: Ongoing (interventions implemented as appropriate) 04/10/18 1050 Coping/Psychosocial Plan of Care Reviewed With patient OTHER Outcome Summary patient able to increase ambulation to 450 ft no LOB and stable vitals * Nallely Rubi - 04/10/2018 11:06 AM EST Pt. Referred for Phase II Cardiac Rehab. Staff discussed benefits of exercise, program protocol, and educational material provided. Teach back verified. Permission granted from patient for staff to fax referral information to [facility] at this time. Staff to fax referral info to [facility]. * Dipti Lou RN - 04/10/2018 2:16 AM EST Problem: Patient Care Overview Goal: Plan of Care Review Outcome: Ongoing (interventions implemented as appropriate) 04/10/18 0214 Coping/Psychosocial Plan of Care Reviewed With patient Plan of Care Review Progress improving OTHER Outcome Summary Pt. intact neuro, ambulated before bed, up with 1. On room air- 2L NC. VSS. Awaitingtele bed. * Jules Rivera RN - 04/09/2018 5:23 PM EST Problem: Patient Care Overview Goal: Plan of Care Review Outcome: Ongoing (interventions implemented as appropriate) 04/09/18 1721 Coping/Psychosocial Plan of Care Reviewed With patient Plan of Care Review Progress improving OTHER Outcome Summary Model patient s/p AVR, only peripheral IV remains, good appetite, great ambulation,home soon Problem: Cardiac Surgery (Adult) Goal: Signs and Symptoms of Listed Potential Problems Will be Absent, Minimized or Managed (CardiacSurgery) Outcome: Ongoing (interventions implemented as appropriate) 04/09/18 1721 Goal/Outcome Evaluation Problems Assessed (Cardiac Surgery) all Problems Present (Cardiac Surgery) none * Saida Silver, PT - 04/09/2018 3:44 PM EST Problem: Patient Care Overview Goal: Plan of Care Review Outcome: Ongoing (interventions implemented as appropriate) 04/09/18 1351 Coping/Psychosocial Plan of Care Reviewed With patient Plan of Care Review Progress improving OTHER Outcome Summary Pt increased ambulation distance to 300ft with CGA, progressing to SBA. Pt's mobility limited by periods of increased SOA; pt able to recover quickly with rest. Pt c/o increased chestpain after ambulation. Continue to progress as appropriate. * Dipti Lou RN - 04/09/2018 2:53 AM EST Problem: Patient Care Overview Goal: Plan of Care Review Outcome: Ongoing (interventions implemented as appropriate) 04/09/18 0248 Coping/Psychosocial Plan of Care Reviewed With patient Plan of Care Review Progress improving OTHER Outcome Summary Pt. intact neuro, ambulated in manuel before bed with 1 assist. VSS. On 2L NC. PRN pain medication given. Pt. voiding spontaneously. Cordis, PIVL remains. * Armando Pillai RN - 04/08/2018 5:18 PM EST Problem: Patient Care Overview Goal: Plan of Care Review Outcome: Ongoing (interventions implemented as appropriate) 04/08/18 1716 Coping/Psychosocial Plan of Care Reviewed With patient Plan of Care Review Progress improving OTHER Outcome Summary 1 Neuro- Intact. Ambulated x 2. 2 Respiratory- 2 LT NC kept sats >95%. CT d/cd. 3. Cardiac- NSR (HR 60-70 bpm) Normotensive (115-130 mmhg). Wires d/c'd. 4. GI- Cardiac ADA diet 5. - Rouse d/'c'd Problem: Cardiac Surgery (Adult) Goal: Signs and Symptoms of Listed Potential Problems Will be Absent, Minimized or Managed (CardiacSurgery) Outcome: Ongoing (interventions implemented as appropriate) 04/08/18 1716 Goal/Outcome Evaluation Problems Assessed (Cardiac Surgery) all Problems Present (Cardiac Surgery) none * Saida Silver, PT - 04/08/2018 3:33 PM EST Problem: Patient Care Overview Goal: Plan of Care Review Outcome: Ongoing (interventions implemented as appropriate) 04/08/18 1002 Coping/Psychosocial Plan of Care Reviewed With patient OTHER Outcome Summary PT initial evaluation completed for pt s/p AVR presenting with decreased functionalmobility. Pt ambulated 200ft with CGA 1+1. Pt's decreased independence warrants kiss mixer care. Recommend D/C home with assistance. * Dipti Lou, RN - 04/08/2018 6:29 AM EST Problem: Patient Care Overview Goal: Plan of Care Review Outcome: Ongoing (interventions implemented as appropriate) 04/08/18 0628 Coping/Psychosocial Plan of Care Reviewed With patient Plan of Care Review Progress improving OTHER Outcome Summary Pt. oriented x 4. On 4L NC. VSS. Levophed weaned off, on insulin drip/amiodarone. Pain medication given prn. UP to chair * Nelly Gracia RN - 04/07/2018 5:11 PM EST Problem: Patient Care Overview Goal: Plan of Care Review Outcome: Ongoing (interventions implemented as appropriate) 04/07/18 1709 Coping/Psychosocial Plan of Care Reviewed With patient;family Plan of Care Review Progress improving OTHER Outcome Summary Out of OR @ 1200 s/p AVR, on small doses of levophed throughout the day, 1L albumingiven, swan sherif readings-- never accurate d/c'd per order, bleeding minimal, UOP good, weaning ventilator currently, 2 percocets given pt appears anxious at times but is easily redirected. Problem: Skin Injury Risk (Adult) Goal: Identify Related Risk Factors and Signs and Symptoms Outcome: Ongoing (interventions implemented as appropriate) 04/07/181708 Skin Injury Risk (Adult) Related Risk Factors (Skin Injury Risk) critical care admission;medical devices;mobility impaired Goal: Skin Health and Integrity Outcome: Ongoing (interventions implemented as appropriate) 04/07/181708 Skin Injury Risk (Adult) Skin Health and Integrity making progress toward outcome Problem: Ventilation, Mechanical Invasive (Adult) Goal: Signs and Symptoms of Listed Potential Problems Will be Absent, Minimized or Managed (Ventilation, Mechanical Invasive) Outcome: Ongoing (interventions implemented as appropriate) 04/07/181708 Goal/Outcome Evaluation Problems Assessed (Mechanical Ventilation, Invasive) all Problems Present (Mech Vent, Invasive) immobility Problem: Cardiac Surgery (Adult) Goal: Signs and Symptoms of Listed Potential Problems Will be Absent, Minimized or Managed (CardiacSurgery) Outcome: Ongoing (interventions implemented as appropriate) 04/07/181708 Goal/Outcome Evaluation Problems Assessed (Cardiac Surgery) all Problems Present (Cardiac Surgery) cardiac complications;hemodynamic instability;pain Problem: Pain, Acute (Adult) Goal: Identify Related Risk Factors and Signs and Symptoms Outcome: Ongoing (interventions implemented as appropriate) 04/07/181708 Pain, Acute (Adult) Related Risk Factors (Acute Pain) surgery;psychosocial factor;fear;patient perception Signs and Symptoms (Acute Pain) facial mask of pain/grimace Goal: Acceptable Pain Control/Comfort Level Outcome: Ongoing (interventions implemented as appropriate) 04/07/181708 Pain, Acute (Adult) Acceptable Pain Control/Comfort Level making progress toward outcome * Nelly Gracia RN - 04/07/2018 4:10 PM EST Spoke with regarding concern of swan sherif catheter not being in appropriate position. PA pressures reading negative numbers, cardiac output/index reading severely low (2.1/0.8). Was made aware pt DEE numbers were significantly higher. Orders received to d/c swan sherif catheter and wean/ext ubate pt. Will continue to monitor patient for s/s of decreased cardiac output and a remington-track is now monitoring his numbers. The remington-track is corresponding with the DEE calculation. documented in this encounter OR Notes * Op Note - Jose Wilson MD - 04/07/2018 7:52 AM EST Operative Report Carlos Manuel Rojas II : 1965 CSN: [id number] Date:04/07/18 Preop Diagnosis: #1 aortic stenosis #2 aortic insufficiency Postop Diagnosis: #1 aortic stenosis #2 aortic insufficiency #3 atrial fibrillation Procedure: #1 aortic valve replacement (#25 Perimount biologic prosthesis). #2 placement of left atrial appendage occlusion clip Surgeon: Jose Wilson MD Television Announcer: Armando Ramirez PA-C Indications: 52-year-old male with long standing history of heart murmur and recent onsetshortness of breath and exercise related chest pain. Workup including echocardiogram was consistentwith critical aortic stenosis. Cardiac catheterization revealed normal coronary arteries. Carotid duplex and spirometry were normal. The patient was evaluated subsequently underwent multiple dental extractions in preparation for aortic valve replacement. He is brought to the hospital at this point in time for elective aortic valve replacement. During the operative procedure he had several episodes of atrial fibrillation with a relative degree of persistence. Because of this and because of the fact that his left ventricle was quite large and hypertrophied I felt that the addition of a left atrial appendage occlusion clip was warranted. Operative Findings: The aortic valve was extensively calcified. Once all calcium had been debrided the annulus was relatively supple and accepted a 25 mm valve without difficulty (15 2-0 pledgeted Ethibond sutures). A #45 Left atrial appendage occlusion clip (Atricure) was placed. TA confirmed valve placement without cynthia-valvular leak and absence of flow in MEGHA. MQB=375 min XC= 129 min Off CPB without complication and without pressor support EBL:750 cc Operative Narrative: The patient was brought to the operating room and prepared for intervention inthe usual fashion. A timeout was called. The patient's identity, the proposed procedure, the availability of appropriate equipment, the availability of appropriate for personnel, the patient's allergies, and the administration of preoperative antibiotics was verified. Following satisfactory inhalation anesthesia the patient was prepped and draped in the usual manner. Anesthesia placed an internaljugular access line and placed a [place] catheter. A brachial arterial line had previously been placed and prepped in holding. A midline sternal incision was carried down to the sternum. The sternum was split hemoglobin obtained with Bovie cauterization. The pericardium was opened. The patient was heparinized. Aortic and atrial lines retrograde cardioplegia line in the left ventricular vent lines were placed and the patient was placed on full cardiopulmonary bypass. The patient developed persistent runs of atrial fibrillation with any manipulation of the heart. Topical cooling was obtained by adding cold saline to the pericardial well. Additional amounts of cold saline were utilized during the procedure to maintain left ventricular cooling. The aorta was crossclamped. Cold blood cardioplegia solution was infused retrograde. The aorta was opened during this process and additional cardioplegia was administered directly into the right and left coronary ostia. A second dose of cardioplegia solution was given in 1 hour in a retrograde manner. With the heart in full systolic arrest the transverse opening in the aorta was enlarged and the aortic valve was visualized. The valve was tricuspid extensively calcified, almost completely immobilized by the calcium. The valve was excised with a #15 blade, the valve scissors, and pituitary rongeuers. Attempts were made to avoid the calcium falling into the left ventricle or being left in the aorta. Once the annulus was completely cleared of calcium ventricle and aorta were irrigated with copious amounts of iced cold saline. Section of [place] aliquots of saline.. A Ray-Shira sponge was passed into the left ventricle and removed with a swirling motion to remove loose fragments of calcium. 15 2-0 pledgeted sutures were placed in the valveannulus and into the valve sewing ring. The valve was seated and the sutures were tied. The 2 Ethibond sutures between the right coronary artery and the commissure of the right and left coronary cusps had to be removed and replaced. An additional 4-0 Prolene pledgeted suture passed from outside theaorta through the annulus and through the sewing ring of the prosthetic valve. This suture was tiedand all sutures were cut. The aorta was closed with 2 layers of 4-0 Prolene. A orthotic finish grinding technician was administered in the usual manner while the lungs were insufflated and the patient was maintained in reverseTrendelenburg. A slotted vent was placed in the aorta. Air was aspirated from the apex of the left ventricle with a 22-gauge needle and syringe. Once it was apparent on TA that the air had been removed the aortic cross-clamp was removed. The patient developed ventricular fibrillation and cardioversion on 2 occasions was necessary. Once in a stable sinus rhythm patient again developed atrial fibrillation necessitating countershocks cardioversion the patient was weaned from cardiopulmonary bypass. Retrograde cardioplegia line was removed the aortic vent line was removed and the left ventricular vent was removed and these areas were oversewn with 4-0 Prolene. The base of the left atrial appendage was measured and a #45 left atrial occlusion clip was applied. The patient was then weaned from cardiopulmonary bypass. Ventricular pacing wires were placed and brought out through a separate stab wound. Anterior and posterior chest tubes were placed and brought out through separate wounds. Aortic and venous lines were removed and protamine was administered. Hemostasis was noted to be adequate. The sternum was closed with a #6 sternal wires. The remainder of the wound was closed with 0 Vicryl, 2-0 Vicryl, and 4-0 Monocryl. Sterile dressings were placed the patient was transported to the surgical intensive care unit in stable condition. Jose Wilson MD [facility] 04/07/18 1:19 PM * Brief Op Note - Jose Wilson MD - 04/07/2018 7:52 AM EST AORTIC VALVE REPAIR/REPLACEMENT, TRANSESOPHAGEAL ECHOCARDIOGRAM WITH ANESTHESIA, LEFT ATRIAL APPENDAGE OCCLUSION Progress Note Carlos Manuel Rojas II 04/07/2018 Pre-op Diagnosis: Aortic Stenosis AI Post-Op Diagnosis Codes: Aortic Stenosis AI Atrial Fibrillation Procedure/CPT?? Codes: Procedure(s): MEDIAN STERNOTOMY, AORTIC VALVE REPLACEMENT TRANSESOPHAGEAL ECHOCARDIOGRAM WITH ANESTHESIA LEFT ATRIAL APPENDAGE OCCLUSION Surgeon(s): Jose Wilson MD Anesthesia: General Staff: Front End Architect: Saima Mathew RN; Sheree Martínez RN Local Government Legislator: Marc Garcia; Annemarie Gross Scrub Person: Bennie Adame Orthopedic Specialist: Katerin Veras Television Announcer: Cruz Ramirez PA Estimated Blood Loss: 750 cc 500 cc replaced with cell saver Urine Voided: 550 mL Specimens: ID Type Source Tests Collected by Time A : Tissue Aortic Leaflet TISSUE PATHOLOGY EXAM Jose Wilson MD 04/07/2018 0758 Drains: NG/OG Tube Nasogastric Right nostril (Active) Placement Verification X-ray 04/07/2018 12:00 PM Site Assessment Clean;Dry;Intact 04/07/2018 12:00 PM Securement anchored to nostril center with adhesive device 04/07/2018 12:00 PM Secured at (cm) 63 04/07/2018 12:00 PM Status Clamped 04/07/2018 12:00 PM Surrounding Skin Intact;Dry 04/07/2018 12:00 PM Urethral Catheter Silicone;Temperature probe 16 Fr. (Active) Daily Indications < 24 hr post op 04/07/2018 12:00 PM Site Assessment Clean;Skin intact 04/07/2018 12:00 PM Collection Container Standard drainage bag 04/07/2018 12:00 PM Securement Method Securing device 04/07/2018 12:00 PM Catheter care complete Yes 04/07/2018 12:00 PM Output (mL) 50 mL 04/07/2018 12:00 PM Y Chest Tube 1 and 2 1 Mediastinal 2 Mediastinal (Active) Function -20 cm H2O 04/07/2018 12:00 PM Safety all connections secured;suction checked 04/07/2018 12:00 PM Drainage Description 1 Sanguineous 04/07/2018 12:00 PM Air Leak/Fluctuation 1 fluctuation not present;air leak present 04/07/2018 12:00 PM Dressing Type 1 Gauze 04/07/2018 12:00 PM Dressing Status 1 Clean;Dry;Intact 04/07/2018 12:00 PM Site Assessment 1 Clean;Dry;Intact 04/07/2018 12:00 PM Surrounding Skin 1 Intact;Dry 04/07/2018 12:00 PM Securement 1 tubing anchored to body distal to insertion site with tape 04/07/2018 12:00 PM Drainage Description 2 Sanguineous 04/07/2018 12:00 PM Air Leak/Fluctuation 2 fluctuation present;air leak present 04/07/2018 12:00 PM Dressing Type 2 Gauze 04/07/2018 12:00 PM Dressing Status 2 Clean;Dry;Intact 04/07/2018 12:00 PM Site Assessment 2 Clean;Dry;Intact 04/07/2018 12:00 PM Surrounding Skin 2 Intact;Dry 04/07/2018 12:00 PM Securement 2 tubing anchored to body distal to insertion site with tape 04/07/2018 12:00 PM Output (mL) 60 mL 04/07/2018 12:00 PM [REMOVED] Chest Tube 2 Mediastinal (Removed) [REMOVED] Y Chest Tube 1, 2, and 3 1 Mediastinal 1 Fr. 2 Mediastinal 32 Fr. (Removed) Findings: with huge amount of calcification. # 25 Perimount valve placed without complication. Persistent a. Fib in OR pre and post CPB, therefore left atrial closure device placed. Complications: none Jose Wilson MD Date: 04/07/2018 Time: 1:13 PM documented in this encounter Miscellaneous Notes * Therapy Treatment Note - Radha Fields, PT - 04/10/2018 10:50 AM EST Acute Care - Physical Therapy Treatment Note [facility] Patient Name: Carlos Manuel Rojas II : 1965 Today's Date: 04/10/2018 Onset of Illness/Injury or Date of Surgery: 04/07/18 Date of Referral to PT: 04/07/18 Referring Physician: MALIA Ramirez Admit Date: 04/07/2018 Visit Dx: ICD-10-CM ICD-9-CM 1. Persistent atrial fibrillation (CMS/HCC) I48.1 427.31 2. AVD (aortic valve disease) I35.9 424.1 3. Aortic valve disorder I35.9 424.1 4. Impaired functional mobility, balance, gait, and endurance Z74.09 V49.89 Patient Active Problem List Diagnosis ??? Rheumatic aortic stenosis ??? 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 Rheumatic aortic valve insufficiency ??? Tobacco dependence ??? Valvular disease ??? 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 04/07/18 ??? H/O: rheumatic fever ??? GERD (gastroesophageal reflux disease) Therapy Treatment Rehabilitation Treatment Summary Row Name 04/10/18 1050 Treatment Time/Intention Discipline physical therapist -NAOMI Document Type therapy note (daily note) -NAOMI Subjective Information no complaints -NAOMI Mode of Treatment physical therapy -NAOMI Care Plan Review care plan/treatment goals reviewed;risks/benefits reviewed;patient/other agree to care plan -NAOMI Therapy Frequency (PT Clinical Impression) daily -NAOMI Patient Effort good -NAOMI Existing Precautions/Restrictions cardiac;oxygen therapy device and L/min;sternal -NAOMI Recorded by [NAOMI] Radha Fields, PT 04/10/18 1325 Row Name 04/10/18 1050 Vital Signs Pre Systolic BP Rehab 135 -NAOMI Pre Treatment Diastolic BP 80 -NAOMI Post Systolic BP Rehab 150 -NAOMI Post Treatment Diastolic BP 80 -NAOMI Pretreatment Heart Rate (beats/min) 80 -NAOMI Posttreatment Heart Rate (beats/min) 88 -NAOMI Pre SpO2 (%) 93 -NAOMI O2 Delivery Pre Treatment room air -NAOMI Post SpO2 (%) 95 -NAOMI O2 Delivery Post Treatment room air -NAOMI Pre Patient Position Sitting -NAOMI Intra Patient Position Standing -NAOMI Post Patient Position Sitting -NAOMI Recorded by [NAOMI] Radha Fields, PT 04/10/18 1325 Row Name 04/10/18 1050 Cognitive Assessment/Intervention- PT/OT Affect/Mental Status (Cognitive) WFL -NAOMI Orientation Status (Cognition) oriented x 4 -NAOMI Follows Commands (Cognition) WFL -NAOMI Cognitive Function (Cognitive) WFL -NAOMI Personal Safety Interventions gait belt;nonskid shoes/slippers when out of bed -NAOMI Recorded by [NAOMI] Radha Fields, PT 04/10/18 1325 Row Name 04/10/18 1050 Bed Mobility Assessment/Treatment Comment (Bed Mobility) patient is OOB and returns to the chair -NAOMI Recorded by [NAOMI] Radha Fields, PT 04/10/18 1325 Row Name 04/10/18 1050 Transfer Assessment/Treatment Transfer Assessment/Treatment sit-stand transfer;stand-sit transfer -NAOMI Recorded by [NAOMI] Radha Fields, PT 04/10/18 1325 Row Name 04/10/18 1050 Sit-Stand Transfer Sit-Stand [place] (Transfers) contact guard -NAOMI Recorded by [NAOMI] Radha Fields, PT 04/10/18 1325 Row Name 04/10/18 1050 Stand-Sit Transfer Stand-Sit [place] (Transfers) contact guard -NAOMI Recorded by [NAOMI] Radha Fields, PT 04/10/18 1325 Row Name 04/10/18 1050 Gait/Stairs Assessment/Training Gait/Stairs Assessment/Training gait/ambulation independence -NAOMI [place] Level (Gait) contact guard -NAOMI Distance in Feet (Gait) 450 -NAOMI Pattern (Gait) step-through -NAOMI Deviations/Abnormal Patterns (Gait) stride length decreased -NAOMI Comment (Gait/Stairs) no LOB with ambulation mild SOA -NAOMI Recorded by [NAOMI] Radha Fields, PT 04/10/18 1325 Row Name 04/10/18 1050 Therapeutic Exercise 48963 - PT Therapeutic Activity Minutes 23 -NAOMI Recorded by [NAOMI] Radha Fields, PT 04/10/18 1325 Row Name 04/10/18 1050 Lower Extremity Seated Therapeutic Exercise Performed, Seated Lower Extremity (Therapeutic Exercise) hip flexion/extension;knee flexion/extension;ankle dorsiflexion/plantarflexion -NAOMI Exercise Type, Seated Lower Extremity (Therapeutic Exercise) AROM (active range of motion) -NAOMI Sets/Reps Detail, Seated Lower Extremity (Therapeutic Exercise) 04/09 -NAOMI Recorded by [NAOMI] Radha Fields, PT 04/10/18 1325 Row Name 04/10/18 1050 Static Sitting Balance Level of [place] (Unsupported Sitting, Static Balance) independent -NAOMI Sitting Position (Unsupported Sitting, Static Balance) sitting in chair -NAOMI Time Able to Maintain Position (Unsupported Sitting, Static Balance) more than 5 minutes -NAOMI Recorded by [NAOMI] Radha Fields, PT 04/10/18 1325 Row Name 04/10/18 1050 Static Standing Balance Level of [place] (Supported Standing, Static Balance) supervision -NAOMI Time Able to Maintain Position (Supported Standing, Static Balance) 3 to 4 minutes -NAOMI Recorded by [NAOMI] Radha Fields, PT 04/10/18 1325 Row Name 04/10/18 1050 Positioning and Restraints Pre-Treatment Position sitting in chair/recliner -NAOMI Post Treatment Position chair -NAOMI In Chair notified nsg;reclined;sitting;call light within reach -NAOMI Recorded by [NAOMI] Radha Fields, PT 04/10/18 1325 Row Name 04/10/18 1050 Pain Scale: Numbers Pre/Post-Treatment Pain Scale: Numbers, Pretreatment 0/10 - no pain -NAOMI Pain Scale: Numbers, Post-Treatment 0/10 - no pain -NAOMI Recorded by [NAOMI] Radha Fields, PT 04/10/18 1325 Row Name Wound 04/07/18 0744 chest incision Wound - Properties Group Date first assessed: 04/07/18 [TF] Time first assessed: 743 [TF] Location: chest [TF] Type: incision [TF] Recorded by: [TF] Saima Mathew RN 04/07/18 0744 Row Name 04/10/18 1050 Coping Observed Emotional State calm;cooperative -NAOMI Verbalized Emotional State acceptance -NAOMI Recorded by [NAOMI] Radha Fields, PT 04/10/18 1325 Row Name 04/10/18 1050 Plan of Care Review Plan of Care Reviewed With patient -NAOMI Recorded by [NAOMI] Radha Fields, PT 04/10/18 1325 Row Name 04/10/18 1050 Outcome Summary/Treatment Plan (PT) Daily Summary of Progress (PT) progress toward functional goals as expected -NAOMI Anticipated Discharge Disposition (PT) home with assist -NAOMI Recorded by [NAOMI] Radha Fields, PT 04/10/18 1325 User Hernandez (r) = Recorded By, (t) = Taken By, (c) = Cosigned By Initials Name Effective Dates Discipline NAOMI Radha Fields, PT 09/16/14 - PT TF Saima Mathew RN 09/14/15 - Nurse Wound 04/07/18 0744 chest incision (Active) Dressing Appearance open to air 04/10/2018 12:00 PM Closure Approximated;Liquid skin adhesive 04/10/2018 12:00 PM Drainage Amount none 04/10/2018 12:00 PM Care, Wound cleansed with;antimicrobial agent applied;other (see comments) 04/09/2018 8:00 PM Physical Therapy Education Title: PT OT ENTER[employer]ISE RECORDS ANALYST Therapies (In Progress) Topic: Physical Therapy (In Progress) Point: Mobility training (In Progress) Learning Progress Summary Patient Acceptance, E, NR by NAOMI at 04/10/2018 10:50 AM Acceptance, E, NR by CARLOS at 04/09/2018 1:51 PM Acceptance, E, NR by CARLOS at 04/08/2018 10:02 AM Point: Home exercise program (In Progress) Learning Progress Summary Patient Acceptance, E, NR by NAOMI at 04/10/2018 10:50 AM Acceptance, E, NR by CARLOS at 04/09/2018 1:51 PM Point: Body mechanics (In Progress) Learning Progress Summary Patient Acceptance, E, NR by NAOMI at 04/10/2018 10:50 AM Acceptance, E, NR by KR at 04/09/2018 1:51 PM Acceptance, E, NR by KR at 04/08/2018 10:02 AM Point: Precautions (In Progress) Learning Progress Summary Patient Acceptance, E, NR by NAOMI at 04/10/2018 10:50 AM Acceptance, E, NR by KR at 04/09/2018 1:51 PM Acceptance, E, NR by KR at 04/08/2018 10:02 AM User Hernandez Initials Effective Dates Name Provider Type Discipline NAOMI 09/16/14 - Radha Fields, PT Physical Therapist PT KR 07/01/17 - Saida Silver, PT Physical Therapist PT PT Recommendation and Plan Anticipated Discharge Disposition (PT): home with assist Therapy Frequency (PT Clinical Impression): daily Outcome Summary/Treatment Plan (PT) Daily Summary of Progress (PT): progress toward functional goals as expected Anticipated Discharge Disposition (PT): home with assist Plan of Care Reviewed With: patient Outcome Summary: patient able to increase ambulation to 450 ft no LOB and stable vitals Outcome Measures Row Name 04/10/18 1050 04/09/18 1351 04/08/18 1002 How much help from another person do you currently need... Turning from your back to your side while in flat bed without using bedrails? 3 -NAOMI 3 -KR 3 -KR Moving from lying on back to sitting on the side of a flat bed without bedrails? 3 -NAOMI 3 -KR 3 -KR Moving to and from a bed to a chair (including a wheelchair)? 3 -NAOMI 3 -KR 3 -KR Standing up from a chair using your arms (e.g., wheelchair, bedside chair)? 3 - NAOMI 3 -KR 3 -KR Climbing 3-5 steps with a railing? 3 -NAOMI 3 -KR 2 -KR To walk in hospital room? 3 -NAOMI 3 -KR 3 -KR AM-PAC 6 Clicks Score 18 -NAOMI 18 -KR 17 -KR Functional Assessment Outcome Measure Options -- AM-PAC 6 Clicks Basic Mobility (PT) -KR AM-PAC 6 Clicks Basic Mobility (PT) -KR User Hernandez (r) = Recorded By, (t) = Taken By, (c) = Cosigned By Initials Name Provider Type Radha Lucas PT Physical Therapist KR Saida Silver, PT Physical Therapist Time Calculation: PT Charges Row Name 04/10/18 1050 Time Calculation Start Time 1050 -NAOMI PT Received On 04/10/18 -NAOMI PT Goal Re-Cert Due Date 04/18/18 -NAOMI Time Calculation- PT Total Timed Code Minutes- PT 23 minute(s) -NAOMI Timed Charges 96395 - PT Therapeutic Activity Minutes 23 -NAOMI User Hernandez (r) = Recorded By, (t) = Taken By, (c) = Cosigned By Initials Name Provider Type Radha Lucas, PT Physical Therapist Therapy Suggested Charges Code Minutes Charges 11951 (CPT??) Hc Pt Neuromusc Re Education Ea 15 Min 02277 (CPT??) Hc Pt Ther Proc Ea 15 Min 10226 (CPT??) Hc Gait Training Ea 15 Min 14265 (CPT??) Hc Pt Therapeutic Act Ea 15 Min 23 2 51965 (CPT??) Hc Pt Manual Therapy Ea 15 Min 31588 (CPT??) Hc Pt Iontophoresis Ea 15 Min 24036 (CPT??) Hc Pt Elec Stim Ea-Per 15 Min 63295 (CPT??) Hc Pt Ultrasound Ea 15 Min 48287 (CPT??) Hc Pt Self Care/Mgmt/Train Ea 15 Min 85398 (CPT??) Hc Pt Prosthetic (S) Train Initial Encounter, Each 15 Min 26221 (CPT??) Hc Pt Orthotic(S)/Prosthetic(S) Encounter, Each 15 Min 78580 (CPT??) Hc Orthotic(S) Mgmt/Train Initial Encounter, Each 15min Total 23 2 Therapy Charges for Today Code Description Service Date Service Provider Modifiers Qty [id number] HC PT THERAPEUTIC ACT EA 15 MIN 04/10/2018 Radha Fields, PT GP 2 PT G-Codes Outcome Measure Options: AM-PAC 6 Clicks Basic Mobility (PT) AM-PAC 6 Clicks Score: 18 Radha Fields, [place] 04/10/2018 * Therapy Treatment Note - Saida Silver, PT - 04/09/2018 3:45 PM EST Acute Care - Physical Therapy Treatment Note [facility] Patient Name: Carlos Manuel Rojas II : 1965 Today's Date: 04/09/2018 Onset of Illness/Injury or Date of Surgery: 04/07/18 Date of Referral to PT: 04/07/18 Referring Physician: MALIA Ramirez Admit Date: 04/07/2018 Visit Dx: ICD-10-CM ICD-9-CM 1. Persistent atrial fibrillation (CMS/HCC) I48.1 427.31 2. AVD (aortic valve disease) I35.9 424.1 3. Aortic valve disorder I35.9 424.1 4. Impaired functional mobility, balance, gait, and endurance Z74.09 V49.89 Patient Active Problem List Diagnosis ??? Rheumatic aortic stenosis ??? 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 Rheumatic aortic valve insufficiency ??? Tobacco dependence ??? Valvular disease ??? 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 04/07/18 ??? H/O: rheumatic fever ??? GERD (gastroesophageal reflux disease) Therapy Treatment Rehabilitation Treatment Summary Row Name 04/09/18 1351 Treatment Time/Intention Discipline physical therapist -KR Document Type therapy note (daily note) -KR Subjective Information no complaints -KR Mode of Treatment physical therapy -KR Care Plan Review care plan/treatment goals reviewed;risks/benefits reviewed;patient/other agree to care plan -KR Therapy Frequency (PT Clinical Impression) daily -KR Patient Effort good -KR Existing Precautions/Restrictions cardiac;fall;sternal -KR Recorded by [KR] Saida Silver, PT 04/09/18 6139 Row Name 04/09/18 1351 Vital Signs Pre Systolic BP Rehab 136 -KR Pre Treatment Diastolic BP 82 -KR Post Systolic BP Rehab 162 -KR Post Treatment Diastolic BP 87 -KR Pretreatment Heart Rate (beats/min) 70 -KR Posttreatment Heart Rate (beats/min) 79 -KR Pre SpO2 (%) 93 -KR O2 Delivery Pre Treatment room air -KR Post SpO2 (%) 95 -KR O2 Delivery Post Treatment room air -KR Pre Patient Position Sitting -KR Intra Patient Position Standing -KR Post Patient Position Sitting -KR Recorded by [KR] Saida Silver, PT 04/09/18 1543 Row Name 04/09/18 1351 Cognitive Assessment/Intervention Additional Documentation Cognitive Assessment/Intervention (Group) -KR Recorded by [KR] Saida Silver, PT 04/09/18 1543 Row Name 04/09/18 1351 Cognitive Assessment/Intervention- PT/OT Affect/Mental Status (Cognitive) WFL -KR Orientation Status (Cognition) oriented x 4 -KR Follows Commands (Cognition) WFL -KR Cognitive Function (Cognitive) WFL -KR Personal Safety Interventions fall prevention program maintained;gait belt;nonskid shoes/slippers when out of bed -KR Recorded by [KR] Saida Silver, PT 04/09/18 1543 Row Name 04/09/18 1351 Safety Issues, Functional Mobility Impairments Affecting Function (Mobility) endurance/activity tolerance;shortness of breath;pain -KR Recorded by [KR] Saida Silver, PT 04/09/18 1543 Row Name 04/09/18 1351 Bed Mobility Assessment/Treatment Comment (Bed Mobility) UIC -KR Recorded by [KR] Saida Silver, PT 04/09/18 1543 Row Name 04/09/18 1351 Transfer Assessment/Treatment Transfer Assessment/Treatment sit-stand transfer;stand-sit transfer -KR Comment (Transfers) VC's for sequencing. -KR Recorded by [KR] Saida Silver, PT 04/09/18 1543 Row Name 04/09/18 1351 Sit-Stand Transfer Sit-Stand [place] (Transfers) contact guard;verbal cues -KR Recorded by [KR] Saida Silver, PT 04/09/18 1543 Row Name 04/09/18 1351 Stand-Sit Transfer Stand-Sit [place] (Transfers) contact guard;verbal cues -KR Recorded by [KR] Saida Silver, PT 04/09/18 1543 Row Name 04/09/18 1351 Gait/Stairs Assessment/Training Gait/Stairs Assessment/Training gait/ambulation independence -KR [place] Level (Gait) contact guard;verbal cues progressed to SBA -KR Distance in Feet (Gait) 300 -KR Pattern (Gait) step-through -KR Deviations/Abnormal Patterns (Gait) other (see comments) decreased step length -KR Bilateral Gait Deviations heel strike decreased -KR Comment (Gait/Stairs) Pt demonstrated step through gait pattern with good stability and appropriategait speed. Pt with periods of increased SOA; recovered quickly with rest. -KR Recorded by [KR] Saida Silver, PT 04/09/18 154 Row Name 04/09/18 135 Motor Skills Assessment/Interventions Additional Documentation Balance (Group);Therapeutic Exercise (Group) -KR Recorded by [KR] Saida Silver, PT 04/09/18 154 Row Name 04/09/18 135 Therapeutic Exercise Therapeutic Exercise seated, lower extremities -KR Additional Documentation Therapeutic Exercise (Row) -KR 43180 - PT Therapeutic Exercise Minutes 4 -KR 93029 - PT Therapeutic Activity Minutes 12 -KR Recorded by [KR] Saida Silver, PT 04/09/18 154 Row Name 04/09/18 135 Lower Extremity Seated Therapeutic Exercise Performed, Seated Lower Extremity (Therapeutic Exercise) hip flexion/extension;ankle dorsiflexion/plantarflexion;LAQ (long arc quad), knee extension -KR Exercise Type, Seated Lower Extremity (Therapeutic Exercise) AROM (active range of motion) -KR Sets/Reps Detail, Seated Lower Extremity (Therapeutic Exercise) BLE 04/09 -KR Recorded by [KR] Saida Silver, PT 04/09/18 1543 Row Name 04/09/18 135 Balance Balance static sitting balance;static standing balance -KR Recorded by [KR] Saida Silver, PT 04/09/18 154 Row Name 04/09/18 1351 Static Sitting Balance Level of [place] (Unsupported Sitting, Static Balance) supervision -KR Sitting Position (Unsupported Sitting, Static Balance) sitting in chair -KR Recorded by [KR] Saida Silver, PT 04/09/18 154 Row Name 04/09/18 1351 Static Standing Balance Level of [place] (Supported Standing, Static Balance) supervision -KR Recorded by [KR] Saida Silver, PT 04/09/18 154 Row Name 04/09/18 135 Positioning and Restraints Pre-Treatment Position sitting in chair/recliner -KR Post Treatment Position chair -KR In Chair notified nsg;sitting;call light within reach;encouraged to call for assist -KR Recorded by [KR] Saida Silver, PT 04/09/18 154 Row Name 04/09/18 1351 Pain Assessment Additional Documentation Pain Scale: Numbers Pre/Post-Treatment (Group) -KR Recorded by [KR] Saida Silver, PT 04/09/18 1543 Row Name 04/09/18 1351 Pain Scale: Numbers Pre/Post-Treatment Pain Scale: Numbers, Pretreatment 0/10 - no pain -KR Pain Scale: Numbers, Post-Treatment 5/10 -KR Pain Location - Orientation incisional -KR Pain Location chest -KR Pain Intervention(s) Repositioned;Ambulation/increased activity -KR Recorded by [KR] Saida Silver, PT 04/09/18 1543 Row Name Wound 04/07/18 0744 chest incision Wound - Properties Group Date first assessed: 04/07/18 [TF] Time first assessed: 743 [TF] Location: chest [TF] Type: incision [TF] Recorded by: [TF] Saima Mathew RN 04/07/18 0744 Row Name 04/09/18 1351 Plan of Care Review Plan of Care Reviewed With patient -KR Recorded by [KR] Saida Silver, PT 04/09/18 1543 Row Name 04/09/18 1351 Outcome Summary/Treatment Plan (PT) Daily Summary of Progress (PT) progress toward functional goals is good -KR Recorded by [KR] Saida Silver, PT 04/09/18 1543 User Hernandez (r) = Recorded By, (t) = Taken By, (c) = Cosigned By Initials Name Effective Dates Discipline TF Saima Mathew RN 09/14/15 - Nurse Saida Gallegos, PT 07/01/17 - PT Wound 04/07/18 0744 chest incision (Active) Dressing Appearance open to air 04/09/2018 2:00 PM Drainage Amount none 04/09/2018 2:00 PM Care, Wound cleansed with;antimicrobial agent applied;other (see comments) 04/08/2018 8:00 PM Dressing Care, Wound dressing removed 04/08/2018 8:00 PM Physical Therapy Education Title: PT OT [employer]TER[employer] RECORDS ANALYST Therapies (In Progress) Topic: Physical Therapy (In Progress) Point: Mobility training (In Progress) Learning Progress Summary Patient Acceptance, E, NR by KR at 04/09/2018 1:51 PM Acceptance, E, NR by CARLOS at 04/08/2018 10:02 AM Point: Home exercise program (In Progress) Learning Progress Summary Patient Acceptance, E, NR by KR at 04/09/2018 1:51 PM Point: Body mechanics (In Progress) Learning Progress Summary Patient Acceptance, E, NR by KR at 04/09/2018 1:51 PM Acceptance, E, NR by KR at 04/08/2018 10:02 AM Point: Precautions (In Progress) Learning Progress Summary Patient Acceptance, E, NR by KR at 04/09/2018 1:51 PM Acceptance, E, NR by KR at 04/08/2018 10:02 AM User Hernandez Initials Effective Dates Name Provider Type Discipline KR 07/01/17 - Saida Silver, PT Physical Therapist PT PT Recommendation and Plan Anticipated Discharge Disposition (PT): home with assist Planned Therapy Interventions (PT Eval): balance training, bed mobility training, gait training, stair training, strengthening, transfer training Therapy Frequency (PT Clinical Impression): daily Outcome Summary/Treatment Plan (PT) Daily Summary of Progress (PT): progress toward functional goals is good Anticipated Discharge Disposition (PT): home with assist Plan of Care Reviewed With: patient Progress: improving Outcome Summary: Pt increased ambulation distance to 300ft with CGA, progressing to SBA. Pt's mobility limited by periods of increased SOA; pt able to recover quickly with rest. Pt c/o increased chest pain after ambulation. Continue to progress as appropriate. Outcome Measures Row Name 04/09/18 1351 04/08/18 1002 How much help from another person do you currently need... Turning from your back to your side while in flat bed without using bedrails? 3 -KR 3 -KR Moving from lying on back to sitting on the side of a flat bed without bedrails? 3 -KR 3 -KR Moving to and from a bed to a chair (including a wheelchair)? 3 -KR 3 -KR Standing up from a chair using your arms (e.g., wheelchair, bedside chair)? 3 - KR 3 -KR Climbing 3-5 steps with a railing? 3 -KR 2 -KR To walk in hospital room? 3 -KR 3 -KR AM-PAC 6 Clicks Score 18 -KR 17 -KR Functional Assessment Outcome Measure Options AM-PAC 6 Clicks Basic Mobility (PT) -KR AM-PAC 6 Clicks Basic Mobility (PT)-KR User Hernandez (r) = Recorded By, (t) = Taken By, (c) = Cosigned By Initials Name Provider Type Saida Gallegos PT Physical Therapist Time Calculation: PT Charges Row Name 04/09/18 1351 Time Calculation Start Time 1351 -KR PT Received On 04/09/18 -KR PT Goal Re-Cert Due Date 04/18/18 -KR Time Calculation- PT Total Timed Code Minutes- PT 16 minute(s) -KR Timed Charges 05115 - PT Therapeutic Exercise Minutes 4 -KR 61628 - PT Therapeutic Activity Minutes 12 -KR User Hernandez (r) = Recorded By, (t) = Taken By, (c) = Cosigned By Initials Name Provider Type Saida Gallegos PT Physical Therapist Therapy Suggested Charges Code Minutes Charges 32092 (CPT??) Hc Pt Neuromusc Re Education Ea 15 Min 59602 (CPT??) Hc Pt Ther Proc Ea 15 Min 4 54035 (CPT??) Hc Gait Training Ea 15 Min 19672 (CPT??) Hc Pt Therapeutic Act Ea 15 Min 12 1 48804 (CPT??) Hc Pt Manual Therapy Ea 15 Min 60543 (CPT??) Hc Pt Iontophoresis Ea 15 Min 09389 (CPT??) Hc Pt Elec Stim Ea-Per 15 Min 14466 (CPT??) Hc Pt Ultrasound Ea 15 Min 28781 (CPT??) Hc Pt Self Care/Mgmt/Train Ea 15 Min 60606 (CPT??) Hc Pt Prosthetic (S) Train Initial Encounter, Each 15 Min 68179 (CPT??) Hc Pt Orthotic(S)/Prosthetic(S) Encounter, Each 15 Min 60267 (CPT??) Hc Orthotic(S) Mgmt/Train Initial Encounter, Each 15min Total 16 1 Therapy Charges for Today Code Description Service Date Service Provider Modifiers Qty 55734757243 HC PT EVAL MOD COMPLEXITY 4 04/08/2018 Saida Silver, PT GP 1 96476044483 HC PT THER SUPP EA 15 MIN 04/08/2018 Saida Silver, PT GP 2 00508817445 HC PT THERAPEUTIC ACT EA 15 MIN 04/09/2018 Saida Silver, PT GP 1 PT G-Codes Outcome Measure Options: AM-PAC 6 Clicks Basic Mobility (PT) AM-PAC 6 Clicks Score: 18 Janny Silver, PT 04/09/2018 * Therapy Evaluation - Saida Silver, PT - 04/08/2018 3:34 PM EST Acute Care - Physical Therapy Initial Evaluation JUDY Hurd Patient Name: Carlos Manuel Rojas II : 1965 Today's Date: 04/08/2018 Onset of Illness/Injury or Date of Surgery: 04/07/18 Date of Referral to PT: 04/07/18 Referring Physician: MALIA Ramirez Admit Date: 04/07/2018 Visit Dx: ICD-10-CM ICD-9-CM 1. Persistent atrial fibrillation (CMS/HCC) I48.1 427.31 2. AVD (aortic valve disease) I35.9 424.1 3. Aortic valve disorder I35.9 424.1 4. Impaired functional mobility, balance, gait, and endurance Z74.09 V49.89 Patient Active Problem List Diagnosis ??? Rheumatic aortic stenosis ??? 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 Rheumatic aortic valve insufficiency ??? Tobacco dependence ??? Valvular disease ??? 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 04/07/18 ??? H/O: rheumatic fever ??? GERD (gastroesophageal reflux disease) Past Medical History: Diagnosis Date ??? Back pain ??? Depression ??? Fatigue ??? GERD (gastroesophageal reflux disease) ??? H/O: rheumatic fever age 12 and 14 ??? Heart murmur since age 14 (worsening) ??? History of kidney stones passed ??? Insomnia ??? Wears glasses Past Surgical History: Procedure Laterality Date ??? AORTIC VALVE REPAIR/REPLACEMENT N/A 04/07/2018 Procedure: MEDIAN STERNOTOMY, AORTIC VALVE REPLACEMENT; Surgeon: Jose Wilson MD; Location: [facility]; Service: Cardiothoracic ??? ATRIAL APPENDAGE EXCLUSION LEFT WITH TRANSESOPHAGEAL ECHOCARDIOGRAM N/A 04/07/2018 Procedure: ATRIAL APPENDAGE OCCLUSION LEFT; Surgeon: Jose Wilson MD; Location: [facility]; Service: Cardiothoracic ??? CARDIAC CATHETERIZATION N/A 03/03/2018 Procedure: Left Heart Cath; Surgeon: Liza Singleton MD; Location: [facility]; Service: Cardiology ??? CYST REMOVAL Left left foot (childhood) ??? TRANSESOPHAGEAL ECHOCARDIOGRAM (TA) N/A 04/07/2018 Procedure: TRANSESOPHAGEAL ECHOCARDIOGRAM WITH ANESTHESIA; Surgeon: Jose Wilson MD; Location: [facility]; Service: Cardiothoracic PT ASSESSMENT (last 12 hours) Physical Therapy Evaluation Row Name 04/08/18 1002 PT Evaluation Time/Intention Subjective Information no complaints -KR Document Type evaluation -KR Mode of Treatment physical therapy -KR Patient Effort good -KR Symptoms Noted During/After Treatment none -KR Row Name 04/08/18 1002 General Information Patient Profile Reviewed? yes -KR Onset of Illness/Injury or Date of Surgery 04/07/18 -KR Referring Physician MALIA Ramirez -KR Patient Observations alert;cooperative;agree to therapy -KR Prior Level of Function independent:;all household mobility;gait;transfer;ADL's;dressing;bathing -KR Equipment Currently Used at Home none -KR Pertinent History of Current Functional Problem Pt with history of rheumatic fever and a known heart murmur. In the past 4 or 5 years he's had increasing fatigue with physical activity. Echocardiogram demonstrated aortic stenosis. AVR on 04/07/18. -KR Existing Precautions/Restrictions cardiac;fall;oxygen therapy device and L/min;sternal -KR Risks Reviewed patient:;LOB;dizziness;increased discomfort;change in vital signs -KR Benefits Reviewed patient:;improve function;increase independence;increase strength;increase balance -KR Barriers to Rehab none identified -KR Row Name 04/08/18 1002 Relationship/Environment Lives With significant other -KR Row Name 04/08/18 1002 Resource/Environmental Concerns Current Living Arrangements home/apartment/condo -KR Resource/Environmental Concerns none -KR Transportation Concerns car, none -KR Row Name 04/08/18 1002 Home Main Entrance Number of Stairs, Main Entrance other (see comments) 12 -KR Stair Railings, Main Entrance railing on left side (ascending) -KR Row Name 04/08/18 1002 Stairs Within Home, Primary Number of Stairs, Within Home, Primary two -KR Stair Railings, Within Home, Primary none -KR Row Name 04/08/18 1002 Cognitive Assessment/Interventions Additional Documentation Cognitive Assessment/Intervention (Group) -KR Row Name 04/08/18 1002 Cognitive Assessment/Intervention- PT/OT Affect/Mental Status (Cognitive) WFL -KR Orientation Status (Cognition) oriented x 4 -KR Follows Commands (Cognition) WFL -KR Cognitive Function (Cognitive) WFL -KR Personal Safety Interventions fall prevention program maintained;gait belt;nonskid shoes/slippers when out of bed -KR Row Name 04/08/18 1002 Safety Issues, Functional Mobility Impairments Affecting Function (Mobility) endurance/activity tolerance;shortness of breath;strength-KR Row Name 04/08/18 1002 Bed Mobility Assessment/Treatment Bed Mobility Assessment/Treatment sit-supine -KR Sit-Supine [place] (Bed Mobility) minimum assist (75% patient effort);verbal cues -KR Bed Mobility, Safety Issues decreased use of arms for pushing/pulling -KR Assistive Device (Bed Mobility) head of bed elevated -KR Comment (Bed Mobility) VC's for sequencing. -KR Row Name 04/08/18 1002 Transfer Assessment/Treatment Transfer Assessment/Treatment sit-stand transfer;stand-sit transfer -KR Comment (Transfers) VC's for sequencing. -KR Sit-Stand [place] (Transfers) contact guard;verbal cues -KR Stand-Sit [place] (Transfers) contact guard;verbal cues -KR Row Name 04/08/18 1002 Gait/Stairs Assessment/Training Gait/Stairs Assessment/Training gait/ambulation independence -KR [place] Level (Gait) contact guard;1 person assist;1 person to manage equipment;verbal cues -KR Distance in Feet (Gait) 200 -KR Pattern (Gait) step-through -KR Deviations/Abnormal Patterns (Gait) other (see comments) decreased step length -KR Bilateral Gait Deviations heel strike decreased -KR Comment (Gait/Stairs) Pt demonstrated step through gait pattern with appropriate gait speed and good stability. Pt given VC's for increased step length. Pt's mobility limited by fatigue; no c/o pain.-KR Row Name 04/08/18 1002 General ROM GENERAL ROM COMMENTS BLE WFL -KR Row Name 04/08/18 1002 MMT (Manual Muscle Testing) General MMT Comments BLE grossly 3+/5 -KR Row Name 04/08/18 1002 Motor Assessment/Intervention Additional Documentation Balance (Group) -KR Row Name 04/08/18 1002 Balance Balance static sitting balance;static standing balance -KR Row Name 04/08/18 1002 Static Sitting Balance Level of [place] (Unsupported Sitting, Static Balance) supervision -KR Sitting Position (Unsupported Sitting, Static Balance) sitting in chair -KR Row Name 04/08/18 1002 Static Standing Balance Level of [place] (Supported Standing, Static Balance) contact guard assist -KR Row Name 04/08/18 1002 Sensory Assessment/Intervention Sensory General Assessment no sensation deficits identified -KR Row Name 04/08/18 1002 Pain Assessment Additional Documentation Pain Scale: Numbers Pre/Post-Treatment (Group) -KR Row Name 04/08/18 1002 Pain Scale: Numbers Pre/Post-Treatment Pain Scale: Numbers, Pretreatment 0/10 - no pain -KR Pain Scale: Numbers, Post-Treatment 0/10 - no pain -KR Row Name Wound 04/07/18 0744 chest incision Wound - Properties Group Date first assessed: 04/07/18 -TF Time first assessed: 743 -TF Location: chest -TF Type: incision -TF Row Name 04/08/18 1002 Plan of Care Review Plan of Care Reviewed With patient -KR Row Name 04/08/18 1002 Physical Therapy Clinical Impression Date of Referral to PT 04/07/18 -KR PT Diagnosis (PT Clinical Impression) impaired functional mobility -KR Patient/Family Goals Statement (PT Clinical Impression) return to PLOF -KR Criteria for Skilled Interventions Met (PT Clinical Impression) yes;treatment indicated -KR Rehab Potential (PT Clinical Summary) good, to achieve stated therapy goals -KR Care Plan Review (PT) evaluation/treatment results reviewed;risks/benefits reviewed;patient/other agree to care plan -KR Row Name 04/08/18 1002 Vital Signs Pre Systolic BP Rehab 128 -KR Pre Treatment Diastolic BP 61 -KR Post Systolic BP Rehab 124 -KR Post Treatment Diastolic BP 71 -KR Pretreatment Heart Rate (beats/min) 60 -KR Posttreatment Heart Rate (beats/min) 62 -KR Pre SpO2 (%) 95 -KR O2 Delivery Pre Treatment supplemental O2 -KR Post SpO2 (%) 94 -KR O2 Delivery Post Treatment supplemental O2 -KR Pre Patient Position Sitting -KR Intra Patient Position Standing -KR Post Patient Position Supine -KR Row Name 04/08/18 1002 Physical Therapy Goals Bed Mobility Goal Selection (PT) bed mobility, PT goal 1 -KR Transfer Goal Selection (PT) transfer, PT goal 1 -KR Gait Training Goal Selection (PT) gait training, PT goal 1 -KR Stairs Goal Selection (PT) stairs, PT goal 1 -KR Additional Documentation Stairs Goal Selection (PT) (Row) -KR Row Name 04/08/18 1002 Bed Mobility Goal 1 (PT) Activity/Assistive Device (Bed Mobility Goal 1, PT) bed mobility activities, all -KR [place] Level/Cues Needed (Bed Mobility Goal 1, PT) independent -KR Time Frame (Bed Mobility Goal 1, PT) 2 weeks -KR Progress/Outcomes (Bed Mobility Goal 1, PT) goal ongoing -KR Row Name 04/08/18 1002 Transfer Goal 1 (PT) Activity/Assistive Device (Transfer Goal 1, PT) tpe-js-wzmco/huwew-by-vxs;rzs-no-vlmue/ctmqt-jc-jny-KR [place] Level/Cues Needed (Transfer Goal 1, PT) independent -KR Time Frame (Transfer Goal 1, PT) 2 weeks -KR Progress/Outcome (Transfer Goal 1, PT) goal ongoing -KR Row Name 04/08/18 1002 Gait Training Goal 1 (PT) Activity/Assistive Device (Gait Training Goal 1, PT) gait (walking locomotion) -KR [place] Level (Gait Training Goal 1, PT) independent -KR Distance (Gait Goal 1, PT) 400 feet -KR Time Frame (Gait Training Goal 1, PT) 2 weeks -KR Progress/Outcome (Gait Training Goal 1, PT) goal ongoing -KR Row Name 04/08/18 1002 Stairs Goal 1 (PT) Activity/Assistive Device (Stairs Goal 1, PT) ascending stairs;descending stairs;using handrail, left -KR [place] Level/Cues Needed (Stairs Goal 1, PT) supervision required -KR Number of Stairs (Stairs Goal 1, PT) 12 -KR Time Frame (Stairs Goal 1, PT) 2 weeks -KR Progress/Outcome (Stairs Goal 1, PT) goal ongoing -KR Row Name 04/08/18 1002 Positioning and Restraints Pre-Treatment Position sitting in chair/recliner -KR Post Treatment Position bed -KR In Bed notified nsg;supine;call light within reach;encouraged to call for assist;side rails up x2;RUE elevated;LUE elevated -KR Row Name 04/08/18 1002 Living Environment Home Accessibility stairs to enter home;stairs within home;tub/shower is not walk in -KR User Hernandez (r) = Recorded By, (t) = Taken By, (c) = Cosigned By Initials Name Provider Type TF Saima Mathew, RN Registered Nurse Saida Gallegos, PT Physical Therapist Physical Therapy Education Title: PT OT [employer]TER[employer] RECORDS ANALYST Therapies (In Progress) Topic: Physical Therapy (In Progress) Point: Mobility training (In Progress) Learning Progress Summary Patient Acceptance, E, NR by KR at 04/08/2018 10:02 AM Point: Body mechanics (In Progress) Learning Progress Summary Patient Acceptance, E, NR by KR at 04/08/2018 10:02 AM Point: Precautions (In Progress) Learning Progress Summary Patient Acceptance, E, NR by KR at 04/08/2018 10:02 AM User Hernandez Initials Effective Dates Name Provider Type Discipline 07/01/17 - Saida Silver, PT Physical Therapist PT PT Recommendation and Plan Anticipated Discharge Disposition (PT): home with assist Planned Therapy Interventions (PT Eval): balance training, bed mobility training, gait training, stair training, strengthening, transfer training Therapy Frequency (PT Clinical Impression): daily Outcome Summary/Treatment Plan (PT) Anticipated Discharge Disposition (PT): home with assist Plan of Care Reviewed With: patient Outcome Summary: PT initial evaluation completed for pt s/p AVR presenting with decreased functional mobility. Pt ambulated 200ft with CGA 1+1. Pt's decreased independence warrants kiss mixer care. Recommend D/C home with assistance. Outcome Measures Row Name 04/08/18 1002 How much help from another person do you currently need... Turning from your back to your side while in flat bed without using bedrails? 3 -KR Moving from lying on back to sitting on the side of a flat bed without bedrails? 3 -KR Moving to and from a bed to a chair (including a wheelchair)? 3 -KR Standing up from a chair using your arms (e.g., wheelchair, bedside chair)? 3 -KR Climbing 3-5 steps with a railing? 2 -KR To walk in hospital room? 3 -KR AM-PAC 6 Clicks Score 17 -KR Functional Assessment Outcome Measure Options AM-PAC 6 Clicks Basic Mobility (PT) -KR User Hernandez (r) = Recorded By, (t) = Taken By, (c) = Cosigned By Initials Name Provider Type CARLOS Saida Silver PT Physical Therapist Time Calculation: PT Charges Row Name 04/08/18 1002 Time Calculation Start Time 1002 -KR PT Received On 04/08/18 -KR PT Goal Re-Cert Due Date 04/18/18 -KR User Hernandez (r) = Recorded By, (t) = Taken By, (c) = Cosigned By Initials Name Provider Type Saida Gallegos PT Physical Therapist Therapy Suggested Charges Code Minutes Charges None Therapy Charges for Today Code Description Service Date Service Provider Modifiers Qty 17095903763 HC PT EVAL MOD COMPLEXITY 4 04/08/2018 Saida Silver, PT GP 1 94624317383 HC PT THER SUPP EA 15 MIN 04/08/2018 Saida Silver, PT GP 2 PT G-Codes Outcome Measure Options: AM-PAC 6 Clicks Basic Mobility (PT) AM-PAC 6 Clicks Score: 17 Janny Silver PT 04/08/2018 * Research - Jose Wilson MD - 04/07/2018 7:19 AM EST Risk of Mortality: 0.848% Renal Failure: 1.440% Permanent Stroke: 0.412% Prolonged Ventilation: 3.569% DSW Infection: 0.167% Reoperation: 2.479% Morbidity or Mortality: 6.273% Short Length of Stay: 59.483% Long Length of Stay: 2.224% Jose Wilson MD [employer] 04/07/18 07:25 AM documented in this encounter Plan of Treatment Upcoming Encounters Date Type Department Care Team (Late st Contact Info) Description 09/01/2024 1:30 PM EDT Office Visit [facility] [address] [facility] [address] [place] [phone] Liza Singleton MD [address] [facility] [address] [place] [phone] documented as of this encounter Procedures Procedure Name Priority Date/Time Associated Diagnosis Comments ECG 12-LEAD Routine 04/11/2018 6:17 AM EST Persistent atrial fibrillation BASIC METABOLIC PANEL Routine 04/11/2018 3:16 AM EST PREPARE RBC Routine 04/10/2018 6:54 AM EST AVD (aortic valve disease) ECG 12-LEAD Routine 04/10/2018 5:13 AM EST Persistent atrial fibrillation CBC (NO DIFF) Routine 04/10/2018 3:03 AM EST BASIC METABOLIC PANEL Routine 04/10/2018 3:03 AM EST POCT GLUCOSE FINGERSTICK Routine 04/09/2018 11:22 AM EST POCT GLUCOSE FINGERSTICK Routine 04/09/2018 8:05 AM EST ECG 12-LEAD Routine 04/09/2018 5:13 AM EST Persistent atrial fibrillation XR CHEST 1 VW Routine 04/09/2018 5:11 AM EST CBC (NO DIFF) Routine 04/09/2018 3:22 AM EST BASIC METABOLIC PANEL Routine 04/09/2018 3:22 AM EST POCT GLUCOSE FINGERSTICK Routine 04/08/2018 8:11 PM EST POCT GLUCOSE FINGERSTICK Routine 04/08/2018 4:20 PM EST POCT GLUCOSE FINGERSTICK Routine 04/08/2018 11:10 AM EST POCT GLUCOSE FINGERSTICK Routine 04/08/2018 9:49 AM EST POCT GLUCOSE FINGERSTICK Routine 04/08/2018 9:15 AM EST POCT GLUCOSE FINGERSTICK Routine 04/08/2018 8:07 AM EST POCT GLUCOSE FINGERSTICK Routine 04/08/2018 6:42 AM EST POCT GLUCOSE FINGERSTICK Routine 04/08/2018 6:12 AM EST POCT GLUCOSE FINGERSTICK Routine 04/08/2018 5:18 AM EST ECG 12-LEAD Routine 04/08/2018 4:14 AM EST POCT GLUCOSE FINGERSTICK Routine 04/08/2018 4:05 AM EST CBC WITH AUTO DIFFERENTIAL Routine 04/08/2018 4:00 AM EST PROTIME-INR Routine 04/08/2018 4:00 AM EST CBC AND DIFFERENTIAL Routine 04/08/2018 4:00 AM EST MAGNESIUM Routine 04/08/2018 4:00 AM EST RENAL FUNCTION PANEL Routine 04/08/2018 4:00 AM EST POCT GLUCOSE FINGERSTICK Routine 04/08/2018 3:07 AM EST XR CHEST 1 VW Routine 04/08/2018 2:32 AM EST POCT GLUCOSE FINGERSTICK Routine 04/08/2018 2:03 AM EST POCT GLUCOSE FINGERSTICK Routine 04/08/2018 1:01 AM EST POCT GLUCOSE FINGERSTICK Routine 04/08/2018 12:15 AM EST HEMOGLOBIN AND HEMATOCRIT, BLOOD Routine 04/07/2018 11:33 PM EST POTASSIUM Routine 04/07/2018 11:33 PM EST POCT GLUCOSE FINGERSTICK Routine 04/07/2018 10:59 PM EST POCT GLUCOSE FINGERSTICK Routine 04/07/2018 9:52 PM EST POCT GLUCOSE FINGERSTICK Routine 04/07/2018 9:00 PM EST HEMOGLOBIN AND HEMATOCRIT, BLOOD Routine 04/07/2018 8:09 PM EST POTASSIUM Routine 04/07/2018 8:09 PM EST POCT GLUCOSE FINGERSTICK Routine 04/07/2018 8:01 PM EST POCT GLUCOSE FINGERSTICK Routine 04/07/2018 6:57 PM EST POCT GLUCOSE FINGERSTICK Routine 04/07/2018 6:07 PM EST BLOOD GAS, ARTERIAL W/CO-OXIMETRY Routine 04/07/2018 5:24 PM EST POCT GLUCOSE FINGERSTICK Routine 04/07/2018 5:02 PM EST POCT GLUCOSE FINGERSTICK Routine 04/07/2018 4:05 PM EST CBC (NO DIFF) Timed 04/07/2018 4:03 PM EST MAGNESIUM Timed 04/07/2018 4:03 PM EST RENAL FUNCTION PANEL Timed 04/07/2018 4:03 PM EST BLOOD GAS, ARTERIAL W/CO-OXIMETRY Routine 04/07/2018 3:34 PM EST BLOOD GAS, VENOUS W/CO-OXIMETRY Routine 04/07/2018 3:31 PM EST POCT GLUCOSE FINGERSTICK Routine 04/07/2018 2:58 PM EST POCT GLUCOSE FINGERSTICK Routine 04/07/2018 1:59 PM EST MAGNESIUM Timed 04/07/2018 1:44 PM EST RENAL FUNCTION PANEL Timed 04/07/2018 1:44 PM EST POCT GLUCOSE FINGERSTICK Routine 04/07/2018 12:55 PM EST XR CHEST 1 VW STAT 04/07/2018 12:37 PM EST BLOOD GAS, ARTERIAL W/CO-OXIMETRY Routine 04/07/2018 12:34 PM EST APTT STAT 04/07/2018 12:27 PM EST PROTIME-INR STAT 04/07/2018 12:27 PM EST CBC (NO DIFF) Timed 04/07/2018 12:27 PM EST CALCIUM, IONIZED STAT 04/07/2018 12:2 7 PM EST ECG 12-LEAD Routine 04/07/2018 12:15 PM EST POCT GLUCOSE FINGERSTICK Routine 04/07/2018 12:00 PM EST POCT SURGERY LABS Routine 04/07/2018 11: 16 AM EST POCT ACTIVATED CLOTTING TIME Routine 04/07/2018 11:16 AM EST POCT SURGERY LABS Routine 04/07/2018 9:4 9 AM EST POCT ACTIVATED CLOTTING TIME Routine 04/07/2018 9:48 AM EST POCT SURGERY LABS Routine 04/07/2018 9:2 7 AM EST POCT ACTIVATED CLOTTING TIME Routine 04/07/2018 9:26 AM EST POCT SURGERY LABS Routine 04/07/2018 8:4 5 AM EST POCT ACTIVATED CLOTTING TIME Routine 04/07/2018 8:44 AM EST POCT SURGERY LABS Routine 04/07/2018 8:1 2 AM EST POCT ACTIVATED CLOTTING TIME Routine 04/07/2018 8:12 AM EST TISSUE PATHOLOGY EXAM Routine 04/07/2018 7:58 AM EST Aortic valve disorder POCT SURGERY LABS Routine 04/07/2018 7:0 8 AM EST POCT ACTIVATED CLOTTING TIME Routine 04/07/2018 7:07 AM EST LEFT ATRIAL APPENDAGE OCCLUSION 04/07/2018 6:31 AM EST Aortic valve disorder TRANSESOPHAGEAL ECHOCARDIOGRAM WITH ANESTHESIA 04/07/2018 6:31 AM EST Aortic valve disorder AORTIC VALVE REPAIR/REPLACEMENT 04/07/2018 6:31 AM EST Aortic valve disorder POCT GLUCOSE FINGERSTICK Routine 04/07/2018 6:22 AM EST ABO/RH SPECIMEN VERIFICATION PREOP Routine 04/07/2018 6:17 AM EST SCANNED - TELEMETRY 04/07/2018 SCANNED - TELEMETRY 04/07/2018 SCANNED - TELEMETRY 04/07/2018 SCANNED - TELEMETRY 04/07/2018 SCANNED - TELEMETRY 04/07/2018 SCANNED - TELEMETRY 04/07/2018 SCANNED - TELEMETRY 04/07/2018 documented in this encounter Results * ECG 12 Lead (04/11/2018 6:17 AM EST) 04/11/2018 6:17 AM EST 04/13/2018 9:06 AM EST Narrative BH ECG - 04/13/2018 9:06 AM EST Test Reason : Post-Op Heart Surgery Blood Pressure : / mmHG Vent. Rate : 081 BPM ? Atrial Rate : 081 BPM ?? P-R Int : 138 ms ?QRS Dur : 110 ms ?QT Int : 406 ms ? P-R-T Axes : 015 -02 155 degrees ?? QTc Int : 471 ms Normal sinus rhythm Left ventricular hypertrophy with repolarization abnormality Abnormal ECG When compared with ECG of 10-APR-2018 05:13, T wave inversion now evident in Lateral leads Confirmed by LIZA SINGLETON ([id number]) on 04/13/2018 9:06:35 AM Referred By: ? Confirmed By:LIZA SINGLETON Procedure Note Liza Singleton MD - 04/13/2018 Test Reason : Post-Op Heart Surgery Blood Pressure : / mmHG Vent. Rate : 081 BPM Atrial Rate : 081 BPM P-R Int : 138 ms QRS Dur : 110 ms QT Int : 406 ms P-R-T Axes : 015 -02 155 degrees QTc Int : 471 ms Normal sinus rhythm Left ventricular hypertrophy with repolarization abnormality Abnormal ECG When compared with ECG of 10-APR-2018 05:13, T wave inversion now evident in Lateral leads Confirmed by LIZA SINGLETON ([id number]) on 04/13/2018 9:06:35 AM Referred By: Confirmed By:LIZA SINGLETON Sylvester FINLEY ECG ORDERABLES Final Resul t BH ECG * (ABNORMAL) Basic Metabolic Panel (04/11/2018 3:16 AM EST) [facility] Glucose 86 70 - 100 mg/dL 04/11/2018 4:29 AM EST [facility] BUN 12 9 - 23 mg/dL 04/11/2018 4:29 AM EST [facility] Creatinine 0.71 0.60 - 1.30 mg/dL 04/11/2018 4:29 AM EST [facility] Sodium 137 132 - 146 mmol/L 04/11/2018 4:29 AM EST [facility] Potassium 3.4(L) 3.5 - 5.5 mmol/L 04/11/2018 4:29 AM EST [facility] Chloride 102 99 - 109 mmol/L 04/11/2018 4:29 AM EST [facility] CO2 27.0 20.0 - 31.0 mmol/L 04/11/2018 4:29 AM EST [facility] Calcium 8.1(L) 8.7 - 10.4 mg/dL 04/11/2018 4:29 AM EST [facility] eGFR Non Amer 117 >60 mL/min/1.7 3 04/11/2018 4:29 AM EST [facility] BUN/Creatinine Ratio 16.9 7.0 - 25.0 04/11/2018 4:29 AM EST [facility] Anion Gap 8.0 3.0 - 11.0 mmol/L 04/11/2018 4:29 AM EST [facility] Blood Venipuncture / Unknown 04/11/2018 3:16 AM EST 04/11/2018 3:59 AM EST Narrative [facility] - 04/11/2018 4:29 AM EST National Kidney Foundation Guidelines Stage ? Description ?GFR 1 ? Normal or High ? 90+ 2 ? Mild decrease ?60-89 3 ? Moderate decrease ??30-59 4 ? Severe decrease ?15-29 5 ? Kidney failure ? <15 The MDRD GFR formula is only valid for adults with stable renal function between ages 18 and 70. us Cruz FINLEY LAB BLOOD ORDERABLES Final Resu lt [facility]
[address] [place] [address], * Prepare RBC, 2 Units (04/10/2018 6:54 AM EST) Product Code [id number] [facility] Unit Number [id number] [facility] RH POS [facility] Dispense Status RE [facility] Blood Type APOS [facility] Blood Expiration Date [facility] Blood Type Barcode 6200 [facility] Product Code [id number] [facility] Unit Number [id number] BA [facility] ABO A [facility] RH POS [facility] Dispense Status RE [facility] Blood Type APOS [facility] Blood Expiration Date [facility] Blood Type Barcode 6200 [facility] Other Topography unknown / Unknown 04/06/2018 1:29 PM EST us Miguel FINLEY BLOOD BANK PRODUCT ORDERABLES Edited Result - Final [facility]
[address] [place] [address], * ECG 12 Lead (04/10/2018 5:13 AM EST) 04/10/2018 5:13 AM EST 04/10/2018 8:07 AM EST Narrative ECG - 04/10/2018 8:07 AM EST Test Reason : Post-Op Heart Surgery Blood Pressure : / mmHG Vent. Rate : 082 BPM ? Atrial Rate : 082 BPM ?? P-R Int : 138 ms ?QRS Dur : 108 ms ?QT Int : 396 ms ? P-R-T Axes : 020 004 012 degrees ?? QTc Int : 462 ms Normal sinus rhythm Minimal voltage criteria for LVH, may be normal variant Cannot rule out Anterior infarct , age undetermined Abnormal ECG When compared with ECG of 09-APR-2018 05:13, T wave inversion no longer evident in Lateral leads Confirmed by LIZA SINGLETON ([id number]) on 04/10/2018 8:07:51 AM Referred By: ? Confirmed By:LIZA SINGLETON Procedure Note Liza Singleton MD - 04/10/2018 Test Reason : Post-Op Heart Surgery Blood Pressure : / mmHG Vent. Rate : 082 BPM Atrial Rate : 082 BPM P-R Int : 138 ms QRS Dur : 108 ms QT Int : 396 ms P-R-T Axes : 020 004 012 degrees QTc Int : 462 ms Normal sinus rhythm Minimal voltage criteria for LVH, may be normal variant Cannot rule out Anterior infarct , age undetermined Abnormal ECG When compared with ECG of 09-APR-2018 05:13, T wave inversion no longer evident in Lateral leads Confirmed by LIZA SINGLETON ([id number]) on 04/10/2018 8:07:51 AM Referred By: Confirmed By:LIZA SINGLETON us Sylvester FINLEY ECG ORDERABLES Final Resul t ECG * (ABNORMAL) Basic Metabolic Panel (04/10/2018 3:03 AM EST) Glucose 96 70 - 100 mg/dL 04/10/2018 4:05 AM EST [facility] BUN 12 9 - 23 mg/dL 04/10/2018 4:05 AM EST [facility] Creatinine 0.69 0.60 - 1.30 mg/dL 04/10/2018 4:05 AM EST [facility] Sodium 134 132 - 146 mmol/L 04/10/2018 4:05 AM EST [facility] Potassium 3.8 3.5 - 5.5 mmol/L 04/10/2018 4:05 AM EST [facility] Chloride 102 99 - 109 mmol/L 04/10/2018 4:05 AM EST [facility] CO2 28.0 20.0 - 31.0 mmol/L 04/10/2018 4:05 AM EST [facility] Calcium 8.3(L) 8.7 - 10.4 mg/dL 04/10/2018 4:05 AM EST [facility] eGFR Non Amer 120 >60 mL/min/1.7 3 04/10/2018 4:05 AM EST [facility] BUN/Creatinine Ratio 17.4 7.0 - 25.0 04/10/2018 4:05 AM EST [facility] Anion Gap 4.0 3.0 - 11.0 mmol/L 04/10/2018 4:05 AM EST [facility] Blood Venipuncture / Unknown 04/10/2018 3:03 AM EST 04/10/2018 3:37 AM EST Narrative [facility] - 04/10/2018 4:05 AM EST National Kidney Foundation Guidelines Stage ? Description ?GFR 1 ? Normal or High ? 90+ 2 ? Mild decrease ?60-89 3 ? Moderate decrease ??30-59 4 ? Severe decrease ?15-29 5 ? Kidney failure ? <15 The MDRD GFR formula is only valid for adults with stable renal function between ages 18 and 70. us Cruz FINLEY LAB BLOOD ORDERABLES Final Resu lt [facility]
[address] [place] [address], * (ABNORMAL) CBC (No Diff) (04/10/2018 3:03 AM EST) WBC 17.47(H) 3.50 - 10.80 10*3/mm3 04/10/2018 3:44 AM EST [facility] RBC 3.38(L) 4.20 - 5.76 10*6/mm3 04/10/2018 3:44 AM EST [facility] Hemoglobin 10.7(L) 13.1 - 17.5 g/dL 04/10/2018 3:44 AM EST [facility] Hematocrit 31.6(L) 38.9 - 50.9 % 04/10/2018 3:44 AM [facility] MCV 93.5 80.0 - 99.0 fL 04/10/2018 3:44 AM [facility] MCH 31.7(H) 27.0 - 31.0 pg 04/10/2018 3:44 AM [facility] MCHC 33.9 32.0 - 36.0 g/dL 04/10/2018 3:44 AM [facility] RDW 13.6 11.3 - 14.5 % 04/10/2018 3:44 AM [facility] RDW-SD 46.7 37.0 - 54.0 fl 04/10/2018 3:44 AM [facility] MPV 12.1(H) 6.0 - 12.0 fL 04/10/2018 3:44 AM [facility] Platelets 95(L) 150 - 450 10*3/mm3 04/10/2018 3:44 AM [facility] Blood Venipuncture / Unknown 04/10/2018 3:03 AM EST 04/10/2018 3:37 AM EST Cruz FINLEY LAB BLOOD ORDERABLES Final Resu lt Performing Organization Address City/[facility]/ZIP Co de Phone Number [facility]
[address] [place] [address], * POC Glucose Once (04/09/2018 11:22 AM EST) Glucose 110 70 - 130 mg/dL 04/09/2018 11:26 AM [facility] Blood 04/09/2018 11:2 2 AM EST 04/09/2018 11:26 AM EST us Jose Wilson MD POINT OF CARE TEST ORDERABLES F inal Result Performing Organization Address City/[facility] Co de Phone Number [facility]
[address] [place] [address], [place] [phone] * POC Glucose Once (04/09/2018 8:05 AM EST) Glucose 102 70 - 130 mg/dL 04/09/2018 8:08 AM EST [facility] Blood 04/09/2018 8:05 AM EST 04/09/2018 8:08 AM EST us Jose Wilson MD POINT OF CARE TEST ORDERABLES F inal Result [facility]
[address] [place] [address], * ECG 12 Lead (04/09/2018 5:13 AM EST) 04/09/2018 5:13 AM EST 04/09/2018 7:54 AM EST Narrative BH ECG - 04/09/2018 7:54 AM EST Test Reason : Post-Op Heart Surgery Blood Pressure : / mmHG Vent. Rate : 069 BPM ? Atrial Rate : 069 BPM ?? P-R Int : 144 ms ?QRS Dur : 112 ms ?QT Int : 412 ms ? P-R-T Axes : 037 004 -61 degrees ?? QTc Int : 441 ms Normal sinus rhythm Minimal voltage criteria for LVH, may be normal variant T wave abnormality, consider inferolateral ischemia Abnormal ECG When compared with ECG of 08-APR-2018 04:14, QT has shortened Confirmed by LIZA SINGLETON ([id number]) on 04/09/2018 7:54:40 AM Referred By: ? Confirmed By:LIZA SINGLETON Procedure Note Liza iSngleton MD - 04/09/2018 Test Reason : Post-Op Heart Surgery Blood Pressure : / mmHG Vent. Rate : 069 BPM Atrial Rate : 069 BPM P-R Int : 144 ms QRS Dur : 112 ms QT Int : 412 ms P-R-T Axes : 037 004 -61 degrees QTc Int : 441 ms Normal sinus rhythm Minimal voltage criteria for LVH, may be normal variant T wave abnormality, consider inferolateral ischemia Abnormal ECG When compared with ECG of 08-APR-2018 04:14, QT has shortened Confirmed by LIZA SINGLETON ([id number]) on 04/09/2018 7:54:40 AM Referred By: Confirmed By:LIZA SINGLETON Sylvester FINLEY ECG ORDERABLES Final Resul t ECG * XR Chest 1 View (04/09/2018 5:11 AM EST) Anatomical Region Laterality Modality Body N/A Radiographic Scarlett ging 04/09/2018 8:38 AM EST Impressions 04/09/2018 10:38 PM EST No new chest disease. D: ??04/09/2018 E: ??04/09/2018 This report was finalized on 04/09/2018 10:[address] Jamie Barba MD. 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 COMPARISON: 04/08/2018. FINDINGS: Heart is enlarged. Vasculature appears normal. Lungs are moderately well expanded and appear grossly clear. No edema, effusion or pneumothorax is seen. ? Procedure Note Jamie Barba MD - 04/09/2018 EXAMINATION: XR CHEST 1 VW- INDICATION: Postop heart surgery; I48.1-Persistent atrial fibrillation; I35.9-Nonrheumatic aortic valve disorder, unspecified; Z74.09-Other reduced mobility. COMPARISON: 04/08/2018. FINDINGS: Heart is enlarged. Vasculature appears normal. Lungs are moderately well expanded and appear grossly clear. No edema, effusion or pneumothorax is seen. IMPRESSION: No new chest disease. E: 04/09/2018 This report was finalized on 04/09/2018 10:[address] Jamie Barba MD. Cruz FINLEY IMG DIAGNOSTIC IMAGING ORDERABL ES Final Result * (ABNORMAL) Basic Metabolic Panel (04/09/2018 3:22 AM EST) Glucose 102(H) 70 - 100 mg/dL 04/09/2018 4:32 AM [facility] BUN 9 9 - 23 mg/dL 04/09/2018 4:32 AM [facility] Creatinine 0.74 0.60 - 1.30 mg/dL 04/09/2018 4:32 AM [facility] Sodium 135 132 - 146 mmol/L 04/09/2018 4:32 AM [facility] Potassium 4.2 3.5 - 5.5 mmol/L 04/09/2018 4:32 AM [facility] Chloride 105 99 - 109 mmol/L 04/09/2018 4:32 AM [facility] CO2 27.0 20.0 - 31.0 mmol/L 04/09/2018 4:32 AM [facility] Calcium 8.4(L) 8.7 - 10.4 mg/dL 04/09/2018 4:32 AM [facility] eGFR Non Amer 111 >60 mL/min/1.7 3 04/09/2018 4:32 AM [facility] BUN/Creatinine Ratio 12.2 7.0 - 25.0 04/09/2018 4:32 AM [facility] Anion Gap 3.0 3.0 - 11.0 mmol/L 04/09/2018 4:32 AM [facility] Blood Venipuncture / Unknown 04/09/2018 3:22 AM EST 04/09/2018 3:50 AM EST [facility] - 04/09/2018 4:32 AM EST National Kidney Foundation Guidelines Stage ? Description ?GFR 1 ? Normal or High ? 90+ 2 ? Mild decrease ?60-89 3 ? Moderate decrease ??30-59 4 ? Severe decrease ?15-29 5 ? Kidney failure ? <15 The MDRD GFR formula is only valid for adults with stable renal function between ages 18 and 70. us Cruz FINLEY LAB BLOOD ORDERABLES Final Resu lt [facility]
[address] [place] [address], * (ABNORMAL) CBC (No Diff) (04/09/2018 3:22 AM EST) WBC 17.75(H) 3.50 - 10.80 10*3/mm3 04/09/2018 4:02 AM [facility] RBC 3.34(L) 4.20 - 5.76 10*6/mm3 04/09/2018 4:02 AM [facility] Hemoglobin 10.6(L) 13.1 - 17.5 g/dL 04/09/2018 4:02 AM [facility] Hematocrit 31.3(L) 38.9 - 50.9 % 04/09/2018 4:02 AM [facility] MCV 93.7 80.0 - 99.0 fL 04/09/2018 4:02 AM [facility] MCH 31.7(H) 27.0 - 31.0 pg 04/09/2018 4:02 AM [facility] MCHC 33.9 32.0 - 36.0 g/dL 04/09/2018 4:02 AM [facility] RDW 13.7 11.3 - 14.5 % 04/09/2018 4:02 AM [facility] RDW-SD 47.5 37.0 - 54.0 fl 04/09/2018 4:02 AM [facility] MPV 12.4(H) 6.0 - 12.0 fL 04/09/2018 4:02 AM [facility] Platelets 77(L) 150 - 450 10*3/mm3 04/09/2018 4:02 AM [facility] Blood Venipuncture / Unknown 04/09/2018 3:22 AM EST 04/09/2018 3:50 AM EST Cruz FINLEY LAB BLOOD ORDERABLES Final Resu lt Performing Organization Address [facility] Co de Phone Number [facility]
[address] [place] [address], * POC Glucose Once (04/08/2018 8:11 PM EST) Glucose 111 70 - 130 mg/dL 04/08/2018 8:12 PM EST [facility] Blood 04/08/2018 8:11 PM EST 04/08/2018 8:12 PM EST us Jose Wilson MD POINT OF CARE TEST ORDERABLES F inal Result Performing Organization Address [facility] Co de Phone Number [facility]
[address] [place] [address], * POC Glucose Once (04/08/2018 4:20 PM EST) Glucose 104 70 - 130 mg/dL 04/08/2018 4:48 PM EST [facility] Blood 04/08/2018 4:20 PM EST 04/08/2018 4:48 PM EST us Jose Wilson MD POINT OF CARE TEST ORDERABLES F inal Result Performing Organization Address [facility] Co de Phone Number [facility]
[address] [place] [address], * (ABNORMAL) POC Glucose Once (04/08/2018 11:10 AM EST) Glucose 165(H) 70 - 130 mg/dL 04/08/2018 11:21 AM EST [facility] Blood 04/08/2018 11:1 0 AM EST 04/08/2018 11:21 AM EST us Jose Wilson MD POINT OF CARE TEST ORDERABLES F inal Result Performing Organization Address [facility] Co de Phone Number [facility]
[address] [place] [address], * POC Glucose Once (04/08/2018 9:49 AM EST) Glucose 71 70 - 130 mg/dL 04/08/2018 9:59 AM EST [facility] Blood 04/08/2018 9:49 AM EST 04/08/2018 9:59 AM EST us Jose Wilson MD POINT OF CARE TEST ORDERABLES F inal Result Performing Organization Address [facility] Phone Number [facility]
[address] [place] [address], * (ABNORMAL) POC Glucose Once (04/08/2018 9:15 AM EST) Glucose 56(L) 70 - 130 mg/dL 04/08/2018 9:35 AM EST [facility] Blood 04/08/2018 9:15 AM EST 04/08/2018 9:35 AM EST us Jose Wilson MD POINT OF CARE TEST ORDERABLES F inal Result Performing Organization Address [facility] Co de Phone Number [facility]
[address] [place] [address], * POC Glucose Once (04/08/2018 8:07 AM EST) Glucose 76 70 - 130 mg/dL 04/08/2018 8:24 AM EST [facility] Blood 04/08/2018 8:07 AM EST 04/08/2018 8:24 AM EST us Jose Katie MD POINT OF CARE TEST ORDERABLES F inal Result Performing Organization Address City/[facility] Co de Phone Number [facility]
[address] [place] [address], * POC Glucose Once (04/08/2018 6:42 AM EST) Glucose 94 70 - 130 mg/dL 04/08/2018 6:43 AM EST [facility] Blood 04/08/2018 6:42 AM EST 04/08/2018 6:43 AM EST us Jose Wilson MD POINT OF CARE TEST ORDERABLES F inal Result Performing Organization Address [facility] de Phone Number [facility]
[address] [place] [address], * POC Glucose Once (04/08/2018 6:12 AM EST) Glucose 99 70 - 130 mg/dL 04/08/2018 6:14 AM EST [facility] Blood 04/08/2018 6:12 AM EST 04/08/2018 6:14 AM EST us Jose Wilson MD POINT OF CARE TEST ORDERABLES F inal Result Performing Organization Address [facility] Co de Phone Number [facility]
[address] [place] [address], * POC Glucose Once (04/08/2018 5:18 AM EST) Glucose 112 70 - 130 mg/dL 04/08/2018 5:19 AM EST [facility] Blood 04/08/2018 5:18 AM EST 04/08/2018 5:19 AM EST us Jose Wilson MD POINT OF CARE TEST ORDERABLES F inal Result Performing Organization Address City/[facility] Co de Phone Number [facility]
[address] [place] [address], * ECG 12 Lead (04/08/2018 4:14 AM EST) 04/08/2018 4:14 AM EST 04/08/2018 7:50 AM EST Narrative ECG - 04/08/2018 7:51 AM EST Test Reason : Post-Op Heart Surgery Blood Pressure : / mmHG Vent. Rate : 070 BPM ? Atrial Rate : 070 BPM ?? P-R Int : 132 ms ?QRS Dur : 108 ms ?QT Int : 474 ms ? P-R-T Axes : 025 008 -72 degrees ?? QTc Int : 511 ms Normal sinus rhythm [address] & T wave abnormality, consider inferior ischemia Prolonged QT Abnormal ECG When compared with ECG of 07-APR-2018 12:15, T wave inversion less evident in Inferior leads T wave inversion more evident in Lateral leads Confirmed by Yohan Ontiveros ([id number]) on 04/08/2018 7:50:58 AM Referred By: ? Confirmed By:Yohan Ontiveros Procedure Note Yohan Ontiveros MD - 04/08/2018 Test Reason : Post-Op Heart Surgery Blood Pressure : / mmHG Vent. Rate : 070 BPM Atrial Rate : 070 BPM P-R Int : 132 ms QRS Dur : 108 ms QT Int : 474 ms P-R-T Axes : 025 008 -72 degrees QTc Int : 511 ms Normal sinus rhythm ST & T wave abnormality, consider inferior ischemia Prolonged QT Abnormal ECG When compared with ECG of 07-APR-2018 12:15, T wave inversion less evident in Inferior leads T wave inversion more evident in Lateral leads Confirmed by Yohan Ontiveros ([id number]) on 04/08/2018 7:50:58 AM Referred By: Confirmed By:Yohan Ontiveros Cruz FINLEY ECG ORDERABLES Final Result Performing Organization Address City/[facility] Co de Phone Number ECG * POC Glucose Once (04/08/2018 4:05 AM EST) Glucose 130 70 - 130 mg/dL 04/08/2018 4:06 AM [facility] Blood 04/08/2018 4:05 AM EST 04/08/2018 4:06 AM EST Jose Wilson MD POINT OF CARE TEST ORDERABLES F inal Result [facility]
[address] [place] [address], * (ABNORMAL) CBC Auto Differential (04/08/2018 4:00 AM EST) WBC 15.01(H) 3.50 - 10.80 10*3/mm3 04/08/2018 5:14 AM [facility] RBC 3.54(L) 4.20 - 5.76 10*6/mm3 04/08/2018 5:14 AM [facility] Hemoglobin 11.2(L) 13.1 - 17.5 g/dL 04/08/2018 5:14 AM [facility] Hematocrit 33.0(L) 38.9 - 50.9 % 04/08/2018 5:14 AM [facility] MCV 93.2 80.0 - 99.0 fL 04/08/2018 5:14 AM [facility] MCH 31.6(H) 27.0 - 31.0 pg 04/08/2018 5:14 AM [facility] MCHC 33.9 32.0 - 36.0 g/dL 04/08/2018 5:14 AM [facility] RDW 13.7 11.3 - 14.5 % 04/08/2018 5:14 AM [facility] RDW-SD 47.0 37.0 - 54.0 fl 04/08/2018 5:14 AM [facility] MPV 12.5(H) 6.0 - 12.0 fL 04/08/2018 5:14 AM [facility] Platelets 82(L) 150 - 450 10*3/mm3 04/08/2018 5:14 AM [facility] Neutrophil % 78.6(H) 41.0 - 71.0 % 04/08/2018 5:14 AM [facility] Lymphocyte % 10.9(L) 24.0 - 44.0 % 04/08/2018 5:14 AM [facility] Monocyte % 10.1 0.0 - 12.0 % 04/08/2018 5:14 AM [facility] Eosinophil % 0.1 0.0 - 3.0 % 04/08/2018 5:14 AM [facility] Basophil % 0.3 0.0 - 1.0 % 04/08/2018 5:14 AM [facility] Immature Grans % 0.3 0.0 - 0.6 % 04/08/2018 5:14 AM [facility] Neutrophils, Absolute 11.81(H) 1.50 - 8.30 10*3/mm3 04/08/2018 5:14 AM [facility] Lymphocytes, Absolute 1.63 0.60 - 4.80 10*3/mm3 04/08/2018 5:14 AM [facility] Monocytes, Absolute 1.51(H) 0.00 - 1.00 10*3/mm3 04/08/2018 5:14 AM [facility] Eosinophils, Absolute 0.02 0.00 - 0.30 10*3/mm3 04/08/2018 5:14 AM [facility] Basophils, Absolute 0.04 0.00 - 0.20 10*3/mm3 04/08/2018 5:14 AM [facility] Immature Grans, Absolute 0.04(H) 0.00 - 0.03 10*3/mm3 04/08/2018 5:14 AM [facility] Blood Venipuncture / Unknown 04/08/2018 4:00 AM EST 04/08/2018 4:32 AM EST [facility] BLOOD ORDERABLES Final Resu lt Performing Organization Address City/[facility]/ZIP Co de Phone Number [facility]
[address] [place] [address], * (ABNORMAL) Protime-INR (04/08/2018 4:00 AM EST) Protime 11.8(H) 9.6 - 11.5 Seconds 04/08/2018 5:19 AM EST [facility] INR 1.12(H) 0.91 - 1.09 04/08/2018 5:19 AM EST [facility] Blood Venipuncture / Unknown 04/08/2018 4:00 AM EST 04/08/2018 4:32 AM EST [facility] BLOOD ORDERABLES Final Resu lt Performing Organization Address [facility]/ZIP Co de Phone Number [facility]
[address] [place] [address], * Magnesium (04/08/2018 4:00 AM EST) Magnesium 1.9 1.3 - 2.7 mg/dL 04/08/2018 5:17 AM EST [facility] Blood Venipuncture / Unknown 04/08/2018 4:00 AM EST 04/08/2018 4:31 AM EST [facility] BLOOD ORDERABLES Final Resu lt Performing Organization Address City/[facility] Co de Phone Number [facility]
[address] [place] [address], * (ABNORMAL) Renal Function Panel (04/08/2018 4:00 AM EST) Glucose 137(H) 70 - 100 mg/dL 04/08/2018 5:17 AM EST [facility] BUN 11 9 - 23 mg/dL 04/08/2018 5:17 AM [facility] Creatinine 0.88 0.60 - 1.30 mg/dL 04/08/2018 5:17 AM [facility] Sodium 136 132 - 146 mmol/L 04/08/2018 5:17 AM [facility] Potassium 4.3 3.5 - 5.5 mmol/L 04/08/2018 5:17 AM [facility] Chloride 110(H) 99 - 109 mmol/L 04/08/2018 5:17 AM [facility] CO2 22.0 20.0 - 31.0 mmol/L 04/08/2018 5:17 AM [facility] Calcium 8.1(L) 8.7 - 10.4 mg/dL 04/08/2018 5:17 AM [facility] Albumin 3.51 3.20 - 4.80 g/dL 04/08/2018 5:17 AM [facility] Phosphorus 3.7 2.4 - 5.1 mg/dL 04/08/2018 5:17 AM [facility] Anion Gap 4.0 3.0 - 11.0 mmol/L 04/08/2018 5:17 AM [facility] BUN/Creatinine Ratio 12.5 7.0 - 25.0 04/08/2018 5:17 AM [facility] eGFR Non Amer 91 >60 mL/min/1.7 3 04/08/2018 5:17 AM [facility] Blood Venipuncture / Unknown 04/08/2018 4:00 AM EST 04/08/2018 4:31 AM EST [facility] LABORATORY - 04/08/2018 5:17 AM [facility] National Kidney Foundation Guidelines Stage ? Description ?GFR 1 ? Normal or High ? 90+ 2 ? Mild decrease ?60-89 3 ? Moderate decrease ??30-59 4 ? Severe decrease ?15-29 5 ? Kidney failure ? <15 The MDRD GFR formula is only valid for adults with stable renal function between ages 18 and 70. Cruz [facility] LAB BLOOD ORDERABLES Final Resu lt Performing Organization Address [facility] de Phone Number [facility]
[address] [place] [address], * POC Glucose Once (04/08/2018 3:07 AM EST) Glucose 78 70 - 130 mg/dL 04/08/2018 3:08 AM EST [facility] Blood 04/08/2018 3:07 AM EST 04/08/2018 3:08 AM EST Jose Wilson MD POINT OF CARE TEST ORDERABLES F inal Result Performing Organization Address [facility] de Phone Number [facility]
[address] [place] [address], * XR Chest 1 View (04/08/2018 2:32 AM EST) Anatomical Region Laterality Modality Body N/A Radiographic Scarlett ging 04/08/2018 9:59 AM EST Impressions 04/08/2018 10:02 AM EST Hardware adjustment/removal as discussed. Improved aeration. D: ??04/08/2018 E: ??04/08/2018 This report was finalized on 04/08/2018 10:02 AM by Bj Joseph. Narrative 04/08/2018 10:02 AM EST EXAMINATION: XR CHEST 1 VW- INDICATION: Postop heart surgery; I48.1-Persistent atrial fibrillation; I35.9-Nonrheumatic aortic valve disorder, unspecified. TECHNIQUE: ??Single view frontal chest. COMPARISONS: 04/07/2018 FINDINGS: ??[place]chorage catheter has been retracted into the SVC. The endotracheal and nasogastric tubes have been removed. Sternotomy wires and left atrial appendage occlusive device unchanged. The midline right chest drain remains. ??There is decreased atelectasis emanating from the right hilum. ??No sizable pleural effusion or pneumothorax. Cardiomediastinal silhouette is unchanged. Procedure Note Bj Joseph MD - 04/08/2018 EXAMINATION: XR CHEST 1 VW- INDICATION: Postop heart surgery; I48.1-Persistent atrial fibrillation; I35.9-Nonrheumatic aortic valve disorder, unspecified. TECHNIQUE: Single view frontal chest. COMPARISONS: 04/07/2018 FINDINGS: [place]chorage catheter has been retracted into the SVC. The endotracheal and nasogastric tubes have been removed. Sternotomy wires and left atrial appendage occlusive device unchanged. The midline right chest drain remains. There is decreased atelectasis emanating from the right hilum. No sizable pleural effusion or pneumothorax. Cardiomediastinal silhouette is unchanged. IMPRESSION: Hardware adjustment/removal as discussed. Improved aeration. E: 04/08/2018 This report was finalized on 04/08/2018 10:02 AM by Bj Joseph. [facility] IMG DIAGNOSTIC IMAGING ORDERABL ES Final Result * (ABNORMAL) POC Glucose Once (04/08/2018 2:03 AM EST) Glucose 140(H) 70 - 130 mg/dL 04/08/2018 2:04 AM EST [facility] Blood 04/08/2018 2:03 AM EST 04/08/2018 2:04 AM EST Jose Wilson MD POINT OF CARE TEST ORDERABLES F inal Result [facility]
[address] [place] [address], * POC Glucose Once (04/08/2018 1:01 AM EST) Glucose 130 70 - 130 mg/dL 04/08/2018 1:04 AM EST [facility] Blood 04/08/2018 1:01 AM EST 04/08/2018 1:04 AM EST us Jose Wilson MD POINT OF CARE TEST ORDERABLES F inal Result Performing Organization Address [facility] Co de Phone Number [facility]
[address] [place] [address], * POC Glucose Once (04/08/2018 12:15 AM EST) Glucose 119 70 - 130 mg/dL 04/08/2018 12:32 AM EST [facility] Blood 04/08/2018 12:1 5 AM EST 04/08/2018 12:32 AM EST us Jose Wilson MD POINT OF CARE TEST ORDERABLES F inal Result Performing Organization Address [facility] Phone Number [facility]
[address] [place] [address], * Potassium (04/07/2018 11:33 PM EST) Potassium 4.1 3.5 - 5.5 mmol/L 04/07/2018 11:53 PM EST [facility] Blood Venipuncture / Unknown 04/07/2018 11:33 PM EST 04/07/2018 11:35 PM EST us Jose Wilson MD LAB BLOOD ORDERABLES Final Resu lt Performing Organization Address [facility] Co de Phone Number [facility]
[address] [place] [address], * (ABNORMAL) Hemoglobin & Hematocrit, Blood (04/07/2018 11:33 PM EST) Hemoglobin 11.4(L) 13.1 - 17.5 g/dL 04/07/2018 11:41 PM EST [facility] Hematocrit 33.4(L) 38.9 - 50.9 % 04/07/2018 11:41 PM EST [facility] Blood Venipuncture / Unknown 04/07/2018 11:33 PM EST 04/07/2018 11:35 PM EST us Jose Wilson MD LAB BLOOD ORDERABLES Final Resu lt Performing Organization Address [facility]/ZIP Co de Phone Number [facility]
[address] [place] [address], * (ABNORMAL) POC Glucose Once (04/07/2018 10:59 PM EST) Glucose 148(H) 70 - 130 mg/dL 04/07/2018 11:11 PM EST [facility] Blood 04/07/2018 10:5 9 PM EST 04/07/2018 11:11 PM EST us Jose Wilson MD POINT OF CARE TEST ORDERABLES F inal Result Performing Organization Address [facility] Co de Phone Number [facility]
[address] [place] [address], * (ABNORMAL) POC Glucose Once (04/07/2018 9:52 PM EST) Glucose 145(H) 70 - 130 mg/dL 04/07/2018 9:54 PM EST [facility] Blood 04/07/2018 9:52 PM EST 04/07/2018 9:54 PM EST us Jose Wilson MD POINT OF CARE TEST ORDERABLES F inal Result Performing Organization Address City/[facility] Co de Phone Number [facility]
[address] [place] [address], * POC Glucose Once (04/07/2018 9:00 PM EST) Glucose 114 70 - 130 mg/dL 04/07/2018 9:02 PM EST [facility] Blood 04/07/2018 9:00 PM EST 04/07/2018 9:02 PM EST us Jose Wilson MD POINT OF CARE TEST ORDERABLES F inal Result Performing Organization Address [facility] Co de Phone Number [facility]
[address] [place] [address], * Potassium (04/07/2018 8:09 PM EST) [facility] Potassium 4.4 3.5 - 5.5 mmol/L 04/07/2018 8:23 PM EST [facility] Blood Venipuncture / Unknown 04/07/2018 8:09 PM EST 04/07/2018 8:10 PM EST us Jose Wilson MD LAB BLOOD ORDERABLES Final Resu lt Performing Organization Address [facility] Co de Phone Number [facility]
[address] [place] [address], * (ABNORMAL) Hemoglobin & Hematocrit, Blood (04/07/2018 8:09 PM EST) [facility] Hemoglobin 11.5(L) 13.1 - 17.5 g/dL 04/07/2018 8:21 PM EST [facility] Hematocrit 33.5(L) 38.9 - 50.9 % 04/07/2018 8:21 PM EST [facility] Blood Venipuncture / Unknown 04/07/2018 8:09 PM EST 04/07/2018 8:11 PM EST us Jose Wilson MD LAB BLOOD ORDERABLES Final Resu lt Performing Organization Address [facility]/ZIP Co de Phone Number [facility]
[address] [place] [address], * (ABNORMAL) POC Glucose Once (04/07/2018 8:01 PM EST) Glucose 138(H) 70 - 130 mg/dL 04/07/2018 8:21 PM EST [facility] Blood 04/07/2018 8:01 PM EST 04/07/2018 8:21 PM EST us Jose Wilson MD POINT OF CARE TEST ORDERABLES F inal Result Performing Organization Address [facility]/ZIP Co de Phone Number [facility]
[address] [place] [address], * POC Glucose Once (04/07/2018 6:57 PM EST) Glucose 92 70 - 130 mg/dL 04/07/2018 7:00 PM EST [facility] Blood 04/07/2018 6:57 PM EST 04/07/2018 7:00 PM EST us Jose Wilson MD POINT OF CARE TEST ORDERABLES F inal Result Performing Organization Address [facility] Co de Phone Number [facility]
[address] [place] [address], * POC Glucose Once (04/07/2018 6:07 PM EST) Glucose 84 70 - 130 mg/dL 04/07/2018 6:30 PM EST [facility] Blood 04/07/2018 6:07 PM EST 04/07/2018 6:30 PM EST us Jose Wilson MD POINT OF CARE TEST ORDERABLES F inal Result Performing Organization Address City/[facility] Co de Phone Number [facility]
[address] [place] [address], * (ABNORMAL) Blood Gas, Arterial With Co-Ox (04/07/2018 5:24 PM EST) Pathologist [facility] Site Arterial Line 04/07/2018 5:29 PM [facility] THERAPY Stephen's Test N/A 04/07/2018 5:29 PM [facility] THERAPY pH, Arterial 7.314(L) 7.350 - 7.450 pH units 04/07/2018 5:29 PM [facility] THERAPY Comment:84 Value below refer ence range pCO2, Arterial 45.3 mm Hg 04/07/2018 5:29 PM [facility] THERAPY Comment:83 Value above refer ence range pO2, Arterial 105.0 83.0 - 108.0 mm Hg 04/07/2018 5:29 PM [facility] THERAPY HCO3, Arterial 23.0 20.0 - 26.0 mmol/L 04/07/2018 5:29 PM [facility] THERAPY Base Excess, Arterial -3.3(L) 0.0 - 2.0 mmol/L 04/07/2018 5:29 PM [facility] THERAP[facility] Hemoglobin, Blood Gas 11.6(L) 13.5 - 17.5 g/dL 04/07/2018 5:29 PM [facility] THERAPY Comment:84 Value below refer ence range Hematocrit, Blood Gas 35.7 % 04/07/2018 5:29 PM [facility] THER[facility] Oxyhemoglobin 95.3 94 - 99 % 04/07/2018 5:29 PM [facility] Methemoglobin 1.50 0.00 - 1.50 % 04/07/2018 5:29 PM [facility] Carboxyhemoglobin 0.8 0 - 2 % 019 5:29 PM [facility] THER[facility] CO2 Content 24.4 23 - 27 mmol/L 04/07/2018 5:29 PM [facility] THERAPY Temperature 37.0 C 04/07/2018 5:29 PM [facility] Barometric Pressure for Blood Gas mmHg 04/07/2018 5:29 PM [facility]ER[facility] Comment:N/A Modality Ventilator 04/07/2018 5:29 PM [facility] THERAPY FIO2 40 % 04/07/2018 5:29 PM EST [facility] THERAP[facility] Ventilator Mode CPAP 9 5:29 PM EST [facility] THERAPY PSV 10.0 cmH2O 04/07/2018 5:29 PM EST [facility] THERAPY CPAP 5.0 cmH2O 04/07/2018 5:29 PM EST [facility] THER[facility] Comment:Meter: [id number] Student Career Development Specialist: [id number] Note 04/07/2018 5:29 PM EST [facility] THERAPY pH, Temp Corrected 7.314 pH Units 2018 5:29 PM [facility] THERAPY pCO2, Temperature Corrected 45.3 35 - 48 mm Hg 04/07/2018 5:29 PM EST [facility] THERAP[facility] pO2, Temperature Corrected 105 83 - 108 mm Hg 04/07/2018 5:29 PM EST [facility] THERAP[facility] Arterial Blood 04/07/2018 5: 24 PM EST 04/07/2018 5:26 PM EST us Jose Wilson MD LAB BLOOD ORDERABLES Final Resu lt [facility] THERAPY
[address] * (ABNORMAL) POC Glucose Once (04/07/2018 5:02 PM EST) Glucose 161(H) 70 - 130 mg/dL 04/07/2018 5:14 PM EST [facility] Blood 04/07/2018 5:02 PM EST 04/07/2018 5:14 PM EST us Jose Wilson MD POINT OF CARE TEST ORDERABLES F inal Result Performing Organization Address City/[facility]/ZIP Co de Phone Number [facility]
[address] [place] [address], * (ABNORMAL) POC Glucose Once (04/07/2018 4:05 PM EST) Glucose 142(H) 70 - 130 mg/dL 04/07/2018 4:11 PM EST [facility] Blood 04/07/2018 4:05 PM EST 04/07/2018 4:11 PM EST Jose Wilson MD POINT OF CARE TEST ORDERABLES F inal Result [facility]
[address] [place] [address], * Magnesium (04/07/2018 4:03 PM EST) Magnesium 2.4 1.3 - 2.7 mg/dL 04/07/2018 4:29 PM EST [facility] Blood Venipuncture / Unknown 04/07/2018 4:03 PM EST 04/07/2018 4:02 PM EST [facility] BLOOD ORDERABLES Final Resu lt [facility]
[address] [place] [address], * (ABNORMAL) Renal Function Panel (04/07/2018 4:03 PM EST) Glucose 148(H) 70 - 100 mg/dL 04/07/2018 4:29 PM [facility] BUN 11 9 - 23 mg/dL 04/07/2018 4:29 PM [facility] Creatinine 0.97 0.60 - 1.30 mg/dL 04/07/2018 4:29 PM [facility] Sodium 135 132 - 146 mmol/L 04/07/2018 4:29 PM [facility] Potassium 4.2 3.5 - 5.5 mmol/L 04/07/2018 4:29 PM [facility] Chloride 107 99 - 109 mmol/L 04/07/2018 4:29 PM [facility] CO2 20.0 20.0 - 31.0 mmol/L 04/07/2018 4:29 PM EST [facility] Calcium 8.2(L) 8.7 - 10.4 mg/dL 04/07/2018 4:29 PM EST [facility] Albumin 3.61 3.20 - 4.80 g/dL 04/07/2018 4:29 PM EST [facility] Phosphorus 2.4 2.4 - 5.1 mg/dL 04/07/2018 4:29 PM EST [facility] Anion Gap 8.0 3.0 - 11.0 mmol/L 04/07/2018 4:29 PM EST [facility] BUN/Creatinine Ratio 11.3 7.0 - 25.0 04/07/2018 4:29 PM EST [facility] eGFR Non Amer 81 >60 mL/min/1.7 3 04/07/2018 4:29 PM EST [facility] Blood Venipuncture / Unknown 04/07/2018 4:03 PM EST 04/07/2018 4:02 PM EST Narrative [facility] - 04/07/2018 4:29 PM EST National Kidney Foundation Guidelines Stage ? Description ?GFR 1 ? Normal or High ? 90+ 2 ? Mild decrease ?60-89 3 ? Moderate decrease ??30-59 4 ? Severe decrease ?15-29 5 ? Kidney failure ? <15 The MDRD GFR formula is only valid for adults with stable renal function between ages 18 and 70. us [facility] LAB BLOOD ORDERABLES Final Resu lt [facility]
[address] [place] [address], * (ABNORMAL) CBC (No Diff) (04/07/2018 4:03 PM EST) WBC 17.60(H) 3.50 - 10.80 10*3/mm3 04/07/2018 4:07 PM EST [facility] RBC 3.69(L) 4.20 - 5.76 10*6/mm3 04/07/2018 4:07 PM [facility] Hemoglobin 11.7(L) 13.1 - 17.5 g/dL 04/07/2018 4:07 PM [facility] Hematocrit 34.1(L) 38.9 - 50.9 % 04/07/2018 4:07 PM [facility] MCV 92.4 80.0 - 99.0 fL 04/07/2018 4:07 PM [facility] MCH 31.7(H) 27.0 - 31.0 pg 04/07/2018 4:07 PM [facility] MCHC 34.3 32.0 - 36.0 g/dL 04/07/2018 4:07 PM [facility] RDW 13.4 11.3 - 14.5 % 04/07/2018 4:07 PM [facility] RDW-SD 44.9 37.0 - 54.0 fl 04/07/2018 4:07 PM [facility] MPV 11.7 6.0 - 12.0 fL 04/07/2018 4:07 PM [facility] Platelets 75(L) 150 - 450 10*3/mm3 04/07/2018 4:07 PM [facility] Blood Venipuncture / Unknown 04/07/2018 4:03 PM EST 04/07/2018 4:03 PM EST us [facility] LAB BLOOD ORDERABLES Final Resu lt [facility]
[address] [place] [address], * (ABNORMAL) Blood Gas, Arterial With Co-Ox (04/07/2018 3:34 PM EST) Site Arterial Line 04/07/2018 3:38 PM [facility] THERAPY Stephen's Test N/A 04/07/2018 3:38 PM [facility] pH, Arterial 7.441 7.350 - 7.450 pH units 04/07/2018 3:38 PM [facility] THER[facility] pCO2, Arterial 30.0 mm Hg 04/07/2018 3:38 PM [facility] Comment:84 Value below refer ence range pO2, Arterial 95.0 83.0 - 108.0 mm Hg 04/07/2018 3:38 PM [facility] HCO3, Arterial 20.4 20.0 - 26.0 mmol/L 04/07/2018 3:38 PM [facility]ER[facility] Base Excess, Arterial -2.8(L) 0.0 - 2.0 mmol/L 04/07/2018 3:38 PM [facility] Hemoglobin, Blood Gas 11.8(L) 13.5 - 17.5 g/dL 04/07/2018 3:38 PM [facility]ER[facility] Comment:84 Value below refer ence range Hematocrit, Blood Gas 36.1 % 04/07/2018 3:38 PM [facility] Oxyhemoglobin 95.5 94 - 99 % 04/07/2018 3:38 PM [facility] Methemoglobin 1.40 0.00 - 1.50 % 04/07/2018 3:38 PM [facility] Carboxyhemoglobin 1.2 0 - 2 % 019 3:38 PM [facility] CO2 Content 21.3(L) 23 - 27 mmol/L 04/07/2018 3:38 PM [facility] Temperature 37.0 C 04/07/2018 3:38 PM [facility] Barometric Pressure for Blood Gas mmHg 04/07/2018 3:38 PM [facility] Comment:N/A Modality Ventilator 04/07/2018 3:38 PM [facility] FIO2 40 % 04/07/2018 3:38 PM [facility] Ventilator Mode SIMV 9 3:38 PM EST [facility] Set Tidal Volume 750 04/07/19 19 3:38 PM EST [facility] THER[facility] Set Mech Resp Rate 18.0 2018 3:38 PM EST [facility] Comment:Meter: [id number] Student Career Development Specialist: [id number] PEEP 5.0 04/07/2018 3:38 PM EST [facility] Note 04/07/2018 3:38 PM EST [facility] pH, Temp Corrected 7.441 pH Units 2018 3:38 PM EST [facility] THERAP[facility] pCO2, Temperature Corrected 30.0(L) 35 - 48 mm Hg 04/07/2018 3:38 PM EST [facility] THER[facility] pO2, Temperature Corrected 95.0 83 - 108 mm Hg 04/07/2018 3:38 PM [facility] Arterial Blood 04/07/2018 3: 34 PM EST 04/07/2018 3:35 PM EST us Jose Wilson MD LAB BLOOD ORDERABLES Final Resu lt [facility] THER[facility]
[address] [place] [address], * (ABNORMAL) Blood Gas, Venous With Co-Ox (04/07/2018 3:31 PM EST) Site Drawn by RN/MD 04/07/2018 3:35 PM EST [facility] pH, Venous 7.410 pH Units 04/07/2018 3:35 PM EST [facility] TH[facility] pCO2, Venous 36.2(L) 41.0 - 51.0 mm Hg 04/07/2018 3:35 PM EST [facility] Comment:84 Value below refer ence range pO2, Venous 29.2 27.0 - 53.0 mm Hg 04/07/2018 3:35 PM EST [facility] HCO3, Venous 22.9 22.0 - 28.0 mmol/L 04/07/2018 3:35 PM [facility] Base Excess, Venous -1.4 -2.0 - 2.0 mmol/L 04/07/2018 3:35 PM [facility] Hemoglobin, Blood Gas 11.8(L) 13.5 - 17.5 g/dL 04/07/2018 3:35 PM [facility] Comment:84 Value below refer ence range Oxyhemoglobin Venous 57.1 % 10/2018 3:35 PM [facility] Methemoglobin Venous 1.3 % 10/2018 3:35 PM [facility] Carboxyhemoglobin Venous 1.5 % 04/07/2018 3:35 PM [facility] CO2 Content 24.0 23 - 27 mmol/L 04/07/2018 3:35 PM [facility] Temperature 37.0 C 04/07/2018 3:35 PM [facility] Barometric Pressure for Blood Gas mmHg 04/07/2018 3:35 PM [facility] Comment:N/A Modality Ventilator 04/07/2018 3:35 PM [facility] FIO2 40 % 04/07/2018 3:35 PM [facility] Ventilator Mode SIMV 9 3:35 PM [facility] TH[facility] Set Tidal Volume 750 04/07/19 19 3:35 PM [facility] THER[facility] Set Mech Resp Rate 16.0 2018 3:35 PM [facility] Comment:Meter: [id number] Student Career Development Specialist: [id number] PEEP 5.0 04/07/2018 3:35 PM [facility] PSV 10.0 cmH2O 04/07/2018 3:35 PM [facility] Note 04/07/2018 3:35 PM [facility] Venous Blood 04/07/2018 3:31 PM EST 04/07/2018 3:32 PM EST us Jose Wilson MD LAB BLOOD ORDERABLES Final Resu lt [facility]
[address] [place] [address], [place] * POC Glucose Once (04/07/2018 2:58 PM EST) Glucose 125 70 - 130 mg/dL 04/07/2018 3:00 PM EST [facility] Blood 04/07/2018 2:58 PM EST 04/07/2018 3:00 PM EST us Jose Wilson MD POINT OF CARE TEST ORDERABLES F inal Result Performing Organization Address [facility] Phone Number [facility]
[address] [place] [address], * POC Glucose Once (04/07/2018 1:59 PM EST) Glucose 117 70 - 130 mg/dL 04/07/2018 2:17 PM EST [facility] Blood 04/07/2018 1:59 PM EST 04/07/2018 2:17 PM EST us Jose Wilson MD POINT OF CARE TEST ORDERABLES F inal Result Performing Organization Address City/[facility]/ZIP Co de Phone Number [facility]
[address] [place] [address], * Magnesium (04/07/2018 1:44 PM EST) Magnesium 2.6 1.3 - 2.7 mg/dL 04/07/2018 2:21 PM EST [facility] Blood Venipuncture / Unknown 04/07/2018 1:44 PM EST 04/07/2018 1:54 PM EST Cruz [facility] LAB BLOOD ORDERABLES Final Resu lt [facility]
[address] [place] [address], * (ABNORMAL) Renal Function Panel (04/07/2018 1:44 PM EST) Glucose 112(H) 70 - 100 mg/dL 04/07/2018 2:21 PM EST [facility] BUN 11 9 - 23 mg/dL 04/07/2018 2:21 PM EST [facility] Creatinine 0.93 0.60 - 1.30 mg/dL 04/07/2018 2:21 PM EST [facility] Sodium 137 132 - 146 mmol/L 04/07/2018 2:21 PM EST [facility] Potassium 4.1 3.5 - 5.5 mmol/L 04/07/2018 2:21 PM EST [facility] Chloride 109 99 - 109 mmol/L 04/07/2018 2:21 PM EST [facility] CO2 22.0 20.0 - 31.0 mmol/L 04/07/2018 2:21 PM [facility] Calcium 8.1(L) 8.7 - 10.4 mg/dL 04/07/2018 2:21 PM EST [facility] Albumin 3.28 3.20 - 4.80 g/dL 04/07/2018 2:21 PM EST [facility] Phosphorus 3.3 2.4 - 5.1 mg/dL 04/07/2018 2:21 PM [facility] Anion Gap 6.0 3.0 - 11.0 mmol/L 04/07/2018 2:21 PM [facility] BUN/Creatinine Ratio 11.8 7.0 - 25.0 04/07/2018 2:21 PM [facility] eGFR Non Amer 85 >60 mL/min/1.7 3 04/07/2018 2:21 PM [facility] Blood Venipuncture / Unknown 04/07/2018 1:44 PM EST 04/07/2018 1:54 PM EST Narrative [facility] - 04/07/2018 2:21 PM EST [employer] Guidelines Stage ? Description ?GFR 1 ? Normal or High ? 90+ 2 ? Mild decrease ?60-89 3 ? Moderate decrease ??30-59 4 ? Severe decrease ?15-29 5 ? Kidney failure ? <15 The MDRD GFR formula is only valid for adults with stable renal function between ages 18 and 70. [facility] LAB BLOOD ORDERABLES Final Resu lt Performing Organization Address [facility] Co de Phone Number [facility]
[address] [place] [address], * POC Glucose Once (04/07/2018 12:55 PM EST) Glucose 110 70 - 130 mg/dL 04/07/2018 1:07 PM EST [facility] Blood 04/07/2018 12:5 5 PM EST 04/07/2018 1:07 PM EST Jose Wilson MD POINT OF CARE TEST ORDERABLES F inal Result Performing Organization Address [facility] de Phone Number [facility]
[address] [place] [address], * XR Chest 1 View (04/07/2018 12:37 PM EST) Anatomical Region Laterality Modality Body N/A Radiographic Scarlett ging 04/07/2018 3:53 PM EST Impressions 04/07/2018 3:57 PM EST Expected postoperative findings. D: ??04/07/2018 E: ??04/07/2018 This report was finalized on 04/07/2018 3:57 PM by Bj Joseph. Narrative 04/07/2018 3:57 PM EST EXAMINATION: XR CHEST 1 VW-04/07/2018: INDICATION: Post-Op Check Line & Tube Placement; I35.9-Nonrheumatic aortic valve disorder, unspecified; I35.9-Nonrheumatic aortic valve disorder, unspecified. TECHNIQUE: ??Single view frontal chest. COMPARISONS: 04/06/2018. FINDINGS: ??Endotracheal tube in good position. NG tube terminates below the diaphragm in the gastric fundus. Right IJ approach [place] catheter terminates at midline. Drain is seen at midline projecting over the heart. Sternotomy wires, atrial appendage occlusive device and valve replacement hardware. Atelectasis is noted emanating from the right hilum. No focal airspace disease, pleural effusion or pneumothorax. Procedure Note Bj Joseph MD - 04/07/2018 EXAMINATION: XR CHEST 1 -04/07/2018: INDICATION: Post-Op Check Line & Tube Placement; I35.9-Nonrheumatic aortic valve disorder, unspecified; I35.9-Nonrheumatic aortic valve disorder, unspecified. TECHNIQUE: Single view frontal chest. COMPARISONS: 04/06/2018. FINDINGS: Endotracheal tube in good position. NG tube terminates below the diaphragm in the gastric fundus. Right IJ approach [place] catheter terminates at midline. Drain is seen at midline projecting over the heart. Sternotomy wires, atrial appendage occlusive device and valve replacement hardware. Atelectasis is noted emanating from the right hilum. No focal airspace disease, pleural effusion or pneumothorax. IMPRESSION: Expected postoperative findings. E: 04/07/2018 This report was finalized on 04/07/2018 3:57 PM by Bj Joseph. us [facility] IMG DIAGNOSTIC IMAGING ORDERABL ES Final Result * (ABNORMAL) Blood Gas, Arterial With Co-Ox (04/07/2018 12:34 PM EST) Site Arterial Line 04/07/2018 12:39 PM EST [facility] Stephen's Test N/A 04/07/2018 12:39 PM EST [facility] pH, Arterial 7.277(L) 7.350 - 7.450 pH units 04/07/2018 12:39 PM [facility] Comment:84 Value below refer ence range pCO2, Arterial 49.5 mm Hg 04/07/2018 12:39 PM [facility] Comment:83 Value above refer ence range pO2, Arterial 202.0(H) 83.0 - 108.0 mm Hg 04/07/2018 12:39 PM [facility] Comment:83 Value above refer ence range HCO3, Arterial 23.1 20.0 - 26.0 mmol/L 04/07/2018 12:39 PM [facility] Base Excess, Arterial -4.1(L) 0.0 - 2.0 mmol/L 04/07/2018 12:39 PM [facility] Hemoglobin, Blood Gas 13.7 13.5 - 17.5 g/dL 04/07/2018 12:39 PM [facility] Hematocrit, Blood Gas 42.0 % 04/07/2018 12:39 PM [facility] Oxyhemoglobin 96.8 94 - 99 % 04/07/2018 12:39 PM [facility] Methemoglobin 1.10 0.00 - 1.50 % 04/07/2018 12:39 PM [facility] Carboxyhemoglobin 1.4 0 - 2 % 019 12:39 PM [facility] CO2 Content 24.6 23 - 27 mmol/L 04/07/2018 12:39 PM [facility] Temperature 37.0 C 04/07/2018 12:39 PM [facility] Barometric Pressure for Blood Gas mmHg 04/07/2018 12:39 PM [facility] Comment:N/A Modality Ventilator 04/07/2018 12:39 PM [facility] FIO2 100 % 04/07/2018 12:39 PM [facility] Ventilator Mode SIMV 9 12:39 PM [facility] Set Tidal Volume 700 04/07/19 19 12:39 PM [facility] Set Mech Resp Rate 16.0 2018 12:39 PM [facility] Comment:Meter: [id number] Student Career Development Specialist: [id number] PEEP 5.0 04/07/2018 12:39 PM EST [facility] PSV 10.0 cmH2O 04/07/2018 12:39 PM EST [facility] Note 04/07/2018 12:39 PM EST [facility] pH, Temp Corrected 7.277 pH Units 2018 12:39 PM [facility] pCO2, Temperature Corrected 49.5(H) 35 - 48 mm Hg 04/07/2018 12:39 PM [facility] pO2, Temperature Corrected 202(H) 83 - 108 mm Hg 04/07/2018 12:39 PM [facility] Arterial Blood 04/07/2018 12 :34 PM EST 04/07/2018 12:37 PM EST us Jose Wilson MD LAB BLOOD ORDERABLES Final Resu lt [facility]
[address] [place] [address], * (ABNORMAL) CBC (No Diff) (04/07/2018 12:27 PM EST) WBC 23.45(H) 3.50 - 10.80 10*3/mm3 04/07/2018 1:05 PM [facility] RBC 4.09(L) 4.20 - 5.76 10*6/mm3 04/07/2018 1:05 PM [facility] Hemoglobin 12.8(L) 13.1 - 17.5 g/dL 04/07/2018 1:05 PM [facility] Hematocrit 37.6(L) 38.9 - 50.9 % 04/07/2018 1:05 PM [facility] MCV 91.9 80.0 - 99.0 fL 04/07/2018 1:05 PM [facility] MCH 31.3(H) 27.0 - 31.0 pg 04/07/2018 1:05 PM [facility] MCHC 34.0 32.0 - 36.0 g/dL 04/07/2018 1:05 PM [facility] RDW 13.3 11.3 - 14.5 % 04/07/2018 1:05 PM [facility] RDW-SD 44.5 37.0 - 54.0 fl 04/07/2018 1:05 PM [facility] MPV 11.8 6.0 - 12.0 fL 04/07/2018 1:05 PM [facility] Platelets 72(L) 150 - 450 10*3/mm3 04/07/2018 1:05 PM [facility] Blood Venipuncture / Unknown 04/07/2018 12:27 PM EST 04/07/2018 12:51 PM EST [facility] BLOOD ORDERABLES Final Resu lt Performing Organization Address City/[facility]/ZIP Co de Phone Number [facility]
[address] [place] [address], * Calcium, Ionized (04/07/2018 12:27 PM EST) Ionized Calcium 1.30 1.12 - 1.32 mmol/L 04/07/2018 1:28 PM [facility] Blood Venipuncture / Unknown 04/07/2018 12:27 PM EST 04/07/2018 12:51 PM EST [facility] BLOOD ORDERABLES Final Resu lt Performing Organization Address City/[facility]/ZIP Co de Phone Number [facility]
[address] [place] [address], * aPTT (04/07/2018 12:27 PM EST) PTT 27.6 24.0 - 31.0 seconds 04/07/2018 1:49 PM EST [facility] Blood Venipuncture / Unknown 04/07/2018 12:27 PM EST 04/07/2018 12:51 PM EST Narrative [facility] - 04/07/2018 1:49 PM EST PTT = The equivalent PTT values for the therapeutic range of heparin levels at 0.3 to 0.5 U/ml are 55 to 70 seconds. [facility] BLOOD ORDERABLES Final Resu lt Performing Organization Address City/[facility]/ZIP Co de Phone Number [facility]
[address] [place] [address], * (ABNORMAL) Protime-INR (04/07/2018 12:27 PM EST) Protime 13.4(H) 9.6 - 11.5 Seconds 04/07/2018 1:49 PM EST [facility] INR 1.28(H) 0.91 - 1.09 04/07/2018 1:49 PM EST [facility] Blood Venipuncture / Unknown 04/07/2018 12:27 PM EST 04/07/2018 12:51 PM EST [facility] BLOOD ORDERABLES Final Resu lt Performing Organization Address City/[facility]/ZIP Co de Phone Number [facility]
[address] [place] [address], * ECG 12 Lead (04/07/2018 12:15 PM EST) 04/07/2018 12:1 5 PM EST 04/07/2018 1:45 PM EST Narrative ECG - 04/07/2018 1:45 PM EST Test Reason : Surgery Blood Pressure : / mmHG Vent. Rate : 075 BPM ? Atrial Rate : 075 BPM ?? P-R Int : 158 ms ?QRS Dur : 108 ms ?QT Int : 448 ms ? P-R-T Axes : 053 024 -67 degrees ?? QTc Int : 500 ms Normal sinus rhythm DIFFUSE NONSPECIFIC ST/T CHANGES Prolonged QT Abnormal ECG No previous ECGs available Confirmed by HELENA ??PAULO HUGGINS ([id number]) on 04/07/2018 1:45:45 PM Referred By: ? Confirmed By:PAULO MALIK ?? Procedure Note Paulo Malik MD - 04/07/2018 Test Reason : Surgery Blood Pressure : / mmHG Vent. Rate : 075 BPM Atrial Rate : 075 BPM P-R Int : 158 ms QRS Dur : 108 ms QT Int : 448 ms P-R-T Axes : 053 024 -67 degrees QTc Int : 500 ms Normal sinus rhythm DIFFUSE NONSPECIFIC ST/T CHANGES Prolonged QT Abnormal ECG No previous ECGs available Confirmed by PAULO MALIK MD ([id number]) on 04/07/2018 1:45:45 PM Referred By: Confirmed By:PAULO MALIK MD Gerald Lopes MD ECG ORDERABLES Final Result ECG * (ABNORMAL) POC Glucose Once (04/07/2018 12:00 PM EST) Glucose 132(H) 70 - 130 mg/dL 04/07/2018 12:10 PM EST [facility] Blood 04/07/2018 12:0 0 PM EST 04/07/2018 12:10 PM EST Jose Wilson MD POINT OF CARE TEST ORDERABLES F inal Result [facility]
[address] [place] [address], * (ABNORMAL) POC Surgery Labs (04/07/2018 11:16 AM EST) Ionized Calcium 1.41(H) 1.20 - 1.32 mmol/L 04/07/2018 11:29 AM [facility] POC Potassium 4.3 3.5 - 4.9 mmol/L 04/07/2018 11:29 AM [facility] Sodium 141 138 - 146 mmol/L 04/07/2018 11:29 AM [facility] Total CO2 27 24 - 29 mmol/L 04/07/2018 11:29 AM [facility] Hemoglobin 9.9(L) 12.0 - 17.0 g/dL 04/07/2018 11:29 AM [facility] Hematocrit 29(L) 38 - 51 % 04/07/2018 11:29 AM [facility] pCO2, Arterial 47.3(H) 35 - 45 mm Hg 04/07/2018 11:29 AM [facility] pO2, Arterial 412(H) 80 - 105 mmHg 04/07/2018 11:29 AM [facility] Comment:Serial Number: [id number]: [id number] Base Excess 0.0000 -5 - 5 mmol/L 04/07/2018 11:29 AM [facility] O2 Saturation, Arterial 100(H) 95 - 98 % 04/07/2018 11:29 AM [facility] pH, Arterial 7.34(L) 7.35 - 7.6 pH units 04/07/2018 11:29 AM [facility] HCO3, Arterial 25.4 22 - 26 mmol/L 04/07/2018 11:29 AM [facility] Blood 04/07/2018 11:1 6 AM EST 04/07/2018 11:29 AM EST us Jose Wilson MD POINT OF CARE TEST ORDERABLES F inal Result [facility]
[address] [id number], * POC Activated Clotting Time (04/07/2018 11:16 AM EST) Pathologist [facility] Activated Clotting Time 103 82 - 152 Seconds 04/07/2018 11:27 AM [facility] Comment:Serial Number: [id number]: [id number] Blood 04/07/2018 11:1 6 AM EST 04/07/2018 11:27 AM EST Jose Wilson MD POINT OF CARE TEST ORDERABLES F inal Result [facility]
[address] [place] [address], * (ABNORMAL) POC Surgery Labs (04/07/2018 9:49 AM EST) Ionized Calcium 1.02(L) 1.20 - 1.32 mmol/L 04/07/2018 11:29 AM [facility] POC Potassium 5.0(H) 3.5 - 4.9 mmol/L 04/07/2018 11:29 AM [facility] Sodium 139 138 - 146 mmol/L 04/07/2018 11:29 AM [facility] Total CO2 28 24 - 29 mmol/L 04/07/2018 11:29 AM [facility] Hemoglobin 10.2(L) 12.0 - 17.0 g/dL 04/07/2018 11:29 AM [facility] Hematocrit 30(L) 38 - 51 % 04/07/2018 11:29 AM [facility] pCO2, Arterial 54.1(H) 35 - 45 mm Hg 04/07/2018 11:29 AM [facility] pO2, Arterial 460(H) 80 - 105 mmHg 04/07/2018 11:29 AM [facility] Comment:Serial Number: [id number]: [id number] Base Excess 0.0000 -5 - 5 mmol/L 04/07/2018 11:29 AM [facility] O2 Saturation, Arterial 100(H) 95 - 98 % 04/07/2018 11:29 AM [facility] pH, Arterial 7.30(L) 7.35 - 7.6 pH units 04/07/2018 11:29 AM EST [facility] HCO3, Arterial 26.6(H) 22 - 26 mmol/L 04/07/2018 11:29 AM EST [facility] Blood 04/07/2018 9:49 AM EST 04/07/2018 11:29 AM EST us Jose Wilson MD POINT OF CARE TEST ORDERABLES F inal Result Performing Organization Address City/[facility]/ZIP Co de Phone Number [facility]
[address] [place] [address], * (ABNORMAL) POC Activated Clotting Time (04/07/2018 9:48 AM EST) Pathologist [facility] Activated Clotting Time 461(H) 82 - 152 Seconds 04/07/2018 11:27 AM EST [facility] Comment:Serial Number: [id number]: [id number] Blood 04/07/2018 9:48 AM EST 04/07/2018 11:27 AM EST us Jose Wilson MD POINT OF CARE TEST ORDERABLES F inal Result Performing Organization Address [facility] Co de Phone Number [facility]
[address] [place] [address], * (ABNORMAL) POC Surgery Labs (04/07/2018 9:27 AM EST) Ionized Calcium 1.06(L) 1.20 - 1.32 mmol/L 04/07/2018 11:28 AM EST [facility] POC Potassium 4.7 3.5 - 4.9 mmol/L 04/07/2018 11:28 AM [facility] Sodium 139 138 - 146 mmol/L 04/07/2018 11:28 AM EST [facility] Total CO2 28 24 - 29 mmol/L 04/07/2018 11:28 AM [facility] Hemoglobin 10.2(L) 12.0 - 17.0 g/dL 04/07/2018 11:28 AM [facility] Hematocrit 30(L) 38 - 51 % 04/07/2018 11:28 AM [facility] pCO2, Arterial 44.0 35 - 45 mm Hg 04/07/2018 11:28 AM [facility] pO2, Arterial 487(H) 80 - 105 mmHg 04/07/2018 11:28 AM [facility] Comment:Serial Number: [id number]: [id number] Base Excess 2.0000 -5 - 5 mmol/L 04/07/2018 11:28 AM [facility] O2 Saturation, Arterial 100(H) 95 - 98 % 04/07/2018 11:28 AM [facility] pH, Arterial 7.39 7.35 - 7.6 pH units 04/07/2018 11:28 AM [facility] HCO3, Arterial 26.6(H) 22 - 26 mmol/L 04/07/2018 11:28 AM [facility] Blood 04/07/2018 9:27 AM EST 04/07/2018 11:28 AM EST us Jose Wilson MD POINT OF CARE TEST ORDERABLES F inal Result Performing Organization Address City/[facility]/ZIP Co de Phone Number [facility]
[address] [place] [address], [place] [phone] * (ABNORMAL) POC Activated Clotting Time (04/07/2018 9:26 AM EST) [facility] Signature Activated Clotting Time 516(H) 82 - 152 Seconds 04/07/2018 11:27 AM [facility] Comment:Serial Number: [id number]: [id number] Blood 04/07/2018 9:26 AM EST 04/07/2018 11:27 AM EST us Jose Wilson MD POINT OF CARE TEST ORDERABLES F inal Result Performing Organization Address City/[facility]/ZIP Co de Phone Number [facility]
[address] [place] [address], [place] [phone] * (ABNORMAL) POC Surgery Labs (04/07/2018 8:45 AM EST) Ionized Calcium 1.02(L) 1.20 - 1.32 mmol/L 04/07/2018 11:28 AM EST [facility] POC Potassium 5.1(H) 3.5 - 4.9 mmol/L 04/07/2018 11:28 AM EST [facility] Sodium 138 138 - 146 mmol/L 04/07/2018 11:28 AM [facility] Total CO2 26 24 - 29 mmol/L 04/07/2018 11:28 AM [facility] Hemoglobin 9.5(L) 12.0 - 17.0 g/dL 04/07/2018 11:28 AM EST [facility] Hematocrit 28(L) 38 - 51 % 04/07/2018 11:28 AM [facility] pCO2, Arterial 43.3 35 - 45 mm Hg 04/07/2018 11:28 AM [facility] pO2, Arterial 47(L) 80 - 105 mmHg 04/07/2018 11:28 AM [facility] Comment:Serial Number: [id number]: [id number] Base Excess -1.0000 -5 - 5 mmol/L 04/07/2018 11:28 AM [facility] O2 Saturation, Arterial 81(L) 95 - 98 % 04/07/2018 11:28 AM [facility] pH, Arterial 7.36 7.35 - 7.6 pH units 04/07/2018 11:28 AM [facility] HCO3, Arterial 24.5 22 - 26 mmol/L 04/07/2018 11:28 AM [facility] Blood 04/07/2018 8:45 AM EST 04/07/2018 11:28 AM EST us Jose Wilson MD POINT OF CARE TEST ORDERABLES F inal Result [facility]
[address] [place] [address], * (ABNORMAL) POC Activated Clotting Time (04/07/2018 8:44 AM EST) Activated Clotting Time 681(H) 82 - 152 Seconds 04/07/2018 11:27 AM EST [facility] Comment:Serial Number: [id number]: [id number] Blood 04/07/2018 8:44 AM EST 04/07/2018 11:27 AM EST Jose Wilson MD POINT OF CARE TEST ORDERABLES F inal Result [facility]
[address] [place] [address], * (ABNORMAL) POC Surgery Labs (04/07/2018 8:12 AM EST) Pathologist [facility] Ionized Calcium 1.16(L) 1.20 - 1.32 mmol/L 04/07/2018 11:28 AM [facility] POC Potassium 3.8 3.5 - 4.9 mmol/L 04/07/2018 11:28 AM [facility] Sodium 140 138 - 146 mmol/L 04/07/2018 11:28 AM [facility] Total CO2 28 24 - 29 mmol/L 04/07/2018 11:28 AM [facility] Hemoglobin 11.6(L) 12.0 - 17.0 g/dL 04/07/2018 11:28 AM [facility] Hematocrit 34(L) 38 - 51 % 04/07/2018 11:28 AM [facility] pCO2, Arterial 48.0(H) 35 - 45 mm Hg 04/07/2018 11:28 AM [facility] pO2, Arterial 420(H) 80 - 105 mmHg 04/07/2018 11:28 AM [facility] Comment:Serial Number: [id number]: [id number] Base Excess 1.0000 -5 - 5 mmol/L 04/07/2018 11:28 AM [facility] O2 Saturation, Arterial 100(H) 95 - 98 % 04/07/2018 11:28 AM EST [facility] pH, Arterial 7.35 7.35 - 7.6 pH units 04/07/2018 11:28 AM EST [facility] HCO3, Arterial 26.4(H) 22 - 26 mmol/L 04/07/2018 11:28 AM EST [facility] Blood 04/07/2018 8:12 AM EST 04/07/2018 11:28 AM EST us Jose Wilson MD POINT OF CARE TEST ORDERABLES F inal Result Performing Organization Address City/[facility] Co de Phone Number [facility]
[address] [place] [address], * (ABNORMAL) POC Activated Clotting Time (04/07/2018 8:12 AM EST) Activated Clotting Time 593(H) 82 - 152 Seconds 04/07/2018 11:26 AM EST [facility] Comment:Serial Number: [id number]: [id number] Blood 04/07/2018 8:12 AM EST 04/07/2018 11:26 AM EST Jose Wilson MD POINT OF CARE TEST ORDERABLES F inal Result Performing Organization Address [facility] Co de Phone Number [facility]
[address] [place] [address], * Tissue Pathology Exam (04/07/2018 7:58 AM EST) Case Report Surgical Pathology Report ? Case: [id number] ? Authorizing Provider: ??Jose Wilson MD ? Collected: ? 04/07/2018 07:58 AM ? Ordering Location: ? [facility] ?? Received: ?04/07/2018 01:20 PM ? OR ? Pathologist: ? Fox Paige MD ? Specimen: ?Aortic valve ? 04/08/2018 3:30 PM EST [facility] Clinical Information The working history is aortic valve disorder. 04/08/2018 3:30 PM EST [facility] Final Diagnosis AORTIC VALVE LEAFLETS: Valve tissue with nodular fibrosis and calcification. No acute inflammation or vegetation identified. [facility]/domitila 04/08/2018 3:30 PM [facility] Gross Description Received in formalin labeled as aortic leaflet is a 4.0 x 3.5 x 1.3 cm aggregate of severely fragmented leiva glistening aortic valve leaflets. The majority of the leaflets display severe calcification with nodular thickening. Calender Roll Press Operator sections are submitted in block 1A following decalcification. [facility]/domitila 04/08/2018 3:30 PM [facility] Microscopic Description The slides are reviewed and demonstrate histopathologic features supporting the above rendered diagnosis. 04/08/2018 3:30 PM [facility] Tissue Epididymis specimen / Unknown 04/07/2018 7:58 AM EST 04/07/2018 1:20 PM EST us Jose Wilson MD PATHOLOGY/CYTOLOGY ORDERABLES F inal Result [facility]
[address] [place] [address], * (ABNORMAL) POC Surgery Labs (04/07/2018 7:08 AM EST) Ionized Calcium 1.26 1.20 - 1.32 mmol/L 04/07/2018 11:28 AM [facility] POC Potassium 4.0 3.5 - 4.9 mmol/L 04/07/2018 11:28 AM [facility] Sodium 142 138 - 146 mmol/L 04/07/2018 11:28 AM [facility] Total CO2 25 24 - 29 mmol/L 04/07/2018 11:28 AM [facility] Hemoglobin 12.9 12.0 - 17.0 g/dL 04/07/2018 11:28 AM [facility] Hematocrit 38 38 - 51 % 04/07/2018 11:28 AM [facility] pCO2, Arterial 38.7 35 - 45 mm Hg 04/07/2018 11:28 AM [facility] pO2, Arterial 69(L) 80 - 105 mmHg 04/07/2018 11:28 AM [facility] Comment:Serial Number: [id number]: [id number] Base Excess -1.0000 -5 - 5 mmol/L 04/07/2018 11:28 AM [facility] O2 Saturation, Arterial 94(L) 95 - 98 % 04/07/2018 11:28 AM [facility] pH, Arterial 7.40 7.35 - 7.6 pH units 04/07/2018 11:28 AM EST [facility] HCO3, Arterial 24.2 22 - 26 mmol/L 04/07/2018 11:28 AM EST [facility] Blood 04/07/2018 7:08 AM EST 04/07/2018 11:28 AM EST us Jose Wilson MD POINT OF CARE TEST ORDERABLES F inal Result Performing Organization Address City/[facility]/ZIP Co de Phone Number [facility]
[address] [place] [address], * POC Activated Clotting Time (04/07/2018 7:07 AM EST) Activated Clotting Time 92 82 - 152 Seconds 04/07/2018 11:26 AM EST [facility] Comment:Serial Number: [id number]: [id number] Blood 04/07/2018 7:07 AM EST 04/07/2018 11:26 AM EST us Jose Wilson MD POINT OF CARE TEST ORDERABLES F inal Result Performing Organization Address [facility] Co de Phone Number [facility]
[address] [place] [address], * POC Glucose Once (04/07/2018 6:22 AM EST) Glucose 96 70 - 130 mg/dL 04/07/2018 6:26 AM EST [facility] Blood 04/07/2018 6:22 AM EST 04/07/2018 6:26 AM EST us Jose Wilson MD POINT OF CARE TEST ORDERABLES F inal Result Performing Organization Address [facility] Co de Phone Number [facility]
[address] [place] [address], * ABO/Rh Specimen Verification (04/07/2018 6:17 AM EST) ABO Type A 04/07/2018 6:53 AM EST [facility] RH type Positive 04/07/2018 6:53 AM EST [facility] Blood Line / Unknown 04/07/2018 6: 17 AM EST 04/07/2018 6:23 AM EST Jose Wilson MD BLOOD BANK TEST ORDERABLES Michelle l Result [facility]
[address] [place] [address], [place] [phone] * SCANNED - TELEMETRY (04/07/2018) Anatomical Region Laterality Modality Other us [place] New Onbase ECG ORDERABLES Final Result * SCANNED - TELEMETRY (04/07/2018) Anatomical Region Laterality Modality Other us [place] New Onbase ECG ORDERABLES Final Result * SCANNED - TELEMETRY (04/07/2018) Anatomical Region Laterality Modality Other us [place] New Onbase ECG ORDERABLES Final Result * SCANNED - TELEMETRY (04/07/2018) Anatomical Region Laterality Modality Other us [place] New Onbase ECG ORDERABLES Final Result * SCANNED - TELEMETRY (04/07/2018) Anatomical Region Laterality Modality Other us [place] New Onbase ECG ORDERABLES Final Result * SCANNED - TELEMETRY (04/07/2018) Anatomical Region Laterality Modality Other us [place] New Onbase ECG ORDERABLES Final Result * SCANNED - TELEMETRY (04/07/2018) Anatomical Region Laterality Modality Other us [place] New Onbase ECG ORDERABLES Final Result documented in this encounter Visit Diagnoses Diagnosis AVD (aortic valve disease)- Primary Aortic valve disorders Aortic valve disorder Aortic valve disorders Persistent atrial fibrillation Atrial fibrillation Impaired functional mobility, balance, gait, and endurance Aortic valve disorder Aortic valve disorders Aortic valve disorder Aortic valve disorders documented in this encounter Admitting Diagnoses Diagnosis Aortic valve disorder Aortic valve disorders AVD (aortic valve disease) Aortic valve disorders documented in this encounter Administered Medications Inactive Administered Medications - up to 3 most recent administrations Medication Order MAR Action Action Date Dose Rate Site acetaminophen (TYLENOL) tablet 650 mg 650 mg, Oral, Every 4 Hours PRN, Mild Pain, Starting on Fri04/07/18 at 1214, Do not exceed 4 grams of acetaminophen in a 24 hr period. If given for pain, use the following pain scale: Mild Pain = Pain Score of 1-3, CPOT 1-2 Moderate Pain = Pain Score of 4-6, CPOT 3-4 Severe Pain = Pain Score of 7-10, CPOT 5-8 amiodarone (PACERONE) tablet 200 mg 200 mg, Oral, Every 24 Hours Scheduled, First dose on Fri04/08/18 at 0930, Avoid grapefruit juice while taking this medication. Given 04/11/2018 8:51 AM EST 200 mg Given 04/10/2018 8:44 AM EST 200 mg Given 04/09/2018 8:14 AM EST 200 mg aspirin EC tablet 81 mg 81 mg, Oral, Daily, First dose (after last modification) on Fri04/11/18 at 0900, Do not exceed 4 grams of aspirin in a 24 hr period. If given for pain, use the following pain scale: Mild Pain = Pain Score of 1-3, CPOT 1-2 Moderate Pain = Pain Score of 4-6, CPOT 3-4 Severe Pain = Pain Score of 7-10, CPOT 5-8 Given 04/11/2018 8:51 AM EST 81 mg bisacodyl (DULCOLAX) EC tablet 10 mg 10 mg, Oral, Daily PRN, Constipation, Starting on Fri04/07/18 at 1214, Swallow whole. Do not crush, split, or chew tablet. calcium carbonate (TUMS) chewable tablet 500 mg (200 mg elemental) 2 tablet, Oral, 3 Times Daily PRN, Indigestion, Heartburn, Starting on Nancy 04/09/18 at 0238, One tablet contains 200 mg elemental calcium. Take with food. Given 04/09/2018 2:55 AM EST 2 tablets docusate sodium (COLACE) capsule 100 mg 100 mg, Oral, 2 Times Daily PRN, Constipation, Starting on Fri04/07/18 at 1214, Swallow whole. Do not open, crush, or chew capsule. HYDROcodone-acetaminophen (NORCO) 7.5-325 MG per tablet 1 tablet 1 tablet, Oral, Every 4 Hours PRN, Moderate Pain, Starting on Fri04/07/18 at 1214, For 10 days, {NICOLE} Do not exceed 4 grams of acetaminophen in a 24 hr period. If given for pain, use the following pain scale: Mild Pain = Pain Score of 1-3, CPOT 1-2 Moderate Pain = Pain Score of 4-6, CPOT 3-4 Severe Pain = Pain Score of 7-10, CPOT 5-8 Given 04/07/2018 6:20 PM EST 1 tablet magnesium hydroxide (MILK OF MAGNESIA) suspension 2400 mg/10mL 10 mL 10 mL, Oral, Daily PRN, Constipation, Starting on Fri04/08/18 at 0000 metoprolol succinate XL (TOPROL-XL) 24 hr tablet 25 mg 25 mg, Oral, Every 24 Hours Scheduled, First dose on Fri04/10/18 at 0900, Do not crush or chew. Given 04/11/2018 8:51 AM EST 25 mg Morphine sulfate (PF) injection 2 mg 2 mg, Intravenous, Every 2 Hours PRN, Severe Pain, Starting on Fri04/08/18 at 1015, {NICOLE} Caution: Look alike/sound alike drug alert If given for pain, use the following pain scale: Mild Pain = Pain Score of 1-3, CPOT 1-2 Moderate Pain = Pain Score of 4-6, CPOT 3-4 Severe Pain = Pain Score of 7-10, CPOT 5-8 nicotine (NICODERM CQ) 14 MG/24HR patch 1 patch 1 patch, Transdermal, Administer over 24 Hours, Every 24 Hours Scheduled, First dose on Fri04/07/18 at 1430, Apply to clean, dry, nonhairy area of skin (typically upper arm or shoulder) {PBKC} Acutely Hazardous. Waste BOTH Residual Medication and/or Empty Package. Medication Applied 04/11/2018 8:51 AM EST 1 patch Left Arm Medication Applied 04/10/2018 9:41 AM EST 1 patch Chest Medication Applied 04/09/2018 8:16 AM EST 1 patch Right Arm ondansetron (ZOFRAN) injection 4 mg 4 mg, Intravenous, Every 6 Hours PRN, Nausea, Vomiting, Starting on Fri04/07/18 at 1214 oxyCODONE-acetaminophen (PERCOCET) 5-325 MG per tablet 2 tablet 2 tablet, Oral, Every 4 Hours PRN, Severe Pain, Starting on Fri04/07/18 at 1214, For 10 days, {NICOLE} Do not exceed 4 grams of acetaminophen in a 24 hr period. If given for pain, use the following pain scale: Mild Pain = Pain Score of 1-3, CPOT 1-2 Moderate Pain = Pain Score of 4-6, CPOT 3-4 Severe Pain = Pain Score of 7-10, CPOT 5-8 Given 04/11/2018 8:55 AM EST 2 tablets Given 04/10/2018 5:21 AM EST 2 tablets Given 04/09/2018 8:27 PM EST 2 tablets rivaroxaban (XARELTO) tablet 20 mg 20 mg, Oral, Daily With Dinner, First dose on Fri04/11/18 at 1800, CAUTION: 10 mg tablet must be split if giving 5 mg dose. If giving by tube: suspend in 50mL water, administer, and immediately follow with enteral feeding. Give with food., Indications: Atrial Fibrillation - requiring full anticoagulationIndications:Atrial Fibrillation - requiring full anticoagulation sennosides-docusate sodium (SENOKOT-S) 8.6-50 MG tablet 2 tablet 2 tablet, Oral, 2 Times Daily, First dose on Fri04/07/18 at 1300 Given 04/11/2018 8:51 AM EST 2 tablets Given 04/10/2018 9:08 PM EST 2 tablets Given 04/10/2018 9:41 AM EST 2 tablets sodium chloride (NS) irrigation solution As Needed, Starting on Fri04/07/18 at 0742 Given 04/07/2018 7:43 AM EST 1,000 mL Given 04/07/2018 7:42 AM EST 1,000 mL sodium chloride 0.9 % solution As Needed, Starting on Fri04/07/18 at 0742 Given 04/07/2018 7:43 AM EST 1,000 mL Given 04/07/2018 7:42 AM EST 1,000 mL Given 04/07/2018 7:39 AM EST 1,000 mL documented in this encounter Active and Recently Administered Medications Times are shown in EST. Scheduled Medication Order 04/09/2018 04/10/2018 04/11/2018 amiodarone (PACERONE) tablet 200 mg 200 mg, Oral, Every 24 Hours Scheduled, First dose on Fri04/08/18 at 0930, Avoid grapefruit juice while taking this medication. 0814 (Given - Provider: Jules Rivera RN) 0844 (Given - Provider: Dania Peña RN) 0851 (Given - Provider: Kasye Malhotra, ALEXANDRO) aspirin EC tablet 325 mg (CANCELED) 325 mg, Oral, Daily, First dose on Fri04/08/18 at 0900, Do not exceed 4 grams of aspirin in a 24 hr period. If given for pain, use the following pain scale: Mild Pain = Pain Score of 1-3, CPOT 1-2 Moderate Pain = Pain Score of 4-6, CPOT 3-4 Severe Pain = Pain Score of 7-10, CPOT 5-8 0814 (Given - Provider: Jules Rivera RN) 0844 (Given - Provider: Dania Peña RN) aspirin EC tablet 81 mg 81 mg, Oral, Daily, First dose (after last modification) on Fri04/11/18 at 0900, Do not exceed 4 grams of aspirin in a 24 hr period. If given for pain, use the following pain scale: Mild Pain = Pain Score of 1-3, CPOT 1-2 Moderate Pain = Pain Score of 4-6, CPOT 3-4 Severe Pain = Pain Score of 7-10, CPOT 5-8 0851 (Given - Provider: Kasey Malhotra, ALEXANDRO) furosemide (LASIX) injection 40 mg (COMPLETED) 40 mg, Intravenous, Once, On Fri04/10/18 at 0945, For 1 dose 0941 (Given - Provider: Shruthi Mcguire RN) metoprolol succinate XL (TOPROL-XL) 24 hr tablet 25 mg 25 mg, Oral, Every 24 Hours Scheduled, First dose on Fri04/10/18 at 0900, Do not crush or chew. 0844 (Hold - Provider: Dania Peña RN - Reason: Other - Comment: Giving lasix this am, will watch pressure before giving this med.) 0851 (Given - Provider: Kasey Malhotra, RN) metoprolol tartrate (LOPRESSOR) half tablet 12.5 mg (CANCELED) 12.5 mg, Oral, Every 12 Hours Scheduled, First dose on Fri04/08/18 at 0900, Hold for heart rate less than or equal to 60 or SBP less than or equal to 100. Start POD 1. 813 (Given - Provider: Jules Rivera RN) metoprolol tartrate (LOPRESSOR) half tablet 12.5 mg (COMPLETED) 12.5 mg, Oral, Every 12 Hours Scheduled, First dose (after last modification) on Fri04/09/18 at 2100, For 1 dose, Hold for heart rate less than or equal to 60 or SBP less than or equal to 100. Start POD 1. 2026 (Given - Provider: Dipti Lou RN) nicotine (NICODERM CQ) 14 MG/24HR patch 1 patch 1 patch, Transdermal, Administer over 24 Hours, Every 24 Hours Scheduled, First dose on Fri04/07/18 at 1430, Apply to clean, dry, nonhairy area of skin (typically upper arm or shoulder) {PBKC} Acutely Hazardous. Waste BOTH Residual Medication and/or Empty Package. 0815 (Medication Removed - Provider: Jules Rivera RN)0816 (Medication Applied - Provider: Jules Rivera RN) 0845 (Medication Removed - Provider: Dania Peña, ALEXANDRO)0941 (Medication Applied - Provider: Shruthi Mcguire RN) 0850 (Medication Removed - Provider: Kasey Malhotra, ALEXANDRO)0851 (Medication Applied - Provider: Kasey Malhotra, ALEXANDRO) rivaroxaban (XARELTO) tablet 20 mg 20 mg, Oral, Daily With Dinner, First dose on Fri04/11/18 at 1800, CAUTION: 10 mg tablet must be split if giving 5 mg dose. If giving by tube: suspend in 50mL water, administer, and immediately follow with enteral feeding. Give with food., Indications: Atrial Fibrillation - requiring full anticoagulation sennosides-docusate sodium (SENOKOT-S) 8.6-50 MG tablet 2 tablet 2 tablet, Oral, 2 Times Daily, First dose on Fri04/07/18 at 1300 0814 (Given - Provider: Jules Rivera, RN)2026 (Given - Provider: Dipti oLu, RN) 0941 (Given - Provider: Shruthi Mcguire, ALEXANDRO)2107 (Given - Provider: Bj Thomas, ALEXANDRO) 0851 (Given - Provider: Kasey Malhotra, ALEXANDRO) PRN Medication Order 04/09/2018 04/10/2018 04/11/2018 acetaminophen (TYLENOL) tablet 650 mg 650 mg, Oral, Every 4 Hours PRN, Mild Pain, Starting on Fri04/07/18 at 1214, Do not exceed 4 grams of acetaminophen in a 24 hr period. If given for pain, use the following pain scale: Mild Pain = Pain Score of 1-3, CPOT 1-2 Moderate Pain = Pain Score of 4-6, CPOT 3-4 Severe Pain = Pain Score of 7-10, CPOT 5-8 bisacodyl (DULCOLAX) EC tablet 10 mg 10 mg, Oral, Daily PRN, Constipation, Starting on Fri04/07/18 at 1214, Swallow whole. Do not crush, split, or chew tablet. calcium carbonate (TUMS) chewable tablet 500 mg (200 mg elemental) 2 tablet, Oral, 3 Times Daily PRN, Indigestion, Heartburn, Starting on Fri04/09/18 at 0238, One tablet contains 200 mg elemental calcium. Take with food. 0255 (Given - Provider: Dipti Lou, ALEXANDRO) docusate sodium (COLACE) capsule 100 mg 100 mg, Oral, 2 Times Daily PRN, Constipation, Starting on Fri04/07/18 at 1214, Swallow whole. Do not open, crush, or chew capsule. HYDROcodone-acetaminophe n (NORCO) 7.5-325 MG per tablet 1 tablet 1 tablet, Oral, Every 4 Hours PRN, Moderate Pain, Starting on Fri04/07/18 at 1214, For 10 days, {NICOLE} Do not exceed 4 grams of acetaminophen in a 24 hr period. If given for pain, use the following pain scale: Mild Pain = Pain Score of 1-3, CPOT 1-2 Moderate Pain = Pain Score of 4-6, CPOT 3-4 Severe Pain = Pain Score of 7-10, CPOT 5-8 magnesium hydroxide (MILK OF MAGNESIA) suspension 2400 mg/10mL 10 mL 10 mL, Oral, Daily PRN, Constipation, Starting on Fri04/08/18 at 0000 Morphine sulfate (PF) injection 2 mg 2 mg, Intravenous, Every 2 Hours PRN, Severe Pain, Starting on Fri04/08/18 at 1015, {NICOLE} Caution: Look alike/sound alike drug alert If given for pain, use the following pain scale: Mild Pain = Pain Score of 1-3, CPOT 1-2 Moderate Pain = Pain Score of 4-6, CPOT 3-4 Severe Pain = Pain Score of 7-10, CPOT 5-8 ondansetron (ZOFRAN) injection 4 mg 4 mg, Intravenous, Every 6 Hours PRN, Nausea, Vomiting, Starting on Fri04/07/18 at 1214 oxyCODONE-acetaminophen (PERCOCET) 5-325 MG per tablet 2 tablet 2 tablet, Oral, Every 4 Hours PRN, Severe Pain, Starting on Fri04/07/18 at 1214, For 10 days, {NICOLE} Do not exceed 4 grams of acetaminophen in a 24 hr period. If given for pain, use the following pain scale: Mild Pain = Pain Score of 1-3, CPOT 1-2 Moderate Pain = Pain Score of 4-6, CPOT 3-4 Severe Pain = Pain Score of 7-10, CPOT 5-8 0243 (Given - Provider: Dipti Lou RN)1526 (Given - Provider: Jules Rivera RN)2027 (Given - Provider: Dipti Lou RN) 0521 (Given - Provider: Dipti Lou RN) 0855 (Given - Provider: Kasey Malhotra RN) potassium chloride (MICRO-K) CR capsule 40 mEq (CANCELED)(Linked Group 1) 40 mEq, Oral, As Needed, potassium replacement.?see admin instructions, Starting on Fri04/07/18 at 1214, Potassium replacement Oral (may give tablet or powder packet) If K+ less than or equal to 3.1 give KCl 40 mEq q4h x 3 doses If K+ 3.2-3.6 give KCl 40 mEq q4h x 2 doses Peripheral IV If K+ less than or equal to 3.1 give KCl 10 mEq/100 mL NS IV q1h x 6 doses If K+ 3.2-3.6 give KCl 10 mEq/100 mL NS q1h x 4 doses Central Line If K+ less than or equal to 3.1 give KCl 20 mEq/50 mL NS IV q1h x 3 doses If K+ 3.2-3.6 give KCl 20 mEq/50 mL NS q1h x 2 doses Check potassium 4 hours after last dose given. Check magnesium if K stays low after replacement. DO NOT GIVE if CrCl is less than 30 mL/minute or urine output is less than 30 mL/hr 0915 (Given - Provider: Kasey Malhotra RN) Linked Groups Order Group 1: potassium chloride (MICRO-K) CR capsule 40 mEq (CANCELED)Jump to med 40 mEq, Oral, As Needed, potassium replacement.?see admin instructions, Starting on Fri04/07/18 at 1214, Potassium replacement Oral (may give tablet or powder packet) If K+ less than or equal to 3.1 give KCl 40 mEq q4h x 3 doses If K+ 3.2-3.6 give KCl 40 mEq q4h x 2 doses Peripheral IV If K+ less than or equal to 3.1 give KCl 10 mEq/100 mL NS IV q1h x 6 doses If K+ 3.2-3.6 give KCl 10 mEq/100 mL NS q1h x 4 doses Central Line If K+ less than or equal to 3.1 give KCl 20 mEq/50 mL NS IV q1h x 3 doses If K+ 3.2-3.6 give KCl 20 mEq/50 mL NS q1h x 2 doses Check potassium 4 hours after last dose given. Check magnesium if K stays low after replacement. DO NOT GIVE if CrCl is less than 30 mL/minute or urine output is less than 30 mL/hr Or potassium chloride (KLOR-CON) packet 40 mEq (CANCELED) 40 mEq, Oral, As Needed, potassium replacement, see admin instructions, Starting on Fri04/07/18 at 1214, Potassium replacement Oral (may give tablet or powder packet) If K+ less than or equal to 3.1 give KCl 40 mEq q4h x 3 doses If K+ 3.2-3.6 give KCl 40 mEq q4h x 2 doses Peripheral IV If K+ less than or equal to 3.1 give KCl 10 mEq/100 mL NS IV q1h x 6 doses If K+ 3.2-3.6 give KCl 10 mEq/100 mL NS q1h x 4 doses Central Line If K+ less than or equal to 3.1 give KCl 20 mEq/50 mL NS IV q1h x 3 doses If K+ 3.2-3.6 give KCl 20 mEq/50 mL NS q1h x 2 doses Check potassium 4 hours after last dose given. Check magnesium if K stays low after replacement. DO NOT GIVE if CrCl is less than 30 mL/minute or urine output is less than 30 mL/hr documented in this encounter Care Teams Medical Liaison Relationship Specialty Start Date End Date Liza Kuo MD PCP - General Emergency Medicine 02/23/18 08/06/22 documented as of this encounter
--- OUTSIDE RECORDS SUMMARY | 2024-02-29 15:33 | XMS_ITS | Encounter Summary ---
[facility] Address [address] [place] [address] Care Team Providers Care Special Education Paraprofessional Name Role Phone Kaushal Kuo MD Primary Care Provider Encounter Details Date Type Department Care Team (Late st Contact Info) Description 04/06/2018 2:18 PM EST - 04/06/2018 11:59 PM [facility] Hospital Encounter [facility] [address] [place] [address] Miguel Malin, PA [address] [id number] Discharge Disposition: Home or Self Care Social [...] tablet 04/12/2018 12/17/19 19 vitamin D (ERGOCALCIFEROL) 89699 units capsule capsule Take 50,000 Units by mouth 1 (One) Time Per Week. Takes on Wednesdays09/15/19 documented as of this encounter Plan of Treatment Upcoming Encounters Date Type Department Care Team (Late st Contact Info) Description 09/01/2024 1:30 PM EDT Office Visit [facility] [address] [place] [address] Kaushal Singleton MD [address] [place] [address] documented as of this encounter Procedures Procedure Name Priority Date/Time Associated Diagnosis Comments ONLY SPIROMETRY Routine 04/06/2018 2:56 PM EST AVD (aortic valve disease) documented in this encounter Results * ONLY SPIROMETRY (04/06/2018 2:56 PM EST) Narrative Emmett Yuen MD - 04/09/2018 11:08 AM EST Spirometry Interpretation: Normal Spirometry. Emmett Yuen MD, FACP, FCCP Intensive Care Medicine and Pulmonary Medicine Miguel [facility] PFT ORDERABLES Final Result documented in this encounter Visit Diagnoses Not on filedocumented in this encounter Care Teams Special Education Paraprofessional Relationship Specialty Start Date End Date Kaushal Kuo MD PCP - General Emergency Medicine 02/23/18 08/06/22 documented as of this encounter
--- OUTSIDE RECORDS SUMMARY | 2024-02-29 15:33 | XMS_ITS | Encounter Summary ---
Author Organization [facility] Address [address] [place] [address] Care Team Providers Care Calender Roll Press Operator Name Role Phone Liza Kuo MD Primary Care Provider [phone] Reason for Referral * (Routine) - Closed Specialty Diagnoses / Procedures Referred By Gianluca rojas Referred To Contact Diagnoses Aortic valve disorder Procedures Atrial Appendage Occlusion Jose Wilson MD Referral ID Status Reason Start Date Expiration Date Visits Re quested Visits Authorized [id number] Closed 04/07/2018 04/07/2019 1 1 Reason for Visit * Auth/Cert Specialty Diagnoses / Procedures Referred By Gianluca rojas Referred To Contact Diagnoses Aortic valve disorder Aortic valve disorder [I35.9] Procedures RI RPLCMT PROST AORTIC VALVE OPEN XCP HOMOGRF/STENT AORTIC VALVE REPAIR/REPLACEMENT, TA Referral ID Status Reason Start Date Expiration Date Visits Re quested Visits Authorized [id number] 1 1 Encounter Details Date Type Department Care Team (Latest Contact Info) Description 04/07/2018 5:09 AM EST - 04/11/2018 2:32 PM EST Hospital Encounter [address] [place] [address] Jose Wilson MD Persistent atrial fibrillation (Primary Dx); AVD (aortic valve disease); Aortic valve disorder; Impaired functional mobility, balance, gait, and endurance Discharge Disposition: Home or Self Care Social [...] Sign Reading Time Taken Comments Blood Pressure 117/77 04/11/2018 1:12 PM EST Pulse 80 04/11/2018 1:12 PM EST Temperature 36.8 ??C (98.3 ??F) 04/11/2018 1:12 PM ES T Respiratory Rate 20 04/11/2018 1:12 PM EST Oxygen Saturation 93% 04/11/2018 8:00 AM EST Inhaled Oxygen Concentration - - Weight 122 kg (268 lb 15.4 oz) 04/07/2018 12:20 PM EST Height 182.9 cm (6' 0.01 ) 04/07/2018 12:[address] Body Mass Index 36.47 04/07/2018 12:20 PM EST documented in this encounter Discharge Summaries * [...] aortic stenosis ??? Coronary artery disease involving dry creek coronary artery of dry creek heart without angina pectoris ??? Rheumatic aortic [...] having previously been extubated. Patient had the [place]-Sherif catheter, arterial line and Rouse catheter removed [...] 04/07/2018 1214 Inpatient Consult to Cardiology Completed Senior Production Planner Discharge Medications Discharge Medications New Medications Instructions [...] These Medications Instructions Start Date vitamin D 73578 units capsule capsule Commonly known as: ERGOCALCIFEROL [...] None 05/25/2018 9:00 AM Liza [place] MD [facility] None MALIA Kaur 04/14/18 2:12 [...] aortic stenosis ??? Coronary artery disease involving dry creek coronary artery of dry creek heart without angina pectoris ??? Rheumatic aortic valve insufficiency ??? Tobacco dependence ??? Valvular disease ??? 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 04/07/18 ??? H/O: rheumatic fever ??? GERD (gastroesophageal reflux disease) Physical Therapy Education Title: PT OT PANTOGRAPH ENGRAVER Therapies (Resolved) Topic: Physical Therapy (Resolved) Point: [...] - Radha Fields, PT Physical Therapist PT CARLOS 07/01/17 - Saida Silver, PT Physical Therapist PT Rehab Goal Summary Row Name 04/11/18 0745 Bed Mobility Goal 1 (PT) Activity/Assistive Device (Bed Mobility Goal 1, PT) bed mobility activities, all -NAOMI [place] Level/Cues Needed (Bed Mobility Goal 1, PT) independent -NAOMI Time Frame (Bed Mobility Goal 1, PT) 2 weeks -NAOMI Progress/Outcomes (Bed Mobility Goal 1, PT) goal met -NAOMI Transfer Goal 1 (PT) Activity/Assistive Device (Transfer Goal 1, PT) aaw-ou-qvzzh/sczwy-gz-cjg;klv-ow-dvobz/wvbaj-db-dox-NAOMI [place] Level/Cues Needed (Transfer Goal 1, PT) independent -NAOMI Time Frame (Transfer Goal 1, PT) 2 weeks -NAOMI Progress/Outcome (Transfer Goal 1, PT) goal met -NAOMI Gait Training Goal 1 (PT) Activity/Assistive Device (Gait Training Goal 1, PT) gait (walking locomotion) -NAOMI [place] Level (Gait Training Goal 1, PT) independent -NAOMI Distance (Gait Goal 1, PT) 400 feet -NAOMI Time Frame (Gait Training Goal 1, PT) 2 weeks -NAOMI Progress/Outcome (Gait Training Goal 1, PT) goal met -NAOMI Stairs Goal 1 (PT) Activity/Assistive Device (Stairs Goal 1, PT) ascending stairs;descending stairs;using handrail, left -NAOMI [place] Level/Cues Needed (Stairs Goal 1, PT) supervision required -NAOMI Number of Stairs (Stairs Goal 1, PT) 12 -NAOMI Time Frame (Stairs Goal 1, PT) 2 weeks -NAOMI Progress/Outcome (Stairs Goal 1, PT) goal met -NAOMI User Hernandez (r) = Recorded By, (t) = Taken By, (c) = Cosigned By Initials Name Provider Type Discipline NAOMI Radha Fields, PT Physical Therapist PT Therapy Treatment Rehabilitation [...] Precautions/Restrictions cardiac;sternal -NAOMI Recorded by [NAOMI] Radha Fields, PT [...] 0745 Bed Mobility Assessment/Treatment Bed Mobility Assessment/Treatment wqanwc-hbl-pqzqju -NAOMI Sit-Supine [place] (Bed Mobility) independent -NAOMI Recorded by [NAOMI] Radha Fields, PT 04/11/18 1035 Row Name 04/11/18 0745 Transfer Assessment/Treatment Transfer Assessment/Treatment sit-stand transfer;stand-sit transfer;toilet transfer -NAOMI Recorded by [NAOMI] Rdaha Fields, PT 04/11/18 1035 Row Name 04/11/18 0745 Sit-Stand Transfer Sit-Stand [place] (Transfers) independent -NAOMI Recorded by [NAOMI] Radha Fields, PT 04/11/18 1035 Row Name 04/11/18 0745 Stand-Sit Transfer Stand-Sit [place] (Transfers) independent -NAOMI Recorded by [NAOMI] Radha Fields, PT 04/11/18 1035 Row Name 04/11/18 0745 Toilet Transfer Type (Toilet Transfer) sit-stand;stand-sit -NAOMI [place] Level (Toilet Transfer) independent -NAOMI Recorded by [NAOMI] Radha Fields, PT 04/11/18 1035 Row Name 04/11/18 0745 Gait/Stairs Assessment/Training Gait/Stairs Assessment/Training gait/ambulation independence -NAOMI [place] Level (Gait) independent -NAOMI Distance in Feet (Gait) 400 -NAOMI Pattern (Gait) step-through -NAOMI Negotiation (Stairs) stairs independence -NAOMI [place] Level (Stairs) independent -NAOMI Number of Steps (Stairs) 10 -NAOMI Recorded by [NAOMI] Radha Fields, PT 04/11/18 1035 Row Name 04/11/18 0745 Therapeutic Exercise 54525 - PT Therapeutic Activity Minutes 23 -NAOMI Recorded by [NAOMI] Radha Fields, PT 04/11/18 1035 Row Name 04/11/18 0745 Static Sitting Balance Level of [place] (Unsupported Sitting, Static Balance) independent -NOAMI Recorded by [NAOMI] Radha Fields, PT 04/11/18 1035 Row Name 04/11/18 0745 Static Standing Balance Level of [place] (Supported Standing, Static Balance) independent -NAOMI Recorded by [NAOMI] Radha Fields, PT 04/11/18 1035 Row Name 04/11/18 0745 Positioning and Restraints Pre-Treatment Position sitting in chair/recliner -NAOMI Post Treatment Position chair -NAOMI In Chair notified nsg;reclined;sitting;call light within reach -NAOMI Recorded by [NAOMI] Radha Fields, PT 04/11/185 Row Name 04/11/18 0745 Pain Scale: Numbers [...] Provider Type Radha Lucas, PT Physical Therapist KR Saida Silver, PT Physical Therapist Time Calculation: PT Charges Row Name 04/11/18 0745 Time Calculation Start Time 0745 -NAOMI PT Received On 04/11/18 -NAOMI PT Goal Re-Cert Due Date 04/18/18 -NAOMI Time Calculation- PT Total Timed Code Minutes- PT 23 minute(s) -NAOMI Timed Charges 42994 - PT Therapeutic Activity Minutes 23 -NAOMI User Hernandez (r) = Recorded By, (t) = Taken By, (c) = Cosigned By Initials Name Provider Type Radha Lucas, PT Physical Therapist Therapy Suggested Charges Code Minutes Charges 18508 (CPT??) Hc Pt Neuromusc Re Education Ea 15 Min 02342 (CPT??) Hc Pt Ther Proc Ea 15 Min 57277 (CPT??) Hc Gait Training Ea 15 Min 76835 (CPT??) Hc Pt Therapeutic Act Ea 15 Min 23 2 74649 (CPT??) Hc Pt Manual Therapy Ea 15 Min 70105 (CPT??) Hc Pt Iontophoresis Ea 15 Min 10366 (CPT??) Hc Pt Elec Stim Ea-Per 15 Min 75388 (CPT??) Hc Pt Ultrasound Ea 15 Min 71255 (CPT??) Hc Pt Self Care/Mgmt/Train Ea 15 Min 91304 (CPT??) Hc Pt Prosthetic (S) Train Initial Encounter, Each 15 Min 19583 (CPT??) Hc Pt Orthotic(S)/Prosthetic(S) Encounter, Each 15 Min 02930 (CPT??) Hc Orthotic(S) Mgmt/Train Initial Encounter, Each 15min Total 23 2 Therapy Charges for Today Code Description Service Date Service Provider Modifiers Qty 85106920338 HC PT THERAPEUTIC ACT EA 15 MIN 04/10/2018 Radha Fields, PT GP 2 [id number] HC PT THERAPEUTIC ACT EA 15 MIN 04/11/2018 Radha Fields, PT GP 2 PT G-Codes Outcome Measure Options: AM-PAC 6 Clicks Basic Mobility (PT) AM-PAC 6 Clicks Score: 23 PT Discharge Summary Anticipated Discharge Disposition (PT): home with assist Reason for Discharge: All goals achieved Outcomes Achieved: Able to achieve all goals within established timeline Discharge Destination: Home with assist Radha Fields, PT 04/11/2018 documented in this encounter Discharge Instructions * Attachments The following attachments cannot be sent through Care Everywhere. * CARDIAC REHAB WITH CONTACT INFO * Cardiac Rehabilitation (Romanian) * Aortic Valve Replacement (Romanian) * Aortic Valve Replacement Care After (Romanian) * Rivaroxaban oral tablets (Romanian) * Metoprolol extended-release tablets (Romanian) * Acetaminophen; Hydrocodone oral solution (Romanian) * Amiodarone tablets (Romanian) * Aspirin ASA chewable tablets (Romanian) documented in this encounter Medications at Time [...] tablet 04/12/2018 12/17/19 19 vitamin D (ERGOCALCIFEROL) 63012 units capsule capsule Take 50,000 Units by mouth 1 (One) Time Per Week. Takes on Wednesdays09/15/19 20 documented as of this encounter Progress Notes * Sharon Beasley - 04/11/2018 10:50 AM EST Continued Stay Note JUDY Hurd Patient Name: Carlos Manuel Rojas II Today's Date: 04/11/2018 Admit Date: 04/07/2018 Discharge Plan Row Name 04/11/18 1047 Plan Plan Home Plan Comments CM consulted regarding DC needs. Spoke with Radha in [facility] pharmacy. Patient's Xarelto went through insurance without [...] Follow-up LOS: 4 days Mr. Carlos Manuel R Mineer II, 52 y.o. male is followed for: Glycemic, Electrolyte, Respiratory, and Medical management Subjective - Interval History Awake and alert No problems overnight Oxygenating well on room air No continuous infusions The patient's relevant past medical, surgical and social history were reviewed and updated in [facility] as appropriate. Objective Infusions: Medications: amiodarone [...] Winston MD 04/11/18 6:54 AM * Nancy Garrison, RD - 04/10/2018 3:05 PM EST Clinical [...] [place] MD - 04/10/2018 8:50 AM EST [facility] Inpatient Progress Note Chief Complaint/Reason for [...] Q24H, Liza [place] MD, 200 mg at 04/10/18843 ??? aspirin EC tablet 325 mg, 325 mg, Oral, Daily, Cruz Ramirez PA, 325 mg at 04/10/18843 ??? bisacodyl (DULCOLAX) EC tablet 10 mg, 10 mg, Oral, Daily PRN, Cruz Ramirez PA ??? bisacodyl (DULCOLAX) suppository 10 mg, 10 mg, Rectal, Daily PRN, Cruz Ramirez PA ??? calcium carbonate (TUMS) chewable tablet 500 mg (200 mg elemental), 2 tablet, Oral, TID PRN, Nathen Vargas APRN, 2 tablet at 04/09/18 0255 ??? docusate sodium (COLACE) capsule 100 mg, 100 mg, Oral, BID PRN, Cruz Ramirez PA ??? HYDROcodone-acetaminophen (NORCO) 7.5-325 MG per tablet 1 tablet, 1 tablet, Oral, Q4H PRN, Jose Wilson MD, 1 tablet at 04/07/18 1820 ??? magnesium hydroxide (MILK OF MAGNESIA) suspension 2400 mg/10mL 10 mL, 10 mL, Oral, Daily PRN, Cruz Ramirez PA ??? metoprolol succinate XL (TOPROL-XL) 24 [...] PRN, Jose Wilson MD, 2 tablet at 04/10/18 0521 ??? potassium chloride (MICRO-K) CR capsule 40 mEq, 40 mEq, Oral, PRN OR potassium chloride (KLOR-CON) packet 40 mEq, 40 mEq, Oral, PRN, Cruz Ramirez PA ??? sennosides-docusate sodium (SENOKOT-S) 8.6-50 MG tablet 2 tablet, 2 tablet, Oral, BID, Cruz Ramirez PA, 2 tablet at 04/09/18 202 Facility-Administered Medications Ordered in Other Encounters: ??? [...] month upon discharge Liza [place]leton MD, MSc, [facility] Interventional Cardiology [facility] * Bernardino Duran MD - 04/10/2018 8:46 [...] Value Units Date/Time XR Chest 1 View [[id number]] Collected: 04/09/18837 Updated: 04/09/182239 Narrative: EXAMINATION: XR [...] Encounter: 04/09/18 9:44 AM Admission date: 04/07/2018 MDR. HAMMOND to continue to follow per protocol. Current diet: Diet Regular; Cardiac, Consistent Carbohydrate No active supplement orders Intervention: Follow treatment plan Care plan reviewed Follow up: Per protocol Nancy Garrison RD 9:44 AM * Vicky Chiang MSW - 04/09/2018 9:34 AM EST Continued Stay Note JUDY Hurd Patient Name: Carlos Manuel Rojas II Today's [...] last 7 days Lab Units 04/09/18 0322 04/08/18 0400 04/07/18 2333 04/07/18 1603 WBC 10*3/mm3 17.75* 15.01* -- -- 17.60* HEMOGLOBIN g/dL 10.6* 11.2* 11.4* < > 11.7* PLATELETS 10*3/mm3 77* 82* -- -- 75* < > = values in this interval not displayed. Results from last 7 days Lab Units 04/09/18 0322 04/08/18 0400 04/07/18 2333 04/07/18 1603 04/07/18 1344 SODIUM mmol/L [...] [place] MD - 04/09/2018 8:23 AM EST [facility] Inpatient Progress Note Chief Complaint/Reason for [...] 2 tablet, Oral, TID PRN, Nathen Vargas, PROPELLANT CHARGE LOADER, 2 tablet at 04/09/18 0255 ??? docusate sodium (COLACE) capsule 100 mg, 100 mg, Oral, BID PRN, Cruz Ramirez PA ??? HYDROcodone-acetaminophen (NORCO) 7.5-325 MG per tablet 1 tablet, 1 tablet, Oral, Q4H PRN, Jose Wilson MD, 1 tablet at 04/07/18 1820 ? [...] by Shauna Andrews APRN, 04/09/18, 8:25 AM. I, Liza [place] MD, personally performed the services as scribed by the above named individual. I have made any necessary edits and it is both accurate and complete. Liza [place]leton MD, MSc, [facility] Interventional Cardiology [facility] * Jose Wilson MD - 04/09/2018 6:57 [...] Value Units Date/Time XR Chest 1 View [[id number]] Updated: 04/09/18 0535 XR Chest 1 View [[id number]] Collected: 04/08/18 0959 Updated: 04/08/18 1004 Narrative: EXAMINATION: XR CHEST 1 VW- INDICATION: Postop heart surgery; I48.1-Persistent atrial fibrillation; I35.9-Nonrheumatic aortic valve disorder, unspecified. TECHNIQUE: Single view frontal chest. COMPARISONS: 04/07/2018 FINDINGS: [place] catheter has been retracted into the SVC. [...] 04/08/2018 11:51 AM EST Continued Stay Note JUDY Hurd Patient Name: Carlos Manuel Rojas II Today's Date: 04/08/2018 Admit Date: 04/07/2018 Discharge Plan Row Name 04/08/18 1148 Plan Plan Home Patient/Family in Agreement with Plan yes Plan Comments Spoke with patient at bedside in ICU. Pateint lives with RADHA Springer in [place] in a two story apt. 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 Patient's plans to go home at discharge and Rahceal will be there to help as needed. Linda @ [phone] Final Discharge Disposition Code 01 - home or self-care Discharge Codes No documentation. Keshia Miller RN * Nancy Garrison RD - 04/08/2018 [...] mcg/min norepinephrine 0.02-0.3 mcg/kg/min Last Rate: Stopped (04/07/18 2030) phenylephrine 0.5-3 mcg/kg/min Sodium chloride 30 mL/hr [...] last 7 days Lab Units 04/08/18 0400 04/07/18 2333 04/07/18200804/07/18 1603 04/07/18 1227 WBC 10*3/mm3 15.01* -- -- 17.60* 23.45* HEMOGLOBIN g/dL 11.2* 11.4* 11.5* 11.7* 12.8* PLATELETS 10*3/mm3 82* -- -- 75* 72* Results from last 7 days Lab Units 04/08/18 0400 04/07/18 2333 04/07/18200804/07/18 1603 04/07/18 1344 SODIUM mmol/L 136 -- -- 135 [...] [place] MD - 04/08/2018 8:40 AM EST [facility] Inpatient Progress Note Chief Complaint/Reason for [...] mg, 40 mg, Oral, Nightly, Cruz Ramirez, MALIA, 40 mg at 04/07/182005 ??? bisacodyl (DULCOLAX) EC tablet 10 mg, 10 mg, Oral, Daily PRN, Cruz Ramirez PA ??? bisacodyl (DULCOLAX) suppository 10 mg, 10 mg, Rectal, Daily PRN, Cruz Ramirez, PA ??? chlorhexidine (PERIDEX) 0.12 % solution 15 mL, 15 mL, Mouth/Throat, Q12H, Cruz Ramirez, MALIA, 15 mL at 04/07/182004 ??? dexmedetomidine (PRECEDEX) infusion in NaCl 400 mcg/100 mL, 0.2-1.5 mcg/kg/hr, Intravenous, Continuous PRN, Cruz Ramirez, PA ??? dextrose 5 % with KCl 20 mEq/L infusion, 30 mL/hr, Intravenous, Continuous, Cruz Ramirez, MALIA,Last Rate: 30 mL/hr at 04/07/18 1331, 30 mL/hr at 04/07/18 1331 ??? DOBUTamine (DOBUTREX) 1 mg/mL infusion, 2-20 mcg/kg/min, Intravenous, Continuous PRN, Cruz Ramirez PA ??? docusate sodium (COLACE) capsule 100 mg, 100 mg, Oral, BID PRN, Cruz Ramirez, PA ??? DOPamine 400 mg/250 mL (1.6 [...] Continuous PRN, Cruz Ramirez PA, Stopped at 04/07/182029 ??? ondansetron (ZOFRAN) injection 4 mg, 4 mg, Intravenous, Q6H PRN, Cruz Ramirez PA ??? oxyCODONE-acetaminophen (PERCOCET) 5-325 MG per tablet 2 tablet, 2 tablet, Oral, Q4H PRN, Jose Wilson MD, 2 tablet at 04/08/18 0802 ??? phenylephrine (EFFIE-SYNEPHRINE) 50 mg/250 mL (0.2 mg/mL) in 0.9% NS infusion, 0.5-3 mcg/kg/min, Intravenous, Continuous PRN, Cruz Ramirez, PA ??? potassium chloride (MICRO-K) CR capsule 40 mEq, 40 mEq, Oral, PRN OR potassium chloride (KLOR-CON) packet 40 mEq, 40 mEq, Oral, PRN, Cruz Ramirez, PA ??? potassium chloride 20 mEq in 50 mL IVPB, 20 mEq, Intravenous, Q1H PRN OR potassium [id number] mEq in 50 mL IVPB, 20 mEq, Intravenous, Q1H PRN, Cruz Ramirez, PA ??? racemic epinephrine (RACEPINEPHRINE) nebulizer solution 0.5 mL, 0.5 mL, Nebulization, Once PRN,Cruz Raimrez PA ??? sennosides-docusate sodium (SENOKOT-S) 8.6-50 MG tablet 2 tablet, 2 tablet, Oral, BID, Cruz Ramirez PA, 2 tablet at 04/07/182005 ??? sodium chloride 0.9 % flush 30 mL, 30 mL, Intravenous, Once PRN, Cruz Ramirez PA ??? Sodium chloride 0.9 % infusion, 30 mL/hr, Intravenous, Continuous PRN, Cruz Ramirez, PA ??? vancomycin 1750 mg/500 mL 0.9% NS IVPB ([facility]), 15 mg/kg, Intravenous, Q12H, Cruz Ramirze PA, 1,750 mg at 04/08/18 0601 ??? [...] assess MEGHA clip Liza Singleton MD, MSc, [facility] Interventional Cardiology [facility] 04/08/2018 * Jose Wilson MD - 04/08/2018 [...] Value Units Date/Time XR Chest 1 View [[id number]] Updated: 04/08/18 0232 XR Chest 1 View [[id number]] Collected: 04/07/18 1553 Updated: 04/07/18 1559 Narrative: EXAMINATION: XR CHEST 1 VW-04/07/2018: INDICATION: Post-Op Check Line & Tube Placement; I35.9-Nonrheumatic aortic valve disorder, unspecified; I35.9-Nonrheumatic aortic valve disorder, unspecified. TECHNIQUE: Single view frontal chest. COMPARISONS: 04/06/2018. FINDINGS: Endotracheal tube in good position. NG tube terminates below the diaphragm in the gastric fundus. Right IJ approach [place] catheter terminates at midline. Drain is seen [...] social history were reviewed and updated in [facility] as appropriate. Objective Infusions: dexmedetomidine 0.2-1.5 [...] 6:40 AM EST Pre-Op H&P Carlos Manuel Troy Goldenjasmin [id number] 1965 Chief complaint: Chest pain and dizziness [...] Sig Dispense Refill ??? vitamin D (ERGOCALCIFEROL) 36621 units capsule capsule Take 50,000 Units by [...] Heart Cath; Surgeon: Liza Singleton MD; Location: [facility] CATH INVASIVE LOCATION; Service: Cardiology ??? CYST [...] PM ESTAssociated Order(s): IP CONSULT TO CARDIOLOGY [facility] Consult Note Referring Provider: Dr. Wilson Reason [...] Heart Cath; Surgeon: Liza Singleton MD; Location: [facility] INVASIVE LOCATION; Service: Cardiology ??? CYST REMOVAL [...] Nebulization, Q4H PRN, Cruz Ramirez PA ??? [START ON 04/08/2018] aspirin EC tablet 325 mg, 325 mg, Oral, Daily, Cruz Ramirez, PA ??? aspirin tablet 325 mg, 325 mg, Oral, Once, Cruz Ramirez, PA ??? atorvastatin (LIPITOR) tablet 40 mg, 40 mg, Oral, Nightly, Cruz Ramirez PA ??? bisacodyl (DULCOLAX) EC tablet 10 mg, 10 mg, Oral, Daily PRN, Cruz Ramirez PA ??? [START ON 04/08/2018] bisacodyl (DULCOLAX) suppository 10 mg, 10 mg, Rectal, Daily PRN, Cruz Ramirez PA ??? chlorhexidine (PERIDEX) 0.12 % solution 15 mL, 15 mL, Mouth/Throat, Q12H, Cruz Ramirez PA ??? dexmedetomidine (PRECEDEX) infusion in NaCl [...] mg/mL) infusion, 2-20 mcg/kg/min, Intravenous, Continuous PRN, rCuz Ramirez PA ??? EPINEPHrine (ADRENALIN) 10,000 mcg [...] 20 mEq, Intravenous, Q1H PRN OR potassium [id number] mEq in 50 mL IVPB, 20 mEq, [...] Refill Last Dose ??? vitamin D (ERGOCALCIFEROL) 69411 units capsule capsule Take 50,000 Units by [...] Blum APRN 04/07/18 2:32 PM Dictated utilizing Pulseon dictation I, Liza Singleton MD, personally performed the services as scribed by the above named individual. I have made any necessary edits and it is both accurate and complete. Liza Singleton MD, MSc, [facility] Interventional Cardiology [facility] documented in this encounter Nursing Notes * Kasey Malhotra, RN - 04/11/2018 3:11 PM EST Discharged [...] Review Outcome: Ongoing (interventions implemented as appropriate) 04/11/1833504/11/18 0337 Coping/Psychosocial Plan of Care Reviewed With [...] (CardiacSurgery) Outcome: Ongoing (interventions implemented as appropriate) 04/11/18335 Goal/Outcome Evaluation Problems Assessed (Cardiac Surgery) all [...] (CardiacSurgery) Outcome: Ongoing (interventions implemented as appropriate) 04/10/18 1719 Goal/Outcome Evaluation Problems Assessed (Cardiac Surgery) all Problems Present (Cardiac Surgery) none * Radha Fields PT - 04/10/2018 1:26 PM EST Problem: [...] for staff to fax referral information to outlying program at this time. Staff to fax [...] with CGA 1+1. Pt's decreased independence warrants geophysical prospector care. Recommend D/C home with assistance. * Dipti Lou RN - 04/08/2018 6:29 AM EST Problem: [...] Review Outcome: Ongoing (interventions implemented as appropriate) 04/07/181708 Coping/Psychosocial Plan of Care Reviewed With patient;family [...] AM EST Operative Report Carlos Manuel Rojas KAT : 1965 CSN: [id number] Date:04/07/18 Preop Diagnosis: #1 aortic stenosis #2 aortic insufficiency Postop Diagnosis: #1 aortic stenosis #2 aortic insufficiency #3 atrial fibrillation Procedure: #1 aortic valve replacement (#25 Perimount biologic prosthesis). #2 placement of left atrial appendage occlusion clip Surgeon: Jose Wilson MD Inside Sales Associate: Armando Ramirez PA-C Indications: 52-year-old male with [...] leak and absence of flow in MEGHA. FDH=972 min XC= 129 min Off CPB without [...] an internaljugular access line and placed a [place]-Sherif catheter. A brachial arterial line had previously [...] amounts of iced cold saline. Section of jersey aliquots of saline.. A Ray-Shira sponge [...] with 2 layers of 4-0 Prolene. A electron beam photo mask technician was administered in the usual manner [...] Surgeon(s): Jose Wilson MD Anesthesia: General Staff: Nurse Discharge: Saima Mathew RN; Sheree Martínez RN Library Aide: Marc Garcia; Annemarie Gross Scrub Person: Bennie Adame Scalloper: Katerin Veras Inside Sales Associate: Cruz Ramirez PA Estimated Blood Loss: 750 [...] Acute Care - Physical Therapy Treatment Note JUDY Hurd Patient Name: Carlos Manuel Rojsa II : 1965 Today's Date: 04/10/2018 Onset [...] aortic stenosis ??? Coronary artery disease involving [place] coronary artery of [place] heart without angina pectoris ??? Rheumatic aortic [...] Row Name 04/10/18 1050 Sit-Stand Transfer Sit-Stand [place] (Transfers) contact guard -NAOMI Recorded by [NAOMI] Radha Fields, PT 04/10/18 1325 Row Name 04/10/18 1050 Stand-Sit Transfer Stand-Sit [place] (Transfers) contact guard -NAOMI Recorded by [NAOMI] Radha Fields, PT 04/10/18 1325 Row Name 04/10/18 1050 Gait/Stairs Assessment/Training Gait/Stairs Assessment/Training gait/ambulation independence -NAOMI [place] Level (Gait) contact guard -NAOMI Distance in Feet (Gait) 450 -NAOMI Pattern (Gait) step-through -NAOMI Deviations/Abnormal Patterns (Gait) stride length decreased -NAOMI Comment (Gait/Stairs) no LOB with ambulation mild SOA -NAOMI Recorded by [NAOMI] Radha Fields, PT 04/10/18 1325 Row Name 04/10/18 1050 Therapeutic Exercise 82771 - PT Therapeutic Activity Minutes 23 -NAOMI [...] 04/10/18 1050 Static Sitting Balance Level of [place] (Unsupported Sitting, Static Balance) independent -NAOMI Sitting Position (Unsupported Sitting, Static Balance) sitting in chair -NAOMI Time Able to Maintain Position (Unsupported Sitting, Static Balance) more than 5 minutes -NAOMI Recorded by [NAOMI] Radha Fields, PT 04/10/18 1325 Row Name 04/10/18 1050 Static Standing Balance Level of [place] (Supported Standing, Static Balance) supervision -NAOMI Time [...] PM Physical Therapy Education Title: PT OT PANTOGRAPH ENGRAVER Therapies (In Progress) Topic: Physical Therapy (In [...] Time 1050 -NAOMI PT Received On 04/10/18 - PT Goal Re-Cert Due Date 04/18/18 - Time Calculation- PT Total Timed Code Minutes- PT 23 minute(s) -NAOMI Timed Charges 17233 - PT Therapeutic Activity Minutes 23 -NAOMI User Hernandez (r) = Recorded By, (t) = Taken By, (c) = Cosigned By Initials Name Provider Type Radha Lucas, PT Physical Therapist Therapy Suggested Charges Code Minutes Charges 82219 (CPT??) Hc Pt Neuromusc Re Education Ea 15 Min 75456 (CPT??) Hc Pt Ther Proc Ea 15 Min 70658 (CPT??) Hc Gait Training Ea 15 Min 54900 (CPT??) Hc Pt Therapeutic Act Ea 15 Min 23 2 11668 (CPT??) Hc Pt Manual Therapy Ea 15 Min 58383 (CPT??) Hc Pt Iontophoresis Ea 15 Min 35815 (CPT??) Hc Pt Elec Stim Ea-Per 15 Min 02987 (CPT??) Hc Pt Ultrasound Ea 15 Min 41075 (CPT??) Hc Pt Self Care/Mgmt/Train Ea 15 Min 90930 (CPT??) Hc Pt Prosthetic (S) Train Initial Encounter, Each 15 Min 98659 (CPT??) Hc Pt Orthotic(S)/Prosthetic(S) Encounter, Each 15 Min 14153 (CPT??) Hc Orthotic(S) Mgmt/Train Initial Encounter, Each 15min Total 23 2 Therapy Charges for Today Code Description Service Date Service Provider Modifiers Qty 44114093614 HC PT THERAPEUTIC ACT EA 15 MIN 04/10/2018 Radha Fields, PT GP 2 PT G-Codes Outcome Measure Options: AM-PAC 6 Clicks Basic Mobility (PT) AM-PAC 6 Clicks Score: 18 Radha Fields, PT 04/10/2018 * Therapy Treatment Note - Saida Silver, PT - 04/09/2018 3:45 PM EST Acute Care - Physical Therapy Treatment Note Vickey Patient Name: Carlos Manuel Rojas II : 1965 Today's Date: 04/09/2018 Onset of Illness/Injury or Date of Surgery: 04/07/18 Date of Referral to PT: 04/07/18 Referring Physician: MALIA Ramirez Admit Date: 04/07/2018 Visit Dx: ICD-10-CM ICD-9-CM 1. Persistent atrial fibrillation (CMS/[facility]) I48.1 427.31 2. AVD (aortic valve disease) I35.9 424.1 3. Aortic valve disorder I35.9 424.1 4. Impaired functional mobility, balance, gait, and endurance Z74.09 V49.89 Patient Active Problem List Diagnosis ??? Rheumatic aortic stenosis ??? Coronary artery disease involving [place] coronary artery of [place] heart without angina pectoris ??? Rheumatic aortic [...] PT 04/09/18 1543 Row Name 04/09/18 1351 Vital Signs Pre [...] Row Name 04/09/18 1351 Sit-Stand Transfer Sit-Stand [place] (Transfers) contact guard;verbal cues -KR Recorded by [KR] Saida Silver, PT 04/09/18 1543 Row Name 04/09/18 1351 Stand-Sit Transfer Stand-Sit [place] (Transfers) contact guard;verbal cues -KR Recorded by [KR] Saida Silver, PT 04/09/18 1543 Row Name 04/09/18 1351 Gait/Stairs Assessment/Training Gait/Stairs Assessment/Training gait/ambulation independence -KR [place] Level (Gait) contact guard;verbal cues progressed to [...] PT 04/09/18 1543 Row Name 04/09/18 1351 Motor Skills Assessment/Interventions Additional Documentation Balance (Group);Therapeutic Exercise (Group) -KR Recorded by [KR] Saida Silver, PT 04/09/18 1543 Row Name 04/09/18 1351 Therapeutic Exercise Therapeutic Exercise seated, lower extremities -KR Additional Documentation Therapeutic Exercise (Row) -KR 36801 - PT Therapeutic Exercise Minutes 4 -KR 36525 - PT Therapeutic Activity Minutes 12 -KR Recorded by [KR] Saida Silver, PT 04/09/18 1543 Row Name 04/09/18 1351 Lower Extremity Seated Therapeutic Exercise Performed, Seated Lower Extremity (Therapeutic Exercise) hip flexion/extension;ankle dorsiflexion/plantarflexion;LAQ (long arc quad), knee extension -KR Exercise Type, Seated Lower Extremity (Therapeutic Exercise) AROM (active range of motion) -KR Sets/Reps Detail, Seated Lower Extremity (Therapeutic Exercise) BLE 04/09 -KR Recorded by [KR] Saida Silver, PT 04/09/18 1543 Row Name 04/09/18 1351 Balance Balance static sitting balance;static standing balance -KR Recorded by [KR] Saida Silver, PT 04/09/18 1543 Row Name 04/09/18 1351 Static Sitting Balance Level of [place] (Unsupported Sitting, Static Balance) supervision -KR Sitting Position (Unsupported Sitting, Static Balance) sitting in chair -KR Recorded by [KR] Saida Silver, PT 04/09/18 154 Row Name 04/09/18 1351 Static Standing Balance Level of [place] (Supported Standing, Static Balance) supervision -KR Recorded by [KR] Saida Silver, PT 04/09/18 154 Row Name 04/09/18 135 Positioning and Restraints Pre-Treatment Position sitting in chair/recliner -KR Post Treatment Position chair -KR In Chair notified nsg;sitting;call light within reach;encouraged to call for assist -KR Recorded by [KR] Saida Silver, PT 04/09/18 154 Row Name 04/09/18 135 Pain Assessment Additional Documentation Pain Scale: Numbers Pre/Post-Treatment (Group) -KR Recorded by [KR] Saida Silver, PT 04/09/18 154 Row Name 04/09/18 135 Pain Scale: Numbers Pre/Post-Treatment Pain Scale: Numbers, Pretreatment 0/10 - no pain -KR Pain Scale: Numbers, Post-Treatment 5/10 -KR Pain Location - Orientation incisional -KR Pain Location chest -KR Pain Intervention(s) Repositioned;Ambulation/increased activity -KR Recorded by [KR] Saida Silver, PT 04/09/18 154 Row Name Wound 04/07/18 0744 chest incision Wound - Properties Group Date first assessed: 04/07/18 [TF] Time first assessed: 743 [TF] Location: chest [TF] Type: incision [TF] Recorded by: [TF] Saima Mathew RN 04/07/18 0744 Row Name 04/09/18 1351 Plan of Care Review Plan of Care Reviewed With patient -KR Recorded by [KR] Saida Silver, PT 04/09/18 154 Row Name 04/09/18 135 Outcome Summary/Treatment Plan (PT) Daily Summary of Progress (PT) progress toward functional goals is good -KR Recorded by [KR] Saida Silver, PT 04/09/18 1547 User Hernandez (r) = Recorded By, (t) = Taken By, (c) = Cosigned By Initials Name Effective Dates Discipline TF Saima Mathew RN 09/14/15 - Nurse Saida Gallegos PT 07/01/17 - PT Wound 04/07/18 0744 chest incision (Active) Dressing Appearance open to air 04/09/2018 2:00 PM Drainage Amount none 04/09/2018 2:00 PM Care, Wound cleansed with;antimicrobial agent applied;other (see comments) 04/08/2018 8:00 PM Dressing Care, Wound dressing removed 04/08/2018 8:00 PM Physical Therapy Education Title: PT OT PANTOGRAPH ENGRAVER Therapies (In Progress) Topic: Physical Therapy (In Progress) Point: Mobility training (In Progress) Learning Progress Summary Patient Acceptance, E, NR by CARLOS at 04/09/2018 1:51 PM Acceptance, E, NR by CARLOS at 04/08/2018 10:02 AM Point: Home exercise program (In Progress) Learning Progress Summary Patient Acceptance, E, NR by CARLOS at 04/09/2018 1:51 PM Point: Body mechanics (In Progress) Learning Progress Summary Patient Acceptance, E, NR by CARLOS at 04/09/2018 1:51 PM Acceptance, E, NR by CARLOS at 04/08/2018 10:02 AM Point: Precautions (In Progress) Learning Progress Summary Patient Acceptance, E, NR by CARLOS at 04/09/2018 1:51 PM Acceptance, E, NR by CARLOS at 04/08/2018 10:02 AM User Hernandez Initials Effective Dates Name Provider Type Discipline CARLOS 07/01/17 - Saida Silver, PT Physical Therapist [...] appropriate. Outcome Measures Row Name 04/09/18 1351 01/09/19 1002 How much help from another person [...] = Cosigned By Initials Name Provider Type KR Saida Silver, PT Physical Therapist Time Calculation: PT Charges Row Name 04/09/18 1351 Time Calculation Start Time 1351 -KR PT Received On 04/09/18 -KR PT Goal Re-Cert Due Date 04/18/18 -KR Time Calculation- PT Total Timed Code Minutes- PT 16 minute(s) -KR Timed Charges 63730 - PT Therapeutic Exercise Minutes 4 -KR 97996 - PT Therapeutic Activity Minutes 12 -KR User Hernandez (r) = Recorded By, (t) = Taken By, (c) = Cosigned By Initials Name Provider Type Saida Gallegos, PT Physical Therapist Therapy Suggested Charges Code Minutes Charges 08280 (CPT??) Hc Pt Neuromusc Re Education Ea 15 Min 15293 (CPT??) Hc Pt Ther Proc Ea 15 Min 4 53209 (CPT??) Hc Gait Training Ea 15 Min 47759 (CPT??) Hc Pt Therapeutic Act Ea 15 Min 12 1 41844 (CPT??) Hc Pt Manual Therapy Ea 15 Min 15327 (CPT??) Hc Pt Iontophoresis Ea 15 Min 61561 (CPT??) Hc Pt Elec Stim Ea-Per 15 Min 10539 (CPT??) Hc Pt Ultrasound Ea 15 Min 87968 (CPT??) Hc Pt Self Care/Mgmt/Train Ea 15 Min 47155 (CPT??) Hc Pt Prosthetic (S) Train Initial Encounter, Each 15 Min 86346 (CPT??) Hc Pt Orthotic(S)/Prosthetic(S) Encounter, Each 15 Min 87151 (CPT??) Hc Orthotic(S) Mgmt/Train Initial Encounter, Each 15min Total 16 1 Therapy Charges for Today Code Description Service Date Service Provider Modifiers Qty 53053705690 HC PT EVAL MOD COMPLEXITY 4 04/08/2018 Saida Silver, PT GP 1 00287214513 HC PT THER SUPP EA 15 MIN 04/08/2018 Saida Silver, PT GP 2 56035584383 HC PT THERAPEUTIC ACT EA 15 MIN 04/09/2018 Saida Silver, PT GP 1 PT G-Codes Outcome Measure Options: AM-PAC 6 Clicks Basic Mobility (PT) AM-PAC 6 Clicks Score: 18 Janny Silver PT 04/09/2018 * Therapy Evaluation - Saida Silver, PT - 04/08/2018 3:34 PM EST Acute Care - Physical Therapy Initial Evaluation [facility] Patient Name: Carlos Manuel Rojas II : [...] aortic stenosis ??? Coronary artery disease involving [place] coronary artery of [place] heart without angina pectoris ??? Rheumatic aortic [...] VALVE REPLACEMENT; Surgeon: Jose Wilson MD; Location: [facility] OR; Service: Cardiothoracic ??? ATRIAL APPENDAGE EXCLUSION LEFT WITH TRANSESOPHAGEAL ECHOCARDIOGRAM N/A 04/07/2018 Procedure: ATRIAL APPENDAGE OCCLUSION LEFT; Surgeon: Jose Wilson MD; Location: [facility] OR; Service: Cardiothoracic ??? CARDIAC CATHETERIZATION N/A 03/03/2018 Procedure: Left Heart Cath; Surgeon: Liza Singleton MD; Location: [facility] CATH INVASIVE LOCATION; Service: Cardiology ??? CYST REMOVAL Left left foot (childhood) ??? TRANSESOPHAGEAL ECHOCARDIOGRAM (TA) N/A 04/07/2018 Procedure: TRANSESOPHAGEAL ECHOCARDIOGRAM WITH ANESTHESIA; Surgeon: Jose Wilson MD; Location: [facility] OR; Service: Cardiothoracic PT ASSESSMENT (last 12 [...] Assessment/Treatment Bed Mobility Assessment/Treatment sit-supine -KR Sit-Supine [place] (Bed Mobility) minimum assist (75% patient effort);verbal cues -KR Bed Mobility, Safety Issues decreased use of arms for pushing/pulling -KR Assistive Device (Bed Mobility) head of bed elevated -KR Comment (Bed Mobility) VC's for sequencing. -KR Row Name 04/08/18 1002 Transfer Assessment/Treatment Transfer Assessment/Treatment sit-stand transfer;stand-sit transfer -KR Comment (Transfers) VC's for sequencing. -KR Sit-Stand [place] (Transfers) contact guard;verbal cues -KR Stand-Sit [place] (Transfers) contact guard;verbal cues -KR Row Name 04/08/18 1002 Gait/Stairs Assessment/Training Gait/Stairs Assessment/Training gait/ambulation independence -KR [place] Level (Gait) contact guard;1 person assist;1 person [...] 04/08/18 1002 Static Sitting Balance Level of [place] (Unsupported Sitting, Static Balance) supervision -KR Sitting Position (Unsupported Sitting, Static Balance) sitting in chair -KR Row Name 04/08/18 1002 Static Standing Balance Level of [place] (Supported Standing, Static Balance) contact guard assist [...] 1, PT) bed mobility activities, all -KR [place] Level/Cues Needed (Bed Mobility Goal 1, PT) independent -KR Time Frame (Bed Mobility Goal 1, PT) 2 weeks -KR Progress/Outcomes (Bed Mobility Goal 1, PT) goal ongoing -KR Row Name 04/08/18 1002 Transfer Goal 1 (PT) Activity/Assistive Device (Transfer Goal 1, PT) dpz-pz-zifdq/hhhxi-do-dlc;lsc-bp-eugvb/fwbpq-qu-irw-KR [place] Level/Cues Needed (Transfer Goal 1, PT) independent -KR Time Frame (Transfer Goal 1, PT) 2 weeks -KR Progress/Outcome (Transfer Goal 1, PT) goal ongoing -KR Row Name 04/08/18 1002 Gait Training Goal 1 (PT) Activity/Assistive Device (Gait Training Goal 1, PT) gait (walking locomotion) -KR [place] Level (Gait Training Goal 1, PT) independent -KR Distance (Gait Goal 1, PT) 400 feet -KR Time Frame (Gait Training Goal 1, PT) 2 weeks -KR Progress/Outcome (Gait Training Goal 1, PT) goal ongoing -KR Row Name 04/08/18 1002 Stairs Goal 1 (PT) Activity/Assistive Device (Stairs Goal 1, PT) ascending stairs;descending stairs;using handrail, left -KR [place] Level/Cues Needed (Stairs Goal 1, PT) supervision [...] Therapist Physical Therapy Education Title: PT OT PANTOGRAPH ENGRAVER Therapies (In Progress) Topic: Physical Therapy (In [...] with CGA 1+1. Pt's decreased independence warrants geophysical prospector care. Recommend D/C home with assistance. Outcome [...] Cosigned By Initials Name Provider Type Saida Gallegos, PT Physical Therapist Therapy Suggested Charges Code Minutes Charges None Therapy Charges for Today Code Description Service Date Service Provider Modifiers Qty 56840747927 HC PT EVAL MOD COMPLEXITY 4 04/08/2018 Saida Silver, PT GP 1 20407036963 HC PT THER SUPP EA 15 MIN [...] 1:30 PM EDT Office Visit [facility] [address] [place] [address] Liza Singleton MD [address] [facility] [address] [place] [address] documented as of this encounter [...] AM EST 04/13/2018 9:06 AM EST Narrative ECG - 04/13/2018 9:06 AM EST Test [...] 9:06:35 AM Referred By: Confirmed By:LIZA SINGLETON us Sylvester FINLEY ECG ORDERABLES Final Resul t ECG * (ABNORMAL) Basic Metabolic Panel (04/11/2018 3:16 AM EST) Glucose 86 70 - 100 mg/dL 04/11/2018 4:29 AM [facility] BUN 12 9 - 23 mg/dL 04/11/2018 4:29 AM [facility] Creatinine 0.71 0.60 - 1.30 mg/dL 04/11/2018 4:29 AM [facility] Sodium 137 132 - 146 mmol/L 04/11/2018 4:29 AM [facility] Potassium 3.4(L) 3.5 - 5.5 mmol/L 04/11/2018 4:29 AM [facility] Chloride 102 99 - 109 mmol/L 04/11/2018 4:29 AM [facility] CO2 27.0 20.0 - 31.0 mmol/L 04/11/2018 4:29 AM [facility] Calcium 8.1(L) 8.7 - 10.4 mg/dL 04/11/2018 4:29 AM [facility] eGFR Non Amer 117 >60 mL/min/1.7 3 04/11/2018 4:29 AM [facility] BUN/Creatinine Ratio 16.9 7.0 - 25.0 04/11/2018 4:29 AM [facility] Anion Gap 8.0 3.0 - 11.0 mmol/L 04/11/2018 4:29 AM [facility] Blood Venipuncture / Unknown 04/11/2018 3:16 AM EST 04/11/2018 3:59 AM EST [facility] - 04/11/2018 4:29 AM EST National [...] ORDERABLES Final Resu lt Performing Organization Address City/[facility] Co de Phone Number [facility]
[address] [place] [address], * Prepare RBC, 2 Units (04/10/2018 6:54 AM EST) Product Code [id number] [facility] Unit Number [id number] [facility] UNIT ABO A [facility] UNIT RH POS [facility] Dispense Status RE [facility] Blood Type [facility] Blood Expiration Date [facility] Blood Type Barcode 6200 [facility] Product Code [id number] [facility] Unit Number [id number] [facility] LABORATORY UNIT ABO A [facility] UNIT RH POS [facility] Dispense Status RE [facility] Blood Type [facility] LABOR[facility]ORY Blood Expiration Date [facility] Blood Type Barcode 6200 [facility] Other Topography unknown / Unknown 04/06/2018 1:29 PM EST Miguel [facility] PRODUCT ORDERABLES Edited Result - Final Performing Organization Address City/[facility]/ZIP Co de Phone Number [facility]
[address] [place] [address], * ECG 12 Lead (04/10/2018 5:13 AM [...] - 100 mg/dL 04/10/2018 4:05 AM EST [facility] BUN 12 9 - 23 mg/dL 04/10/2018 4:05 AM EST [facility] Creatinine 0.69 0.60 - 1.30 mg/dL 04/10/2018 4:05 AM [facility] Sodium 134 132 - 146 mmol/L 04/10/2018 4:05 AM [facility] Potassium 3.8 3.5 - 5.5 mmol/L 04/10/2018 4:05 AM [facility] Chloride 102 99 - 109 mmol/L 04/10/2018 4:05 AM [facility] CO2 28.0 20.0 - 31.0 mmol/L 04/10/2018 4:05 AM [facility] Calcium 8.3(L) 8.7 - 10.4 mg/dL 04/10/2018 4:05 AM [facility] eGFR Non Amer 120 >60 mL/min/1.7 3 04/10/2018 4:05 AM [facility] BUN/Creatinine Ratio 17.4 7.0 - 25.0 04/10/2018 4:05 AM [facility] Anion Gap 4.0 3.0 - 11.0 mmol/L 04/10/2018 4:05 AM [facility] Blood Venipuncture / Unknown 04/10/2018 3:03 AM EST 04/10/2018 3:37 AM [facility] LABORATORY - 04/10/2018 4:05 AM [facility] National Kidney Foundation Guidelines Stage ? [...] FINLEY LAB BLOOD ORDERABLES Final Resu lt [facility]
[address] [id number], * (ABNORMAL) CBC (No Diff) (04/10/2018 3:03 AM EST) WBC 17.47(H) 3.50 - 10.80 10*3/mm3 04/10/2018 3:44 AM EST [facility] RBC 3.38(L) 4.20 - 5.76 10*6/mm3 04/10/2018 3:44 AM EST [facility] Hemoglobin 10.7(L) 13.1 - 17.5 g/dL 04/10/2018 3:44 AM [facility] Hematocrit 31.6(L) 38.9 - 50.9 % 04/10/2018 3:44 AM [facility] MCV 93.5 80.0 - 99.0 fL 04/10/2018 3:44 AM [facility] MCH 31.7(H) 27.0 - 31.0 pg 04/10/2018 3:44 AM [facility] MCHC 33.9 32.0 - 36.0 g/dL 04/10/2018 3:44 AM [facility] RDW 13.6 11.3 - 14.5 % 04/10/2018 3:44 AM [facility] RDW-SD 46.7 37.0 - 54.0 fl 04/10/2018 3:44 AM [facility] MPV 12.1(H) 6.0 - 12.0 fL 04/10/2018 3:44 AM [facility] Platelets 95(L) 150 - 450 10*3/mm3 04/10/2018 3:44 AM [facility] Blood Venipuncture / Unknown 04/10/2018 3:03 AM EST 04/10/2018 3:37 AM EST us Cruz FINLEY LAB BLOOD ORDERABLES Final Resu lt [facility]
[address] [place] [address], * POC Glucose Once (04/09/2018 11:22 AM EST) Glucose 110 70 - 130 mg/dL 04/09/2018 11:26 AM EST [facility] Blood 04/09/2018 11:2 2 AM EST 04/09/2018 11:26 AM EST us Jose Wilson MD POINT OF CARE TEST ORDERABLES F inal Result Performing Organization Address City/[facility] Co de Phone Number [facility]
[address] [place] [address], * POC Glucose Once (04/09/2018 8:05 AM EST) Glucose 102 70 - 130 mg/dL 04/09/2018 8:08 AM EST [facility] Blood 04/09/2018 8:05 AM EST 04/09/2018 8:08 AM EST us Jose Wilson MD POINT OF CARE TEST ORDERABLES F inal Result Performing Organization Address [facility] Co de Phone Number [facility]
[address] [place] [address], * ECG 12 Lead (04/09/2018 5:13 AM EST) 04/09/2018 5:13 AM EST 04/09/2018 7:54 AM EST Narrative ECG - 04/09/2018 7:54 AM EST Test [...] SINGLETON Procedure Note Liza Singleton MD - 04/09/2018 Test Reason : Post-Op [...] 7:54:40 AM Referred By: Confirmed By:LIZA SINGLETON us Sylvester FINLEY ECG ORDERABLES Final Resul t BH ECG * XR Chest 1 View (04/09/2018 [...] 10:[address] Jamie Barba MD. us Cruz FINLEY IMG DIAGNOSTIC IMAGING ORDERABL ES Final Result * (ABNORMAL) Basic Metabolic Panel (04/09/2018 3:22 AM EST) Glucose 102(H) 70 - 100 mg/dL 04/09/2018 4:32 AM EST [facility] BUN 9 9 - 23 mg/dL 04/09/2018 4:32 AM EST [facility] Creatinine 0.74 0.60 - 1.30 mg/dL 04/09/2018 4:32 AM EST [facility] Sodium 135 132 - 146 mmol/L 04/09/2018 4:32 AM EST [facility] Potassium 4.2 3.5 - 5.5 mmol/L 04/09/2018 4:32 AM EST [facility] Chloride 105 99 - 109 mmol/L 04/09/2018 4:32 AM EST [facility] CO2 27.0 20.0 - 31.0 mmol/L 04/09/2018 4:32 AM EST [facility] Calcium 8.4(L) 8.7 - 10.4 mg/dL 04/09/2018 4:32 AM EST [facility] eGFR Non Amer 111 >60 mL/min/1.7 3 04/09/2018 4:32 AM EST [facility] BUN/Creatinine Ratio 12.2 7.0 - 25.0 04/09/2018 4:32 AM EST [facility] Anion Gap 3.0 3.0 - 11.0 mmol/L 04/09/2018 4:32 AM EST [facility] Blood Venipuncture / Unknown 04/09/2018 3:22 AM EST 04/09/2018 3:50 AM EST [facility] - 04/09/2018 4:32 AM EST [...] FINLEY LAB BLOOD ORDERABLES Final Resu lt [facility]
[address] [place] [address], * (ABNORMAL) CBC (No Diff) (04/09/2018 3:22 AM EST) WBC 17.75(H) 3.50 - 10.80 10*3/mm3 04/09/2018 4:02 AM EST [facility] RBC 3.34(L) 4.20 - 5.76 10*6/mm3 04/09/2018 4:02 AM EST [facility] Hemoglobin 10.6(L) 13.1 - 17.5 g/dL 04/09/2018 4:02 AM [facility] Hematocrit 31.3(L) 38.9 - 50.9 % 04/09/2018 4:02 AM [facility] MCV 93.7 80.0 - 99.0 fL 04/09/2018 4:02 AM EST [facility] MCH 31.7(H) 27.0 - 31.0 pg 04/09/2018 4:02 AM [facility] MCHC 33.9 32.0 - 36.0 g/dL 04/09/2018 4:02 AM [facility] RDW 13.7 11.3 - 14.5 % 04/09/2018 4:02 AM [facility] RDW-SD 47.5 37.0 - 54.0 fl 04/09/2018 4:02 AM [facility] MPV 12.4(H) 6.0 - 12.0 fL 04/09/2018 4:02 AM [facility] Platelets 77(L) 150 - 450 10*3/mm3 04/09/2018 4:02 AM [facility] Blood Venipuncture / Unknown 04/09/2018 3:22 AM EST 04/09/2018 3:50 AM EST Cruz FINLEY LAB BLOOD ORDERABLES Final Resu lt [facility]
[address] [place] [address], * POC Glucose Once (04/08/2018 8:11 PM EST) Glucose 111 70 - 130 mg/dL 04/08/2018 8:12 PM [facility] Blood 04/08/2018 8:11 PM EST 04/08/2018 8:12 PM EST Jose Wilson MD POINT OF CARE TEST ORDERABLES F inal Result Performing Organization Address City/[facility]/ZIP Co de Phone Number [facility]
[address] [place] [address], * POC Glucose Once (04/08/2018 4:20 PM EST) Glucose 104 70 - 130 mg/dL 04/08/2018 4:48 PM EST [facility] Blood 04/08/2018 4:20 PM EST 04/08/2018 4:48 PM EST us Jose Wilson MD POINT OF CARE TEST ORDERABLES F inal Result Performing Organization Address [facility] Co de Phone Number [facility]
[address] [place] [address], * (ABNORMAL) POC Glucose Once (04/08/2018 11:10 AM EST) Glucose 165(H) 70 - 130 mg/dL 04/08/2018 11:21 AM EST [facility] Blood 04/08/2018 11:1 0 AM EST 04/08/2018 11:21 AM EST us Jose Wilson MD POINT OF CARE TEST ORDERABLES F inal Result Performing Organization Address [facility] Co de Phone Number [facility]
[address] [place] [address], * POC Glucose Once (04/08/2018 9:49 AM EST) Glucose 71 70 - 130 mg/dL 04/08/2018 9:59 AM EST [facility] Blood 04/08/2018 9:49 AM EST 04/08/2018 9:59 AM EST us Jose Wilson MD POINT OF CARE TEST ORDERABLES F inal Result Performing Organization Address [facility] Co de Phone Number [facility]
[address] [place] [address], * (ABNORMAL) POC Glucose Once (04/08/2018 9:15 AM EST) Glucose 56(L) 70 - 130 mg/dL 04/08/2018 9:35 AM EST [facility] Blood 04/08/2018 9:15 AM EST 04/08/2018 9:35 AM EST us Jose Wilson MD POINT OF CARE TEST ORDERABLES F inal Result Performing Organization Address [facility] Co de Phone Number [facility]
[address] [place] [address], * POC Glucose Once (04/08/2018 8:07 AM EST) Glucose 76 70 - 130 mg/dL 04/08/2018 8:24 AM EST [facility] Blood 04/08/2018 8:07 AM EST 04/08/2018 8:24 AM EST us Jose Wilson MD POINT OF CARE TEST ORDERABLES F inal Result Performing Organization Address [facility] Phone Number [facility]
[address] [place] [address], * POC Glucose Once (04/08/2018 6:42 AM EST) Glucose 94 70 - 130 mg/dL 04/08/2018 6:43 AM EST [facility] Blood 04/08/2018 6:42 AM EST 04/08/2018 6:43 AM EST us Jose Wilson MD POINT OF CARE TEST ORDERABLES F inal Result Performing Organization Address [facility] Co de Phone Number [facility]
[address] [place] [address], * POC Glucose Once (04/08/2018 6:12 AM EST) Glucose 99 70 - 130 mg/dL 04/08/2018 6:14 AM EST [facility] Blood 04/08/2018 6:12 AM EST 04/08/2018 6:14 AM EST us Jose Wilson MD POINT OF CARE TEST ORDERABLES F inal Result Performing Organization Address City/[facility]/ZIP Co de Phone Number [facility]
[address] [place] [address], * POC Glucose Once (04/08/2018 5:18 AM EST) Glucose 112 70 - 130 mg/dL 04/08/2018 5:19 AM EST [facility] Blood 04/08/2018 5:18 AM EST 04/08/2018 5:19 AM EST Jose Wilson MD POINT OF CARE TEST ORDERABLES F inal Result Performing Organization Address [facility] Co de Phone Number [facility]
[address] [place] [address], * ECG 12 Lead (04/08/2018 4:14 AM [...] in Lateral leads Confirmed by Yohan Ontiveros ([id number]) on 04/08/2018 7:50:58 AM Referred By: ? [...] in Lateral leads Confirmed by Yohan Ontiveros ([id number]) on 04/08/2018 7:50:58 AM Referred By: Confirmed By:Yohan Ontiveros us Cruz FINLEY ECG ORDERABLES Final Result Performing Organization Address City/[facility]/ZIP Co de Phone Number ECG * POC Glucose Once (04/08/2018 4:05 AM EST) Pathologist [facility] Glucose 130 70 - 130 mg/dL 04/08/2018 4:06 AM EST [facility] Blood 04/08/2018 4:05 AM EST 04/08/2018 4:06 AM EST Jose Wilson MD POINT OF CARE TEST ORDERABLES F inal Result Performing Organization Address City/[facility]/ZIP Co de Phone Number [facility] [place] [address], * (ABNORMAL) CBC Auto Differential (04/08/2018 4:00 AM EST) Pathologist [facility] WBC 15.01(H) 3.50 - 10.80 10*3/mm3 04/08/2018 5:14 AM EST [facility] RBC 3.54(L) 4.20 - 5.76 10*6/mm3 04/08/2018 5:14 AM EST [facility] Hemoglobin 11.2(L) 13.1 - 17.5 g/dL 04/08/2018 5:14 AM EST [facility] Hematocrit 33.0(L) 38.9 - 50.9 % 04/08/2018 5:14 AM [facility] MCV 93.2 80.0 - 99.0 fL 04/08/2018 5:14 AM [facility] MCH 31.6(H) 27.0 - 31.0 pg 04/08/2018 5:14 AM [facility] MCHC 33.9 32.0 - 36.0 g/dL 04/08/2018 5:14 AM [facility] RDW 13.7 11.3 - 14.5 % 04/08/2018 5:14 AM [facility] RDW-SD 47.0 37.0 - 54.0 fl 04/08/2018 5:14 AM [facility] MPV 12.5(H) 6.0 - 12.0 fL 04/08/2018 5:14 AM [facility] Platelets 82(L) 150 - 450 10*3/mm3 04/08/2018 5:14 AM [facility] Neutrophil % 78.6(H) 41.0 - 71.0 % 04/08/2018 5:14 AM [facility] Lymphocyte % 10.9(L) 24.0 - 44.0 % 04/08/2018 5:14 AM [facility] Monocyte % 10.1 0.0 - 12.0 % 04/08/2018 5:14 AM [facility] Eosinophil % 0.1 0.0 - 3.0 % 04/08/2018 5:14 AM [facility] Basophil % 0.3 0.0 - 1.0 % 04/08/2018 5:14 AM [facility] Immature Grans % 0.3 0.0 - 0.6 % 04/08/2018 5:14 AM [facility] Neutrophils, Absolute 11.81(H) 1.50 - 8.30 10*3/mm3 04/08/2018 5:14 AM [facility] Lymphocytes, Absolute 1.63 0.60 - 4.80 10*3/mm3 04/08/2018 5:14 AM [facility] Monocytes, Absolute 1.51(H) 0.00 - 1.00 10*3/mm3 04/08/2018 5:14 AM [facility] Eosinophils, Absolute 0.02 0.00 - 0.30 10*3/mm3 04/08/2018 5:14 AM [facility] Basophils, Absolute 0.04 0.00 - 0.20 10*3/mm3 04/08/2018 5:14 AM [facility] Immature Grans, Absolute 0.04(H) 0.00 - 0.03 10*3/mm3 04/08/2018 5:14 AM [facility] Blood Venipuncture / Unknown 04/08/2018 4:00 AM EST 04/08/2018 4:32 AM EST Cruz FINLEY LAB BLOOD ORDERABLES Final Resu lt Performing Organization Address City/[facility]/ZIP Co de Phone Number [facility]
[address] [place] [address], [place] [phone] * (ABNORMAL) Protime-INR (04/08/2018 4:00 AM EST) Protime 11.8(H) 9.6 - 11.5 Seconds 04/08/2018 5:19 AM [facility] INR 1.12(H) 0.91 - 1.09 04/08/2018 5:19 AM [facility] Blood Venipuncture / Unknown 04/08/2018 4:00 AM EST 04/08/2018 4:32 AM EST Cruz FINLEY LAB BLOOD ORDERABLES Final Resu lt Performing Organization Address City/[facility]/ZIP Co de Phone Number [facility]
[address] [place] [address], [place] [phone] * Magnesium (04/08/2018 4:00 AM EST) Magnesium 1.9 1.3 - 2.7 mg/dL 04/08/2018 5:17 AM [facility] Blood Venipuncture / Unknown 04/08/2018 4:00 AM EST 04/08/2018 4:31 AM EST Cruz FINLEY LAB BLOOD ORDERABLES Final Resu lt [facility]
[address] [place] [address], * (ABNORMAL) Renal Function Panel (04/08/2018 4:00 AM EST) Glucose 137(H) 70 - 100 mg/dL 04/08/2018 5:17 AM [facility] BUN 11 9 - 23 mg/dL 04/08/2018 5:17 AM [facility] Creatinine 0.88 0.60 - 1.30 mg/dL 04/08/2018 5:17 AM [facility] Sodium 136 132 - 146 mmol/L 04/08/2018 5:17 AM [facility] Potassium 4.3 3.5 - 5.5 mmol/L 04/08/2018 5:17 AM [facility] Chloride 110(H) 99 - 109 mmol/L 04/08/2018 5:17 AM [facility] CO2 22.0 20.0 - 31.0 mmol/L 04/08/2018 5:17 AM [facility] Calcium 8.1(L) 8.7 - 10.4 mg/dL 04/08/2018 5:17 AM [facility] Albumin 3.51 3.20 - 4.80 g/dL 04/08/2018 5:17 AM [facility] Phosphorus 3.7 2.4 - 5.1 mg/dL 04/08/2018 5:17 AM [facility] Anion Gap 4.0 3.0 - 11.0 mmol/L 04/08/2018 5:17 AM [facility] BUN/Creatinine Ratio 12.5 7.0 - 25.0 04/08/2018 5:17 AM [facility] eGFR Non Amer 91 >60 mL/min/1.7 3 04/08/2018 5:17 AM EST [facility] Blood Venipuncture / Unknown 04/08/2018 4:00 AM EST 04/08/2018 4:31 AM EST Narrative [facility] - 04/08/2018 5:17 AM EST [employer] Guidelines Stage [...] ORDERABLES Final Resu lt Performing Organization Address City/[facility] Co de Phone Number [facility]
[address] [place] [address], * POC Glucose Once (04/08/2018 3:07 AM EST) Glucose 78 70 - 130 mg/dL 04/08/2018 3:08 AM EST [facility] Blood 04/08/2018 3:07 AM EST 04/08/2018 3:08 AM EST Jose Wilson MD POINT OF CARE TEST ORDERABLES F inal Result Performing Organization Address [facility] de Phone Number [facility]
[address] [place] [address], [place] [phone] * XR Chest 1 View (04/08/2018 2:32 [...] ??Single view frontal chest. COMPARISONS: 04/07/2018 FINDINGS: ??[place] catheter has been retracted into the SVC. [...] Single view frontal chest. COMPARISONS: 04/07/2018 FINDINGS: [place] catheter has been retracted into the SVC. [...] on 04/08/2018 10:02 AM by Bj Joseph. us Cruz FINLEY IMG DIAGNOSTIC IMAGING ORDERABL ES Final Result * (ABNORMAL) POC Glucose Once (04/08/2018 2:03 AM EST) Glucose 140(H) 70 - 130 mg/dL 04/08/2018 2:04 AM EST [facility] Blood 04/08/2018 2:03 AM EST 04/08/2018 2:04 AM EST us Jose Wilson MD POINT OF CARE TEST ORDERABLES F inal Result Performing Organization Address [facility] Co de Phone Number [facility]
[address] [place] [address], * POC Glucose Once (04/08/2018 1:01 AM EST) Glucose 130 70 - 130 mg/dL 04/08/2018 1:04 AM EST [facility] Blood 04/08/2018 1:01 AM EST 04/08/2018 1:04 AM EST us Jose Wilson MD POINT OF CARE TEST ORDERABLES F inal Result Performing Organization Address [facility] Co de Phone Number [facility]
[address] [place] [address], * POC Glucose Once (04/08/2018 12:15 AM EST) Glucose 119 70 - 130 mg/dL 04/08/2018 12:32 AM EST [facility] Blood 04/08/2018 12:1 5 AM EST 04/08/2018 12:32 AM EST us Jose Wilson MD POINT OF CARE TEST ORDERABLES F inal Result Performing Organization Address [facility] Co de Phone Number [facility]
[address] [place] [address], * Potassium (04/07/2018 11:33 PM EST) Potassium 4.1 3.5 - 5.5 mmol/L 04/07/2018 11:53 PM EST [facility] Blood Venipuncture / Unknown 04/07/2018 11:33 PM EST 04/07/2018 11:35 PM EST us Jose Wilson MD LAB BLOOD ORDERABLES Final Resu lt Performing Organization Address City/[facility] Co de Phone Number [facility]
[address] [place] [address], * (ABNORMAL) Hemoglobin & Hematocrit, Blood (04/07/2018 11:33 PM EST) Hemoglobin 11.4(L) 13.1 - 17.5 g/dL 04/07/2018 11:41 PM EST [facility] Hematocrit 33.4(L) 38.9 - 50.9 % 04/07/2018 11:41 PM EST [facility] Blood Venipuncture / Unknown 04/07/2018 11:33 PM EST 04/07/2018 11:35 PM EST us Jose Wilson MD LAB BLOOD ORDERABLES Final Resu lt Performing Organization Address [facility] Co de Phone Number [facility]
[address] [place] [address], * (ABNORMAL) POC Glucose Once (04/07/2018 10:59 PM EST) Glucose 148(H) 70 - 130 mg/dL 04/07/2018 11:11 PM EST [facility] Blood 04/07/2018 10:5 9 PM EST 04/07/2018 11:11 PM EST us Jose Wilson MD POINT OF CARE TEST ORDERABLES F inal Result Performing Organization Address City/[facility] Co de Phone Number [facility]
[address] [place] [address], * (ABNORMAL) POC Glucose Once (04/07/2018 9:52 PM EST) Glucose 145(H) 70 - 130 mg/dL 04/07/2018 9:54 PM EST [facility] Blood 04/07/2018 9:52 PM EST 04/07/2018 9:54 PM EST us Jose Wilson MD POINT OF CARE TEST ORDERABLES F inal Result Performing Organization Address [facility] Co de Phone Number [facility]
[address] [place] [address], * POC Glucose Once (04/07/2018 9:00 PM EST) Glucose 114 70 - 130 mg/dL 04/07/2018 9:02 PM EST [facility] Blood 04/07/2018 9:00 PM EST 04/07/2018 9:02 PM EST us Jose Wilson MD POINT OF CARE TEST ORDERABLES F inal Result Performing Organization Address [facility] Co de Phone Number [facility]
[address] [place] [address], * Potassium (04/07/2018 8:09 PM EST) Potassium 4.4 3.5 - 5.5 mmol/L 04/07/2018 8:23 PM EST [facility] Blood Venipuncture / Unknown 04/07/2018 8:09 PM EST 04/07/2018 8:10 PM EST us Jose Wilson MD LAB BLOOD ORDERABLES Final Resu lt Performing Organization Address [facility] Co de Phone Number [facility]
[address] [place] [address], [place] [phone] * (ABNORMAL) Hemoglobin & Hematocrit, Blood (04/07/2018 8:09 PM EST) Hemoglobin 11.5(L) 13.1 - 17.5 g/dL 04/07/2018 8:21 PM EST [facility] Hematocrit 33.5(L) 38.9 - 50.9 % 04/07/2018 8:21 PM EST [facility] Blood Venipuncture / Unknown 04/07/2018 8:09 PM EST 04/07/2018 8:11 PM EST us Jose Wilson MD LAB BLOOD ORDERABLES Final Resu lt [facility]
[address] [place] [address], * (ABNORMAL) POC Glucose Once (04/07/2018 8:01 PM EST) Glucose 138(H) 70 - 130 mg/dL 04/07/2018 8:21 PM EST [facility] Blood 04/07/2018 8:01 PM EST 04/07/2018 8:21 PM EST us Jose Wilson MD POINT OF CARE TEST ORDERABLES F inal Result Performing Organization Address City/[facility] Co de Phone Number [facility]
[address] [place] [address], * POC Glucose Once (04/07/2018 6:57 PM EST) Glucose 92 70 - 130 mg/dL 04/07/2018 7:00 PM EST [facility] Blood 04/07/2018 6:57 PM EST 04/07/2018 7:00 PM EST us Jose Wilson MD POINT OF CARE TEST ORDERABLES F inal Result Performing Organization Address City/[facility] Co de Phone Number [facility]
[address] [place] [address], * POC Glucose Once (04/07/2018 6:07 PM EST) Glucose 84 70 - 130 mg/dL 04/07/2018 6:30 PM EST [facility] Blood 04/07/2018 6:07 PM EST 04/07/2018 6:30 PM EST Jose Wilson MD POINT OF CARE TEST ORDERABLES F inal Result [facility]
[address] [place] [address], * (ABNORMAL) Blood Gas, Arterial With Co-Ox (04/07/2018 5:24 PM EST) Site Arterial Line 04/07/2018 5:29 PM [facility]ER[facility] Stephen's Test N/A 04/07/2018 5:29 PM [facility] pH, Arterial 7.314(L) 7.350 - 7.450 pH units 04/07/2018 5:29 PM [facility] Comment:84 Value below refer ence range pCO2, Arterial 45.3 mm Hg 04/07/2018 5:29 PM [facility] Comment:83 Value above refer ence range pO2, Arterial 105.0 83.0 - 108.0 mm Hg 04/07/2018 5:29 PM [facility] HCO3, Arterial 23.0 20.0 - 26.0 mmol/L 04/07/2018 5:29 PM [facility] Base Excess, Arterial -3.3(L) 0.0 - 2.0 mmol/L 04/07/2018 5:29 PM [facility] Hemoglobin, Blood Gas 11.6(L) 13.5 - 17.5 g/dL 04/07/2018 5:29 PM [facility] Comment:84 Value below refer ence range Hematocrit, Blood Gas 35.7 % 04/07/2018 5:29 PM [facility] Oxyhemoglobin 95.3 94 - 99 % 04/07/2018 5:29 PM [facility] Methemoglobin 1.50 0.00 - 1.50 % 04/07/2018 5:29 PM EST [facility] Carboxyhemoglobin 0.8 0 - 2 % 019 5:29 PM [facility] CO2 Content 24.4 23 - 27 mmol/L 04/07/2018 5:29 PM EST [facility] Temperature 37.0 C 04/07/2018 5:29 PM [facility] Barometric Pressure for Blood Gas mmHg 04/07/2018 5:29 PM EST [facility] Comment:N/A Modality Ventilator 04/07/2018 5:29 PM [facility] FIO2 40 % 04/07/2018 5:29 PM [facility] Ventilator Mode CPAP 9 5:29 PM [facility] PSV 10.0 cmH2O 04/07/2018 5:29 PM EST [facility] CPAP 5.0 cmH2O 04/07/2018 5:29 PM EST [facility] Comment:Meter: [id number] Report Writer: [id number] Note 04/07/2018 5:29 PM EST [facility] pH, Temp Corrected 7.314 pH Units 2018 5:29 PM EST [facility] pCO2, Temperature Corrected 45.3 35 - 48 mm Hg 04/07/2018 5:29 PM EST [facility] pO2, Temperature Corrected 105 83 - 108 mm Hg 04/07/2018 5:29 PM EST [facility] Arterial Blood 04/07/2018 5: 24 PM EST 04/07/2018 5:26 PM EST us Jose Wilson MD LAB BLOOD ORDERABLES Final Resu lt [facility]
[address] [place] [address], * (ABNORMAL) POC Glucose Once (04/07/2018 5:02 PM EST) Glucose 161(H) 70 - 130 mg/dL 04/07/2018 5:14 PM EST [facility] Blood 04/07/2018 5:02 PM EST 04/07/2018 5:14 PM EST us Jose Wilson MD POINT OF CARE TEST ORDERABLES F inal Result Performing Organization Address City/[facility]/ZIP Co de Phone Number [facility]
[address] [place] [address], * (ABNORMAL) POC Glucose Once (04/07/2018 4:05 PM EST) Glucose 142(H) 70 - 130 mg/dL 04/07/2018 4:11 PM EST [facility] Blood 04/07/2018 4:05 PM EST 04/07/2018 4:11 PM EST us Jose Wilson MD POINT OF CARE TEST ORDERABLES F inal Result Performing Organization Address [facility] Co de Phone Number [facility]
[address] [place] [address], * Magnesium (04/07/2018 4:03 PM EST) Magnesium 2.4 1.3 - 2.7 mg/dL 04/07/2018 4:29 PM EST [facility] Blood Venipuncture / Unknown 04/07/2018 4:03 PM EST 04/07/2018 4:02 PM EST Cruz FINLEY LAB BLOOD ORDERABLES Final Resu lt Performing Organization Address [facility] Co de Phone Number [facility]
[address] [place] [address], [place] [phone] * (ABNORMAL) Renal Function Panel (04/07/2018 4:03 PM EST) Glucose 148(H) 70 - 100 mg/dL 04/07/2018 4:29 PM [facility] BUN 11 9 - 23 mg/dL 04/07/2018 4:29 PM [facility] Creatinine 0.97 0.60 - 1.30 mg/dL 04/07/2018 4:29 PM [facility] Sodium 135 132 - 146 mmol/L 04/07/2018 4:29 PM [facility] Potassium 4.2 3.5 - 5.5 mmol/L 04/07/2018 4:29 PM [facility] Chloride 107 99 - 109 mmol/L 04/07/2018 4:29 PM [facility] CO2 20.0 20.0 - 31.0 mmol/L 04/07/2018 4:29 PM [facility] Calcium 8.2(L) 8.7 - 10.4 mg/dL 04/07/2018 4:29 PM [facility] Albumin 3.61 3.20 - 4.80 g/dL 04/07/2018 4:29 PM [facility] Phosphorus 2.4 2.4 - 5.1 mg/dL 04/07/2018 4:29 PM [facility] Anion Gap 8.0 3.0 - 11.0 mmol/L 04/07/2018 4:29 PM [facility] BUN/Creatinine Ratio 11.3 7.0 - 25.0 04/07/2018 4:29 PM [facility] eGFR Non Amer 81 >60 mL/min/1.7 3 04/07/2018 4:29 PM [facility] Blood Venipuncture / Unknown 04/07/2018 4:03 PM EST 04/07/2018 4:02 PM EST [facility] - 04/07/2018 4:29 PM EST National [...] [facility] BLOOD ORDERABLES Final Resu lt [facility]
[id number] [place] [address], * (ABNORMAL) CBC (No Diff) (04/07/2018 4:03 PM EST) WBC 17.60(H) 3.50 - 10.80 10*3/mm3 04/07/2018 4:07 PM EST [facility] RBC 3.69(L) 4.20 - 5.76 10*6/mm3 04/07/2018 4:07 PM EST [facility] Hemoglobin 11.7(L) 13.1 - 17.5 g/dL 04/07/2018 4:07 PM [facility] Hematocrit 34.1(L) 38.9 - 50.9 % 04/07/2018 4:07 PM EST [facility] MCV 92.4 80.0 - 99.0 fL 04/07/2018 4:07 PM [facility] MCH 31.7(H) 27.0 - 31.0 pg 04/07/2018 4:07 PM [facility] MCHC 34.3 32.0 - 36.0 g/dL 04/07/2018 4:07 PM [facility] RDW 13.4 11.3 - 14.5 % 04/07/2018 4:07 PM [facility] RDW-SD 44.9 37.0 - 54.0 fl 04/07/2018 4:07 PM [facility] MPV 11.7 6.0 - 12.0 fL 04/07/2018 4:07 PM [facility] Platelets 75(L) 150 - 450 10*3/mm3 04/07/2018 4:07 PM EST [facility] Blood Venipuncture / Unknown 04/07/2018 4:03 PM EST 04/07/2018 4:03 PM EST [facility] BLOOD ORDERABLES Final Resu lt [facility]
[id number] [place] [address], * (ABNORMAL) Blood Gas, Arterial With Co-Ox (04/07/2018 3:34 PM EST) Site Arterial Line 04/07/2018 3:38 PM EST [facility] THERAPY Stephen's Test N/A 04/07/2018 3:38 PM [facility] THERAPY pH, Arterial 7.441 7.350 - 7.450 pH units 04/07/2018 3:38 PM [facility] [facility]ERAPY pCO2, Arterial 30.0 mm Hg 04/07/2018 3:38 PM [facility] RESPIRATORY THERAPY Comment:84 Value below refer ence range pO2, Arterial 95.0 83.0 - 108.0 mm Hg 04/07/2018 3:38 PM EST [facility] RESPIRATORY THERAPY HCO3, Arterial 20.4 20.0 - 26.0 mmol/L 04/07/2018 3:38 PM EST [facility] RESPIRATORY THERAPY Base Excess, Arterial -2.8(L) 0.0 - 2.0 mmol/L 04/07/2018 3:38 PM [facility] RESPIRATORY THERAPY Hemoglobin, Blood Gas 11.8(L) 13.5 - 17.5 g/dL 04/07/2018 3:38 PM [facility] RESPIRATORY THERAPY Comment:84 Value below refer ence range Hematocrit, Blood Gas 36.1 % 04/07/2018 3:38 PM EST [facility] RESPIRATORY THERAPY Oxyhemoglobin 95.5 94 - 99 % 04/07/2018 3:38 PM [facility] RESPIRATORY THERAPY Methemoglobin 1.40 0.00 - 1.50 % 04/07/2018 3:38 PM EST [facility] RESPIRAT[facility] THERAPY Carboxyhemoglobin 1.2 0 - 2 % 019 3:38 PM [facility] RESPIRATORY THERAPY CO2 Content 21.3(L) 23 - 27 mmol/L 04/07/2018 3:38 PM [facility] RESPIRATORY THERAPY Temperature 37.0 C 04/07/2018 3:38 PM [facility] RESPIRATORY THERAPY Barometric Pressure for Blood Gas mmHg 04/07/2018 3:38 PM EST [facility] RES[facility]IR[facility] THERAPY Comment:N/A Modality Ventilator 04/07/2018 3:38 PM EST [facility] RESPIRATORY THERAPY FIO2 40 % 04/07/2018 3:38 PM [facility] RESPIRATORY THERAPY Ventilator Mode SIMV 9 3:38 PM [facility] RESPIRATORY THERAPY Set Tidal Volume 750 04/07/19 19 3:38 PM [facility] RESPIRATORY THERAPY Set Mech Resp Rate 18.0 2018 3:38 PM EST [facility] RESPIRAT[facility] THERAPY Comment:Meter: [id number] Report Writer: [id number] PEEP 5.0 04/07/2018 3:38 PM EST [facility] RESPIRATORY THERAPY Note 04/07/2018 3:38 PM EST [facility] RESPIR[facility] THERAPY pH, Temp Corrected 7.441 pH Units 2018 3:38 PM [facility] RESPIRATORY THERAPY pCO2, Temperature Corrected 30.0(L) 35 - 48 mm Hg 04/07/2018 3:38 PM EST [facility] RESPIRATORY THERAPY pO2, Temperature Corrected 95.0 83 - 108 mm Hg 04/07/2018 3:38 PM [facility] RESPIRATORY THERAPY Arterial Blood 04/07/2018 3: 34 PM EST 04/07/2018 3:35 PM EST us Jose Wilson MD LAB BLOOD ORDERABLES Final Resu lt [facility] RESPIRATORY THERAPY
[address] [place] [address], [place] * (ABNORMAL) Blood Gas, Venous With Co-Ox (04/07/2018 3:31 PM EST) Site Drawn by RN/ 04/07/2018 3:35 PM EST [facility] RESPIRATORY THERAPY pH, Venous 7.410 pH Units 04/07/2018 3:35 PM [facility] RESPIRATORY THERAPY pCO2, Venous 36.2(L) 41.0 - 51.0 mm Hg 04/07/2018 3:35 PM [facility] RESPIRATORY THERAPY Comment:84 Value below refer ence range pO2, Venous 29.2 27.0 - 53.0 mm Hg 04/07/2018 3:35 PM [facility] RESPIRATORY THERAPY HCO3, Venous 22.9 22.0 - 28.0 mmol/L 04/07/2018 3:35 PM [facility] RESPIRATORY THERAPY Base Excess, Venous -1.4 -2.0 - 2.0 mmol/L 04/07/2018 3:35 PM [facility] RESPIRATORY THERAPY Hemoglobin, Blood Gas 11.8(L) 13.5 - 17.5 g/dL 04/07/2018 3:35 PM [facility] RESPIRATORY THERAPY Comment:84 Value below refer ence range Oxyhemoglobin Venous 57.1 % 10/2018 3:35 PM [facility] RESPIRATORY THERAPY Methemoglobin Venous 1.3 % 10/2018 3:35 PM [facility] RESPIRATORY THERAPY Carboxyhemoglobin Venous 1.5 % 04/07/2018 3:35 PM [facility] RESPIRATORY THERAPY CO2 Content 24.0 23 - 27 mmol/L 04/07/2018 3:35 PM [facility] RESPIRATORY THERAPY Temperature 37.0 C 04/07/2018 3:35 PM [facility] RESPIRATORY THERAPY Barometric Pressure for Blood Gas mmHg 04/07/2018 3:35 PM [facility] RESPIRATORY THERAPY Comment:N/A Modality Ventilator 04/07/2018 3:35 PM [facility] RESPIRATORY THERAPY FIO2 40 % 04/07/2018 3:35 PM [facility] RESPIRATORY THERAPY Ventilator Mode SIMV 9 3:35 PM [facility] RESPIRATORY THERAPY Set Tidal Volume 750 04/07/19 19 3:35 PM EST [facility] RESPIRATORY THERAPY Set Mech Resp Rate 16.0 2018 3:35 PM EST [facility] RESPIRATORY THERAPY Comment:Meter: [id number] Report Writer: [id number] PEEP 5.0 04/07/2018 3:35 PM EST [facility] RESPIRAT[facility] THERAPY PSV 10.0 cmH2O 04/07/2018 3:35 PM EST [facility] RESPIRAT[facility] THERAPY Note 04/07/2018 3:35 PM EST [facility] RESPIRAT[facility] THERAP[facility] Venous Blood 04/07/2018 3:31 PM EST 04/07/2018 3:32 PM EST us Jose Wilson MD LAB BLOOD ORDERABLES Final Resu lt Performing Organization Address City/[facility]/ZIP Co de Phone Number [facility] RESPIRATORY THERAPY
[address] [place] [address] * POC Glucose Once (04/07/2018 2:58 PM EST) Glucose 125 70 - 130 mg/dL 04/07/2018 3:00 PM EST [facility] Blood 04/07/2018 2:58 PM EST 04/07/2018 3:00 PM EST us Jose Wilson MD POINT OF CARE TEST ORDERABLES F inal Result Performing Organization Address City/[facility]/ZIP Co de Phone Number [facility]
[address] [place] [address] * POC Glucose Once (04/07/2018 1:59 PM EST) Glucose 117 70 - 130 mg/dL 04/07/2018 2:17 PM EST [facility] Blood 04/07/2018 1:59 PM EST 04/07/2018 2:17 PM EST us Jose Wilson MD POINT OF CARE TEST ORDERABLES F inal Result Performing Organization Address City/[facility]/ZIP Co de Phone Number [facility]
[address] [place] [address], * Magnesium (04/07/2018 1:44 PM EST) Magnesium 2.6 1.3 - 2.7 mg/dL 04/07/2018 2:21 PM EST [facility] Blood Venipuncture / Unknown 04/07/2018 1:44 PM EST 04/07/2018 1:54 PM EST Cruz FINLEY LAB BLOOD ORDERABLES Final Resu lt Performing Organization Address City/[facility] Co de Phone Number [facility]
[address] [place] [address], * (ABNORMAL) Renal Function Panel (04/07/2018 1:44 PM EST) Pathologist [facility] Glucose 112(H) 70 - 100 mg/dL 04/07/2018 2:21 PM [facility] BUN 11 9 - 23 mg/dL 04/07/2018 2:21 PM [facility] Creatinine 0.93 0.60 - 1.30 mg/dL 04/07/2018 2:21 PM [facility] Sodium 137 132 - 146 mmol/L 04/07/2018 2:21 PM [facility] Potassium 4.1 3.5 - 5.5 mmol/L 04/07/2018 2:21 PM [facility] Chloride 109 99 - 109 mmol/L 04/07/2018 2:21 PM [facility] CO2 22.0 20.0 - 31.0 mmol/L 04/07/2018 2:21 PM [facility] Calcium 8.1(L) 8.7 - 10.4 mg/dL 04/07/2018 2:21 PM [facility] Albumin 3.28 3.20 - 4.80 g/dL 04/07/2018 2:21 PM EST [facility] Phosphorus 3.3 2.4 - 5.1 mg/dL 04/07/2018 2:21 PM EST [facility] Anion Gap 6.0 3.0 - 11.0 mmol/L 04/07/2018 2:21 PM EST [facility] BUN/Creatinine Ratio 11.8 7.0 - 25.0 04/07/2018 2:21 PM EST [facility] eGFR Non Amer 85 >60 mL/min/1.7 3 04/07/2018 2:21 PM EST [facility] Blood Venipuncture / Unknown 04/07/2018 1:44 PM EST 04/07/2018 1:54 PM EST Narrative [facility] - 04/07/2018 2:21 PM EST National [...] FINLEY LAB BLOOD ORDERABLES Final Resu lt [facility]
[address] [place] [address], * POC Glucose Once (04/07/2018 12:55 PM EST) Glucose 110 70 - 130 mg/dL 04/07/2018 1:07 PM EST [facility] Blood 04/07/2018 12:5 5 PM EST 04/07/2018 1:07 PM EST Jose Wilson MD POINT OF CARE TEST ORDERABLES F inal Result [facility]
[address] [place] [address], * XR Chest 1 View (04/07/2018 12:37 [...] in the gastric fundus. Right IJ approach [place] catheter terminates at midline. Drain is seen at midline projecting over the heart. Sternotomy wires, atrial appendage occlusive device and valve replacement hardware. Atelectasis is noted emanating from the right hilum. No focal airspace disease, pleural effusion or pneumothorax. 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 TECHNIQUE: Single view frontal chest. COMPARISONS: 04/06/2018. FINDINGS: Endotracheal tube in good position. NG tube terminates below the diaphragm in the gastric fundus. Right IJ approach [place] catheter terminates at midline. Drain is seen at midline projecting over the heart. Sternotomy wires, atrial appendage occlusive device and valve replacement hardware. Atelectasis is noted emanating from the right hilum. No focal airspace disease, pleural effusion or pneumothorax. IMPRESSION: Expected postoperative findings. E: 04/07/2018 This report was finalized on 04/07/2018 3:57 PM by Bj Joseph. Cruz [facility] IMG DIAGNOSTIC IMAGING ORDERABL ES Final Result * (ABNORMAL) Blood Gas, Arterial With Co-Ox (04/07/2018 12:34 PM EST) Site Arterial Line 04/07/2018 12:39 PM EST [facility] RESPIRAT[facility] THERAPY Stephen's Test N/A 04/07/2018 12:39 PM EST [facility]ERAP[facility] pH, Arterial 7.277(L) 7.350 - 7.450 pH units 04/07/2018 12:39 PM [facility] RESPIR[facility] THERAPY Comment:84 Value below refer ence range pCO2, Arterial 49.5 mm Hg 04/07/2018 12:39 PM [facility] RESPIR[facility] THERAPY Comment:83 Value above refer ence range pO2, Arterial 202.0(H) 83.0 - 108.0 mm Hg 04/07/2018 12:39 PM [facility] RESPIR[facility] THERAPY Comment:83 Value above refer ence range HCO3, Arterial 23.1 20.0 - 26.0 mmol/L 04/07/2018 12:39 PM [facility] RESPIRATORY THERAPY Base Excess, Arterial -4.1(L) 0.0 - 2.0 mmol/L 04/07/2018 12:39 PM [facility] RESPIRAT[facility] THERAPY Hemoglobin, Blood Gas 13.7 13.5 - 17.5 g/dL 04/07/2018 12:39 PM [facility] RESPIRAT[facility] THERAPY Hematocrit, Blood Gas 42.0 % 04/07/2018 12:39 PM [facility] RESPIRAT[facility] THERAPY Oxyhemoglobin 96.8 94 - 99 % 04/07/2018 12:39 PM [facility] RESPIRAT[facility] THERAPY Methemoglobin 1.10 0.00 - 1.50 % 04/07/2018 12:39 PM [facility] RESPIRAT[facility] THERAPY Carboxyhemoglobin 1.4 0 - 2 % 019 12:39 PM [facility] RESPIRAT[facility] THERAPY CO2 Content 24.6 23 - 27 mmol/L 04/07/2018 12:39 PM [facility] RESPIR[facility] THERAPY Temperature 37.0 C 04/07/2018 12:39 PM [facility] RESPIR[facility] THERAPY Barometric Pressure for Blood Gas mmHg 04/07/2018 12:39 PM [facility] RESPIR[facility] THERAPY Comment:N/A Modality Ventilator 04/07/2018 12:39 PM [facility] RESPIRAT[facility] THERAPY FIO2 100 % 04/07/2018 12:39 PM [facility] RESPIRAT[facility] THERAPY Ventilator Mode SIMV 9 12:39 PM [facility] RESPIRATORY THERAPY Set Tidal Volume 700 04/07/19 19 12:39 PM [facility] RESPIR[facility] THERAPY Set Mech Resp Rate 16.0 2018 12:39 PM [facility] RESPIRAT[facility] THERAPY Comment:Meter: [id number] Report Writer: [id number] PEEP 5.0 04/07/2018 12:39 PM [facility] RESPIRAT[facility] THERAPY PSV 10.0 cmH2O 04/07/2018 12:39 PM [facility] RESPIR[facility] THERAPY Note 04/07/2018 12:39 PM [facility] RESP[facility] THERAPY pH, Temp Corrected 7.277 pH Units 2018 12:39 PM [facility] RESPIR[facility] THERAPY pCO2, Temperature Corrected 49.5(H) 35 - 48 mm Hg 04/07/2018 12:39 PM [facility] RESPIRAT[facility] THERAPY pO2, Temperature Corrected 202(H) 83 - 108 mm Hg 04/07/2018 12:39 PM [facility] RESPIRATORY THERAPY Arterial Blood 04/07/2018 12 :34 PM EST 04/07/2018 12:37 PM EST us Jose Wilson MD LAB BLOOD ORDERABLES Final Resu lt [facility]ORY THERAPY
[address] [place] [address], * (ABNORMAL) CBC (No Diff) (04/07/2018 12:27 PM EST) WBC 23.45(H) 3.50 - 10.80 10*3/mm3 04/07/2018 1:05 PM [facility] RBC 4.09(L) 4.20 - 5.76 10*6/mm3 04/07/2018 1:05 PM [facility] Hemoglobin 12.8(L) 13.1 - 17.5 g/dL 04/07/2018 1:05 PM [facility] Hematocrit 37.6(L) 38.9 - 50.9 % 04/07/2018 1:05 PM [facility] MCV 91.9 80.0 - 99.0 fL 04/07/2018 1:05 PM [facility] MCH 31.3(H) 27.0 - 31.0 pg 04/07/2018 1:05 PM [facility] MCHC 34.0 32.0 - 36.0 g/dL 04/07/2018 1:05 PM [facility] RDW 13.3 11.3 - 14.5 % 04/07/2018 1:05 PM [facility] RDW-SD 44.5 37.0 - 54.0 fl 04/07/2018 1:05 PM [facility] MPV 11.8 6.0 - 12.0 fL 04/07/2018 1:05 PM [facility] Platelets 72(L) 150 - 450 10*3/mm3 04/07/2018 1:05 PM [facility] Blood Venipuncture / Unknown 04/07/2018 12:27 PM EST 04/07/2018 12:51 PM EST us Cruz FINLEY LAB BLOOD ORDERABLES Final Resu lt [facility]
[address] [place] [address], * Calcium, Ionized (04/07/2018 12:27 PM EST) Pathologist [facility] Ionized Calcium 1.30 1.12 - 1.32 mmol/L 04/07/2018 1:28 PM EST [facility] Blood Venipuncture / Unknown 04/07/2018 12:27 PM EST 04/07/2018 12:51 PM EST us Cruz FINLEY LAB BLOOD ORDERABLES Final Resu lt [facility]
[address] [place] [address], * aPTT (04/07/2018 12:27 PM EST) PTT 27.6 24.0 - 31.0 seconds 04/07/2018 1:49 PM EST [facility] Blood Venipuncture / Unknown 04/07/2018 12:27 PM EST 04/07/2018 12:51 PM EST Narrative [facility] - 04/07/2018 1:49 PM EST PTT = The equivalent PTT values for the therapeutic range of heparin levels at 0.3 to 0.5 U/ml are 55 to 70 seconds. us Cruz FINLEY LAB BLOOD ORDERABLES Final Resu lt Performing Organization Address [facility]/ZIP Co de Phone Number [facility]
[address] [place] [address], * (ABNORMAL) Protime-INR (04/07/2018 12:27 PM EST) Protime 13.4(H) 9.6 - 11.5 Seconds 04/07/2018 1:49 PM EST [facility] INR 1.28(H) 0.91 - 1.09 04/07/2018 1:49 PM EST [facility] Blood Venipuncture / Unknown 04/07/2018 12:27 PM EST 04/07/2018 12:51 PM EST us Cruz FINLEY LAB BLOOD ORDERABLES Final Resu lt [facility]
[address] [place] [address], * ECG 12 Lead (04/07/2018 12:15 PM [...] PM Referred By: ? Confirmed By:PAULO MALIK ??MD Procedure Note Paulo Malik MD - 04/07/2018 [...] PM Referred By: Confirmed By:PAULO MALIK MD us Gerald Lopes MD ECG ORDERABLES Final Result ECG * (ABNORMAL) POC Glucose Once (04/07/2018 12:00 PM EST) Glucose 132(H) 70 - 130 mg/dL 04/07/2018 12:10 PM [facility] Blood 04/07/2018 12:0 0 PM EST 04/07/2018 12:10 PM EST Jose Wilson MD POINT OF CARE TEST ORDERABLES F inal Result [facility]
[address] [place] [address], * (ABNORMAL) POC Surgery Labs (04/07/2018 11:16 AM EST) Ionized Calcium 1.41(H) 1.20 - 1.32 mmol/L 04/07/2018 11:29 AM [facility] POC Potassium 4.3 3.5 - 4.9 mmol/L 04/07/2018 11:29 AM [facility] Sodium 141 138 - 146 mmol/L 04/07/2018 11:29 AM [facility] Total CO2 27 24 - 29 mmol/L 04/07/2018 11:29 AM [facility] Hemoglobin 9.9(L) 12.0 - 17.0 g/dL 04/07/2018 11:29 AM [facility] Hematocrit 29(L) 38 - 51 % 04/07/2018 11:29 AM [facility] pCO2, Arterial 47.3(H) 35 - 45 mm Hg 04/07/2018 11:29 AM [facility] pO2, Arterial 412(H) 80 - 105 mmHg 04/07/2018 11:29 AM [facility] Comment:Serial Number: [id number]: [id number] Base Excess 0.0000 -5 - 5 mmol/L 04/07/2018 11:29 AM [facility] O2 Saturation, Arterial 100(H) 95 - 98 % 04/07/2018 11:29 AM [facility] pH, Arterial 7.34(L) 7.35 - 7.6 pH units 04/07/2018 11:29 AM [facility] HCO3, Arterial 25.4 22 - 26 mmol/L 04/07/2018 11:29 AM EST [facility] Blood 04/07/2018 11:1 6 AM EST 04/07/2018 11:29 AM EST us Jose Wilson MD POINT OF CARE TEST ORDERABLES F inal Result Performing Organization Address City/[facility]/ZIP Co de Phone Number [facility]
[address] [place] [address], * POC Activated Clotting Time (04/07/2018 11:16 AM EST) Activated Clotting Time 103 82 - 152 Seconds 04/07/2018 11:27 AM EST [facility] Comment:Serial Number: [id number]: [id number] Blood 04/07/2018 11:1 6 AM EST 04/07/2018 11:27 AM EST us Jose Wilson MD POINT OF CARE TEST ORDERABLES F inal Result Performing Organization Address [facility] Co de Phone Number [facility]
[address] [place] [address], * (ABNORMAL) POC Surgery Labs (04/07/2018 9:49 AM EST) Ionized Calcium 1.02(L) 1.20 - 1.32 mmol/L 04/07/2018 11:29 AM EST [facility] POC Potassium 5.0(H) 3.5 - 4.9 mmol/L 04/07/2018 11:29 AM EST [facility] Sodium 139 138 - 146 mmol/L 04/07/2018 11:29 AM EST [facility] Total CO2 28 24 - 29 mmol/L 04/07/2018 11:29 AM [facility] Hemoglobin 10.2(L) 12.0 - 17.0 g/dL 04/07/2018 11:29 AM [facility] Hematocrit 30(L) 38 - 51 % 04/07/2018 11:29 AM [facility] pCO2, Arterial 54.1(H) 35 - 45 mm Hg 04/07/2018 11:29 AM [facility] pO2, Arterial 460(H) 80 - 105 mmHg 04/07/2018 11:29 AM [facility] Comment:Serial Number: [id number]: [id number] Base Excess 0.0000 -5 - 5 mmol/L 04/07/2018 11:29 AM [facility] O2 Saturation, Arterial 100(H) 95 - 98 % 04/07/2018 11:29 AM [facility] pH, Arterial 7.30(L) 7.35 - 7.6 pH units 04/07/2018 11:29 AM [facility] HCO3, Arterial 26.6(H) 22 - 26 mmol/L 04/07/2018 11:29 AM [facility] Blood 04/07/2018 9:49 AM EST 04/07/2018 11:29 AM EST us Jose Wilson MD POINT OF CARE TEST ORDERABLES F inal Result Performing Organization Address City/[facility]/ZIP Co de Phone Number [facility]
[address] [place] [address], * (ABNORMAL) POC Activated Clotting Time (04/07/2018 9:48 AM EST) Activated Clotting Time 461(H) 82 - 152 Seconds 04/07/2018 11:27 AM [facility] Comment:Serial Number: [id number]: [id number] Blood 04/07/2018 9:48 AM EST 04/07/2018 11:27 AM EST us Jose Wilson MD POINT OF CARE TEST ORDERABLES F inal Result Performing Organization Address City/[facility]/ZIP Co de Phone Number [facility]
[address] [place] [address], * (ABNORMAL) POC Surgery Labs (04/07/2018 9:27 AM EST) Ionized Calcium 1.06(L) 1.20 - 1.32 mmol/L 04/07/2018 11:28 AM EST [facility] POC Potassium 4.7 3.5 - 4.9 mmol/L 04/07/2018 11:28 AM EST [facility] Sodium 139 138 - 146 mmol/L 04/07/2018 11:28 AM EST [facility] Total CO2 28 24 - 29 mmol/L 04/07/2018 11:28 AM [facility] Hemoglobin 10.2(L) 12.0 - 17.0 g/dL 04/07/2018 11:28 AM EST [facility] Hematocrit 30(L) 38 - 51 % 04/07/2018 11:28 AM [facility] pCO2, Arterial 44.0 35 - 45 mm Hg 04/07/2018 11:28 AM EST [facility] pO2, Arterial 487(H) 80 - 105 mmHg 04/07/2018 11:28 AM [facility] Comment:Serial Number: [id number]: [id number] Base Excess 2.0000 -5 - 5 mmol/L 04/07/2018 11:28 AM [facility] O2 Saturation, Arterial 100(H) 95 - 98 % 04/07/2018 11:28 AM [facility] pH, Arterial 7.39 7.35 - 7.6 pH units 04/07/2018 11:28 AM [facility] HCO3, Arterial 26.6(H) 22 - 26 mmol/L 04/07/2018 11:28 AM [facility] Blood 04/07/2018 9:27 AM EST 04/07/2018 11:28 AM EST Jose Wilson MD POINT OF CARE TEST ORDERABLES F inal Result [facility]
[address] [place] [address], * (ABNORMAL) POC Activated Clotting Time (04/07/2018 9:26 AM EST) Activated Clotting Time 516(H) 82 - 152 Seconds 04/07/2018 11:27 AM EST [facility] Comment:Serial Number: [id number]: [id number] Blood 04/07/2018 9:26 AM EST 04/07/2018 11:27 AM EST Jose Wilson MD POINT OF CARE TEST ORDERABLES F inal Result [facility]
[address] [place] [address], * (ABNORMAL) POC Surgery Labs (04/07/2018 8:45 AM EST) Ionized Calcium 1.02(L) 1.20 - 1.32 mmol/L 04/07/2018 11:28 AM [facility] POC Potassium 5.1(H) 3.5 - 4.9 mmol/L 04/07/2018 11:28 AM [facility] Sodium 138 138 - 146 mmol/L 04/07/2018 11:28 AM [facility] Total CO2 26 24 - 29 mmol/L 04/07/2018 11:28 AM [facility] Hemoglobin 9.5(L) 12.0 - 17.0 g/dL 04/07/2018 11:28 AM [facility] Hematocrit 28(L) 38 - 51 % 04/07/2018 11:28 AM [facility] pCO2, Arterial 43.3 35 - 45 mm Hg 04/07/2018 11:28 AM [facility] pO2, Arterial 47(L) 80 - 105 mmHg 04/07/2018 11:28 AM [facility] Comment:Serial Number: [id number]: [id number] Base Excess -1.0000 -5 - 5 mmol/L 04/07/2018 11:28 AM [facility] O2 Saturation, Arterial 81(L) 95 - 98 % 04/07/2018 11:28 AM EST [facility] pH, Arterial 7.36 7.35 - 7.6 pH units 04/07/2018 11:28 AM EST [facility] HCO3, Arterial 24.5 22 - 26 mmol/L 04/07/2018 11:28 AM EST [facility] [facility] Blood 04/07/2018 8:45 AM EST 04/07/2018 11:28 AM EST us Jose Wilson MD POINT OF CARE TEST ORDERABLES F inal Result Performing Organization Address City/[facility]/ZIP Co de Phone Number [facility]
[address] [place] [address], * (ABNORMAL) POC Activated Clotting Time (04/07/2018 8:44 AM EST) Activated Clotting Time 681(H) 82 - 152 Seconds 04/07/2018 11:27 AM EST [facility] Comment:Serial Number: [id number]: [id number] Blood 04/07/2018 8:44 AM EST 04/07/2018 11:27 AM EST us Jose Wilson MD POINT OF CARE TEST ORDERABLES F inal Result Performing Organization Address [facility] Co de Phone Number [facility]
[address] [place] [address], * (ABNORMAL) POC Surgery Labs (04/07/2018 8:12 AM EST) Ionized Calcium 1.16(L) 1.20 - 1.32 mmol/L 04/07/2018 11:28 AM EST [facility] POC Potassium 3.8 3.5 - 4.9 mmol/L 04/07/2018 11:28 AM EST [facility] Sodium 140 138 - 146 mmol/L 04/07/2018 11:28 AM EST [facility] Total CO2 28 24 - 29 mmol/L 04/07/2018 11:28 AM [facility] Hemoglobin 11.6(L) 12.0 - 17.0 g/dL 04/07/2018 11:28 AM [facility] Hematocrit 34(L) 38 - 51 % 04/07/2018 11:28 AM [facility] pCO2, Arterial 48.0(H) 35 - 45 mm Hg 04/07/2018 11:28 AM [facility] pO2, Arterial 420(H) 80 - 105 mmHg 04/07/2018 11:28 AM [facility] Comment:Serial Number: [id number]: [id number] Base Excess 1.0000 -5 - 5 mmol/L 04/07/2018 11:28 AM [facility] O2 Saturation, Arterial 100(H) 95 - 98 % 04/07/2018 11:28 AM [facility] pH, Arterial 7.35 7.35 - 7.6 pH units 04/07/2018 11:28 AM [facility] HCO3, Arterial 26.4(H) 22 - 26 mmol/L 04/07/2018 11:28 AM [facility] Blood 04/07/2018 8:12 AM EST 04/07/2018 11:28 AM EST us Jose Wilson MD POINT OF CARE TEST ORDERABLES F inal Result [facility]
[address] [place] [address], * (ABNORMAL) POC Activated Clotting Time (04/07/2018 8:12 AM EST) Activated Clotting Time 593(H) 82 - 152 Seconds 04/07/2018 11:26 AM [facility] Comment:Serial Number: [id number]: [id number] Blood 04/07/2018 8:12 AM EST 04/07/2018 11:26 AM EST us Jose Wilson MD POINT OF CARE TEST ORDERABLES F inal Result [facility]
[address] [place] [address], * Tissue Pathology Exam (04/07/2018 7:58 AM EST) Case Report Surgical Pathology Report ? Case: [id number] ? Authorizing Provider: ??Jose Wilson MD ? Collected: ? 04/07/2018 07:58 AM ? Ordering Location: ? [facility] ?? Received: ?04/07/2018 01:20 PM ? OR ? Pathologist: ? Fox Paige MD ? Specimen: ?Aortic valve ? 04/08/2018 3:30 PM EST [facility] Clinical Information The working history is aortic valve disorder. 04/08/2018 3:30 PM EST [facility] Final Diagnosis AORTIC VALVE LEAFLETS: Valve tissue with nodular fibrosis and calcification. No acute inflammation or vegetation identified. [facility]/klb 04/08/2018 3:30 PM EST [facility] Gross Description Received in formalin labeled as aortic leaflet is a 4.0 x 3.5 x 1.3 cm aggregate of severely fragmented leiva glistening aortic valve leaflets. The majority of the leaflets display severe calcification with nodular thickening. Hospital Fellow sections are submitted in block 1A following decalcification. [facility]/domitila 04/08/2018 3:30 PM [facility] Microscopic Description The slides are reviewed and demonstrate histopathologic features supporting the above rendered diagnosis. 04/08/2018 3:30 PM [facility] Tissue Epididymis specimen / Unknown 04/07/2018 7:58 AM EST 04/07/2018 1:20 PM EST Jose Wilson MD PATHOLOGY/CYTOLOGY ORDERABLES F inal Result [facility]
[address] [place] [address], * (ABNORMAL) POC Surgery Labs (04/07/2018 7:08 AM EST) Ionized Calcium 1.26 1.20 - 1.32 mmol/L 04/07/2018 11:28 AM EST [facility] POC Potassium 4.0 3.5 - 4.9 mmol/L 04/07/2018 11:28 AM EST [facility] Sodium 142 138 - 146 mmol/L 04/07/2018 11:28 AM EST [facility] Total CO2 25 24 - 29 mmol/L 04/07/2018 11:28 AM EST [facility] Hemoglobin 12.9 12.0 - 17.0 g/dL 04/07/2018 11:28 AM [facility] Hematocrit 38 38 - 51 % 04/07/2018 11:28 AM [facility] pCO2, Arterial 38.7 35 - 45 mm Hg 04/07/2018 11:28 AM [facility] pO2, Arterial 69(L) 80 - 105 mmHg 04/07/2018 11:28 AM [facility] Comment:Serial Number: [id number]: [id number] Base Excess -1.0000 -5 - 5 mmol/L 04/07/2018 11:28 AM [facility] O2 Saturation, Arterial 94(L) 95 - 98 % 04/07/2018 11:28 AM [facility] pH, Arterial 7.40 7.35 - 7.6 pH units 04/07/2018 11:28 AM [facility] HCO3, Arterial 24.2 22 - 26 mmol/L 04/07/2018 11:28 AM [facility] Blood 04/07/2018 7:08 AM EST 04/07/2018 11:28 AM EST us Jose Wilson MD POINT OF CARE TEST ORDERABLES F inal Result Performing Organization Address [facility] Co de Phone Number [facility]
[address] [place] [address], * POC Activated Clotting Time (04/07/2018 7:07 AM EST) Activated Clotting Time 92 82 - 152 Seconds 04/07/2018 11:26 AM [facility] Comment:Serial Number: [id number] 9Operator: [id number] Blood 04/07/2018 7:07 AM EST 04/07/2018 11:26 AM EST us Jose Wilson MD POINT OF CARE TEST ORDERABLES F inal Result Performing Organization Address [facility] Co de Phone Number [facility]
[address] [place] [address], * POC Glucose Once (04/07/2018 6:22 AM EST) Glucose 96 70 - 130 mg/dL 04/07/2018 6:26 AM EST [facility] Blood 04/07/2018 6:22 AM EST 04/07/2018 6:26 AM EST us Jose Wilson MD POINT OF CARE TEST ORDERABLES F inal Result Performing Organization Address City/[facility]/ZIP Co de Phone Number [facility]
[address] [place] [address], [place] [phone] * ABO/Rh Specimen Verification (04/07/2018 6:17 AM EST) ABO Type A 04/07/2018 6:53 AM EST [facility] RH type Positive 04/07/2018 6:53 AM EST [facility] Blood Line / Unknown 04/07/2018 6: 17 AM EST 04/07/2018 6:23 AM EST us Jose Wilson MD BLOOD BANK TEST ORDERABLES Michelle l Result Performing Organization Address City/[facility] Co de Phone Number [facility]
[address] [place] [address], [place] [phone] * SCANNED - TELEMETRY (04/07/2018) Anatomical Region Laterality Modality Other [facility] New Onbase ECG ORDERABLES Final Result * SCANNED - TELEMETRY (04/07/2018) Anatomical Region Laterality Modality Other [facility] New Onbase ECG ORDERABLES Final Result * SCANNED - TELEMETRY (04/07/2018) Anatomical Region Laterality Modality Other [facility] New Onbase ECG ORDERABLES Final Result * SCANNED - TELEMETRY (04/07/2018) Anatomical Region Laterality Modality Other [facility] Onbase ECG ORDERABLES Final Result * SCANNED - TELEMETRY (04/07/2018) Anatomical Region Laterality Modality Other [facility] Onbase ECG ORDERABLES Final Result * SCANNED - TELEMETRY (04/07/2018) Anatomical Region Laterality Modality Other [facility] Onbase ECG ORDERABLES Final Result * SCANNED - TELEMETRY (04/07/2018) Anatomical Region Laterality Modality Other [facility] Onbase ECG ORDERABLES Final Result documented in this encounter Visit Diagnoses Diagnosis 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 04/07/18- Primary Aortic valve disorders AVD (aortic valve disease) Aortic valve disorders Aortic valve disorder Aortic valve disorders Persistent atrial fibrillation Atrial fibrillation Impaired functional mobility, balance, gait, and endurance H/O: rheumatic fever Personal history of other infectious and parasitic disease Tobacco dependence Tobacco use disorder GERD (gastroesophageal reflux disease) Esophageal reflux documented in this encounter Admitting Diagnoses Diagnosis [...] = Pain Score of 7-10, CPOT 5-8 albumin human 5 % solution - ADS Override Pull Starting on Fri04/07/18 at 1208, For 1 dose, Created by cabinet override albumin human 5 % solution - ADS Override Pull Starting on Fri04/07/18 at 1407, For 1 dose, Created by cabinet override New Bag 04/07/2018 3:13 PM EST 500 mL 999 mL/hr albumin human 5 % solution 500 mL 500 mL, Intravenous, As Needed, For SBP less than 100. Do not exceed 1 Liter., Starting on Fri04/07/18 at 1214, For 2 doses, Indications: Cardiac SurgeryIndications:Cardiac Surgery New Bag 04/07/2018 1:31 PM EST 500 mL New Bag 04/07/2018 12:35 PM EST 500 mL amiodarone (NEXTERONE) 360 mg/200 mL (1.8 mg/mL) infusion 1 mg/min (33.3333 mL/hr, rounded to 33.3 mL/hr), Intravenous, Continuous, Starting on Fri04/07/18 at 1530, For 6 hours, IV med requiring filtration 0.22 micron inline filterIndications:Persistent atrial fibrillation New 04/07/2018 8:05 PM EST 1 mg/min 33.3 mL/hr New Bag 04/07/2018 3:12 PM EST 1 mg/min 33.3 mL/hr amiodarone (NEXTERONE) 360 mg/200 mL (1.8 mg/mL) infusion 0.5 mg/min (16.6667 mL/hr, rounded to 16.67 mL/hr), Intravenous, Continuous, Starting on Fri04/07/18 at 2112, For 18 hours, After 18 hours, discontinue drip and begin oral dosing. If pt is NPO continue IV infusion. IV med requiring filtration 0.22 micron inline filterIndications:Persistent atrial fibrillation New 04/08/2018 6:00 AM EST 0.5 mg/min 16.67 mL/hr Rate/Dose Change 04/07/2018 9:00 PM EST 0.5 mg/min 16.67 m L/hr amiodarone (PACERONE) tablet 200 mg 200 mg, Oral, Every 24 Hours Scheduled, First dose on Fri04/08/18 at 0930, Avoid grapefruit juice while taking this medication. Given 04/11/2018 8:51 AM EST 200 mg Given 04/10/2018 8:44 AM EST 200 mg Given 04/09/2018 8:14 AM EST 200 mg aspirin EC tablet 325 mg 325 mg, Oral, Daily, First dose on Fri04/08/18 at 0900, Do not exceed 4 grams of aspirin in a 24 hr period. If given for pain, use the following pain scale: Mild Pain = Pain Score of 1-3, CPOT 1-2 Moderate Pain = Pain Score of 4-6, CPOT 3-4 Severe Pain = Pain Score of 7-10, CPOT 5-8 Given 04/10/2018 8:44 AM EST 325 mg Given 04/09/2018 8:14 AM EST 325 mg Given 04/08/2018 9:40 AM EST 325 mg aspirin EC tablet 81 mg 81 [...] Given 04/11/2018 8:51 AM EST 81 mg aspirin tablet 325 mg 325 mg, Oral, Once, On Fri04/07/18 at 1300, For 1 dose, Give within 6 hours of Post-Op Do not exceed 4 grams of aspirin in a 24 hr period. If given for pain, use the following pain scale: Mild Pain = Pain Score of 1-3, CPOT 1-2 Moderate Pain = Pain Score of 4-6, CPOT 3-4 Severe Pain = Pain Score of 7-10, CPOT 5-8 Given 04/07/2018 2:43 PM EST 325 mg atorvastatin (LIPITOR) tablet 40 mg 40 mg, Oral, Nightly, First dose on Fri04/07/18 at 2100, Avoid grapefruit juice. Given 04/07/2018 8:06 PM EST 40 m g bisacodyl (DULCOLAX) EC tablet 10 mg 10 [...] food. Given 04/09/2018 2:55 AM EST 2 tabl ets chlorhexidine (PERIDEX) 0.12 % solution 15 mL 15 mL, Mouth/Throat, Once, On Fri04/07/18 at 0551, For 1 dose, Swish and Spit 1 hour prior to surgery. {BKC} Do not swallow.Indications:AVD (aortic valve disease) Given 04/07/2018 6:18 AM EST 15 mL chlorhexidine (PERIDEX) 0.12 % solution 15 mL 15 mL, Mouth/Throat, Every 12 Hours Scheduled, First dose on Fri04/07/18 at 1300, Discontinue 48 Hours After Extubation {BKC} Do not swallow. Given 04/08/2018 9:40 AM EST 15 mL Given 04/07/2018 8:05 PM EST 15 mL Given 04/07/2018 2:43 PM EST 15 mL dextrose 5 % with KCl 20 mEq/L infusion 30 mL/hr, Intravenous, Continuous, Starting on Fri04/07/18 at 1300, Run in 2 IV lines. Decrease to KVO on post-op day 1 or if diuretics are given. D/C KCl in IVF's if K= greater than 5 and repeat K= in 4 hours New Bag 04/07/2018 1:31 PM EST 30 mL/hr 30 mL/hr New Bag 04/07/2018 12:34 PM EST 30 mL/hr 30 mL/hr docusate sodium (COLACE) capsule 100 mg 100 mg, Oral, 2 Times Daily PRN, Constipation, Starting on Fri04/07/18 at 1214, Swallow whole. Do not open, crush, or chew capsule. famotidine (PEPCID) tablet 20 mg 20 mg, Oral, Once, On Fri04/07/18 at 0610, For 1 dose Given 04/07/2018 6:17 AM EST 20 mg furosemide (LASIX) injection 40 mg 40 mg, Intravenous, Once, On Fri04/10/18 at 0945, For 1 dose Given 04/10/2018 9:41 AM EST 40 mg HYDROcodone-acetaminophe n (NORCO) 7.5-325 MG per tablet [...] Given 04/07/2018 6:20 PM EST 1 tablet insulin lispro (humaLOG) injection 0-9 Units 0-9 Units, Subcutaneous, 4 Times Daily With Meals & Nightly, First dose on Fri04/08/18 at 1200, Correction - Moderate Dose. 40-60 units/day total insulin dose or average weight, on oral agents Blood glucose 150-199 mg/dL - 2 units Blood glucose 200-249 mg/dL - 4 units Blood glucose 250-299 mg/dL - 6 units Blood glucose 300-349 mg/dL - 7 units Blood glucose 350-400 mg/dL - 8 units Blood glucose greater than 400 mg/dL - 9 units and call provider {BKC} Caution: Look alike/sound alike drug alert{BKC} Given 04/08/2018 12:22 PM EST 2 Units Right Arm insulin regular (HumuLIN R,NovoLIN R) 100 Units in Sodium chloride 0.9 % 100 mL (1 Units/mL) infusion 0-50 Units/hr (0-50 mL/hr), Intravenous, Continuous PRN, Start if BG greater that 150 mg/dL, Starting on Fri04/07/18 at 1214, For Administration Instructions, please see Insulin Drip Protocol (CCU) in Reference Links. Rate Change (DUAL SIGN) 04/08/2018 8:00 AM EST 0.3 Units/hr 0.3 mL/hr Rate Change (DUAL SIGN) 04/08/2018 6:53 AM EST 0.7 Units/h r 0.7 mL/hr Rate Change (DUAL SIGN) 04/08/2018 6:14 AM EST 0.8 Units/h r 0.8 mL/hr lactated ringers infusion 9 mL/hr, Intravenous, Continuous, Starting on Fri04/07/18 at 0610, May switch to NS IV at KVO if renal / if indicated New Bag 04/07/2018 7:01 AM EST New Bag 04/07/2018 6:18 AM EST 9 mL/hr 9 mL/hr lidocaine PF 1% (XYLOCAINE) injection 0.5 mL 0.5 mL, Injection, Once As Needed, IV Start, Starting on Fri04/07/18 at 0608, For 1 dose Given 04/07/2018 6:18 AM EST 0 .5 mL magnesium hydroxide (MILK OF MAGNESIA) suspension 2400 mg/10mL 10 mL 10 mL, Oral, Daily PRN, Constipation, Starting on Fri04/08/18 at 0000 meperidine (DEMEROL) injection 25 mg 25 mg, Intravenous, Every 4 Hours PRN, Shivering, Starting on Fri04/07/18 at 1214, For 12 hours, {NICOLE} If given for pain, use the following pain scale: Mild Pain = Pain Score of 1-3, CPOT 1-2 Moderate Pain = Pain Score of 4-6, CPOT 3-4 Severe Pain = Pain Score of 7-10, CPOT 5-8 Given 04/07/2018 2:52 PM EST 25 mg metoprolol succinate XL (TOPROL-XL) 24 hr tablet 25 mg 25 mg, Oral, Every 24 Hours Scheduled, First dose on Fri04/10/18 at 0900, Do not crush or chew. Given 04/11/2018 8:51 AM EST 25 mg metoprolol tartrate (LOPRESSOR) half tablet 12.5 mg 12.5 mg, Oral, Every 12 Hours Scheduled, First dose on Fri04/08/18 at 0900, Hold for heart rate less than or equal to 60 or SBP less than or equal to 100. Start POD 1. Given 04/09/2018 8:14 AM EST 12.5 mg Given 04/08/2018 8:32 PM EST 12.5 mg metoprolol tartrate (LOPRESSOR) half tablet 12.5 mg 12.5 mg, Oral, Every 12 Hours Scheduled, First dose (after last modification) on Fri04/09/18 at 2100, For 1 dose, Hold for heart rate less than or equal to 60 or SBP less than or equal to 100. Start POD 1. Given 04/09/2018 8:27 PM EST 12.5 mg metoprolol tartrate (LOPRESSOR) injection 2.5 mg 2.5 mg, Intravenous, Every 6 Hours Scheduled, First dose on Fri04/07/18 at 1300, For 4 doses, Hold for heart rate less than or equal to 60 or SBP less than or equal to 100 . Given 04/08/2018 6:00 AM EST 2.5 mg Morphine sulfate (PF) injection 2 mg 2 mg, Intravenous, Every 30 Minutes PRN, Severe Pain, Starting on Fri04/07/18 at 1214, For 10 days, {NICOLE} Caution: Look alike/sound alike drug alert If given for pain, use the following pain scale: Mild Pain = Pain Score of 1-3, CPOT 1-2 Moderate Pain = Pain Score of 4-6, CPOT 3-4 Severe Pain = Pain Score of 7-10, CPOT 5-8 Given 04/08/2018 9:31 AM EST 2 mg Given 04/07/2018 8:05 PM EST 2 mg Morphine sulfate (PF) injection 2 mg [...] = Pain Score of 7-10, CPOT 5-8 mupirocin (BACTROBAN) 2 % nasal ointment 1 application 1 application , Each Nare, Once, On Fri04/07/18 at 0554, For 1 dose, {BKC}Indications:AVD (aortic valve disease) Given 04/07/2018 6:18 AM EST 1 application nicotine (NICODERM CQ) 14 MG/24HR patch 1 [...] 8:16 AM EST 1 patch Right Arm norepinephrine (LEVOPHED) 8 mg/250 mL (32 mcg/mL) in sodium chloride 0.9% infusion (premix) 0.02-0.3 mcg/kg/min ? 122 kg (4.575-68.625 mL/hr, rounded to 4.58-68.63 mL/hr), Intravenous, Continuous PRN, See Admin Instructions, Starting on Fri04/07/18 at 1214, Start at 0.02 mcg/kg/min and titrate up or down by 0.02 mcg/kg/min every 5 minutes to maintain a SBP = or > 90 mm Hg or MAP = or > 65 to a maximum dose of 0.3 mcg/kg/min. Contact provider if higher dose needed. Concentration 8 mg/250 mL Rate/Dose Change 04/07/2018 1:44 PM EST 0.03 mcg/kg/min 6.86 mL/hr ondansetron (ZOFRAN) injection 4 mg 4 mg, [...] Given 04/09/2018 8:27 PM EST 2 tablets potassium chloride (MICRO-K) CR capsule 40 mEq 40 mEq, Oral, As Needed, potassium replacement.?see [...] urine output is less than 30 mL/hr Given 04/11/2018 9:15 AM EST 40 mEq propofol (DIPRIVAN) infusion 10 mg/mL 100 mL 5-50 mcg/kg/min ? 122 kg (3.66-36.6 mL/hr), Intravenous, Continuous PRN, See Admin Instructions, Starting on Fri04/07/18 at 1214, Start infusion at 5 mcg/kg/min and increase every 5 minutes to achieve RASS goal. Discontinue propofol when extubated. If patient on propofol greater than 48 hours, obtain a baseline triglyceride level (if no pre-op triglyceride level available). Then get triglyceride level every 3 days while receiving propofol. Do not administer through the same IV catheter with blood or plasma. Tubing and any unused portions of propofol vials should be discarded after 12 hours., RASS Goal: 0 TO -1 New Bag 04/07/2018 2:20 PM EST 35 mcg/kg/min 25.6 mL/hr Rate/Dose Change 04/07/2018 12:31 PM EST 50 mcg/kg/min 36. 6 mL/hr Rate/Dose Change 04/07/2018 12:25 PM EST 45 mcg/kg/min 32. 9 mL/hr protamine injection 50 mg 50 mg, Intravenous, Once, On Fri04/07/18 at 1300, For 1 dose Given 04/07/2018 12:36 PM EST 50 mg rivaroxaban (XARELTO) tablet 20 mg 20 mg, [...] Given 04/10/2018 9:41 AM EST 2 tablets vancomycin 1750 mg/500 mL 0.9% NS IVPB ([facility]) 1,750 mg (rounded from 1,800 mg = 15 mg/kg ? 120 kg), Intravenous, Once, On Fri04/07/18 at 0551, For 1 dose, Administer within 2 hours of surgical incision., Indications: Surgical ProphylaxisIndications:Surgical Prophylaxis New Bag 04/07/2018 6:52 AM EST 1,750 mg vancomycin 1750 mg/500 mL 0.9% NS IVPB ([facility]) 1,750 mg (rounded from 1,830 mg = 15 mg/kg ? 122 kg), Intravenous, Every 12 Hours, First dose on Fri04/07/18 at 1900, For 3 doses, Time first dose from pre-op dose., Indications: Surgical ProphylaxisIndications:Surgical Prophylaxis New Bag 04/08/2018 6:05 PM EST 1,750 mg New Bag 04/08/2018 6:01 AM EST 1,750 mg New Bag 04/07/2018 6:10 PM EST 1,750 mg documented in this encounter Active and Recently Administered Medications Times are shown in EST. Scheduled Medication Order 04/09/2018 04/10/2018 04/11/2018 amiodarone (PACERONE) tablet 200 mg 200 mg, Oral, Every 24 Hours Scheduled, First dose on Fri04/08/18 at 0930, Avoid grapefruit juice while taking this medication. 0814 (Given - Provider: Jules Rivera RN) 0844 (Given - Provider: Dania Peña RN) 0851 (Given - Provider: Kasey Malhotra RN) aspirin EC tablet 325 mg (CANCELED) 325 [...] this med.) 0851 (Given - Provider: Kasey Malhotra RN) metoprolol tartrate (LOPRESSOR) half tablet 12.5 [...] RN) 0845 (Medication Removed - Provider: Dania Peña RN)0941 (Medication Applied - Provider: Shruthi Mcguire, ALEXANDRO) 0850 (Medication Removed - Provider: Kasey Malhotra, RN)0851 (Medication Applied - Provider: Kasey Malhotra, RN) rivaroxaban (XARELTO) tablet 20 mg 20 mg, [...] at 1300 0814 (Given - Provider: Jules Rivera RN)2026 (Given - Provider: Dipti Lou RN) 0941 (Given - Provider: Shruthi Mcguire, ALEXANDRO)210 (Given - Provider: Bj Thomas, ALEXANDRO) 0851 [...] with food. 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
[2024-02-29 15:34] VITALS: BP 154/70; PULSE 90; RESP 16; TEMP 36.7; O2SAT 99
--- NOTE | 2024-02-29 15:34 | PC.NURSE ---
Report called to ALEXANDRO Crum on Med Surg.
--- OUTSIDE RECORDS SUMMARY | 2024-02-29 15:34 | XMS_ITS | Encounter Summary ---
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 Procedures Cardiac Catheterization/Vascular Study Jose Wilson MD Referral ID Status Reason Start Date Expiration Date Visits Re quested Visits Authorized [id number] Closed 02/23/2018 02/23/2019 1 1 Reason for Visit * Auth/Cert Specialty Diagnoses / Procedures Referred By Gianluca rojas Referred To Contact Diagnoses Valvular disease 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 CAD Procedures AK CATH PLMT L HRT & ARTS W/NJX & ANGIO IMG S&I Left Heart Cath Referral ID Status Reason Start Date Expiration Date Visits Re quested Visits Authorized [id number] 1 1 Encounter Details Date Type Department Care Team (Late st Contact Info) Description 03/03/2018 8:40 AM EST - 03/03/2018 5:34 PM EST Hospital Encounter [facility] [address] [place] [address] Kaushal Singleton MD [address] [place] [address] Valvular disease; 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; Chest pain, unspecified type Discharge Disposition: Home or Self Care Social [...] Sign Reading Time Taken Comments Blood Pressure 156/97 03/03/2018 5:18 PM EST POST AMBULATION BP Pulse 57 03/03/2018 5:15 PM EST Temperature 36.4 ??C (97.6 ??F) 03/03/2018 8 :50 AM EST Respiratory Rate 18 03/03/2018 2:52 PM EST Oxygen Saturation 97% 03/03/2018 5:1 5 PM EST Inhaled Oxygen Concentration - - Weight 120 kg (265 lb 6.9 oz) 03/03/2018 8:50 AM EST Height 182.9 cm (6') 03/03/2018 8:50 AM EST Body Mass Index 36 03/03/2018 8:50 AM EST documented in this encounter Discharge Instructions * Attachments The following attachments cannot be sent through Care Everywhere. * Angina Pectoris (Uruguayan) * Moderate Conscious Sedation Adult Care After (Uruguayan) * Coronary Angiogram ([place]ruguayan) * Radial Site Care (Uruguayan) * Transesophageal Echocardiogram ([place]ayan) documented in this encounter Medications at Time of Discharge vitamin D (ERGOCALCIFEROL) 20202 units capsule capsule Take 50,000 Units by mouth 1 (One) Time Per Week. Takes on Wednesdays 0 documented as of this encounter H&P Notes * Shauna Andrews APRN - 03/03/2018 9:30 AM EST H&P reviewed. The patient was examined and there are no changes to the H&P. Bilateral radial dahiana's test unacceptable. The risks, benefits, and alternatives of the procedure have been reviewed and the patient wishes to proceed. Shauna Andrews APRN 03/03/18 9:31 AM Cosigned by Kaushal Singleton MD at 03/03/2018 10:53 AM EST Source Note - Kaushal Singleton MD - 02/23/2018 3:00 PM EST Images from the original note were not included. [facility] [address], [address] [place], [place], [id number] [email or web address] CON[facility]ATION NOTE Patient Care Team/Referring Provider: Patient Care Team: Kaushal Kuo MD as PCP - General (Emergency Medicine) Subjective: Reason for consultation: Chief Complaint Patient presents with ??? Chest Pain ??? Dizziness HPI: Carlos Manuel Rojas II is a 52 y.o. male. History of Present Illness The patient has a history of anxiety, depression, GERD, who presents for consultation after being found to have severe valvular heart disease. Over the last couple years the patient has been noting increasing fatigue, dyspnea with exertion, exertional chest pains. Over the last few months he has noted that this is become severe to the pointwhere his functional limitations are restricted to basic activities of daily living. When he exertshimself becomes diaphoretic. He has associated lower extremity swelling. He has known for many years that he has a murmur but has not had this investigated in the past. He is referred for an echocardiogram when he is found to have severe aortic stenosis and insufficiency. He was seen by Dr. Wilson who is looking toward performing a valve replacement. Of note the patient denies lightheadedness or syncope. PFSH: Patient Active Problem List Diagnosis ??? Rheumatic aortic stenosis ??? 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 Rheumatic aortic valve insufficiency Current Outpatient Medications: ??? vitamin D (ERGOCALCIFEROL) 25824 units capsule capsule, Take 50,000 Units by mouth 1 (One) TimePer Week. Takes on Wednesdays, Disp: , Rfl: Allergies Allergen Reactions ??? Penicillins Hives Social History Socioeconomic History ??? Marital status: Other Spouse name: Not on file ??? Number of children: Not on file ??? Years of education: Not on file ??? Highest education level: Not on file Tobacco Use ??? Smoking [...] 1/2 gram daily ??? Sexual activity: Defer Family History Problem Relation Age of Onset ??? Cancer Mother ??? Heart disease Father ??? Heart failure Father Review of Systems: Positive for chest pain, dyspnea, lower extremity swelling Negative for exertional orthopnea, PND, palpitations, lightheadedness, syncope. All other systems reviewed and are negative. Objective: Blood pressure (!) 84/62, pulse 60, height 182.9 cm (72 ), weight 121 kg (266 lb 12.8 oz). CONSTITUTIONAL: Well-nourished. In no acute distress. SKIN: Warm and dry. No rashes noted HEENT: Head is normocephalic and atraumatic. Mucous membranes are pink and moist. NECK: Supple without masses or thyromegaly. There is no jugular venous distention at 30??. LUNGS: Normal effort. Clear to auscultation bilaterally without rhonchi, or rales noted. Soft expiratory wheeze CARDIOVASCULAR: The heart has a regular rate and rhythm with a normal S1 and a loss of S2. There isno gallop, rub, or click appreciated. ROXANN at RUSB that radiates to the carotids PERIPHERAL VASCULAR: Carotid upstroke is 2+ bilaterally and with bruits. Radial pulses are 2+ bilaterally. There is lower extremity edema. ABDOMEN: Soft with no tenderness with palpitation. No hepatosplenomegaly MUSCULOSKELETAL: Normal gait. No digital cyanosis NEUROLOGICAL: CN II - XII grossly intact PSYCHIATRIC: Alert, orientated x 3, appropriate affect Labs: BUN Date Value Ref Range Status 02/23/2018 8 (L) 9 - 23 mg/dL Final Creatinine Date Value Ref Range Status 02/23/2018 0.87 0.60 - 1.30 mg/dL Final Potassium Date Value Ref Range Status 02/23/2018 4.1 3.5 - 5.5 mmol/L Final ALT (SGPT) Date Value Ref Range Status 02/23/2018 47 (H) 7 - 40 U/L Final AST (SGOT) Date Value Ref Range Status 02/23/2018 30 0 - 33 U/L Final WBC Date Value Ref Range Status 02/23/2018 10.75 3.50 - 10.80 10*3/mm3 Final Hemoglobin Date Value Ref Range Status 02/23/2018 14.5 13.1 - 17.5 g/dL Final Hematocrit Date Value Ref Range Status 02/23/2018 42.7 38.9 - 50.9 % Final Platelets Date Value Ref Range Status 02/23/2018 157 150 - 450 10*3/mm3 Final No results found for: CHOL No results found for: TRIG No results found for: HDL No components found for: LDLCALC No results found for: VLDL No results found for: LDLHDL Diagnostic Data: ECG 12 Lead Date/Time: 02/23/2018 6:06 PM Performed by: Kaushal Singleton MD Authorized by: Kaushal Singleton MD Rhythm: sinus rhythm Comments: LVH with repolarization abnormalities, cannot rule out septal and inferior infarcts, QRS 108, QTC 412 heart rate 60 Outside hospital echo 01/2018 - LVEF 55%, grade 1 diastolic dysfunction, mildly dilated left atrium, thickened aortic valve with a peak velocity of 451 cm/s and peak mean pressure of 58 mmHg, mild TR, mild MR Assessment and Plan: Carlos Manuel was seen today for chest pain and dizziness. 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 Wilson Tobacco dependence -1ppd x 30 yrs -Tobacco dependence. Cessation counselling provided for greater than 3 min - Return for Follow-up to be determined after heart catheterization. Kaushal Singleton MD, MSc, [facility] documented in this encounter Plan of Treatment Upcoming Encounters Date Type Department Care Team (Late st Contact Info) Description 09/01/2024 1:30 PM EDT Office Visit [facility] [address] [place] [address] Kaushal Singleton MD [address] [place] [address] documented as of this encounter Procedures Procedure Name Priority Date/Time Associated Diagnosis Comments DUPLEX CAROTID BILATERAL CAR Routine 03/03/2018 4:33 PM EST CARDIAC CATHETERIZATION Routine 03/03/20 18 2:51 PM EST Valvular disease 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 ONLY SPIROMETRY Routine 03/03/2018 10:10 AM EST LIPID PANEL STAT 03/03/2018 9:45 AM EST SCANNED - TELEMETRY 03/03/2018 SCANNED - CARDIOLOGY 03/03/2018 documented in this encounter Results * Duplex Carotid Ultrasound CAR (03/03/2018 4:33 PM EST) BSA 2.4 m^2 [facility] Prox CCA PSV 65.6 cm/sec [facility] Prox CCA PSV 56.6 cm/sec [facility] Prox CCA EDV 18.9 cm/sec [facility] Prox CCA EDV 16.9 cm/sec [facility] left Mid CCA PSV 67 cm/sec [facility] Right Mid CCA PSV 53 cm/sec [facility] left Mid CCA EDV 17.5 cm/sec [facility] right Mid CCA EDV 9 cm/sec [facility] Dist CCA PSV 59.4 cm/sec [facility] Dist CCA PSV 42 cm/sec [facility] Dist CCA EDV 15.2 cm/sec [facility] Dist CCA EDV 8.5 cm/sec [facility] CCA ratio helen 66.3 cm/sec [facility] CCA ratio helen 56.2 cm/sec [facility] Prox ECA PSV 53.4 cm/sec [facility] Prox ECA PSV 48.4 cm/sec [facility] ECA EDV 8.8 cm/sec [facility] Prox ECA EDV 8.5 cm/sec [facility] Prox ICA PSV 43.1 cm/sec [facility] Prox ICA PSV 37.7 cm/sec [facility] Prox ICA EDV 13.8 cm/sec [facility] Prox ICA EDV 19.4 cm/sec [facility] Mid ICA PSV 53.1 cm/sec [facility] Mid ICA PSV 46 cm/sec [facility] Mid ICA EDV 18.5 cm/sec [facility] Mid ICA EDV 27.7 cm/sec [facility] Dist ICA PSV 55.3 cm/sec [facility] Dist ICA PSV 44.6 cm/sec [facility] Dist ICA EDV 23.3 cm/sec [facility] Dist ICA EDV 22 cm/sec [facility] ICA ratio helen 55.0 cm/sec [facility] ICA ratio helen 43.7 cm/sec [facility] Vertebral A PSV 36.1 cm/sec [facility] Vertebral A PSV 28[facility]3 cm/sec [facility] Vertebral A EDV 12[facility]6 cm/sec [facility] Vertebral A EDV 13.8 cm/sec [facility] ICA/CCA ratio 0.82 [facility] ICA/CCA ratio 0.87 [facility] Prox SCLA PSV 56.2 cm/sec [facility] Prox SCLA PSV 89.9 cm/sec [facility] CV ECHO JOSELITO - BZI_BMI 35.9 kilograms/ m^2 [facility] CV ECHO [place] - BSA([place]) 2.5 m^2 [facility] CV ECHO JOSEL[place]O - BZI_METRIC_WEIG HT 120.2 kg [facility] CV ECHO JOSELITO - BZI_METRIC_HEIG HT 182.9 cm [facility] Anatomical Region Laterality Modality Ultrasound 03/03/2018 3:31 PM EST Narrative 03/04/2018 4:40 PM EST ?? Predominantly intimal thickening with minimal homogeneous plaque seen in the carotid bulbs bilaterally. Study Findings ? ? Right CCA Prox: No plaque visualized. ? ? Right CCA Dist: No plaque visualized. ? ? Right ICA Prox: Smooth homogeneous plaque present. ? ? Right ICA Mid: No plaque visualized. ? ? Right ICA Dist: No plaque visualized. ? ? Right ECA: No plaque visualized. ? ? Right Vertebral: Antegrade flow noted. ? ? Left CCA Prox: No plaque visualized. ? ? Left CCA Dist: No plaque visualized. ? ? Left ICA Prox: Smooth homogeneous plaque present. ? ? Left ICA Mid: No plaque visualized. ? ? Left ICA Dist: No plaque visualized. ? ? Left ECA: No plaque visualized. ? ? Left Vertebral: Antegrade flow noted. us Shauna Andrews APRN CV VASCULAR ORDERABLES Final Result * LEFT HEART CATH (03/03/2018 2:51 PM EST) Anatomical Region Laterality Modality X-Ray Angiograph y Impressions 03/03/2018 3:02 PM EST ?? There is near normal coronary anatomy with no flow-limiting obstructive stenoses RECOMMENDATIONS: ?? After today's assessment with a transesophageal echocardiogram, pulmonary function test, carotid duplex ultrasound, and heart catheterization, the patient's preoperative testing will be complete. ?? Further recommendations to follow from Dr. Wilson for timing of aortic valve replacement Indication(s) for this Procedure: ?? Pre aortic valve replacement/cardiac surgery evaluation, CCS class III symptoms Procedure(s) Performed: 1. Right radial artery access . 2. Selective coronary angiography Description of the Procedure: ?? Informed consent was obtained with the goals, rationale, alternatives, risks and benefits of the procedure explained to the patient. ??A 6Fr Merit Prelude sheath was placed in the right radial artery. Angiography of the right coronary artery was performed with a 5Fr JR4 diagnostic catheter. ?? Angiography of the left coronary arteries was performed with a 5Fr JL3.5 diagnostic catheter. ??The procedure was completed and the sheath was removed. A radial patent hemostasis band was placed for hemostasis. Anesthesia: Catheterization lab, moderate sedation attestation - I was present with the patient for the duration of moderate sedation, supervised staff who had no other duties, and monitored the patient for the entire procedure. Name of independent trained observer: Kaci Jalloh RN Procedural service start time: 14:36 Procedural service end time: 14:51 Angiographic Findings: Right coronary dominant circulation ?? Left main artery: ?? The vessel is normal sized and trifurcates into an anterior descending, ramus intermedius, circumflex artery. ??There is no significant disease. ?? Left anterior descending artery: ??The vessel is normal sized and terminates in an apical artery. ??There is no significant disease. ??There is a mild myocardial bridge in the midsegment. ??There are no major diagonal branches. ?? Ramus intermedius artery: The vessel is large sized and without significant disease. ?? Left circumflex artery: ??The vessel is normal sized and terminates in an AV groove artery. ??There is no significant disease. ??The first obtuse marginal branch is medium-sized without significant disease. ??The second obtuse marginal branch is medium-sized without significant disease. ?? Right coronary artery: ??The vessel is normal sized and bifurcates into an RPL S and RPDA. ??There are minimal luminal irregularities. ??The RPL S is medium-sized and without significant disease. ??The RPDA is large sized and without significant disease. Hemodynamic Findings: ?? Ao pressure: ??85/64 mmHg Estimated Blood Loss: Minimal Specimen(s): None obtained Sheath: Removed, radial patent hemostasis band was placed for hemostasis. Complications: There were no apparent early complications. Kaushal Singleton MD, MSc, [facility] Interventional Cardiology [facility] Narrative 03/03/2018 3:02 PM EST [facility] AT [address], [address] [place], [address] ??[email or web address] CARDIAC CATHETERIZATION PROCEDURE NOTE us Kaushal Singleton MD CV CARDIAC CATH ORDERABLES Final Result * ONLY SPIROMETRY (03/03/2018 10:10 AM EST) Narrative Blayne Hernandez MD - 03/04/2018 3:02 PM EST Pulmonary Function Test Interpretation Carlos Manuel Rojas II [id number] 03/04/18 3:01 PM Spirometry Spirometry demonstrates no airway obstruction. and Formal lung volume measurements not available. However, the reduced vital capacity suggests the presence of a restrictive process. Post Bronchodilator N/A MVV N/A Study date: 03/03/18 Blayne Hernandez MD us Shauna Andrews APRN PFT ORDERABLES Final Result * (ABNORMAL) Lipid Panel (03/03/2018 9:45 AM EST) Total Cholesterol 140 0 - 200 mg/dL 03/03/2018 10:13 AM EST [facility] Triglycerides 63 0 - 150 mg/dL 03/03/2018 10:13 AM EST [facility] HDL Cholesterol 34(L) 40 - 60 mg/dL 03/03/2018 10:13 AM EST [facility] LDL Cholesterol 99 0 - 130 mg/dL 03/03/2018 10:13 AM EST [facility] Blood Line / Unknown 03/03/2018 9: 45 AM EST 03/03/2018 9:49 AM EST [facility] - 03/03/2018 10:13 AM EST Cholesterol Reference Ranges: Desirable ? < 200 mg/dL Borderline ?200-239 mg/dL High Risk ? > 239 mg/dL Triglyceride Reference Ranges: Normal ?< 150 mg/dL Borderline ?150-199 mg/dL High ?200-499 mg/dL Very High ? > 499 mg/dL HDL Reference Ranges: Low ?< 40 mg/dL High ? > 59 mg/dL LDL Reference Ranges: Optimal ? < 100 mg/dL Near Optimal ??100-129 mg/dL Borderline ?130-159 mg/dL High ?160-189 mg/dL Very High ? > 189 mg/dL Shauna Andrews MAJOR GIFTS MANAGER LAB BLOOD ORDERABLES Final R esult [facility]
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 Valvular disease Valvular disease 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 Do not exceed 4 grams of aspirin in a 24 hr period. If given for pain, use the following pain scale: Mild Pain = Pain Score of 1-3, CPOT 1-2 Moderate Pain = Pain Score of 4-6, CPOT 3-4 Severe Pain = Pain Score of 7-10, CPOT 5-8Indications:Chest pain, unspecified type Given 03/03/2018 10:15 AM EST 324 mg sodium chloride 0.9 % infusion 1-3 mL/kg/hr ? 121 kg (121-363 mL/hr), Intravenous, Continuous, Starting on Fri03/03/18 at 1003, Begin infusion at 3 mL/kg/hr (max 330 mL/hr) x1 hour prior to receiving IV contrast, then decrease to 1 mL/kg/hr (max 110 mL/hr). Stop infusion 6 hours after contrast infused or a total of 1 liter of NS is delivered. Rate/Dose Change 03/03/2018 11:21 AM EST 0.909 mL/kg/hr 110 mL/hr New Bag 03/03/2018 10:15 AM EST 2.727 mL/kg/hr 330 mL/h r documented in this encounter Active and Recently Administered Medications Times are shown in EST. Scheduled Medication Order 03/01/2018 03/02/2018 03/03/2018 aspirin chewable tablet 324 mg (COMPLETED)(Linked Group 1) 324 mg, Oral, Once, On Fri03/03/18 at 0844, For 1 dose, Herbal/drug interaction: Avoid use with ginkgo biloba. Do not exceed 4 grams of aspirin in a 24 hr period. If given for pain, use the following pain scale: Mild Pain = Pain Score of 1-3, CPOT 1-2 Moderate Pain = Pain Score of 4-6, CPOT 3-4 Severe Pain = Pain Score of 7-10, CPOT 5-8 1015 (Given - Provid er: Hannah Elizalde RN) Continuous Medication Order 03/01/2018 03/02/2018 03/03/2018 sodium chloride 0.9 % infusion 1-3 mL/kg/hr ? 121 kg (121-363 mL/hr), Intravenous, Continuous, Starting on Fri03/03/18 at 1003, Begin infusion at 3 mL/kg/hr (max 330 mL/hr) x1 hour prior to receiving IV contrast, then decrease to 1 mL/kg/hr (max 110 mL/hr). Stop infusion 6 hours after contrast infused or a total of 1 liter of NS is delivered. 1015 (New Bag - Prov ider: Hannah Elizalde RN)1121 (Rate/Dose Change - Provider: Hannah Elizalde RN)1501 (Stopped - Provider: Gabriella Quinonez RN - Comment: STOPPED PRIOR TO AR[facility]IVAL TO [facility]) PRN Medication Order 03/01/2018 03/02/2018 03/03/2018 fentaNYL citrate (PF) (SUBLIMAZE) injection (CANCELED) As Needed, Starting on Fri03/03/18 at 1437 1437 (Given - Provid er: Kaci Jalloh RN)1440 (Given - Provider: Kaci Jalloh RN) iopamidol (ISOVUE-370) 76 % injection (CANCELED) As Needed, Starting on Fri03/03/18 at 1454 1454 (Given - Provid er: Kaushal Singleton MD) lidocaine (XYLOCAINE) 1 % injection (CANCELED) As Needed, Starting on Fri03/03/18 at 1440 1440 (Given - Provid er: Kaushal Singleton MD) midazolam (VERSED) injection (CANCELED) As Needed, Starting on Fri03/03/18 at 1437 1437 (Given - Provid er: Kaci Jalloh RN)1440 (Given - Provider: Kaci Jalloh RN) nicardipine (CARDENE) 100 MCG/ML 400 mcg, nitroglycerin 400 mcg, heparin (porcine) 5,000 Units radial artery injection (CANCELED) As Needed, Starting on Fri03/03/18 at 1442 1442 (Given - Provid er: Kaushal Singleton MD) Linked Groups Order Group 1: aspirin chewable tablet 324 mg (COMPLETED)Jump to med 324 mg, Oral, Once, On Fri03/03/18 at 0844, For 1 dose, Herbal/drug interaction: Avoid use with ginkgo biloba. Do not exceed 4 grams of aspirin in a 24 hr period. If given for pain, use the following pain scale: Mild Pain = Pain Score of 1-3, CPOT 1-2 Moderate Pain = Pain Score of 4-6, CPOT 3-4 Severe Pain = Pain Score of 7-10, CPOT 5-8 And aspirin EC tablet 81 mg (CANCELED) 81 mg, Oral, Daily, First dose on Fri03/04/18 at 0900, Swallow tablet whole. Do not crush, chew, or split. Do not exceed 4 grams of aspirin in a 24 hr period. If given for pain, use the following pain scale: Mild Pain = Pain Score of 1-3, CPOT 1-2 Moderate Pain = Pain Score of 4-6, CPOT 3-4 Severe Pain = Pain Score of 7-10, CPOT 5-8 documented in this encounter Care Teams Laser Set Up Operator Relationship Specialty Start Date End Date Kaushal Kuo MD PCP - General Emergency Medicine 02/23/18 08/06/22 documented as of this encounter
--- OUTSIDE RECORDS SUMMARY | 2024-02-29 15:34 | XMS_ITS | Encounter Summary ---
Author Organization [facility] ystem Address [address] [place] [address] Care Team Providers Care Neuropsychology Director Name Role Phone Kaushal Kuo MD Primary Care Provider [phone] Reason for Visit * Auth/Cert Specialty Diagnoses / Procedures Referred By Contac t Referred To Contact Diagnoses Valvular disease Coronary artery disease involving [place] coronary artery of [place] heart without angina pectoris CAD Procedures ME CATH PLMT L HRT & ARTS W/NJX & ANGIO IMG S&I Left Heart Cath Referral ID Status Reason Start Date Expiration Date Visits Re quested Visits Authorized [id number] 1 1 Encounter Details Date Type Department Care Team (Late st Contact Info) Description 03/03/2018 2:00 PM EST - 03/03/2018 3:00 PM EST Surgery [facility] [address] [place] [id number] Kaushal Singleton MD [address] [facility] [address] [place] [address] Left Heart Cath Social History Tobacco Use Types Packs/Day Years [...] Sign Reading Time Taken Comments Blood Pressure 85/64 03/03/2018 2:52 PM EST Pulse 61 03/03/2018 2:52 PM EST Temperature 36.4 ??C (97.6 ??F) 03/03/2018 8:50 AM ES T Respiratory Rate 18 03/03/2018 2:52 PM EST Oxygen Saturation 90% 03/03/2018 2:52 PM EST Inhaled Oxygen Concentration - - Weight 120 kg (265 lb 6.9 oz) 03/03/2018 8:50 AM EST Height 182.9 cm (6') 03/03/2018 8:50 AM EST Body Mass Index 36 03/03/2018 8:50 AM EST documented in this encounter Discharge Instructions * Attachments The following attachments cannot be sent through Care Everywhere. * Angina Pectoris ([place]) * Moderate Conscious Sedation Adult Care After ([place]) * Coronary Angiogram ([place]) * Radial Site Care ([place]) * Transesophageal Echocardiogram ([place]) documented in this encounter Medications at Time of Discharge vitamin D (ERGOCALCIFEROL) 37311 units capsule capsule Take 50,000 Units by [...] from the original note were not included. [facility] AT [address], [address] [place], [address] [email or web address].[facility] OUTPATIENT CLINIC CONSULTATION NOTE Patient Care Team/Referring [...] aortic stenosis ??? Coronary artery disease involving [place] coronary artery of [place] heart without angina pectoris ??? Rheumatic aortic valve insufficiency Current Outpatient Medications: ??? vitamin D (ERGOCALCIFEROL) 29219 units capsule capsule, Take 50,000 Units by [...] after heart catheterization. Kaushal Singleton MD, MSc, FACC Interventional Cardiology [facility] documented in this encounter Plan of Treatment Upcoming Encounters Date Type Department Care Team (Late st Contact Info) Description 09/01/2024 1:30 PM EDT Office Visit [facility] [address] [place] [address] Kaushal Singleton MD [address] [place] [address] [address] [place] [address] documented as of this encounter Procedures Procedure Name Priority Date/Time Associated Diagnosis Comments DUPLEX CAROTID BILATERAL CAR Routine 03/03/2018 4:33 PM EST CARDIAC CATHETERIZATION Routine 03/03/20 18 2:51 PM EST Valvular disease Coronary artery disease involving [place] coronary artery of [place] heart without angina pectoris ONLY SPIROMETRY Routine 03/03/2018 10:10 AM EST LIPID PANEL STAT 03/03/2018 9:45 AM EST SCANNED - TELEMETRY 03/03/2018 SCANNED - CARDIOLOGY 03/03/2018 documented in this encounter Results * Duplex Carotid Ultrasound CAR (03/03/2018 4:33 PM EST) BSA 2.4 m^2 [facility] Prox CCA PSV 65.6 cm/sec [facility] Prox CCA PSV 56.6 cm/sec [facility] Prox CCA EDV 18.9 cm/sec [facility] Prox CCA EDV 16.9 cm/sec [facility] left Mid CCA PSV 67 cm/sec [facility] Right Mid CCA PSV 53 cm/sec [facility] left Mid CCA EDV 17.5 cm/sec [facility] right Mid CCA EDV 9 cm/sec [facility] Dist CCA PSV 59.4 cm/sec [facility] Dist CCA PSV 42 cm/sec [facility] Dist CCA EDV 15.2 cm/sec [facility] Dist CCA EDV 8.5 cm/sec [facility] CCA ratio helen 66.3 cm/sec [facility] CCA ratio helen 56.2 cm/sec [facility] Prox ECA PSV 53.4 cm/sec [facility] Prox ECA PSV 48.4 cm/sec [facility] Prox ECA EDV 8.8 cm/sec [facility] Prox ECA EDV 8.5 cm/sec [facility] Prox ICA PSV 43.1 cm/sec [facility] Prox ICA PSV 37.7 cm/sec [facility] Prox ICA EDV 13.8 cm/sec [facility] Prox ICA EDV 19.4 cm/sec [facility] Mid ICA PSV 53.1 cm/sec [facility] Mid ICA PSV 46 cm/sec [facility] Mid ICA EDV 18.5 cm/sec [facility] Mid ICA EDV 27.7 cm/sec [facility] Dist ICA PSV 55.3 cm/sec [facility] Dist ICA PSV 44.6 cm/sec [facility] Dist ICA EDV 23.3 cm/sec [facility] Dist ICA EDV 22 cm/sec [facility] ICA ratio helen 55.0 cm/sec [facility] ICA ratio helen 43.7 cm/sec [facility] Vertebral A PSV 36.1 cm/[facility] Vertebral A PSV 28.3 cm/[facility] Vertebral A EDV 12.6 cm/[facility] Vertebral A EDV 13.8 cm/sec [facility] ICA/CCA ratio 0.82 PSYCHIATRIC ICA/CCA ratio 0.87 [facility] Prox SCLA PSV 56.2 cm/sec [facility] Prox SCLA PSV 89.9 cm/sec [facility] CV ECHO [place] - BZI_BMI 35.9 kilograms/ m^2 [facility] CV ECHO [place] - BSA([place]) 2.5 m^2 [facility] CV ECHO [place] - BZI_METRIC_WEIG HT 120.2 kg [facility] CV ECHO [place] - BZI_METRIC_HEIG HT 182.9 cm [facility] Anatomical Region Laterality Modality Ultrasound 03/03/2018 3:31 [...] Vertebral: Antegrade flow noted. us Shauna Andrews BRIAN CV VASCULAR ORDERABLES Final Result * LEFT [...] apparent early complications. Kaushal Singleton MD, MSc, [facility] Interventional Cardiology [facility] Narrative 03/03/2018 3:02 PM EST [facility] [address], [address] [place], [address] ??[email or web address][employer] CARDIAC CATHETERIZATION PROCEDURE NOTE us Kaushal Singleton MD CV CARDIAC CATH ORDERABLES Final Result * ONLY SPIROMETRY (03/03/2018 10:10 AM EST) Narrative Blayne Hernandez MD - 03/04/2018 3:02 PM EST Pulmonary Function Test Interpretation Carlos Manuel Rojas II [id number] 03/04/18 3:01 PM Spirometry Spirometry demonstrates no airway obstruction. and Formal lung volume measurements not available. However, the reduced vital capacity suggests the presence of a restrictive process. Post Bronchodilator N/A MVV N/A Study date: 03/03/18 Blayne Hernandez MD Shauna Andrews PROFESSIONAL TUTOR PFT ORDERABLES Final Result * (ABNORMAL) Lipid Panel (03/03/2018 9:45 AM EST) Total Cholesterol 140 0 - 200 mg/dL 03/03/2018 10:13 AM EST [facility] Triglycerides 63 0 - 150 mg/dL 03/03/2018 10:13 AM EST [facility] HDL Cholesterol 34(L) 40 - 60 mg/dL 03/03/2018 10:13 AM EST [facility] LDL Cholesterol 99 0 - 130 mg/dL 03/03/2018 10:13 AM EST [facility] Blood Line / Unknown 03/03/2018 9: 45 AM EST 03/03/2018 9:49 AM EST [facility] LABOR[facility]ORY - 03/03/2018 10:13 AM EST [...] Very High ? > 189 mg/dL Shauna Enid Darryl PROFESSIONAL TUTOR LAB BLOOD ORDERABLES Final R esult [facility]
[address] [place] [address], * SCANNED - CARDIOLOGY (03/03/2018) Anatomical Region Laterality Modality Other [facility] CV CARDIAC SERVICES ORDERABLE S Final Result * SCANNED - TELEMETRY (03/03/2018) Anatomical Region Laterality Modality Other [facility] ECG ORDERABLES Final Result documented in this encounter Visit Diagnoses Diagnosis Valvular disease Coronary artery disease involving [place] coronary artery of [place] heart without angina pectoris Chest pain, unspecified type Coronary artery disease involving [place] coronary artery of [place] heart without angina pectoris Valvular disease Valvular disease Coronary artery disease involving [place] coronary artery of [place] heart without angina pectoris documented in this encounter Admitting Diagnoses Diagnosis Valvular disease Coronary artery disease involving [place] coronary artery of [place] heart without angina pectoris documented in this [...] Given 03/03/2018 10:15 AM EST 324 mg fentaNYL citrate (PF) (SUBLIMAZE) injection As Needed, Starting on Fri03/03/18 at 1437 Given 03/03/2018 2:40 PM EST 25 mcg Given 03/03/2018 2:37 PM EST 25 mcg iopamidol (ISOVUE-370) 76 % injection As Needed, Starting on Fri03/03/18 at 1454 Given 03/03/2018 2:54 PM EST 65 mL lidocaine (XYLOCAINE) 1 % injection As Needed, Starting on Fri03/03/18 at 1440 Given 03/03/2018 2:40 PM EST 5 mL Wrist Right midazolam (VERSED) injection As Needed, Starting on Fri03/03/18 at 1437 Given 03/03/2018 2:40 PM EST 1 mg Given 03/03/2018 2:37 PM EST 1 mg nicardipine (CARDENE) 100 MCG/ML 400 mcg, nitroglycerin 400 mcg, heparin (porcine) 5,000 Units radial artery injection As Needed, Starting on Fri03/03/18 at 1442 Given 03/03/2018 2:42 PM EST sodium chloride 0.9 % infusion 1-3 mL/kg/hr [...] - Comment: STOPPED PRIOR TO ARRIVAL TO CV) PRN Medication Order 03/01/2018 03/02/2018 03/03/2018 fentaNYL [...] 1440 1440 (Given - Provid er: Kaushal Sinlgeton MD) midazolam (VERSED) injection (CANCELED) As Needed, [...] 5-8 documented in this encounter Care Teams Neuropsychology Director Relationship Specialty Start Date End Date Kaushal Kuo MD PCP - General Emergency Medicine 02/23/18 08/06/22 documented as of this encounter
--- OUTSIDE RECORDS SUMMARY | 2024-02-29 15:34 | XMS_ITS | Encounter Summary ---
Author Organization [facility] Address [address] [place] [address] Care Team Providers Care Upper Leather Cutter Name Role Phone Kaushal Kuo MD Primary Care Provider [phone] Reason for Referral * Hospital - Outpatient (Routine) - Closed Specialty Diagnoses / Procedures Referred By Contac t Referred To Contact Diagnoses Valvular disease Procedures Adult Transesophageal Echo (TA) W/ Cont if Necessary Per Protocol [place] ECHO TRANSESOPHAG R-T 2D W/PRB IMG ACQUISJ I&R Kaushal Singleton MD [address] [place] [address] Phone: tel: fax: [facility] LOCATION Referral ID Status Reason Start Date Expiration Date Visits Re quested Visits Authorized [id number] Closed 02/23/2018 02/23/2019 1 1 * Hospital - Outpatient (Routine) - Closed Specialty Diagnoses / Procedures Referred By Contac t Referred To Contact Diagnoses Valvular disease Coronary artery disease involving [place] coronary artery of [place] heart without angina pectoris Procedures Case Request Nutrition Aide: Left Heart Cath [place] CATH PLMT L HRT & ARTS W/NJX & ANGIO IMG S&I Kaushal Singleton MD [address] [facility] [place] [address] Phone: tel: fax: [facility] LOC[facility] Referral ID Status Reason Start Date Expiration Date Visits Re quested Visits Authorized [id number] Closed 02/23/2018 02/23/2019 1 1 Reason for Visit * Reason Comments Chest Pain Dizziness * Consultation (Routine) - Closed Specialty Diagnoses / Procedures Referred By Gianluca rojas Referred To Contact Cardiology Diagnoses Nonrheumatic aortic (valve) stenosis NEW PT REF BY TRISH WILSON. DX: . TW: GISELL @ [place] SX TO MAKE. Procedures CONSULT Kaushal Kuo MD Phone: tel: fax: Kaushal Singleton MD [address] [facility] [address] [place] [address] Phone: tel: fax: Referral ID Status Reason Start Date Expiration Date Visits Re quested Visits Authorized [id number] Closed 02/23/2018 02/23/2019 99 99 Encounter Details Date Type Department Care Team (Late st Contact Info) Description 02/23/2018 3:00 PM EST Consult [facility] [address] [facility] [address] [place] [phone] Kaushal Singleton MD [address] [facility] [address] [place] [address] Rheumatic aortic stenosis (Primary Dx); Rheumatic aortic valve insufficiency; Valvular disease; Coronary artery disease involving [place] coronary artery of [place] heart without angina pectoris; Tobacco dependence Social History Tobacco Use Types Packs/Day Years [...] Sign Reading Time Taken Comments Blood Pressure 84/62 02/23/2018 3:09 PM EST Pulse 60 02/23/2018 3:09 PM EST Temperature - - Respiratory Rate - - Oxygen Saturation - - Inhaled Oxygen Concentration - - Weight 121 kg (266 lb 12.8 oz) 02/23/2018 3:09 P M EST Height 182.9 cm (6') 02/23/2018 3:09 PM EST Body Mass Index 36.18 02/23/2018 3:09 PM EST documented in this encounter Progress Notes * Kaushal Singleton MD - 02/23/2018 3:00 PM ESTAssociated Order(s): ECG 12 Lead Post-Procedure Diagnose(s): Rheumatic aortic stenosis Images from the original note were not included. [facility] [address], [address] [place], [place], [id number] WWW.[email or web address]ITAL[facility]uz[facility]ATION NOTE Patient Care [...] aortic stenosis ??? Coronary artery disease involving [place] coronary artery of [place] heart without angina pectoris ??? Rheumatic aortic valve insufficiency Current Outpatient Medications: ??? vitamin D (ERGOCALCIFEROL) 55088 units capsule capsule, Take 50,000 Units by [...] after heart catheterization. Kaushal Singleton MD, MSc, [facility] documented in this encounter Plan of Treatment Upcoming Encounters Date Type Department Care Team (Late st Contact Info) Description 09/01/2024 1:30 PM EDT Office Visit [facility] [address] [place] [address] Kaushal Singleton MD [address] [place] [address] documented as of this encounter Procedures Procedure Name Priority Date/Time Associated Diagnosis Comments ECG 12-LEAD Routine 02/23/2018 Rheumatic aortic stenosis documented in this encounter Results * TA W/ COMPLETE DOPPLER AND COLOR (03/03/2018 2:56 PM EST) BSA 2.5 m^2 [facility] Ao pk helen 461.3 cm/sec [facility] Ao max PG 85.1 mmHg [facility] Ao V2 mean 374.9 cm/sec [facility] Ao mean PG 58.9 mmHg [facility]o V2 VTI 109.6 cm [facility] CV ECHO JOSELITO - BZI_BMI 39.1 kilograms/ m^2 [facility] CV ECHO JOSELITO - BSA(HAYCOCK) 2.6 m^2 EPISCOPAL [facility] CV ECHO JOSELITO - BZI_METRIC_WEIG HT 130.6 kg [facility] CV ECHO JOSELITO - BZI_METRIC_HEIG HT 182.9 cm [facility] Ascending aorta 3.50 cm [facility] AV vena contracta 0.65 cm [facility] Echo EF Estimated 55 % [facility] Anatomical Region Laterality Modality Other 03/03/2018 11:1 5 AM EST Narrative 03/03/2018 5:46 PM EST ?? Left ventricular systolic function is normal. Estimated EF = 55%. ?? Left ventricular wall thickness is consistent with concentric hypertrophy. ?? Left atrial cavity size is mildly dilated. ?? There is severe calcification of the aortic valve. Vena contracta of 0.65cm. ?? Severe aortic valve stenosis is present. Peak velocity of the flow distal to the aortic valve is 461.3 cm/s. Aortic valve mean pressure gradient is 58.9 mmHg. ?? Moderate to severe aortic valve regurgitation is present. ?? There is mild plaque in the descending aorta present. Left Ventricle Left ventricular systolic function is normal. Estimated EF appears to be in the range of 51 - 55%. Estimated EF = 55%. Normal left ventricular cavity size noted. All left ventricular wall segments contract normally. Left ventricular wall thickness is consistent with concentric hypertrophy. Left ventricular diastolic function not assessed on this study. Right Ventricle Normal right ventricular cavity size and systolic function noted. Left Atrium Left atrial cavity size is mildly dilated. The left atrial appendage was visualized through multiple planes. Doppler interrogation shows normal flow within the left atrial appendage. No evidence of a left atrial appendage thrombus was present. Saline test results are negative. The left superior pulmonary vein(s) appear normal with no flow abnormalities. Right Atrium Normal right atrial size noted. The inferior vena cava is normally sized. Mitral Valve The mitral valve is grossly normal in structure. Trace mitral valve regurgitation is present. No significant mitral valve stenosis is present. Tricuspid Valve The tricuspid valve is normal. No tricuspid valve stenosis is present. Trace tricuspid valve regurgitation is present. Insufficient TR velocity profile to estimate the right ventricular systolic pressure. Aortic Valve The aortic valve is abnormal in structure. There is severe calcification of the aortic valve.Moderate to severe aortic valve regurgitation is present. Severe aortic valve stenosis is present. Peak velocity of the flow distal to the aortic valve is 461.3 cm/s. Aortic valve mean pressure gradient is 58.9 mmHg. Pulmonic Valve The pulmonic valve was not well visualized. The pulmonic valve is grossly normal in structure. There is no pulmonic valve regurgitation present. Pericardium There is no evidence of pericardial effusion. Additional Study Details A two-dimensional transesophageal echocardiogram was performed with color and limited Doppler interrogation. Informed consent for Transesophageal Echocardiogram, and use of contrast as needed, was obtained obtained prior to the procedure. Patient was noted to be in a fasting state, with a peripheral IV in place. A bite block was placed for probe protection. Cetacaine spray was used as an oropharyngeal topical anesthetic. Conscious sedation was utilized with the following medication(s) being administered during the procedure: 50 mcg of Fentanyl. 4 mg of Versed. 80 mg of Brevital Sodium. 0 mg of Propofol. A multi-frequency, multiplane transesophageal echocardiographic endoscope was inserted and manipulated in the standard fashion to achieve multiplane views. Transesophageal probe was able to be passed without difficulty. Usual basal, mid-esophageal, transgastric, and aortic views were obtained. The patient's vital signs, including blood pressure, heart rate, pulse oximetry, and cardiac rhythm were monitored throughout the procedure. Vitals signs remained stable throughout the study. The patient tolerated the procedure without evidence of oropharyngeal or esophageal trauma. Greater Vessels No dilation of the ascending aorta is present. There is mild plaque in the descending aorta present. us Kaushal Singleton MD CV ECHO ORDERABLES Final Result * ECG 12-LEAD (02/23/2018) Narrative 02/23/2018 Kaushal Singleton MD ? 02/23/2018 ??6:10 PM ECG 12 Lead Date/Time: 02/23/2018 6:06 PM Performed by: Kaushal Singleton MD Authorized by: Kaushal Singleton MD Rhythm: sinus rhythm Comments: LVH with repolarization abnormalities, cannot rule out septal and inferior infarcts, QRS 108, QTC 412 heart rate 60 Procedure Note Kaushal Singleton MD - 02/23/2018 3:00 PM EST Images from the original note were not included. [facility] AT [address], [address] [place], [address] WWW.[email or web address] CONSULTATION NOTE Patient Care Team/Referring Provider: Patient Care Team: Kaushal Kuo MD as PCP - General (Emergency Medicine) Subjective: Reason for consultation: Chief Complaint Patient presents with ? ? Chest Pain ? ? Dizziness HPI: Carlos Manuel Rojas II is a 52 y.o. male. History of Present Illness The patient has a history of anxiety, depression, GERD, who presents forconsultation after being found to have severe valvular heart disease. Over the last couple years the patient has been noting increasing fatigue,dyspnea with exertion, exertional chest pains. Over the last few monthshe has noted that this is become severe to the point where his functionallimitations are restricted to basic activities of daily living. When heexerts himself becomes diaphoretic. He has associated lower extremityswelling. He has known for many years that he has a murmur but has nothad this investigated in the past. He is referred for an echocardiogramwhen he is found to have severe aortic stenosis and insufficiency. He wasseen by Dr. Wilson who is looking toward performing a valve replacement. Of note the patient denies lightheadedness or syncope. PFSH: Patient Active Problem List Diagnosis ? ? Rheumatic aortic stenosis ? ? Coronary artery disease involving [place] coronary artery of [place] heartwithout angina pectoris ? ? Rheumatic aortic valve insufficiency Current Outpatient Medications: ? ? vitamin D (ERGOCALCIFEROL) 36965 units capsule capsule, Take 50,000Units by mouth 1 (One) Time Per Week. Takes on Wednesdays, Disp: , Rfl: Allergies Allergen Reactions ? ? Penicillins Hives Social History Socioeconomic History ? ? Marital status: Other Spouse name: Not on file ? ? Number of children: Not on file ? ? Years of education: Not on file ? ? Highest education level: Not on file Tobacco Use ? ? Smoking status: Current Every Day Smoker Packs/day: 1.00 Years: 30.00 Pack years: 30.00 Types: Cigarettes ? ? Smokeless tobacco: Never Used ? ? Tobacco comment: Pt reports 30+ year smoking history -cutting back Substance and Sexual Activity ? ? Alcohol use: No ? ? Drug use: Yes Frequency: 7.0 times per week Types: Marijuana Comment: uses daily -smokes about 1/2 gram daily ? ? Sexual activity: Defer Family History Problem Relation Age of Onset ? ? Cancer Mother ? ? Heart disease Father ? ? Heart failure Father Review of Systems: Positive for chest pain, dyspnea, lower extremity swelling Negative for exertional orthopnea, PND, palpitations, lightheadedness,syncope. All other systems reviewed and are negative. Objective: Blood pressure (!) 84/62, pulse 60, height 182.9 cm (72 ), weight 121 kg(266 lb 12.8 oz). CONSTITUTIONAL: Well-nourished. In no acute distress. SKIN: Warm and dry. No rashes noted HEENT: Head is normocephalic and atraumatic. Mucous membranes are pinkand moist. NECK: Supple without masses or thyromegaly. There is no jugular venousdistention at 30??. LUNGS: Normal effort. Clear to auscultation bilaterally without rhonchi,or rales noted. Soft expiratory wheeze CARDIOVASCULAR: The heart has a regular rate and rhythm with a normal S1and a loss of S2. There is no gallop, rub, or click appreciated. ROXANN atRUSB that radiates to the carotids PERIPHERAL VASCULAR: Carotid upstroke is 2+ bilaterally and with bruits.Radial pulses are 2+ bilaterally. There is lower [...] LVH with repolarization abnormalities, cannot rule out septaland inferior infarcts, QRS 108, QTC 412 heart rate 60 Outside hospital echo 01/2018 - LVEF 55%, grade 1 diastolic dysfunction,mildly dilated left atrium, thickened aortic valve with a peak velocity of451 cm/s and peak mean pressure of 58 mmHg, mild TR, mild MR Assessment and Plan: Carlos Manuel was seen today for chest pain and dizziness. 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 Wilson Tobacco dependence -1ppd x 30 yrs -Tobacco dependence. Cessation counselling provided for greater than 3min - Return for Follow-up to be determined after heart catheterization. Kaushal Singleton MD, MSc, [facility] Interventional Cardiology [facility] Kaushal Singleton MD ECG ORDERABLES Final Result documented in this encounter Visit Diagnoses Diagnosis Rheumatic aortic stenosis- Primary Rheumatic aortic valve insufficiency Valvular disease Coronary artery disease involving [place] coronary artery of [place] heart without angina pectoris Tobacco dependence Tobacco use disorder Valvular disease documented in this encounter Care Teams Upper Leather Cutter Relationship Specialty Start Date End Date Kaushal Kuo MD PCP - General Emergency Medicine 02/23/18 08/06/22 documented as of this encounter
--- OUTSIDE RECORDS SUMMARY | 2024-02-29 15:34 | XMS_ITS | Encounter Summary ---
Author Organization [facility]: [address] Address [address] [place] [address] Care Team Providers Care Data Collection Interviewer Name Role Phone Kaushal Kuo MD Primary Care Provider [phone] Reason for Referral * Hospital - Outpatient (Routine) - Closed Specialty Diagnoses / Procedures Referred By Contac t Referred To Contact Diagnoses Valvular disease Procedures Adult Transesophageal Echo (TA) W/ Cont if Necessary Per Protocol [facility] ECHO TRANSESOPHAG R-T 2D W/PRB IMG ACQUISJ I&R Kaushal Singleton MD [address] [facility] [address] [address] [place] [address] Phone: tel: fax: [facility] CATH INVASIVE LOCATION Referral ID Status Reason Start Date Expiration Date Visits Re quested Visits Authorized [id number] Closed 02/23/2018 02/23/2019 1 1 Reason for Visit * Auth/Cert Specialty Diagnoses / Procedures Referred By Contac t Referred To Contact Diagnoses Valvular disease Coronary artery disease involving [place] coronary artery of [place] heart without angina pectoris CAD Procedures AR CATH PLMT L HRT & ARTS W/NJX & ANGIO IMG S&I Left Heart Cath Referral ID Status Reason Start Date Expiration Date Visits Re quested Visits Authorized [id number] 1 1 Encounter Details Date Type Department Care Team (Late st Contact Info) Description 03/03/2018 8:55 AM EST - 03/03/2018 11:59 PM EST Hospital Encounter [facility] [address] [place] [address] Kaushal Singleton MD [address] [facility] [address] [place] [address] Valvular disease Discharge Disposition: Home or Self [...] at Time of Discharge vitamin D (ERGOCALCIFEROL) 87464 units capsule capsule Take 50,000 Units by mouth 1 (One) Time Per Week. Takes on Wednesdays 0 documented as of this encounter Plan of Treatment Upcoming Encounters Date Type Department Care Team (Late st Contact Info) Description 09/01/2024 1:30 PM EDT Office Visit [facility] [address] [place] [address] Kaushal Singleton MD [address] [facility] [address] [place] [address] documented as of this encounter Procedures Procedure Name Priority Date/Time Associated Diagnosis Comments TA W/ COMPLETE DOPPLER AND COLOR Routine 03/03/2018 2:56 PM EST Valvular disease documented in this encounter Results * TA W/ COMPLETE DOPPLER AND COLOR (03/03/2018 2:56 PM EST) BSA 2.5 m^2 [facility] Ao pk helen 461.3 cm/sec [facility] Ao max PG 85.1 mmHg [facility] Ao V2 mean 374.9 cm/sec [facility] Ao mean PG 58.9 mmHg [facility] Ao V2 VTI 109.6 cm [facility] BH CV ECHO JOSELITO - BZI_BMI 39.1 kilograms/ m^2 [facility] CV ECHO JOSELITO - BSA(HAYCOCK) 2.6 m^2 [facility] CV ECHO JOSELITO - BZI_METRIC_WEIG HT 130.6 kg [facility] CV ECHO JOSELITO - BZI_METRIC_HEIG HT 182.9 cm [facility] Ascending aorta 3.50 cm [facility] AV vena contracta 0.65 cm [facility] Echo EF Estimated 55 % [facility] Anatomical Region Laterality Modality Other 03/03/2018 11:1 [...] mild plaque in the descending aorta present. Kaushal Singleton MD CV ECHO ORDERABLES Final Result documented in this encounter Visit Diagnoses Diagnosis Valvular disease documented in this encounter Administered Medications Inactive Administered Medications - up to 3 most recent administrations Medication Order MAR Action Action Date Dose Rate Site fentaNYL citrate (PF) (SUBLIMAZE) injection Intravenous, Code / Trauma / Sedation Medication, Starting on Fri03/03/18 at 1125 Given 03/03/2018 11:25 AM EST 50 mcg methohexital (BREVITAL SODIUM) injection Code / Trauma / Sedation Medication, Starting on Fri03/03/18 at 1125 Given 03/03/2018 11:42 AM EST 20 mg Given 03/03/2018 11:25 AM EST 30 mg midazolam (VERSED) injection Intravenous, Code / Trauma / Sedation Medication, Starting on Fri03/03/18 at 1125 Given 03/03/2018 11:25 AM EST 2 mg sodium chloride 0.9 % infusion 1-3 [...] 330 mL/h r documented in this encounter Care Teams Data Collection Interviewer Relationship Specialty Start Date End Date Kaushal Kuo MD PCP - General Emergency Medicine 02/23/18 08/06/22 documented as of this encounter
--- OUTSIDE RECORDS SUMMARY | 2024-02-29 15:34 | XMS_ITS | Encounter Summary ---
Author Organization [facility] Address [address] [place] [address] Care Team Providers Care [employer] Name Role Phone Kaushal Kuo MD Primary Care Provider [phone] Reason for Referral * (Routine) - Closed Specialty Diagnoses / Procedures Referred By Contac t Referred To Contact Radiology Diagnoses AVD (aortic valve disease) Procedures Chest X-Ray PA & Lateral Miguel Malin PA [address] [address] Phone: tel: fax: Referral ID Status Reason Start Date Expiration Date Visits Re quested Visits Authorized [id number] Closed 03/19/2018 03/19/2019 1 1 Encounter Details Date Type Department Care Team (Latest Contact Info) Description 03/19/2018 Prep for Surgery [facility] ORDERS ONLY [address] [place] [address] Jose Wilson MD AVD (aortic valve disease) (Primary Dx) Social History Tobacco Use Types Packs/Day Years [...] Visit [facility] [address] [place] [address] Kaushal Singleton MD [address] [facility] [address] [place] [address] documented as of this encounter Results * XR Chest PA [...] 9:[address] Estefani Patino MD. Miguel FINLEY IMG DIAGNOSTIC IMAGING ORDERAB LES Final Result * Type & Screen (04/06/2018 1:14 PM EST) [facility] ABO Type A 04/06/2018 2:51 PM EST [facility] BB LABORATORY RH type Positive 04/06/2018 2:51 PM EST [facility] Antibody Screen Negative 04/06/2018 2:51 PM EST [facility] T&S Expiration Date 04/09/2018 11:59:59 PM 04/06/2018 2:51 PM EST [facility] Blood Venipuncture / Unknown 04/06/2018 1:14 PM EST 04/06/2018 1:29 PM EST Miguel FINLEY BLOOD BANK TEST ORDERABLES Anuj julio cesar Result - Final [facility]
[address] [place] [address], * (ABNORMAL) Urine Drug Screen - Urine, Clean Catch (04/06/2018 1:14 PM EST) [facility] THC, Screen, Urine Positive(A) Negative 04/06 2:45 PM EST [facility] Phencyclidine (PCP), Urine Negative Negative 04/06/2018 2:45 PM EST [facility] Cocaine Screen, Urine Negative Negative 04/06/2018 2:45 PM EST [facility] Methamphetamine, Ur Negative Negative 04/06/2018 2:45 PM EST [facility] Opiate Screen Negative Negative 04/06/2018 2:45 PM EST [facility] Amphetamine Screen, Urine Negative Negative 04/06/2018 2:45 PM EST [facility] Benzodiazepine Screen, Urine Negative Negative 04/06/2018 2:45 PM EST [facility] Tricyclic Antidepressants Screen Negative Negative 04/06/2018 2:45 PM EST [facility] Methadone Screen, Urine Negative Negative 04/06/2018 2:45 PM EST [facility] Barbiturates Screen, Urine Negative Negative 04/06/2018 2:45 PM EST [facility] Oxycodone Screen, Urine Negative Negative 04/06/2018 2:45 PM EST [facility] Propoxyphene Screen Negative Negative 04/06/2018 2:45 PM EST [facility] Buprenorphine, Screen, Urine Negative Negative 04/06/2018 2:45 PM EST [facility] Urine Urine specimen collection, clean catch / Unknown Collection / Unknown 04/06/2018 1:14 PM EST 04/06/2018 2:33 PM EST [facility] LABORATORY - 04/06/2018 2:45 PM EST Cutoff For Drugs Screened: Amphetamines ? 500 ng/ml Barbiturates ? 200 ng/ml Benzodiazepines ?150 ng/ml Cocaine ?150 ng/ml Methadone ?200 ng/ml Opiates ?100 ng/ml Phencyclidine ? 25 ng/ml THC ? 50 ng/ml Methamphetamine ?500 ng/ml Tricyclic Antidepressants ??300 ng/ml Oxycodone ?100 ng/ml Propoxyphene ? 300 ng/ml Buprenorphine ? 10 ng/ml The normal value for all drugs tested is negative. This report includes unconfirmed screening results, with the cutoff values listed, to be used for medical treatment purposes only. ??Unconfirmed results must not be used for non-medical purposes such as employment or legal testing. ??Clinical consideration should be applied to any drug of abuse test, particularly when unconfirmed results are used. ?? Miguel FINLEY URINE ORDERABLES Final Result Performing Organization Address [facility]/State/[place] Co de Phone Number [facility]
[address] [place] [address], * P2Y12 Platelet Inhibition (04/06/2018 1:14 PM EST) P2Y12 Reactivity Unit 178 PRU DISK DIFFUSION 04/06/2018 3:42 PM EST [facility] Blood Venipuncture / Unknown 04/06/2018 1:14 PM EST 04/06/2018 1:42 PM EST Narrative [facility] - 04/06/2018 3:42 PM EST P2Y12 Interpretation: Pre-Drug normal reference range is 194-418 PRU. Test results are reported in P2Y12 reaction units (PRU). This measures the extent of platelet aggregation in the presence of P2Y12 inhibitor drugs, such as clopidogrel (Plavix), prasugrel (Effient), ticagrelor (Brilinta), ticlopidine (Ticlid). P2Y12 values <194 PRU (low end of reference range) are specific evidence of a P2Y12 inhibitor effect. Patients who have been treated with Glycoprotein IIb/IIIa inhibitors should not be tested until platelet function has recovered. This time period is approximately 14 days after discontinuation of abciximab (ReoPro) and up to 48 hours after discontinuation of eptifibatide (Integrilin) and tirofiban (Aggrastat). The P2Y12 test results should be interpreted in conjunction with other clinical and lab data available to the clinician. us Miguel FINLEY LAB BLOOD ORDERABLES Final Res ult [facility]
[address] [place] [address], * Protime-INR (04/06/2018 1:14 PM EST) Protime 10.0 9.6 - 11.5 Seconds 04/06/2018 1:59 PM EST [facility] INR 0.95 0.91 - 1.09 04/06/2018 1:59 PM EST [facility] Blood Venipuncture / Unknown 04/06/2018 1:14 PM EST 04/06/2018 1:42 PM EST us Miguel FINLEY LAB BLOOD ORDERABLES Final Res ult Performing Organization Address [facility]/[place] Co de Phone Number [facility]
[address] [place] [address], * PTT (04/06/2018 1:14 PM EST) PTT 27.7 24.0 - 31.0 seconds 04/06/2018 1:59 PM EST [facility] Blood Venipuncture / Unknown 04/06/2018 1:14 PM EST 04/06/2018 1:42 PM EST Narrative [facility] - 04/06/2018 1:59 PM EST PTT = The equivalent PTT values for the therapeutic range of heparin levels at 0.3 to 0.5 U/ml are 55 to 70 seconds. us Miguel FINLEY LAB BLOOD ORDERABLES Final Res ult Performing Organization Address [facility]/[place] Co de Phone Number [facility]
[address] [place] [address], * (ABNORMAL) Hemoglobin A1c (04/06/2018 1:14 PM EST) Hemoglobin A1C 6.00(H) 4.80 - 5.60 % 04/06/2018 2:27 PM EST [facility] Blood Venipuncture / Unknown 04/06/2018 1:14 PM EST 04/06/2018 1:36 PM EST Narrative [facility] - 04/06/2018 2:27 PM EST The [place] [employer] recommends maintenance of Hemoglobin A1C at 7.0% or lower. Goals for Hemoglobin A1C reduction may need to be modified if hypoglycemia is a problem. Miguel FINLEY LAB BLOOD ORDERABLES Final Res ult Performing Organization Address City/[facility]/ZIP Co de Phone Number [facility]
[address] [place] [address], * Magnesium (04/06/2018 1:14 PM EST) Magnesium 1.8 1.3 - 2.7 mg/dL 04/06/2018 1:58 PM EST [facility] Blood Venipuncture / Unknown 04/06/2018 1:14 PM EST 04/06/2018 1:36 PM EST Miguel FINLEY LAB BLOOD ORDERABLES Final Res ult Performing Organization Address [facility]/[place] Co de Phone Number [facility]
[address] [place] [address], * (ABNORMAL) Comprehensive Metabolic Panel (04/06/2018 1:14 PM EST) Glucose 94 70 - 100 mg/dL 04/06/2018 1:58 PM EST [facility] BUN 12 9 - 23 mg/dL 04/06/2018 1:58 PM EST [facility] Creatinine 0.89 0.60 - 1.30 mg/dL 04/06/2018 1:58 PM EST [facility] Sodium 137 132 - 146 mmol/L 04/06/2018 1:58 PM EST [facility] Potassium 3.9 3.5 - 5.5 mmol/L 04/06/2018 1:58 PM [facility] Chloride 106 99 - 109 mmol/L 04/06/2018 1:58 PM [facility] CO2 29.0 20.0 - 31.0 mmol/L 04/06/2018 1:58 PM [facility] Calcium 9.0 8.7 - 10.4 mg/dL 04/06/2018 1:58 PM [facility] Total Protein 6.2 5.7 - 8.2 g/dL 04/06/2018 1:58 PM [facility] Albumin 4.03 3.20 - 4.80 g/dL 04/06/2018 1:58 PM [facility] ALT (SGPT) 46(H) 7 - 40 U/L 04/06/2018 1:58 PM [facility] AST (SGOT) 31 0 - 33 U/L 04/06/2018 1:58 PM [facility] Alkaline Phosphatase 81 25 - 100 U/L 04/06/2018 1:58 PM [facility] Total Bilirubin 0.4 0.3 - 1.2 mg/dL 04/06/2018 1:58 PM [facility] eGFR Non Amer 90 >60 mL/min/1.7 3 04/06/2018 1:58 PM [facility] Globulin 2.2 gm/dL 04/06/2018 1:58 PM [facility] A/G Ratio 1.9 1.5 - 2.5 g/dL 04/06/2018 1:58 PM [facility] BUN/Creatinine Ratio 13.5 7.0 - 25.0 04/06/2018 1:58 PM [facility] Anion Gap 2.0(L) 3.0 - 11.0 mmol/L 04/06/2018 1:58 PM [facility] Blood Venipuncture / Unknown 04/06/2018 1:14 PM EST 04/06/2018 1:36 PM [facility] LAB[facility]AT[facility] - 04/06/2018 1:58 PM [facility] National Kidney Foundation Guidelines Stage ? Description ?GFR 1 ? Normal or High ? 90+ 2 ? Mild decrease ?60-89 3 ? Moderate decrease ??30-59 4 ? Severe decrease ?15-29 5 ? Kidney failure ? <15 The MDRD GFR formula is only valid for adults with stable renal function between ages 18 and 70. us Miguel FINLEY LAB BLOOD ORDERABLES Final Res ult [facility]
[address] [place] [address], documented in this encounter Visit Diagnoses Diagnosis AVD (aortic valve disease)- Primary Aortic valve disorders AVD (aortic valve disease) Aortic valve disorders documented in this encounter Care Teams [employer] Relationship Specialty Start Date End Date Kaushal Kuo MD PCP - General Emergency Medicine 02/23/18 08/06/22 documented as of this encounter
--- OUTSIDE RECORDS SUMMARY | 2024-02-29 15:34 | XMS_ITS | Encounter Summary ---
Author Organization [facility] Address [address] [place] [address] Care Team Providers [employer] Name Role Phone Provider, No Known Primary Care Provider Unavail able Reason for Visit * Reason Comments Consult New patient per MALIA Covington for aortic stenosis * Consultation (Routine) - Closed Specialty Diagnoses / Procedures Referred By Gianluca t Referred To Contact Cardiothoracic Surgery Diagnoses Aortic stenosis [place], [place] [address] Jose Wilson MD Referral ID Status Reason Start Date Expiration Date Visits Re quested Visits Authorized [id number] Closed 01/29/2018 01/29/2019 1 1 Encounter Details Date Type Department Care Team (Latest Contact Info) Description 02/05/2018 12:00 PM EST Office Visit [facility] CARDIOTHORACIC SURGERY [address] [place] [address] Jose Wilson MD Aortic valve disorder (Primary Dx) Social History Tobacco Use Types Packs/Day Years Used Date Smoking Tobacco: Every Day Cigarettes 1 30 Smokeless Tobacco: Never Comments:Pt reports 30+ year smoking history Alcohol Use Standard Drinks/Week Comments No 0 (1 standard drink = 0.6 oz pur e alcohol) Sex and Gender Information Value Date Recorded Sex Assigned at Not on file Legal Sex Male 11:45 AM EDT Gender Identity Not on file Sexual Orientation Not on file documented as of this encounter Last Filed Vital Signs Vital Sign Reading Time Taken Comments Blood Pressure 100/70 02/05/2018 11:20 AM EST Pulse 73 02/05/2018 11:20 AM EST Temperature 36.7 ??C (98 ??F) 02/05/2018 11:20 AM EST Respiratory Rate - - Oxygen Saturation 96% 02/05/2018 11:20 AM EST Inhaled Oxygen Concentration - - Weight 123 kg (272 lb) 02/05/2018 11:20 AM EST Height 182.9 cm (6') 02/05/2018 11:20 AM EST Body Mass Index 36.89 02/05/2018 11:20 AM EST documented in this encounter Progress Notes * Jose Wilson MD - 02/05/2018 12:00 PM EST 02/05/[address] [facility] [address] [address] [place] [address] 1965 'PCP/Referring Physician' Provider, No Known None Provider, No Known Chief Complaint Patient presents with ??? Consult New patient per MALIA Mcgarry for aortic stenosis CC: I have a bad valve from rheumatic fever History of Present Illness: 58-year-old male being seen at the request of Dr. Schmidt in [place] for evaluation of aortic stenosis. 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 He has had a known heart murmur for the past 35 years. In the past 4 or 5 years he's had progressive increasing ease of fatigue with physical activity. He has not had anginal quality chest pain. He d enies congestive heart failure, shortness of breath, and syncope. His health is otherwise good. He is allergic to penicillin. He has an ongoing tobacco abuse. There is no problem list on file for this patient. Past Medical History: Diagnosis Date ??? Anxiety ??? Depression ??? GERD (gastroesophageal reflux disease) History reviewed. No pertinent surgical history. Current Outpatient Prescriptions: ??? vitamin D (ERGOCALCIFEROL) 76650 units capsule capsule, Take 50,000 Units by mouth 1 (One) TimePer Week., Disp: , Rfl: Allergies Allergen Reactions ??? Penicillins Hives Social History Social History ??? Marital status: Other Spouse name: N/A ??? Number of children: N/A ??? Years of education: N/A Occupational History ??? Not on file. Social History Main Topics ??? Smoking status: Current Every Day Smoker Packs/day: 1.00 Years: 30.00 Types: Cigarettes ??? Smokeless tobacco: Never Used Comment: Pt reports 30+ year smoking history ??? Alcohol use No ??? Drug use: Unknown ??? Sexual activity: Not on file Other Topics Concern ??? Not on file Social History Narrative ??? No narrative on file Family History Problem Relation Age of Onset ??? Cancer Mother ??? Heart disease Father Review of Systems Constitution: Positive for fever (yesterday morning ) and malaise/fatigue (for the past year ). Negative for chills, night sweats and weight loss. HENT: Negative for congestion, hearing loss, odynophagia and sore throat. Eyes: Negative for blurred vision and double vision. Cardiovascular: Positive for chest pain and palpitations. Negative for claudication, dyspnea on exertion, leg swelling and orthopnea. Respiratory: Negative for cough, hemoptysis and shortness of breath. Endocrine: Negative for cold intolerance, heat intolerance, polydipsia, polyphagia and polyuria. Hematologic/Lymphatic: Does not bruise/bleed easily. Skin: Negative for itching and rash. Musculoskeletal: Positive for back pain. Negative for joint pain, joint swelling, muscle cramps, muscle weakness, myalgias and neck pain. Gastrointestinal: Negative for abdominal pain, constipation, diarrhea, hematemesis, hematochezia, melena, nausea and vomiting. Genitourinary: Negative for dysuria, frequency and hematuria. Neurological: Positive for dizziness, light-headedness and loss of balance. Negative for focal weakness, headaches, numbness, paresthesias and seizures. Psychiatric/Behavioral: Negative for depression and suicidal ideas. The patient is not nervous/anxious. All other systems reviewed and are negative. Vitals: 02/05/18 1120 BP: 100/70 BP Location: Right arm Patient Position: Sitting Pulse: 73 Temp: 98 ??F (36.7 ??C) SpO2: 96% Weight: 123 kg (272 lb) Height: 182.9 cm (72 ) Physical [...] deviation present. No thyromegaly present. Cardiovascular: Normal rate, regular rhythm and intact distal pulses. Murmur heard. III/ systolic murmur RSB----> neck and ----> back Pulmonary/Chest: Effort normal and breath sounds normal. No respiratory distress. He has no wheezes. He has no rales. He exhibits no tenderness. Abdominal: Soft. Bowel sounds are normal. He exhibits no distension and no mass. There is no tenderness. Musculoskeletal: Normal range of motion. He exhibits no edema. 1+ edema of the lower extremities Lymphadenopathy: He has no cervical adenopathy. Neurological: He is alert and oriented to person, place, and time. He has normal reflexes. No cranial nerve deficit. Skin: Skin is warm and dry. No rash noted. No erythema. Psychiatric: He has a normal mood and affect. Labs/Imaging: Report of an echocardiogram reviewed which demonstrated aortic stenosis with a mean gradient greater than 50 and velocities approaching 4 m/s. Assessment: This man has aortic stenosis (rheumatic) and will require aortic valve replacement. He is currently relatively asymptomatic with only ease of fatigue. Plan: This gentleman will require cardiac catheterization with coronary angiography. Possible transesophageal echocardiogram may also be necessary along with bilateral carotid ultrasounds, pulmonary function tests, and general laboratory studies. Once these studies are completed we can proceed withaortic valve replacement. I have had a long discussion with the patient in regard to type of valve utilized. I have outlined the risks and benefits of a mechanical aortic valve and risks and benefitsof a biologic. I have discussed the operative procedure its risks and its benefits. Risks of the procedure such as stroke, heart attack, , infection, bleeding, respiratory insufficiency, renal in sufficiency, and possible peripheral nerve injury. The patient understands the procedure its risks and benefits. He will discuss his options with his family and will call back if he decides to proceed. documented in this encounter Plan of Treatment Upcoming Encounters Date Type Department Care Team (Late st Contact Info) Description 09/01/2024 1:30 PM EDT Office Visit [facility] CARDIOLOGY [address] [facility] [address] [place] [id number] Kaushal Singleton MD [address] [facility] [address] [place] [address] documented as of this encounter Visit Diagnoses Diagnosis Aortic valve disorder- Primary Aortic valve disorders documented in this encounter Care Teams [employer] Relationship Specialty Start Date End Date Provider, [place] [address] PCP - General 02/05/18 02/22/18 documented as of this encounter
--- OUTSIDE RECORDS SUMMARY | 2024-02-29 15:34 | XMS_ITS | Encounter Summary ---
Author Organization [facility] Address [address] [place] [address] Care Team Providers Care Hot Mill Roller Name Role Phone Kaushal Kuo MD Primary Care Provider [phone] Encounter Details Date Type Department Care Team (Late st Contact Info) Description 02/23/2018 Prep for Surgery [facility] ORDERS ONLY [address] [place] [address] Shauna Andrews, DERRICK FOLLOWER [address] [place], [place] [id number] Chest pain, unspecified type (Primary Dx) Social History Tobacco Use Types [...] Description 09/01/2024 1:30 PM EDT Office Visit [facility] [address] [place] [address] Kaushal Singleton MD [address] [place], [place] [id number] documented as of this encounter Results * (ABNORMAL) Hemoglobin A1c (02/23/2018 4:52 PM EST) Hemoglobin A1C 6.00(H) 4.80 - 5.60 % 02/23/2018 5:44 PM EST [facility] Blood Venipuncture / Unknown 02/23/2018 4:52 PM EST 02/23/2018 5:02 PM EST Narrative [facility] - 02/23/2018 5:44 PM EST The [place] [employer] recommends maintenance of Hemoglobin A1C at 7.0% or lower. Goals for Hemoglobin A1C reduction may need to be modified if hypoglycemia is a problem. Shauna Andrews APRN LAB BLOOD ORDERABLES Final R esult Performing Organization Address City/[facility]/ZIP Co de Phone Number [facility]
[address] [place] [address], [place] [phone] * Protime-INR (02/23/2018 4:52 PM EST) Pathologist [facility] [place] Protime 10.4 9.6 - 11.5 Seconds 02/23/2018 5:19 PM EST [facility] INR 0.99 0.91 - 1.09 02/23/2018 5:19 PM EST [facility] Blood Venipuncture / Unknown 02/23/2018 4:52 PM EST 02/23/2018 5:01 PM EST Shauna Andrews DERRICK FOLLOWER LAB BLOOD ORDERABLES Final R esult [facility]
[address] [place] [address], [place] [phone] * (ABNORMAL) Comprehensive metabolic panel (02/23/2018 4:52 PM EST) Pathologist [facility] [place] Glucose 89 70 - 100 mg/dL 02/23/2018 5:29 PM EST [facility] BUN 8(L) 9 - 23 mg/dL 02/23/2018 5:29 PM [facility] Creatinine 0.87 0.60 - 1.30 mg/dL 02/23/2018 5:29 PM [facility] Sodium 138 132 - 146 mmol/L 02/23/2018 5:29 PM [facility] Potassium 4.1 3.5 - 5.5 mmol/L 02/23/2018 5:29 PM [facility] Chloride 106 99 - 109 mmol/L 02/23/2018 5:29 PM [facility] CO2 28.0 20.0 - 31.0 mmol/L 02/23/2018 5:29 PM [facility] Calcium 8.9 8.7 - 10.4 mg/dL 02/23/2018 5:29 PM [facility] Total Protein 6.2 5.7 - 8.2 g/dL 02/23/2018 5:29 PM [facility] Albumin 3.92 3.20 - 4.80 g/dL 02/23/2018 5:29 PM [facility] ALT (SGPT) 47(H) 7 - 40 U/L 02/23/2018 5:29 PM [facility] AST (SGOT) 30 0 - 33 U/L 02/23/2018 5:29 PM [facility] Alkaline Phosphatase 68 25 - 100 U/L 02/23/2018 5:29 PM [facility] Total Bilirubin 0.4 0.3 - 1.2 mg/dL 02/23/2018 5:29 PM [facility] eGFR Non Amer 92 >60 mL/min/1.7 3 02/23/2018 5:29 PM [facility] Globulin 2.3 gm/dL 02/23/2018 5:29 PM [facility] A/G Ratio 1.7 1.5 - 2.5 g/dL 02/23/2018 5:29 PM [facility] BUN/Creatinine Ratio 9.2 7.0 - 25.0 02/23/2018 5:29 PM [facility] Anion Gap 4.0 3.0 - 11.0 mmol/L 02/23/2018 5:29 PM EST [facility] Blood Venipuncture / Unknown 02/23/2018 4:52 PM EST 02/23/2018 5:02 PM EST [facility] - 02/23/2018 5:29 PM EST National Kidney Foundation Guidelines Stage ? Description ?GFR 1 ? Normal or High ? 90+ 2 ? Mild decrease ?60-89 3 ? Moderate decrease ??30-59 4 ? Severe decrease ?15-29 5 ? Kidney failure ? <15 The MDRD GFR formula is only valid for adults with stable renal function between ages 18 and 70. us Shauna Andrews DERRICK FOLLOWER LAB BLOOD ORDERABLES Final R esult [facility]
[address] [place] [address], * (ABNORMAL) CBC (No diff) (02/23/2018 4:52 PM EST) WBC 10.75 3.50 - 10.80 10*3/mm3 02/23/2018 5:17 PM EST [facility] RBC 4.60 4.20 - 5.76 10*6/mm3 02/23/2018 5:17 PM EST [facility] Hemoglobin 14.5 13.1 - 17.5 g/dL 02/23/2018 5:17 PM EST [facility] Hematocrit 42.7 38.9 - 50.9 % 02/23/2018 5:17 PM EST [facility] MCV 92.8 80.0 - 99.0 fL 02/23/2018 5:17 PM EST [facility] MCH 31.5(H) 27.0 - 31.0 pg 02/23/2018 5:17 PM EST [facility] MCHC 34.0 32.0 - 36.0 g/dL 02/23/2018 5:17 PM EST [facility] RDW 13.6 11.3 - 14.5 % 02/23/2018 5:17 PM EST [facility] RDW-SD 45.8 37.0 - 54.0 fl 02/23/2018 5:17 PM EST [facility] MPV 11.9 6.0 - 12.0 fL 02/23/2018 5:17 PM EST [facility] Platelets 157 150 - 450 10*3/mm3 02/23/2018 5:17 PM EST [facility] Blood Venipuncture / Unknown 02/23/2018 4:52 PM EST 02/23/2018 5:01 PM EST us Shauna Andrews DERRICK FOLLOWER LAB BLOOD ORDERABLES Final R esult [facility]
[address] [place] [address], documented in this encounter Visit Diagnoses Diagnosis Chest pain, unspecified type- Primary documented in this encounter Care Teams Hot Mill Roller Relationship Specialty Start Date End Date Kaushal Kuo MD PCP - General Emergency Medicine 02/23/18 08/06/22 documented as of this encounter
[2024-02-29 15:46] VITALS: BP 166/99; PULSE 79; RESP 18; TEMP 36.7; O2SAT 95; BMI 38.2
--- NOTE | 2024-02-29 15:46 | PC.NURSE ---
arrived by w/c from ED
[2024-02-29 15:52] LABS: WBC,Urine Occasional #/hpf (0-3)
[2024-02-29 16:17] VITALS: PULSE 70
[2024-02-29 16:41] VITALS: BP 127/89
[2024-02-29 17:15] LABS: Troponin I < 0.01 ng/ml (0.00-0.034)
[2024-02-29 19:20] LABS: Troponin I < 0.01 ng/ml (0.00-0.034)
[2024-02-29 20:00] VITALS: BP 120/73; PULSE 70; PULSE 71; RESP 16; TEMP 36.7; O2SAT 95
[2024-02-29] MEDS: ASPIRIN 325MG TABLET 325 MG PO (20:09)
[2024-02-29] MEDS: ATORVASTATIN 40MG TABLET 40 MG PO (20:10)
[2024-03-01] VITALS: PULSE 70
[2024-03-01 04:00] VITALS: BP 107/68; PULSE 68; PULSE 80; RESP 16; TEMP 36.7; O2SAT 95; BMI 38.1
--- NOTE | 2024-03-01 06:45 | MR_ITS ---
FINAL REPORT CLINICAL HISTORY: TIA SYMPTOMS, CEREBRAL CALCIFICATIONS COMPARISON: CT of the head 02/29/2024 FINDINGS: Multiplanar MR imaging of the brain was performed without contrast. There is mild age-appropriate atrophy. There are scattered foci of increased T2 signal in the cerebral white matter that have a nonspecific appearance but likely represent mild chronic ischemic/gliotic changes. There are multiple subarachnoid versus cortical calcifications again noted, as seen on the CT from February 28. There is restricted diffusion in the left insula, measuring up to 15 mm in size, consistent with an acute infarct. A small focus of restricted diffusion extends into the left centrum semiovale as well. There is no evidence of intracranial hemorrhage or mass. No abnormal ventricular dilatation is identified. No abnormal extra-axial fluid collection is seen. The posterior fossa and brainstem are unremarkable. Normal major vessel vascular flow voids are seen. There is mild mucosal thickening in the paranasal sinuses. IMPRESSION: There is restricted diffusion in the left insular region measuring up to 15 mm in size consistent with an acute infarct. A small focus of restricted diffusion extends into the left centrum semiovale. Age-appropriate atrophy and mild chronic ischemic/gliotic changes. These results were called to Dr. Rg 03/01/2024 at 10:38 AM. Reviewed, Interpreted and Dictated by Bennie Rudolph III, MD Transcribed by Lizeth Schwartz Authenticated and [facility]
[2024-03-01 07:19] LABS: Basophils # 0.1 K/mm3 (0-0.2); Eosinophils # 0.2 K/mm3 (0.0-0.4); Eosinophils % 2.5 % (0.1-12.0); Hematocrit 44.5 % (42.0-52.0); Hemoglobin 15.2 g/dL (14.1-18.0); Lymphocytes # 3.2 K/mm3 (0.7-4.5); Lymphocytes % 38.7 % (10-50); Mean Corpuscular HGB Conc 34.3 g/dL (31.8-35.4); Mean Corpuscular Hemoglobin 32.3 pg (27.0-31.2); Mean Corpuscular Volume 94.3 fl (80-94); Mean Platelet Volume 8.8 fl (7.4-10.4); Monocytes # 0.6 K/mm3 (0.1-1.0); Monocytes % 6.8 % (1.7-9.3); Neutrophils # 4.2 K/mm3 (1.8-7.8); Platelet Count 153 K/mm3 (142-424); Red Blood Count 4.72 M/mm3 (4.60-6.20); Red Cell Distribution Width 13.8 % (11.5-17.5); White Blood Count 8.3 K/mm3 (4.8-10.8)
[2024-03-01 07:27] LABS: Alanine Aminotransferase 31 U/L (12-78); Albumin Level 3.6 g/dl (3.5-5.0); Albumin/Globulin Ratio 1.3 (1.1-1.8); Alkaline Phosphatase 67 U/L (38-126); Anion Gap 9.6 mEq/L (5-15); Aspartate Amino Transferase 33 U/L (17-59); Bilirubin,Total 0.7 mg/dl (0.2-1.3); Blood Urea Nitrogen 10 mg/dl (9-20); Calcium 8.7 mg/dl (8.4-10.2); Carbon Dioxide 27 mmol/L (22.0-30.0); Chloride 105 mmol/L (98-107); Creatinine Clearance Estimated 182 mL/min (50-200); Estimated Glomerular Filt Rate 99 ml/min (>60); GFR (African American) 120 ML/MIN (>60); Globulin 2.7 g/dL (1.3-3.2); Glucose 123 mg/dl (74-100); Magnesium 1.8 mg/dl (1.6-2.3); Potassium 3.6 mmoL/L (3.5-5.1); Sodium 138 mmol/L (136-145); Total Protein,Serum 6.3 g/dl (6.3-8.2)
[2024-03-01 08:00] VITALS: BP 144/75; PULSE 70; PULSE 73; RESP 18; TEMP 36.8; O2SAT 96
--- NOTE | 2024-03-01 08:23 | HMH.PHAINT1 ---
Pharmacy Intervention Comments: HOME MEDICATIONS VERIFIED VIA OUTPATIENT PHARMACY
[2024-03-01] MEDS: ASPIRIN EC 81MG TABLET 81 MG PO (09:27)
[2024-03-01] MEDS: METOPROLOL SUCCINATE XL 50MG TABLET 50 MG PO (09:27)
[2024-03-01] MEDS: CLOPIDOGREL 75MG TAB 75 MG PO (09:27)
--- NOTE | 2024-03-01 11:35 | EXP.DC.SUM ---
General Admission date:: 02/29/24 Discharge date: 03/01/24 HPI HPI HPI: Mr. Rojas is a 58-year-old male with history of hypertension and rheumatic fever necessitating aortic valve replacement. Presented to the ER this morning via EMS after having an episode at [facility] where he felt weak and had difficulty completing his checkout. Concern for word finding difficulty and became frustrated. Able to complete his checkout order but did not quite feel back to normal. Got home shortly thereafter and was trying to bring his groceries and when he noticed he had nearly no lighter captain in his right hand. EMS was called. On arrival, the symptoms had largely resolved. No right lower extremity symptoms. Patient did not have any fall or loss of consciousness. Denies any chest pain or shortness of breath. Brought to the ER for further management. On arrival, NIH of 0. CT of head obtained showing punctate cerebral calcifications. No acute findings however. Necessitating admission for evaluation for TIA. Medicine consulted for further management. On arrival to the floor, patient is alert and oriented x 4. Marginal weakness in right hand compared to left but lighter captain strength still 5/5 bilaterally. Stable on room air. No other significant complaints. Hospital Course Hospital Course Hospital Course: 58-year-old male who had episode of aphasia and right upper extremity weakness while at [facility] earlier today. On presentation to the ER, symptoms improving and CT with no acute findings. Case discussed with ER physician, request admission for further management and monitoring given concern for TIA. I agreed to admit. Will obtain MRI and echo in the morning. Problems addressed as follows: Stroke -Patient had right upper extremity weakness and aphasia. Aphasia resolved. Marginal weakness in right hand on admission. Resolved by morning of discharge. CT head no ischemic or acute findings. Does of note have multiple punctate calcifications of unknown significance however. No known history of eating undercooked pork that he is aware of. RPR ordered to evaluate for possible syphilis. Patient does have bioprosthetic aortic valve, echo obtained showing no vegetations. MRI obtained on morning of discharge with following findings: There is restricted diffusion in the left insular region measuring up to 15 mm in size consistent with an acute infarct. A small focus of restricted diffusion extends into the left centrum semiovale. Age-appropriate atrophy and mild chronic ischemic/gliotic changes. Patient initiated on aspirin 325 mg once on admission. Continue 81 mg daily with Plavix 75 g daily for 21 days total. Would benefit from referral as outpatient to neurology. Will defer to PCP. History of rheumatic fever with aortic valve replacement -Not on any anticoagulation. Denies any symptoms of chest pain or fatigue. Hypertension: On metoprolol succinate 50 mg daily. Blood pressure optimal on day of discharge. No additions or adjustments made Total time spent on discharge 32 minutes in counseling, documentation, chart review, and direct care with patient. Exam Data for Last 24 hours Vital signs and Labs for Last 24 Hours: Temp Pulse Resp BP Pulse Ox O2 Del Method 98.2 F 73 18 144/75 H 96 Room Air 03/01/24 08:00 03/01/24 08:00 03/01/24 08:00 03/01/24 08:00 03/01/24 08:00 03/01/24 10:36 Laboratory Results - last 24 hr 02/29/24 12:55: WBC 10.8, RBC 5.13, Hgb 16.6, Hct 48.3, MCV 94.1 H, MCH 32.4 H, MCHC 34.4, RDW 13.9, Plt Count 169, MPV 10.7 H, Neut % (Auto) 64.4, Lymph % (Auto) 25.6, [place] % (Auto) 6.4, Eos % (Auto) 2.1, Baso % (Auto) 1.5, Neut # (Auto) 6.9, Lymph # (Auto) 2.8, [place] # (Auto) 0.7, Eos # (Auto) 0.2, Baso # (Auto) 0.2 02/29/24 13:12: HIV 1&2 Antibody Rapid Nonreactive 02/29/24 13:14: PT 10.8, INR 0.96, APTT 24.6, Sodium 135 L, Potassium 4.3, Chloride 105, Carbon Dioxide 28, Anion Gap 6.3, BUN 10, Creatinine 1.00, Estimated Creat Clear 145, Estimated GFR 77, Est GFR ( Amer) 93, Glucose 106 H, Hemoglobin A1c 5.7, Calcium 8.6, Total Bilirubin 0.5, AST 33, ALT 29, Alkaline Phosphatase 67, Troponin I < 0.01, Total Protein 6.1 L, Albumin 3.4 L, Globulin 2.7, Albumin/Globulin Ratio 1.3, Triglycerides 91, Cholesterol 131 L, LDL Cholesterol Direct 87.75 L, VLDL Cholesterol 18, HDL Cholesterol 28 L, Cholesterol/HDL Ratio 4.7 H, Plasma/Serum Alcohol < 10 02/29/24 14:39: Urine Color Yellow, Urine Appearance Clear, Urine pH 7.5, Ur Specific [place] 1.015, Urine Protein Negative, Urine Glucose (UA) Negative, Urine Ketones Negative, Urine Blood Trace-i, Urine Nitrate Negative, Urine Bilirubin Negative, Urine Urobilinogen 1.0, Ur Leukocyte Esterase Negative, Urine RBC 3-5, Urine WBC Occasional 02/29/24 16:00: Troponin I < 0.01 02/29/24 18:54: Troponin I < 0.01 03/01/24 06:05: WBC 8.3, RBC 4.72, Hgb 15.2, Hct 44.5, MCV 94.3 H, MCH 32.3 H, MCHC 34.3, RDW 13.8, Plt Count 153, MPV 8.8, Neut % (Auto) 51.0, Lymph % (Auto) 38.7, [place] % (Auto) 6.8, Eos % (Auto) 2.5, Baso % (Auto) 1.0, Neut # (Auto) 4.2, Lymph # (Auto) 3.2, [place] # (Auto) 0.6, Eos # (Auto) 0.2, Baso # (Auto) 0.1, Sodium 138, Potassium 3.6, Chloride 105, Carbon Dioxide 27, Anion Gap 9.6, BUN 10, Creatinine 0.80, Estimated Creat Clear 182, Estimated GFR 99, Est GFR ( Amer) 120 D, Glucose 123 H, Calcium 8.7, Magnesium 1.8, Total Bilirubin 0.7, AST 33, ALT 31, Alkaline Phosphatase 67, Total Protein 6.3, Albumin 3.6, Globulin 2.7, Albumin/Globulin Ratio 1.3 I & O for Last 24 hours: Intake & Output 02/27/24 02/28/24 02/29/24 03/01/24 23:59 23:59 23:59 23:59 Intake Total 480 / 720 780 / 780 Output Total 300 / 600 600 / 600 Balance 180 / 120 180 / 180 Weight 127.686 kg 127.686 kg Constitutional Constitutional: no acute distress, obese and cooperative *Routine HEENT Exam Head: Present normocephalic Eye: Present EOMI and PERRL ENT: Present mucous membranes moist *Routine Neck Exam Neck: Present supple; Absent lymphadenopathy *Routine Respiratory Exam Respiratory: Present CTA bilaterally *Routine Cardiovascular Exam Cardiovascular: Present RRR *Routine Abdominal Exam Abdominal: Present soft and normoactive bowel sounds; Absent tenderness *Routine Rectal Exam Patient deferred: visual exam *Routine Exam Patient deferred: penile exam *Routine Extremities Exam Extremities: Absent cyanosis, clubbing or edema *Routine Skin Exam Skin: Present warm; Absent rash *Routine Neurological Exam Neurological: Present alert, oriented X3, CN II-XII intact, moving all extremities, vision grossly intact and normal speech; Absent sensory deficit, motor deficit, altered mental status, abnormal gait or facial asymmetry Results Data Completed and Pending Labs on day of discharge: Labs from last 24 hours 03/01/24 02/29/24 02/29/24 06:05 18:54 16:00 WBC 8.3 RBC 4.72 Hgb 15.2 Hct 44.5 MCV 94.3 H MCH 32.3 H MCHC 34.3 RDW 13.8 Plt Count 153 MPV 8.8 Neut % (Auto) 51.0 Lymph % (Auto) 38.7 [place] % (Auto) 6.8 Eos % (Auto) 2.5 Baso % (Auto) 1.0 Neut # (Auto) 4.2 Lymph # (Auto) 3.2 [place] # (Auto) 0.6 Eos # (Auto) 0.2 Baso # (Auto) 0.1 PT INR APTT Sodium 138 Potassium 3.6 Chloride 105 Carbon Dioxide 27 Anion Gap 9.6 BUN 10 Creatinine 0.80 Estimated Creat Clear 182 Estimated GFR 99 Est GFR ( Amer) 120 D Glucose 123 H Hemoglobin A1c Calcium 8.7 Magnesium 1.8 Total Bilirubin 0.7 AST 33 ALT 31 Alkaline Phosphatase 67 Troponin I < 0.01 < 0.01 Total Protein 6.3 Albumin 3.6 Globulin 2.7 Albumin/Globulin Ratio 1.3 Triglycerides Cholesterol LDL Cholesterol Direct VLDL Cholesterol HDL Cholesterol Cholesterol/HDL Ratio Urine Color Urine Appearance Urine pH Ur Specific [place] Urine Protein Urine Glucose (UA) Urine Ketones Urine Blood Urine Nitrate Urine Bilirubin Urine Urobilinogen Ur Leukocyte Esterase Urine RBC Urine WBC Plasma/Serum Alcohol HIV 1&2 Antibody Rapid 02/29/24 02/29/24 02/29/24 14:39 13:14 13:12 WBC RBC Hgb Hct MCV MCH MCHC RDW Plt Count MPV Neut % (Auto) Lymph % (Auto) [place] % (Auto) Eos % (Auto) Baso % (Auto) Neut # (Auto) Lymph # (Auto) [place] # (Auto) Eos # (Auto) Baso # (Auto) PT 10.8 INR 0.96 APTT 24.6 Sodium 135 L Potassium 4.3 Chloride 105 Carbon Dioxide 28 Anion Gap 6.3 BUN 10 Creatinine 1.00 Estimated Creat Clear 145 Estimated GFR 77 Est GFR ( Amer) 93 Glucose 106 H Hemoglobin A1c 5.7 Calcium 8.6 Magnesium Total Bilirubin 0.5 AST 33 ALT 29 Alkaline Phosphatase 67 Troponin I < 0.01 Total Protein 6.1 L Albumin 3.4 L Globulin 2.7 Albumin/Globulin Ratio 1.3 Triglycerides 91 Cholesterol 131 L LDL Cholesterol Direct 87.75 L VLDL Cholesterol 18 HDL Cholesterol 28 L Cholesterol/HDL Ratio 4.7 H Urine Color Yellow Urine Appearance Clear Urine pH 7.5 Ur Specific [place] 1.015 Urine Protein Negative Urine Glucose (UA) Negative Urine Ketones Negative Urine Blood Trace-i Urine Nitrate Negative Urine Bilirubin Negative Urine Urobilinogen 1.0 Ur Leukocyte Esterase Negative Urine RBC 3-5 Urine WBC Occasional Plasma/Serum Alcohol < 10 HIV 1&2 Antibody Rapid Nonreactive 02/29/24 12:55 WBC 10.8 RBC 5.13 Hgb 16.6 Hct 48.3 MCV 94.1 H MCH 32.4 H MCHC 34.4 RDW 13.9 Plt Count 169 MPV 10.7 H Neut % (Auto) 64.4 Lymph % (Auto) 25.6 [place] % (Auto) 6.4 Eos % (Auto) 2.1 Baso % (Auto) 1.5 Neut # (Auto) 6.9 Lymph # (Auto) 2.8 [place] # (Auto) 0.7 Eos # (Auto) 0.2 Baso # (Auto) 0.2 PT INR APTT Sodium Potassium Chloride Carbon Dioxide Anion Gap BUN Creatinine Estimated Creat Clear Estimated GFR Est GFR ( Amer) Glucose Hemoglobin A1c Calcium Magnesium Total Bilirubin AST ALT Alkaline Phosphatase Troponin I Total Protein Albumin Globulin Albumin/Globulin Ratio Triglycerides Cholesterol LDL Cholesterol Direct VLDL Cholesterol HDL Cholesterol Cholesterol/HDL Ratio Urine Color Urine Appearance Urine pH Ur Specific [place] Urine Protein Urine Glucose (UA) Urine Ketones Urine Blood Urine Nitrate Urine Bilirubin Urine Urobilinogen Ur Leukocyte Esterase Urine RBC Urine WBC Plasma/Serum Alcohol HIV 1&2 Antibody Rapid DS: Diagnosis Discharge Diagnosis (1) Stroke: Status: Acute Code(s): I63.9 - Cerebral infarction, unspecified (2) Class 2 obesity: Status: Acute Code(s): E66.812 - Obesity, class 2 (3) HTN (hypertension): Status: Chronic Code(s): I10 - Essential (primary) hypertension Qualifiers: Hypertension type: primary hypertension Qualified Code(s): I10 - Essential (primary) hypertension (4) Cerebral calcification: Status: Acute Code(s): G93.89 - Other specified disorders of brain Meds Home Medications and Allergies Home Medications ?Medication ?Instructions ?Recorded ?Confirmed ?Type aspirin 81 mg tablet,delayed 81 mg PO DAILY 08/06/18 03/01/24 History release (Adult Low Dose Aspirin) metoprolol succinate 50 mg 50 mg PO DAILY 08/06/18 03/01/24 History tablet,extended release 24 hr atorvastatin 40 mg tablet 40 mg PO HS #30 tabs 03/01/24 Rx clopidogrel 75 mg tablet 75 mg PO DAILY 21 days #21 tabs 03/01/24 Rx New Prescriptions to Start Prescriptions: atorvastatin Carlos Manuel Rg clopidogrel Carlos Manuel Rg Allergies Allergy/AdvReac Type Severity Reaction Status Date / Time penicillin G Allergy Mild Hives Verified 11/19/18 10:44 Discharge Plan Disposition Patient Disposition: Home, Self-Care Condition: Fair Follow up Plan Follow up with: Linda Palm APRN [Nurse Practitioner] - 03/08/24 3:15 pm Prescriptions/Medication Reconciliation: New atorvastatin 40 mg Tablet 40 mg PO HS Qty: 30 0RF clopidogrel 75 mg Tablet 75 mg PO DAILY 21 Days Qty: 21 0RF Continued aspirin [Adult Low Dose Aspirin] 81 mg tablet,delayed release (DR/EC) 81 mg PO DAILY metoprolol succinate 50 mg tablet extended release 24 hr 50 mg PO DAILY Problem Reconciliation Problems Reviewed?: Yes Patient Discharge Instructions ACTIVITY: Continue current activity DIET: continue same diet Patient Instructions: DI for Stroke-Ischemic, DI for Transient Ischemic Attack Print Language: Georgian Providers Primary Care Provider: Provider,Referral Admit Provider: Carlos Manuel Rg Attending Provider: Carlos Manuel Rg
[2024-03-01 12:00] VITALS: PULSE 60
--- NOTE | 2024-03-01 16:15 | CA_ITS ---
APPROVED REPORT EXAM: Comprehensive 2D, Doppler, and color-flow Echocardiogram Medical Safety Director: Estella Jackson RDCS Ht: 6 ft 0 in Wt: 281lbs BSA: 2.46 BP: 150/84 mmHg Indications: AVR TISSUE VALVE,HTN M-Mode Dimensions RVDd 2.23 cm (0.9-2.6) LA Diam 3.27 cm (1.9-4.0) LVDd 6.02 cm (3.5-5.7) LVDs 4.33 cm (3.5-5.7) IVSd 1.20 cm (0.6-1.1) PWd 0.80 cm (0.6-1.1) EF (Teich) 53.50% FS 28.10% EDV (Teich) 181.40 mL ESV (Teich) 84.40 mL LV Diastology E Decel Time 200 (160-240 msec) E/A Ratio 0.9 Aortic Valve GUERLINE Index 0.71 cm2/m2 AoV Peak Rui. 302.0 (50-130 cm/s) AO Peak GR. 36.40 mmHg AO Mean GR. 17.70 (<5 mmHg) AO VTI 58.5 (18-25 cm) GUERLINE (VTI) 1.80 (2.5-4.5 cm2) Mitral Valve MV E Max Rui. 77.0 (40-130 cm/s) MV A Velocity 82.0 (40-130 cm/s) E/A Ratio 0.93 MV PHT 59.0 ms Tricuspid Valve TR P. Velocity 226.00 cm/s RAP Estimate 10.00 mmHg RVSP 30.40 mmHg Left Ventricle The left ventricle is normal size. The left ventricular systolic function is normal. The left ventricular ejection fraction is within the normal range. There is increased LV wall thickness. There is normal LV segmental wall motion. The left ventricular diastolic function is normal. LVEF is 55%. Right Ventricle The right ventricle is normal size. The right ventricular systolic function is normal. Atria The left atrium size is normal. The right atrium size is normal. There is no Doppler evidence of interatrial shunt. Aortic Valve s/p bioprosthetic AVR Peak velocity 3.0 m/s. Mean AV gradient 18 mmHg. Max AV gradient 37 mmHg. Acceleration time 80 ms. Trace aortic regurgitation. Mitral Valve The mitral valve is normal in structure. No evidence of mitral valve stenosis. Trace mitral regurgitation. Tricuspid Valve Tricuspid valve is grossly normal in structure and function. Trace tricuspid regurgitation. There is insufficient TR jet to estimate RVSP. Pulmonic Valve The pulmonary valve is normal in structure. Trace pulmonic regurgitation. Great Vessels The aortic root is normal in size. IVC is normal in size and collapses >50% with inspiration. Pericardium There is no pericardial effusion. Other Information Study Quality: Fair Conclusion Normal biventricular systolic function. s/p bioprosthetic AVR. Transaortic gradients may be acceptable, but baseline values are not available (peak velocity 3.0 m/s, mean AV gradient 18 mmHg, max AV gradient 37 mmHg. Acceleration time 80 ms). Clinical correlation is suggested. Electronically signed by : Kathy Sheriff MD 03/01/2024 11:42:18
[2024-03-02 05:11] LABS: HCV Ab Non Reactive (Non Reactive)
--- NOTE | 2024-03-02 10:19 | SW/DCPLANNER ---
Spoke with patient. Patient stated that he is doing well. Patient stated that he was able to get his medicine filled and that he is aware of his upcoming appointment. Patient stated that he has no concerns or questions at this time. Sam Strauss
== END 2024-03-01 12:53 | disposition home or self-care (01) ==
LOC: ER 15:22 → 2ND 15:30
PROVIDERS: Admitting Provider Internal Medicine Adolescent Medicine; Emergency Provider Emergency Medicine; Visit Provider Internal Medicine Adolescent Medicine
DX: G45.9 Transient cerebral ischemic attack, unspecified (principal); F17.210 Nicotine dependence, cigarettes, uncomplicated; Z95.2 Presence of prosthetic heart valve; E55.9 Vitamin D deficiency, unspecified; Z68.38 Body mass index [BMI] 38.0-38.9, adult; I10 Essential (primary) hypertension; G93.89 Other specified disorders of brain
CPT/HCPCS: 36415; 70450; 70496; 70498; 70551; 80053; 80061; 80320; 81001; 83036; 83735; 84484; 85025; 85610; 85730; 86803; 87389; 93005; 93306; 97165; 99285; G0378; G0480; Q9967